=== PATIENT | male | born 1955 | race Caucasian/White ===

== ENCOUNTER 2022-08-18 10:28 | Inpatient (IN) | payer SELFPAY ==
--- OUTSIDE RECORDS SUMMARY | 2022-08-18 10:36 | XMS REPORT | Continuity of Care Document ---
:1955 [facility] t Address [address] [place] [address] [place] [id number] Care Team Providers Name Role Phone [facility] Physicia n _[facility]_Todd_J Attending Clinician Unavailable Kelsey Akbar Attending Clinician Unavailable Lisa Marie LVN Attending Clinician TOMMIE GONZALEZ Attending Clinician Unavailable Abdoul Clayton DO Attending Clinician Farhan CARRENO, Rhonda Cuba Attending Clinician Randy CARRENO, Maylin Duarte Attending Clinician Renny Osorio MD Attending Clinician Daniela Antunez MD Attending Clinician Farhan CARRENO, Gladis Attending Clinician Tommie Gonzalez MD Attending Clinician Nan Amaro MD Attending Clinician Hardeep Campoverde DDS Attending Clinician ALDAIR ABEL Attending Clinician Unavailable Colten CARRENO, Aldair Shafer Attending Clinician Lamin Motta Attending Clinician Yessi PATIÑO MD, Lu Attending Clinician Shady DE PAZ, Karly Antunez Attending Clinician Unavailable Nurse, [place] Urgent Attending Clinician Unavailable Unknown, Attending Attending Clinician Unavailable UNKNOWN, ATTENDING Attending Clinician Unavailable [email or web address] Admitting Clinician Unavailable NAN AMARO Admitting Clinician Unavailable Sondra CARRENO, Nan Admitting Clinician LU DICKSON Admitting Clinician Unavailable Yessi PATIÑO MD, John Admitting Clinician Payers Payer Name Policy Type Policy Number Effective Date Expiration Date [place]re[place] villeda MEDICAID - [id number] MOVED-MGRHOLD - PENDING Problems Condition Condition Condition Status Onset Resolution Last Treating Co mments Source Name Details Category Date Date Treatment Clinician Date Hyperammon Hyperammon Problem Active [facility] emia emia 08-05 Medical 00:00: 00 Hypokalemi Hypokalemi Problem Active [facility] a a 08-05 Medical 00:00: 00 Acute Acute Problem Active [facility] hypokalemi Hypokalemi 08-05 Me dical a a 00:00: 00 Dementia Dementia Problem Active [facility] with with 08-05 Medical behavioral Behavioral 00:00: disturbanc Disturbanc 00 e e Diarrhea Diarrhea Problem Active [facility] 08-05 Medical 00:00: 00 Candidiasi Candidiasi Problem Active [facility] s of skin s of Skin 08-05 Medi oli 00:00: 00 Infection Infection Problem Active [facility] via due to Due to 08-04 Medical ESBL ESBL 00:00: Klebsiella Klebsiella 00 pneumoniae Pneumoniae Acute Acute Problem Active [facility] urinary Urinary 08-04 Medical tract Tract 00:00: infection Infection 00 Dementia Dementia Problem Active [facility] associated Associated 07-28 Me dical with with 00:00: alcoholism Alcoholism 00 Loss of Loss of Problem Active [facility] appetite Appetite 03 Medica l 00:00: 00 Dysuria Dysuria Problem Active [facility] 07-28 Medical 00:00: 00 Unintentio Unintentio Problem Active [facility] nal weight nal Weight 5-01 Me dical loss Loss 00:00: 00 Lives in a Lives in a Problem Active [facility] nursing Nursing 3-06 Medical home Home 00:00: 00 Need for Need for Problem Active [facility] personal Personal 3-06 Medica l care Care 00:00: assistance Assistance 00 At high At High Problem Active [facility] risk for Risk for 3-06 Medica l fall Fall 00:00: 00 Tinea Tinea Problem Active [facility] cruris Cruris 3-03 Medical 00:00: 00 Hyperlipid Hyperlipid Problem Active [facility] emia emia 3-03 Medical 00:00: 00 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 00 Hypercoagu Hypercoagu Problem Active [facility] lability lability 3-03 Medica l state State 00:00: 00 Major Major Problem Active [facility] depressive Depressive 3-03 Me dical disorder Disorder 00:00: 00 Alcohol Alcohol Problem Active [facility] dependence Dependence 3-03 Me dical 00:00: 00 Cocaine Cocaine Problem Active [facility] dependence Dependence 3-03 Me dical in in 00:00: remission Remission 00 Metabolic Metabolic Problem Active [facility] encephalop Encephalop 3-03 Me dical athy athy 00:00: 00 Hypertensi Hypertensi Problem Active [facility] ve heart ve Heart 3-03 Medica l disease Disease 00:00: 00 Cerebral Cerebral Problem Active [facility] atheroscle Atheroscle 3-03 Me dical rosis rosis 00:00: 00 Cerebrovas Cerebrovas Problem Active [facility] cular cular 3-03 Medical disease Disease 00:00: 00 Hemiparesi Hemiparesi Problem Active [facility] s as late s as Late 3 Medi oli effect of Effect of 00:00: cerebrovas Cerebrovas 00 cular cular accident Accident Dysphagia Dysphagia Problem Active [facility] via as a late as a Late 303 Medi oli effect of Effect of 00:00: cerebrovas Cerebrovas 00 cular cular accident Accident Peripheral Peripheral Problem Active [facility] vascular Vascular 3-03 Medica l disease Disease 00:00: 00 Intertrigo Intertrigo Problem Active [facility] 3- Medical 00:00: 00 Prediabete Prediabete Problem Active [facility] s s 05-28 Medical 00:00: 00 Recurrent Recurrent Problem Active [facility] via falls Falls 05-28 Medical 00:00: 00 Moderate Moderate Problem Active [facility] major Major 2-21 Medical depression Depression 00:00: , single , Single 00 episode Episode Toxic Toxic Problem Active [facility] metabolic Metabolic 2-21 Medi oli encephalop Encephalop 00:00: athy athy 00 Acute Acute Disease Active [facility] cerebrovas cerebrovas 2-21 it y of cular cular 00:00: [place] accident accident 00 Medica l (CVA) due (CVA) due Bran ch to to ischemia ischemia Morbid Morbid Disease Active [facility] obesity obesity 2-06 ity of with body with body 00:00[place] mass index mass index 00 Me dical of 50 or of 50 or Branch higher higher Acute Acute Disease Active [facility] weakness weakness -25 ity of 00:00: Medical Branch Closed Closed Disease Active Overview: Univer s fracture fracture -25 Formattin ity of of left of left 00:00: g of this [place] zygomatico zygomatico 00 note Me dical maxillary maxillary might be Br anch complex, complex, different initial initial from the encounter encounter original. Added automatic ally from request for surgery [id number] Abscess of Abscess of Disease Active U [facility] left hand left hand 3-07 ity of 00:00: Medical Branch Flexor Flexor Disease Active Overview: Univer s tenosynovi tenosynovi 3-07 Formattin ity of tis of tis of 00:00: g of this [place] finger finger 00 note Medical might be Branch different from the original. Added automatic ally from request for surgery [id number] Open wound Open wound Disease Active U nivers 5-12 ity of 00:00: Medical Branch Finger Finger Disease Active [facility] pain, pain, 5-12 ity of right right 00:00: Medical Branch Finger Finger Disease Active Univers infection infection 5-12 ity of 00:00: Medical Branch Numbness Numbness Disease Active 2015-0 Unive rs and and 5-12 ity of tingling tingling 00:00: [place] 00 Medical Branch Pain Pain Disease Active Univers 5-02 ity of 00:00: [place] [facility] Left Left Disease Active Univers hemiparesi hemiparesi 1-05 it y of s s 00:00: [place] 00 Medical Branch Allergies, Adverse Reactions, Alerts Allergy Allergy Status Severity Reaction(s) Onset Inactive Treating Comm ents Source Name Type Date Date Clinician NO KNOWN Drug Active Univers ALLERGIE Class ity of S [place] [facility] Social History Social Habit Start Date Stop Date Quantity Comments Source History SDOH Social Unive rsity of Connections Get [place] Med ical Together Branch History SDOH Social Unive rsity of Connections Gnosticism [place] [facility] History SDOH Social Unive rsity of Connections [place] [facility] Membership Branch History SDOH Social Unive rsity of Connections [place] [facility] Meetings Branch Alcohol intake 2022-05-18 2022-05-18 Current University of 00:00:00 00:00:00 non-drinker of [facility] alcohol (finding) Branch History SDOH 2022-04-29 2022-04-29 2 University o f Financial 00:00:00 00:00:00 [place] [facility] History SDOH Food 2022-04-29 2022-04-29 1 Univers ity of Worry 00:00:00 00:00:00 [place] [facility] History SDOH Food 2022-04-29 2022-04-29 1 Univers ity of Scarcity 00:00:00 00:00:00 [place] [facility] History SDOH 2022-04-29 2022-04-29 2 University o f Transport Non-Med 00:00:00 00:00:00 [place] M edical Branch History SDOH 2022-04-22 2022-04-22 2 University o f Alcohol Frequency 00:00:00 00:00:00 [place] M edical Branch History SDOH 2022-04-22 2022-04-22 1 University o f Alcohol Std Drinks 00:00:00 00:00:00 [place] [facility] History SDOH 2022-04-22 2022-04-22 1 University o f Alcohol Binge 00:00:00 00:00:00 [place] Medic al Branch History SDOH Social 2022-04-22 2022-04-22 98 Unive rsity of Connections Phone 00:00:00 00:00:00 [facility] edical Branch History SDOH Social 2022-04-22 2022-04-22 6 Unive rsity of Connections Living 00:00:00 00:00:00 [place] [facility] History SDOH 2022-04-22 2022-04-22 0 University o f Physical Activity 00:00:00 00:00:00 [facility] edical DPW Branch History SDPR 2022-04-22 2022-04-22 0 University o f Physical Activity 00:00:00 00:00:00 [facility] edical MPS Branch History SDPR 2022-04-22 2022-04-22 2 University o f Transport Med 00:00:00 00:00:00 [facility] al Branch Exposure to 2022-04-11 2022-04-21 Not sure University of SARS-CoV-2 (event) 00:00:00 12:52:00 [facility] Cigarettes smoked 2022-04-21 2022-04-21 Univers ity of current (pack per 00:00:00 00:00:00 [facility] ) - Reported Branch Cigarette 2022-04-21 2022-04-21 University of pack-years 00:00:00 00:00:00 [facility] Tobacco use and 2022-04-21 2022-04-21 Former smokeless Uni versity of exposure 00:00:00 00:00:00 tobacco user [facility] [place] Alcohol Comment 2014-07-27 2014-07-27 recovering Universit y of 00:00:00 00:00:00 alcoholic, sober [facility] dical 3 years Branch History of tobacco 2014-07-26 Cigarette Smoker University of use 00:00:00 [facility] Sex [birth year] Universit y of 00:00:00 00:00:00 [facility] Smoking Status Start Date Stop Date Source Former Smoker [facility] Medications Ordered Filled Start Stop Current Ordering Indication Dosage Frequency Signature Comments Components Source Medication Medication Date Date Medication? Clinician (SIG) Name Name chlorhexidi Yes 15mL 15 mL, Univ ers ne 2- Oral ity of (PERIDEX) 02:00: ([place] 0.12 % 00 Spit Out), Medical mouthwash BID, First Bran ch 15 mL dose on Tue05/19/22 at 1999, Until Discontinu ed, Routine aspirin 81 3-0 Yes 81mg Take 1 Unive rs mg chewable 2-23 tablet by ity of tablet 00:00: mouth in [place] 00 the Medical morning. Branch DULoxetine 2023-0 Yes 40mg Take 40 mg U nivers 40 mg CpDR 2-23 by mouth ity o f 00:00: in the [place] 00 morning. Medical Branch thiamine 2023-0 Yes 100mg Take 1 Univer s 100 mg 2-23 tablet by ity of tablet 00:00: mouth in [place] 00 the Medical morning. Branch aspirin 81 2023-0 Yes 81mg Take 1 Unive rs mg chewable 2-23 tablet by ity of tablet 00:00: mouth in [place] 00 the Medical morning. Branch DULoxetine 2023-0 Yes 40mg Take 40 mg U nivers 40 mg CpDR 2-23 by mouth ity o f 00:00: in the [place] morning. Medical Branch thiamine 2023-0 Yes 100mg Take 1 Univer s 100 mg 2-23 tablet by ity of tablet 00:00: mouth in [place] 00 the Medical morning. Branch aspirin 3-0 Yes 81mg 81 mg, Univers chewable 2-22 Oral, ity of tablet 81 15:00: DAILY, [place] mg 00 First dose Medical on Tue [place] 05/19/22 at 0900, Until Discontinu ed, Routine thiamine 3-0 Yes 100mg 100 mg, Unive rs (VITAMIN 2-22 Oral, ity of B1) tablet 15:00: DAILY, [place] 100 mg 00 First dose Medical on Tue [place] 05/19/22 at 0900, Until Discontinu ed, Routine aspirin 3-0 Yes 81mg 81 mg, Univers chewable 2-22 Oral, ity of tablet 81 15:00: DAILY, [place] mg 00 First dose Medical on Tue [place] 05/19/22 at 0900, Until Discontinu ed, Routine atorvastati 2023-0 Yes 80mg Take 1 Univ ers n 80 mg 2-22 tablet by ity of tablet 00:00: mouth at [place] [address] bedtime. Medical Branch lisinopriL 2023-0 Yes 20mg Take 1 Unive rs 20 mg 2-22 tablet by ity of tablet 00:00: mouth in [place] 00 the Medical morning. Branch amLODIPine 2023-0 Yes 5mg Take 1 Unive rs 5 mg tablet 2-22 tablet by ity of 00:00: mouth in [place] 00 the Medical morning. Branch multivit-ir 2022-0 Yes 1{tbl} Take 1 Un susu on-FA-calci 2-22 tablet by ity of um-mins 9 00:00: mouth [place] mg iron-400 00 the Medical mcg tablet morning. Branc h ergocalcife 2022-0 Yes [id number] Take 1 Un susu rol, 2-22 capsule by ity of vitamin d2, 00:00: mouth [place] 1,250 mcg 00 weekly. Medical (50,000 Branch unit) capsule clotrimazol 0 Yes Apply to Un susu e 1 % 2-22 area(s) 2 ity of topical 00:00: (two) [place] cream 00 times Medical daily. Branch artificial 0 Yes 1[drp] Place 1 Un susu tears,hypro 2-22 Drop in ity o f mellose, 00:00: left eye 4 [place] as 0.5 % 00 (four) Medical ophthalmic times Branch drops daily as needed for Dry eyes. nicotine 7 0 Yes 1{patch Apply 1 U nivers mg/24 hr 2-22 } Patch to ity of patch 00:00: area(s) [place] 00 every 24 Medical (twenty-fo Branch ur) hours. atorvastati 2022-0 Yes 80mg Take 1 Univ ers n 80 mg 2-22 tablet by ity of tablet 00:00: mouth at [place] 00 bedtime. Medical Branch lisinopriL 2022-0 Yes 20mg Take 1 Unive rs 20 mg 2-22 tablet by ity of tablet 00:00: mouth in [place] 00 the Medical morning. Branch amLODIPine 2022-0 Yes 5mg Take 1 Unive rs 5 mg tablet 2-22 tablet by ity of 00:00: mouth in [place] 00 the Medical morning. Branch multivit-ir 2022-0 Yes 1{tbl} Take 1 Un susu on-FA-calci 2-22 tablet by ity of um-mins 9 00:00: mouth [place] mg iron-400 00 the Medical mcg tablet morning. Branc h ergocalcife 2022-0 Yes [id number] Take 1 Un susu rol, 2-22 capsule by ity of vitamin d2, 00:00: mouth [place] 1,250 mcg 00 weekly. Medical (50,000 Branch unit) capsule clotrimazol Yes Apply to Un susu e 1 % - area(s) 2 ity of topical 00:00: (two) [place] cream 00 times Medical daily. Branch artificial Yes 1[drp] Place 1 Un susu tears,hypro 2-22 Drop in ity o f mellose, 00:00: left eye 4 [place] as 0.5 % 00 (four) Medical ophthalmic times Branch drops daily as needed for Dry eyes. nicotine 7 Yes 1{patch Apply 1 U nivers mg/24 hr 05-19 } Patch to ity of patch 00:00: area(s) [place] 00 every 24 Medical (twenty-fo Branch ur) hours. chlorhexidi 2022- No 15mL Swish and Univers ne 0.12 % 05-19 spit out ity o f mouthwash 00:00: 05:59 15 mL in [place] as 00 :00 the Medical morning Branch and 15 mL in the evening. amoxicillin 2022- No 1{tbl} Take 1 U nivers -clavulanat 05-19- tablet by it y of e 00:00: 05:59 mouth in [place] (AUGMENTIN) 00 :00 the Medical 875-125 mg morning Branch per tablet and 1 tablet in the evening. chlorhexidi 2022- No 15mL Swish and Univers ne 0.12 % 05-19 spit out ity o f mouthwash 00:00: 05:59 15 mL in [place] as 00 :00 the Medical morning Branch and 15 mL in the evening. amoxicillin 2022- No 1{tbl} Take 1 U nivers -clavulanat 05-19- tablet by it y of e 00:00: 05:59 mouth in [place] (AUGMENTIN) 00 :00 the Medical 875-125 mg morning Branch per tablet and 1 tablet in the evening. pseudoephed 2022- No 60mg Take 2 Uni vers rine 30 mg 05-19-27 tablets by it y of tablet 00:00: 05:59 mouth [place] 00 :00 every 6 Medical (six) Branch hours. pseudoephed 2022- No 60mg Take 2 Uni vers rine 30 mg 05-19 tablets by it y of tablet 00:00: 05:59 mouth [place] 00 :00 every 6 Medical (six) Branch hours. oxymetazoli 2022- No 1{spray Use 1 U nivers ne 0.05 % 05-19 } [place] in ity o f nasal spray 00:00: 05:59 each [place] 00 :00 nostril in Medical the Branch morning and 1 [place] at noon and 1 [place] in the evening. oxymetazoli 2022-2022- No 1{spray Use 1 U nivers ne 0.05 % 05-19 } [place] in ity o f nasal spray 00:00: 05:59 each [place] 00 :00 nostril in Medical the Branch morning and 1 [place] at noon and 1 [place] in the evening. oxymetazoli 2022- No 1{spray 1 [place], Univers ne 05-18 } Nasal, ity of (OXYMETAZOL 14:00: 13:59 TID, 9 [place] as INE HCL) 00 :00 doses, Medical 0.05 % First dose Branch nasal spray (after 1 [place] last modificati on) on Tue05/18/22 at 0800, Last dose on Tue05/20/22 at 1999, Routine oxymetazoli 2022- No 1{spray 1 [place], Univers ne 05-18 } Nasal, ity of (OXYMETAZOL 14:00: 13:59 TID, 9 [place] as INE HCL) 00 :00 doses, Medical 0.05 % First dose Branch nasal spray (after 1 [place] last modificati on) on Tue05/18/22 at 0800, Last dose on Tue05/20/22 at 1999, Routine pseudoephed 2022- No 60mg 60 mg, Uni vers rine 05-18 Oral, Q6H, ity of (SUDAFED) 13:15: 11:59 20 doses, [place] tablet 60 00 :00 First dose Medi oli mg on [facility] 05/18/22 at 0715, Last dose on [place] 05/23/22 at 0000, Routine pseudoephed 2022- No 60mg 60 mg, Uni vers rine 05-18 Oral, Q6H, ity of (SUDAFED) 13:15: 11:59 20 doses, [place] tablet 60 00 :00 First dose Medi oli mg on Tue05/18/22 at 0715, Last dose on [place] 05/23/22 at 0000, Routine morpHINE (2022-0 Yes 2mg 2 mg, Slow Univers mg/mL) 2- IV Push, ity of injection 2 03:48: Q4HPRN, [place] as mg 11 Starting Medical on [facility] 05/17/22 at 2148, Until Discontinu ed, Routine, Pain (scale 7-10) morpHINE (2 2022-0 Yes 2mg 2 mg, Slow Univers mg/mL) - IV Push, ity of injection 2 03:48: Q4HPRN, [place] as mg 11 Starting Medical on [facility] 05/17/22 at 2148, Until Discontinu ed, Routine, Pain (scale 7-10) ampicillin- 2022-0 2022- No 3g 3 g, IV Un susu sulbactam 05-17 Piggyback, ity of (UNASYN) 3 23:00: 22:59 Q6H ABX, [place] g in NaCl 00 :00 28 doses, Medic al 0.9% (NS) First dose Bran ch 100 mL on Tue MINI-BAG 05/17/22 at 1700, Last dose on Tue05/24/22 at 1100, Administer over 30 Minutes, 100 mL
Reas on for Anti-Infec tive: Documented Infection< br>Documen nicole Infection Site: Skin / Soft Tissue
Duration of Therapy: 7 days ampicillin- 2022-0 2022- No 3g 3 g, IV Un susu sulbactam 05-17 Piggyback, ity of (UNASYN) 3 23:00: 22:59 Q6H ABX, [place] g in NaCl 00 :00 28 doses, Medic al 0.9% (NS) First dose Bran ch 100 mL on Tue MINI-BAG 05/17/22 at 1700, Last dose on Tue05/24/22 at 1100, Administer over 30 Minutes, 100 mL
Reas on for Anti-Infec tive: Documented Infection< br>Documen nicole Infection Site: Skin / Soft Tissue
Duration of Therapy: 7 days oxymetazoli 0 Yes PRN, Univer s ne 2-20 Starting ity of (OXYMETAZOL 20:53: on Mon [place] INE HCL) 00 05/17/22 at Medic al 0.05 % 1453, Branch nasal spray Until Discontinu ed, Routine, Intra-op lidocaine-e 0 Yes PRN, Univer s pinephrine 2-20 Starting ity o f (XYLOCAINE 20:53: on Tue [place] WITH 00 05/17/22 at Medical EPINEPHRINE 1453, Branch ) 2 Until %-1:100,000 Discontinu injection ed, Routine, Intra-op oxymetazoli Yes PRN, Univer s ne 2-20 Starting ity of (OXYMETAZOL 20:53: on Tue [place] INE HCL) 00 05/17/22 at Medic al 0.05 % 1453, Branch nasal spray Until Discontinu ed, Routine, Intra-op lidocaine-e 0 Yes PRN, Univer s pinephrine 2-20 Starting ity o f (XYLOCAINE 20:53: on Tue [place] WITH 00 05/17/22 at Medical EPINEPHRINE 1453, Branch ) 2 Until %-1:100,000 Discontinu injection ed, Routine, Intra-op oxymetazoli Yes Intra-op Un susu ne 2-20 ity of (OXYMETAZOL 18:21: [place] INE HCL) 00 Medical 0.05 % Branch nasal spray oxymetazoli Yes Intra-op Un susu ne 2-20 ity of (OXYMETAZOL 18:21: [place] INE HCL) 00 Medical 0.05 % Branch nasal spray artificial 0 Yes 1[drp] 1 Drop, Un susu tears(hypro 2-19 Left Eye, ity of mellose) 16:53: QIDPRN, [place] (ISOPTO-TEA 22 Starting Medi oli RS) 0.5 % on Sun Branch ophthalmic 05/16/22 at drops 1 1053, Drop Until Discontinu ed, Routine, Dry eyes artificial 0 Yes 1[drp] 1 Drop, Un susu tears(hypro 2-19 Left Eye, ity of mellose) 16:53: QIDPRN, [place] (ISOPTO-TEA 22 Starting Medi oli RS) 0.5 % on Sun Branch ophthalmic 05/16/22 at drops 1 1053, Drop Until Discontinu ed, Routine, Dry eyes acetaminoph 3-0 Yes 500mg 500 mg, Un susu en 2-17 Oral, Q8H, ity of (TYLENOL) 20:00: First dose [place] tablet 500 00 (after Medical mg last Branch modificati on) on Tue05/14/22 at 1400, Until Discontinu ed, Routine acetaminoph 2022-0 Yes 500mg 500 mg, Un susu en 2-17 Oral, Q8H, ity of (TYLENOL) 20:00: First dose [place] tablet 500 00 (after Medical mg last Branch modificati on) on Tue05/14/22 at 1400, Until Discontinu ed, Routine HYDROcodone 2022- No 1{tbl} 1 tablet, Univers -acetaminop 17 -21 Oral, Q6H, i ty of hen (NORCO 18:00: 03:48 First dose [place] 5) 5-325 mg 00 :25 on Tue Medica l tablet 1 05/14/22 at [facility] h tablet 1200, Until Discontinu ed, Routine aquaphilic 2022-0 Yes Topical, Uni vers ointment 2-13 DAILY, ity of (AQUAPHOR) 15:00: First dose [place] ointment 00 on [facility] 05/10/22 at Branch 0900, Until Discontinu ed, Routine aquaphilic 2022-0 Yes Topical, Uni vers ointment 2-13 DAILY, ity of (AQUAPHOR) 15:00: First dose [place] ointment 00 on [facility] 05/10/22 at Branch 0900, Until Discontinu ed, Routine clopidogreL 2022-2022- No 75mg 75 mg, Uni vers (PLAVIX) 75 05-08 Oral, ity of mg tablet 15:00: 14:19 DAILY, 74 [place] 75 mg 00 :47 doses, Medical First dose Branch (after last modificati on) on Tue05/08/22 at 0900, Last dose on Tue07/20/22 at 0900, Routine DULoxetine 2023-0 Yes 40mg 40 mg, Unive rs (CYMBALTA) 2-04 Oral, ity of capsule 40 15:00: DAILY, [place] mg 00 First dose Medical (after Branch last modificati on) on Tue05/01/22 at 0900, Until Discontinu ed, Routine DULoxetine 2023-0 Yes 40mg 40 mg, Unive rs (CYMBALTA) 2- Oral, ity of capsule 40 15:00: DAILY, [place] mg 00 First dose Medical (after Branch last modificati on) on Tue05/01/22 at 0900, Until Discontinu ed, Routine nicotine 3-0 Yes 1{patch 1 Patch, Un susu (NICODERM) 2-04 } Topical, ity o f 7 mg/24 hr 02:00: Administer [place] patch 1 00 over 24 Medical Patch Hours, Branch Q24H, First dose on Tue04/30/22 at 2000, Until Discontinu ed, Routine nicotine 3-0 Yes 1{patch 1 Patch, Un susu (NICODERM) 2-04 } Topical, ity o f 7 mg/24 hr 02:00: Administer [place] patch 1 00 over 24 Medical Patch Hours, Branch Q24H, First dose on Tue04/30/22 at 2000, Until Discontinu ed, Routine DULoxetine 2023-0 2023- No 20mg 20 mg, Univ ers (CYMBALTA) 2 02-03 Oral, ity of capsule 20 16:45: 16:12 DAILY, [place] mg 00 :28 First dose Medical on Tue04/28/22 at 1045, Until Discontinu ed, Routine amLODIPine 3-0 Yes 5mg 5 mg, Univer s (NORVASC) 2 Oral, ity of tablet 5 mg 15:00: DAILY, [place] 00 First dose Medical (after Branch last modificati on) on Tue04/28/22 at 0900, Until Discontinu ed, Routine lisinopriL 2023-0 Yes 20mg 20 mg, Unive rs (PRINIVIL,Z 2- Oral, ity of ESTRIL) 15:00: DAILY, [place] tablet 20 00 First dose Medi oli mg (after Branch last modificati on) on Tue04/28/22 at 0900, Until Discontinu ed, Routine amLODIPine 2022-0 Yes 5mg 5 mg, Univer s ([facility]) 04-28 Oral, ity of tablet 5 mg 15:00: DAILY, [place] 00 First dose Medical (after Branch last modificati on) on Tue04/28/22 at 0900, Until Discontinu ed, Routine lisinopriL 2022-0 Yes 20mg 20 mg, Unive rs (PRINIVIL,Z 04-28 Oral, ity of ESTRIL) 15:00: DAILY, [place] tablet 20 00 First dose Medi oli mg (after Branch last modificati on) on Tue04/28/22 at 0900, Until Discontinu ed, Routine amLODIPine 0 2022- No 10mg 10 mg, Univ [facility] 04-[facility] Oral, ity of tablet 10 15:00: 14:27 DAILY, [place] mg 00 :12 First dose Medical (after Branch last modificati on) on Tue04/27/22 at 0900, Until Discontinu ed, Routine nicotine 2022-0 202- No 1{patch 1 Patch, U nivers (NICODERM) 04-26 } Topical, ity of 14 mg/24 hr 23:45: 16:12 Administer [place] patch 1 00 :27 over 24 Medical Patch Hours, Branch Q24H, First dose on Tue04/26/22 at 1745, Until Discontinu ed, Routine lisinopriL 0 2022- No 40mg 40 mg, Univ ers (PRINIVIL,Z 04-26 Oral, ity of ESTRIL) 15:00: 14:27 DAILY, [place] tablet 40 00 :12 First dose Medi oli mg (after Branch last modificati on) on Tue04/26/22 at 0900, Until Discontinu ed, Routine amLODIPine 2022-0 2022- No 5mg 5 mg, [facility] ([facility] 04-25 Oral, ity of tablet 5 mg 17:30: 14:07 DAILY, [place] as 00 :07 First dose Medical (after Branch last modificati on) on Tue04/25/22 at 1130, Until Discontinu ed, Routine multivit-ir 2022-0 Yes 1{tbl} 1 tablet, Univers on-FA-calci 04-25 Oral, ity of um-mins 15:00: DAILY, [place] (THERA-) 9 00 First dose Me dical mg iron-400 on Sun Branch mcg tablet 04/25/22 at 1 tablet 0900, Until Discontinu ed, Routine multivit-ir Yes 1{tbl} 1 tablet, Univers on-FA-calci 04-25 Oral, ity of um-mins 15:00: DAILY, [place] (THERA-) 9 00 First dose Me dical mg iron-400 on Sun Branch mcg tablet 04/25/22 at 1 tablet 0900, Until Discontinu ed, Routine lisinopriL 2022- No 20mg 20 mg, Univ ers (PRINIVIL,Z 04-25 Oral, ity of ESTRIL) 15:00: 17:13 DAILY, [place] tablet 20 00 :44 First dose Medi oli mg on [place] Branch 04/25/22 at 0900, Until Discontinu ed, Routine KCL 20 2022- No 40meq 40 mEq, Univer s mEq/15 mL 04-25 Oral, Q4H, ity of solution 40 14:00: 19:27 2 doses, [place] mEq 00 :00 First dose Medical on [facility] 04/25/22 at 0800, Last dose on 04/25/22 at 1200, Routine lisinopriL 2022- No 20mg 20 mg, Univ ers (PRINIVIL,Z 04-25 Oral, ity of ESTRIL) 09:21: 10:01 ONCE, 1 [place] tablet 20 00 :00 dose, On Medica l mg [facility] 04/25/22 at 0330, Routine enalapril 2022- No 10mg 10 mg, Unive rs (VASOTEC) 04-23 Oral, ity of tablet 10 20:15: 18:05 DAILY, [place] mg 00 :30 First dose Medical on Tue [place] 04/23/22 at 1415, Until Discontinu ed, Routine ergocalcife 2022- No [id number] 50,000 U nivers rol 04-23 04-07 Units, ity of (vitamin 15:00: 13:59 Oral, [place] d2) 00 :00 QWEEKLY, Medical (CALCIFEROL 10 doses, [facility] ) capsule First dose 50,000 on Fri Units 04/23/22 at 0900, Last dose on Tue06/25/22 at 0900, Routine ergocalcife 2022- No [id number] 50,000 U nivers rol 04-23 04-07 Units, ity of (vitamin 15:00: 13:59 Oral, [place] d2) 00 :00 QWEEKLY, Medical (CALCIFEROL 10 doses, [facility] ) capsule First dose 50,000 on Fri Units 04/23/22 at 0900, Last dose on Tue06/25/22 at 0900, Routine clopidogreL 2022- No 75mg 75 mg, Uni vers (PLAVIX) 75 04-23 02-11 Oral, ity of mg tablet 15:00: 12:52 DAILY, 21 [place] 75 mg 00 :41 doses, Medical First dose Branch (after last modificati on) on Tue04/23/22 at 0900, Last dose on Tue05/13/22 at 0900, Routine clopidogreL 2022- No 75mg 75 mg, Uni vers (PLAVIX) 75 04-23 02-03 Oral, ity of mg tablet 15:00: 16:12 DAILY, [place] 75 mg 00 :28 First dose Medical on Fri Branch 04/23/22 at 0900, Until Discontinu ed, Routine atorvastati Yes 80mg 80 mg, Univ ers n (LIPITOR) 04-23 Oral, QHS, it y of tablet 80 03:00: First dose [place] mg 00 (after Medical last Branch modificati on) on Tue04/22/22 at 2100, Until Discontinu ed, Routine atorvastati 0 Yes 80mg 80 mg, Univ ers n (LIPITOR) 04-23 Oral, QHS, it y of tablet 80 03:00: First dose [place] mg 00 (after Medical last Branch modificati on) on Tue04/22/22 at 2100, Until Discontinu ed, Routine thiamine Yes 500mg 500 mg, Unive rs (VITAMIN 04-23 Oral, TID, ity o f B1) tablet 02:00: First dose [place] 500 mg 00 on [facility] 04/22/22 at [place] 1999, Until Discontinu ed, Routine thiamine No 500mg 500 mg, [facility] [place] [facility] ers (VITAMIN 04-23 Oral, TID, ity of B1) tablet 02:00: 12:33 First dose [place] 500 mg 00 :40 on [facility] 04/22/22 at [place] 1999, Until Discontinu ed, Routine barium 2022- No [id number] 20mL 20 mL, Uni vers sulfate-NO 04-22 Oral, ity of CHARGE- 20:30: 20:17 ONCE, 1 [place] (VARIBAR 00 :00 dose, On Medical NECTOR) 40 [facility] % (w/v) 04/22/22 at oral 1430, suspension Routine 20 mL barium No [id number] 30g 30 g, Univ ers sulfate 04-22 Oral, ity of (VARIBAR 20:30: 20:17 ONCE, 1 [place] THIN 00 :00 dose, On Medical LIQUID) 81 [facility] % (w/w) 04/22/22 at oral powder 1430, 30 g Routine cyanocobala No 1000ug 1,000 mcg, Univers min (DODEX) 04-22 Intramuscu i ty of injection 15:15: 17:10 lar, Q24H, [place] 1,000 mcg 00 :00 3 doses, Medica l First dose Branch on [facility] 04/22/22 at 0915, Last dose on 04/24/22 at 0915, Routine aspirin No 81mg 81 mg, Univers chewable 04-22 Oral, ity of tablet 81 15:00: 16:50 DAILY, [place] mg 00 :39 First dose Medical on [facility] 04/22/22 at 0900, Until Discontinu ed, Routine enoxaparin No 40mg 40 mg, [facility] [place] [facility] ers (LOVENOX) 04-22 Subcutaneo ity of injection 15:00: 16:40 us, DAILY, [place] 40 mg 00 :50 First dose Medical on [facility] 04/22/22 at 0900, Until Discontinu ed, Routine foLIC acid 2022- No 5mg IV Univer s (FOLATE) 5 04-22 Piggyback, it y of mg in NaCl 15:00: 16:45 DAILY, [place] 0.9% (NS) 00 :48 First dose Medi oil piggyback on [facility] Branch 04/22/22 at 0900, Until Discontinu ed, 50 mL thiamine 2022- No 100mg IV Univers (VITAMIN 04-22 Piggyback, ity of B1) 100 mg 15:00: 17:31 DAILY, 1 [place] in NaCl 00 :00 dose, Medical 0.9% (NS) First dose Bran ch piggyback on [facility] 04/22/22 at 0900, 50 mL clotrimazol Yes Topical, Un susu e 04-22 BID, First ity of (LOTRIMIN) 14:00: dose on [place] 1 % topical Tue Medical cream 04/22/22 at Branch 0800, Until Discontinu ed, Routine clotrimazol Yes Topical, Un susu e 04-22 BID, First ity of (LOTRIMIN) 14:00: dose on [place] 1 % topical Tue Medical cream 04/22/22 at Branch 0800, Until Discontinu ed, Routine clopidogreL 2022- No 75mg 75 mg, Uni vers (PLAVIX) 75 04-22 Oral, ity of mg tablet 08:15: 08:09 ONCE, 1 [place] 75 mg 00 :00 dose, On Medical [facility] Branch 04/22/22 at 0215, Routine iopamidol 2022- No [id number] 80mL 80 mL, Univers (ISOVUE 04-22 Intravenou ity o f 370-500 mL) 04:39: 04:30 s, ONCE, 1 [place] injection 00 :00 dose, On Medica l 80 mL [facility] Branch 04/21/22 at 2245, Routine aspirin 2022- No 325mg 325 mg, Unive rs tablet 325 04-22 Oral, ity of mg 03:45: 03:29 ONCE, 1 [place] 00 :00 dose, On Medical [facility] Branch 04/21/22 at 2145, Routine atorvastati 2022- No 40mg 40 mg, Uni vers n (LIPITOR) 04-22 Oral, QHS, i ty of tablet 40 03:00: 22:22 First dose [place] mg 00 :23 on Wed Medical 04/21/22 at Branch 2100, Until Discontinu ed, Routine azithromyci 2022- No 500mg 500 mg, IV Univers n 04-22 Piggyback, ity of (ZITHROMAX) 02:00: 03:41 ONCE, 1 [place] 500 mg in 00 :00 dose, On Medica l NaCl 0.9% [facility] Branch (NS) 250 mL 04/21/22 at VIAL-MATE 2000, IV Administer piggyback over 60 Minutes, 250 mL
R thong for Anti-Infec tive: Empiric Therapy for Suspected Infection< br>Empiric Therapy Site: Respirator y
Durat ion of therapy: 72 hours nicotine 2022- No 1{patch 1 Patch, U nivers (NICODERM) 04-21 } Topical, ity of 21 mg/24 hr 23:30: 22:38 Administer [place] patch 1 00 :37 over 24 Medical Patch Hours, Branch Q24H, First dose on Tue04/21/22 at 1730, Until Discontinu ed, Routine enalapril 2022- No 20mg 20 mg, Unive rs (VASOTEC) 04-21 Oral, ity of tablet 20 23:15: 23:23 ONCE, 1 [place] mg 00 :00 dose, On Medical Wed Branch 04/21/22 at 1715, SANJEEV NaCl 0.9% 2022- No 1000mL at 999 Uni vers (NS) bolus 04-21 mL/hr, ity of infusion 23:00: 02:11 1,000 mL, [place] 1,000 mL 00 :00 IV Medical Infusion, Branch ONCE, 1 dose, On 04/21/22 at 1700, SANJEEV NaCl 0.9% 2022- No 1000mL at 999 Uni vers (NS) bolus 04-21 mL/hr, ity of infusion 20:45: 21:46 1,000 mL, [place] 1,000 mL 00 :00 IV Medical Infusion, Branch ONCE, 1 dose, On Tue04/21/22 at 1445, SANJEEV docusate 2020- No [id number] 100mg Take 1 [facility] 100 mg 3-01 28-26 capsule by ity of capsule 00:00: 04:59 mouth 2 [place] 00 :00 (two) Medical times Branch daily for 14 days. sulfamethox 2020- No [id number] 1{tbl} Take 1 Univers azole-trime 3-01 28-26 tablet by it y of thoprim 00:00: 04:59 mouth 2 [place] (BACTRIM 00 :00 (two) Medical DS) 800-160 times Branch mg per daily for tablet 14 days. docusate 2020- No [id number] 100mg Take 1 [facility] 100 mg 3-01 28-26 capsule by ity of capsule 00:00: 04:59 mouth 2 [place] 00 :00 (two) Medical times Branch daily for 14 days. sulfamethox 2020- No [id number] 1{tbl} Take 1 Univers azole-trime 3-01 28-26 tablet by it y of thoprim 00:00: 04:59 mouth 2 [place] (BACTRIM 00 :00 (two) Medical DS) 800-160 times Branch mg per daily for tablet 14 days. docusate 2020- No [id number] 100mg Take 1 [facility] 100 mg 3-01 28-26 capsule by ity of capsule 00:00: 04:59 mouth 2 [place] 00 :00 (two) Medical times Branch daily for 14 days. sulfamethox 2020- No [id number] 1{tbl} Take 1 [facility] azole-trime 3-11 -26 tablet by it y of thoprim 00:00: 04:59 mouth 2 [place] (BACTRIM 00 :00 (two) Medical DS) 800-160 times Branch mg per daily for tablet 14 days. docusate 2020- No [id number] 100mg Take 1 [facility] 100 mg 3-11 -26 capsule by ity of capsule 00:00: 04:59 mouth 2 [place] 00 :00 (two) Medical times Branch daily for 14 days. sulfamethox No [id number] 1{tbl} Take 1 Univers azole-trime -01 28- tablet by it y of thoprim 00:00: 04:59 mouth 2 [place] (BACTRIM 00 :00 (two) Medical DS) 800-160 times Branch mg per daily for tablet 14 days. docusate No [id number] 100mg Take 1 Univers 100 mg 06-05 capsule by ity of capsule 00:00: 04:59 mouth 2 [place] 00 :00 (two) Medical times Branch daily for 14 days. sulfamethox No [id number] 1{tbl} Take 1 Univers azole-trime -06-20 tablet by it y of thoprim 00:00: 04:59 mouth 2 [place] (BACTRIM 00 :00 (two) Medical DS) 800-160 times Branch mg per daily for tablet 14 days. HYDROcodone No [id number] 1{tbl} Take 1 U nivers -acetaminop 3-11 -19 tablet by it y of hen 5-325 00:00: 04:59 mouth [place] mg tablet 00 :00 every 4 Medical (four) Branch hours as needed for Pain (scale 7-10) for up to 7 days. Indication s: acute pain HYDROcodone No [id number] 1{tbl} Take 1 U nivers -acetaminop 3-11 03-19 tablet by it y of hen 5-325 00:00: 04:59 mouth [place] mg tablet 00 :00 every 4 Medical (four) Branch hours as needed for Pain (scale 7-10) for up to 7 days. Indication s: acute pain HYDROcodone No [id number] 1{tbl} Take 1 U nivers -acetaminop 3-11 03-19 tablet by it y of hen 5-325 00:00: 04:59 mouth [place] mg tablet 00 :00 every 4 Medical (four) Branch hours as needed for Pain (scale 7-10) for up to 7 days. Indication s: acute pain HYDROcodone No [id number] 1{tbl} Take 1 U nivers -acetaminop 3-11 03-19 tablet by it y of hen 5-325 00:00: 04:59 mouth [place] mg tablet 00 :00 every 4 Medical (four) Branch hours as needed for Pain (scale 7-10) for up to 7 days. Indication s: acute pain hydroCHLORO Yes 12.5mg 12.5 mg, Univers thiazide 3-10 Oral, ity of (ESIDRIX) 19:00: DAILY, [place] capsule 00 First dose Medica l 12.5 mg on Tue06/04/20 at 1300, Until Discontinu ed, Routine vancomycin Yes 1250mg 1,250 mg, Univers 1250 mg in 3-10 IV ity of NS 250 mL 14:30: Piggyback, [place] RTU IV 00 Q12H ABX, Medical Piggyback First dose Bran ch 1,250 mg (after last modificati on) on Tue06/04/20 at 0830, Until Discontinu ed
Reas on for Anti-Infec tive: Documented Infection< br>Documen nicole Infection Site: Skin / Soft Tissue
Duration of Therapy: 7 days omeprazole Yes 20mg 20 mg, Unive rs (PRILOSEC) 3-08 Oral, ity of capsule 20 15:00: DAILY, [place] mg 00 First dose Medical on Tue06/02/20 at 0900, Until Discontinu ed, Routine Polyethylen Yes 17g 17 g, Unive rs e Glycol 3-08 Oral, ity of 3350 15:00: DAILY, [place] (MIRALAX) 00 First dose Medi oli powder 17 g on Tue06/02/20 at 0900, Until Discontinu ed, Routine sennosides- Yes 1{tbl} 1 tablet, [facility] docusate 3-08 Oral, ity of sodium 15:00: DAILY, [place] (SENOKOT-S) 00 First dose Me dical 8.6-50 mg on Tue per tablet 06/02/20 at 1 tablet 0900, Until Discontinu ed, Routine HYDROcodone 2020- No 1{tbl} 1 tablet, Univers -acetaminop 3-08 03-08 Oral, ity of hen (NORCO 15:00: 15:05 ONCE, 1 [place] 5) 5-325 mg 00 :00 dose, [facility] ical tablet 1 06/02/20 at [place] tablet 0900, Routine, [facility]U melatonin 0 Yes 3mg 3 mg, Univers (MELATIN) 3-08 Oral, QHS, ity of tablet 3 mg 03:00: First dose [place] 00 on [facility] 06/01/20 at [place] 2100, Until Discontinu ed, Routine vancomycin 0 2020- No 15mg/kg 1,000 mg Univers (VANCOCIN) 3 03-10 (rounded ity of 1,000 mg in 02:20: 14:07 from 1,089 [place] NaCl 0.9% 24 :38 mg = 15 Medical (NS) 250 mL mg/kg [place] VIAL-MATE ?72.6 kg), IV IV piggyback Piggyback, Q12H ABX, First dose (after last modificati on) on [place] 06/01/20 at 2030, Until Discontinu ed, 250 mL
Reas on for Anti-Infec tive: Documented Infection< br>Documen nicole Infection Site: Skin / Soft Tissue
Duration of Therapy: 7 days docusate Yes 100mg 100 mg, Unive rs (COLACE) 3-08 Oral, ity of capsule 100 02:00: Q12H, [place] mg 00 First dose Medical on [facility] 06/01/20 at 2000, Until Discontinu ed, Routine methocarbam Yes 500mg 500 mg, Un susu oL 3-08 Oral, QID, ity of (ROBAXIN) 02:00: First dose [place] tablet 500 00 on [facility] 06/01/20 at Branch 2000, Until Discontinu ed, Routine bisacodyL Yes 10mg 10 mg, Univer s (DULCOLAX) 3-08 Rectal, ity of suppository 01:40: QDAILYPRN, [place] 10 mg 04 Starting Medical [place] 06/01/20 [place] at 1940, Until Discontinu ed, Routine, Constipati on unresolved by oral medication s, If no bowel movement for 2-3 days diphenhydrA 0 Yes 25mg 25 mg, Univ ers MINE 3-08 Oral, ity of (BENADRYL) 01:40: Q4HPRN, [place] tablet 25 04 Starting Medica l mg [place] 06/01/20 Branch at 1940, Until Discontinu ed, Routine, Sleep, Itching morpHINE 0 Yes 4mg 4 mg, Slow Uni vers injection 4 3-08 IV Push, ity of mg 01:40: Q4HPRN, [place] 03 Starting [facility] 06/01/20 Branch at 1940, Until Discontinu ed, Routine, For pain unrelieved by oral medication s, or if patient is unable to tolerate oral pain medication . HYDROcodone 2020-0 Yes 1{tbl} 1 tablet, Univers -acetaminop 3-08 Oral, ity of hen (NORCO 01:40: Q4HPRN, [place] 5) 5-325 mg 03 Starting Medi oli tablet 1 [place] 06/01/20 Bran h tablet at 1940, Until Discontinu ed, Routine, Pain (scale 7-10) traMADoL 0 Yes 50mg 50 mg, Univers (ULTRAM) 3-08 Oral, ity of tablet 50 01:40: Q6HPRN, [place] mg 03 Starting [facility] 06/01/20 Branch at 1940, Until Discontinu ed, Routine, Pain (scale 4-6) ondansetron 0 Yes 4mg 4 mg, Slow Univers (ZOFRAN 3-08 IV Push, ity of (PF)) 01:40: Q6HPRN, [place] injection 4 03 Starting Medi oli mg [place] 06/01/20 Branch at 1940, Until Discontinu ed, Routine, Nausea and Vomiting (N/V) morpHINE 2020- No 4mg 4 mg, Slow Un susu injection 4 3- 03-08 IV Push, ity of mg 01:00: 00:01 ONCE, 1 [place] 00 :00 dose, [facility] 06/01/20 at Branch 1900, STAT tetanus-dip 2020- No .5mL 0.5 mL, Un susu htheria 06-02 03-07 Intramuscu ity o f toxoids 00:45: 23:44 lar, ONCE, [place] (TENIVAC) 00 :00 1 dose, Medical 5-2 Lf [place] 06/01/20 [place] unit/0.5 mL at 1845, injection Routine 0.5 mL ceFAZolin 0 2020- No 1000mg 1,000 mg, Univers (ANCEF) 3-08 03-08 IV ity of 1,000 mg in 00:30: 00:13 [place], [place] NaCl 0.9% 00 :00 ONCE, 1 Medical (NS) 50 mL dose, Sun Bran ch MINI-BAG 06/01/20 at 1830, 50 mL
Reas on for Anti-Infec tive: Documented Infection< br>Documen nicole Infection Site: Skin / Soft Tissue
Duration of Therapy: 7 days NaCl 0.9% 2020- No 1000mL at 999 Uni vers (NS) bolus 3-07 03-08 mL/hr, ity of infusion 23:30: 01:26 1,000 mL, [place] 1,000 mL 00 :00 IV Medical Infusion, Branch ONCE, 1 dose, [place] 06/01/20 at 1730, STAT acetaminoph Yes 1{tbl} Take 1 Tab Univers en-codeine 5-08 by mouth ity o f (TYLENOL 00:00: every 4 [place] #3) 300-30 00 (four) Medical mg tablet hours as Branch needed for Pain (scale 4-6) or Pain (scale 7-10). acetaminoph Yes 1{tbl} Take 1 Tab Univers en-codeine 5-08 by mouth ity o f (TYLENOL 00:00: every 4 [place] #3) 300-30 00 (four) Medical mg tablet hours as Branch needed for Pain (scale 4-6) or Pain (scale 7-10). acetaminoph Yes 1{tbl} Take 1 Tab Univers en-codeine 5-08 by mouth ity o f (TYLENOL 00:00: every 4 [place] #3) 300-30 00 (four) Medical mg tablet hours as Branch needed for Pain (scale 4-6) or Pain (scale 7-10). acetaminoph Yes 1{tbl} Take 1 Tab Univers en-codeine 5-08 by mouth ity o f (TYLENOL 00:00: every 4 [place] #3) 300-30 00 (four) Medical mg tablet hours as Branch needed for Pain (scale 4-6) or Pain (scale 7-10). acetaminoph 2020- No 1{tbl} Take 1 Tab Univers en-codeine 08-02 03-11 by mouth ity of (TYLENOL 00:00: 00:00 every 4 [place] #3) 300-30 00 :00 (four) Medical mg tablet hours as Branch needed for Pain (scale 4-6) or Pain (scale 7-10). atorvastati Yes 20mg Take 1 Tab Univers n (LIPITOR) 1-06 by mouth ity of 20 mg 00:00: at [place] tablet 00 bedtime. Medical Branch enalapril 0 Yes 10mg Take 1 Tab Un susu (VASOTEC) 1-06 by mouth ity of 10 mg 00:00: daily. [place] tablet 00 Medical Branch atorvastati Yes 20mg Take 1 Tab Univers n (LIPITOR) 1-06 by mouth ity of 20 mg 00:00: at [place] tablet 00 bedtime. Medical Branch enalapril Yes 10mg Take 1 Tab Un susu (VASOTEC) 1-06 by mouth ity of 10 mg 00:00: daily. [place] tablet 00 Medical Branch atorvastati Yes 20mg Take 1 Tab Univers n (LIPITOR) 1-06 by mouth ity of 20 mg 00:00: at [place] tablet 00 bedtime. Medical Branch enalapril Yes 10mg Take 1 Tab Un susu (VASOTEC) 1-06 by mouth ity of 10 mg 00:00: daily. [place] tablet 00 Medical Branch atorvastati Yes 20mg Take 1 Tab Univers n (LIPITOR) 1-06 by mouth ity of 20 mg 00:00: at [place] tablet 00 bedtime. Medical Branch enalapril 0 Yes 10mg Take 1 Tab Un susu (VASOTEC) 1-06 by mouth ity of 10 mg 00:00: daily. [place] tablet 00 Medical Branch atorvastati Yes 20mg Take 1 Tab Univers n (LIPITOR) 1-06 by mouth ity of 20 mg 00:00: at [place] tablet 00 bedtime. Medical Branch enalapril 0 Yes 10mg Take 1 Tab Un susu (VASOTEC) 1-06 by mouth ity of 10 mg 00:00: daily. [place] tablet 00 Medical Branch atorvastati Yes 20mg Take 1 Tab Univers n (LIPITOR) 1-06 by mouth ity of 20 mg 00:00: at [place] tablet 00 bedtime. Medical Branch enalapril Yes 10mg Take 1 Tab Un susu (VASOTEC) 1-06 by mouth ity of 10 mg 00:00: daily. [place] tablet 00 Medical Branch atorvastati Yes 20mg Take 1 Tab Univers n (LIPITOR) 1-06 by mouth ity of 20 mg 00:00: at [place] tablet 00 bedtime. Medical Branch enalapril Yes 10mg Take 1 Tab Un susu (VASOTEC) 1-06 by mouth ity of 10 mg 00:00: daily. [place] tablet 00 Medical Branch atorvastati Yes 20mg Take 1 Tab Univers n (LIPITOR) 1-06 by mouth ity of 20 mg 00:00: at [place] tablet 00 bedtime. Medical Branch enalapril Yes 10mg Take 1 Tab Un susu (VASOTEC) 1-06 by mouth ity of 10 mg 00:00: daily. [place] tablet 00 Medical Branch atorvastati Yes 20mg Take 1 Tab Univers n (LIPITOR) 1-06 by mouth ity of 20 mg 00:00: at [place] tablet 00 bedtime. Medical Branch enalapril Yes 10mg Take 1 Tab Un susu (VASOTEC) 1-06 by mouth ity of 10 mg 00:00: daily. [place] tablet 00 Medical Branch atorvastati Yes 20mg Take 1 Tab Univers n (LIPITOR) 1-06 by mouth ity of 20 mg 00:00: at [place] tablet 00 bedtime. Medical Branch enalapril Yes 10mg Take 1 Tab Un susu (VASOTEC) 1-06 by mouth ity of 10 mg 00:00: daily. [place] tablet 00 Medical Branch atorvastati 2022- No 20mg Take 1 Tab Univers n (LIPITOR) 1-22 by mouth ity of 20 mg 00:00: 00:00 at [place] tablet 00 :00 bedtime. Medical Branch enalapril 2022- No 10mg Take 1 Tab U nivers (VASOTEC) 1-08 27-22 by mouth ity o f 10 mg 00:00: 00:00 daily. [place] tablet 00 :00 Medical Branch aspirin 81 aspirin 81 No 1 Q1D aspirin 81 [facility] mg mg mg Medical tablet,rachel tablet,rachel tablet,del yed release yed release ayed Take 1 Take 1 release tablet tablet Take 1 every day every day tablet by oral by oral every day route. route. by oral route. atorvastati atorvastati No 1 Q1D atorvastat [facility] n 80 mg n 80 mg in 80 mg Medic al tablet Take tablet Take tablet 1 tablet 1 tablet Take 1 every day every day tablet by oral by oral every day route. route. by oral route. duloxetine duloxetine No 1capsul Q1D duloxetine [facility] 40 mg 40 mg e(s) 40 mg Medical capsule,del capsule,del capsule,de ayed ayed layed release release release Take 1 Take 1 Take 1 capsule capsule capsule every day every day every day by oral by oral by oral route. route. route. ergocalcife ergocalcife No 1capsul Q1W ergocalcif [facility] rol rol e(s) tomas Medical (vitamin (vitamin (vitamin D2) 1,250 D2) 1,250 D2) 1,250 mcg (50,000 mcg (50,000 mcg unit) unit) (50,000 capsule capsule unit) Take 1 Take 1 capsule capsule capsule Take 1 every week every week capsule by oral by oral every week route. route. by oral route. lisinopril lisinopril No 1 Q1D lisinopril [facility] 20 mg 20 mg 20 mg Medical tablet Take tablet Take tablet 1 tablet 1 tablet Take 1 every day every day tablet by oral by oral every day route. route. by oral route. Multivitami Multivitami No 1 Q1D Multivitam [facility] n 50 Plus n 50 Plus in 50 Plus Medical tablet Take tablet Take tablet 1 tablet 1 tablet Take 1 every day every day tablet by oral by oral every day route. route. by oral route. nicotine 7 nicotine 7 No 1patch( Q1D nicotine 7 [facility] mg/24 hr mg/24 hr es) mg/24 hr Med ical daily daily daily transdermal transdermal transderma patch Apply patch Apply l patch 1 patch 1 patch Apply 1 every day every day patch by by every day transdermal transdermal by route. route. transderma l route. oxymetazoli oxymetazoli No 1spray( TID oxymetazol [facility] ne 0.05 % ne 0.05 % s) ine 0.05 % Medical nasal mist nasal mist nasal mist Take 1 Take 1 Take 1 spray 3 spray 3 spray 3 times a day times a day times a by nasal by nasal day by route. route. nasal route. thiamine thiamine No 1 Q1D thiamine [place] via HCl HCl HCl Medical (vitamin (vitamin (vitamin B1) 100 mg B1) 100 mg B1) 100 mg tablet Take tablet Take tablet 1 tablet 1 tablet Take 1 every day every day tablet by oral by oral every day route. route. by oral route. acetaminoph acetaminoph No 2 Q6H acetaminop [facility] en 325 mg en 325 mg hen 325 mg Medical tablet Take tablet Take tablet 2 tablets 2 tablets Take 2 every 6 every 6 tablets hours by hours by every 6 oral route oral route hours by as needed. as needed. oral route as needed. amlodipine amlodipine No 1 Q1D amlodipine [facility] 5 mg tablet 5 mg tablet 5 mg M edical Take 1 Take 1 tablet tablet tablet Take 1 every day every day tablet by oral by oral every day route. route. by oral route. aspirin 81 aspirin 81 No 1 Q1D aspirin 81 [facility] mg mg mg Medical tablet,rachel tablet,rachel tablet,del yed release yed release ayed Take 1 Take 1 release tablet tablet Take 1 every day every day tablet by oral by oral every day route. route. by oral route. atorvastati atorvastati No 1 Q1D atorvastat [facility] n 80 mg n 80 mg in 80 mg Medic al tablet Take tablet Take tablet 1 tablet 1 tablet Take 1 every day every day tablet by oral by oral every day route. route. by oral route. duloxetine duloxetine No 1capsul Q1D duloxetine [facility] 40 mg 40 mg e(s) 40 mg Medical capsule,del capsule,del capsule,de ayed ayed layed release release release Take 1 Take 1 Take 1 capsule capsule capsule every day every day every day by oral by oral by oral route. route. route. ergocalcife ergocalcife No 1capsul Q1W ergocalcif [facility] rol rol e(s) tomas Medical (vitamin (vitamin (vitamin D2) 1,250 D2) 1,250 D2) 1,250 mcg (50,000 mcg (50,000 mcg unit) unit) (50,000 capsule capsule unit) Take 1 Take 1 capsule capsule capsule Take 1 every week every week capsule by oral by oral every week route. route. by oral route. lisinopril lisinopril No 1 Q1D lisinopril [facility] 20 mg 20 mg 20 mg Medical tablet Take tablet Take tablet 1 tablet 1 tablet Take 1 every day every day tablet by oral by oral every day route. route. by oral route. Multivitami Multivitami No 1 Q1D Multivitam [facility] n 50 Plus n 50 Plus in 50 Plus Medical tablet Take tablet Take tablet 1 tablet 1 tablet Take 1 every day every day tablet by oral by oral every day route. route. by oral route. nicotine 7 nicotine 7 No 1patch( Q1D nicotine 7 [facility] mg/24 hr mg/24 hr es) mg/24 hr Med ical daily daily daily transdermal transdermal transderma patch Apply patch Apply l patch 1 patch 1 patch Apply 1 every day every day patch by by every day transdermal transdermal by route. route. transderma l route. oxymetazoli oxymetazoli No 1spray( TID oxymetazol [facility] ne 0.05 % ne 0.05 % s) ine 0.05 % Medical nasal mist nasal mist nasal mist Take 1 Take 1 Take 1 spray 3 spray 3 spray 3 times a day times a day times a by nasal by nasal day by route. route. nasal route. thiamine thiamine No 1 Q1D thiamine [facility] via HCl HCl HCl Medical (vitamin (vitamin (vitamin B1) 100 mg B1) 100 mg B1) 100 mg tablet Take tablet Take tablet 1 tablet 1 tablet Take 1 every day every day tablet by oral by oral every day route. route. by oral route. acetaminoph acetaminoph No 2 Q6H acetaminop [facility] en 325 mg en 325 mg hen 325 mg Medical tablet Take tablet Take tablet 2 tablets 2 tablets Take 2 every 6 every 6 tablets hours by hours by every 6 oral route oral route hours by as needed. as needed. oral route as needed. amlodipine amlodipine No 1 Q1D amlodipine [facility] 5 mg tablet 5 mg tablet 5 mg M edical Take 1 Take 1 tablet tablet tablet Take 1 every day every day tablet by oral by oral every day route. route. by oral route. aspirin 81 aspirin 81 No 1 Q1D aspirin 81 [facility] mg mg mg Medical tablet,rachel tablet,rachel tablet,del yed release yed release ayed Take 1 Take 1 release tablet tablet Take 1 every day every day tablet by oral by oral every day route. route. by oral route. atorvastati atorvastati No 1 Q1D atorvastat [facility] n 80 mg n 80 mg in 80 mg Medic al tablet Take tablet Take tablet 1 tablet 1 tablet Take 1 every day every day tablet by oral by oral every day route. route. by oral route. duloxetine duloxetine No 1capsul Q1D duloxetine [facility] 40 mg 40 mg e(s) 40 mg Medical capsule,del capsule,del capsule,de ayed ayed layed release release release Take 1 Take 1 Take 1 capsule capsule capsule every day every day every day by oral by oral by oral route. route. route. ergocalcife ergocalcife No 1capsul Q1W ergocalcif [facility] rol rol e(s) [facility] (vitamin (vitamin (vitamin D2) 1,250 D2) 1,250 D2) 1,250 mcg (50,000 mcg (50,000 mcg unit) unit) (50,000 capsule capsule unit) Take 1 Take 1 capsule capsule capsule Take 1 every week every week capsule by oral by oral every week route. route. by oral route. lisinopril lisinopril No 1 Q1D lisinopril [facility] 20 mg 20 mg 20 mg Medical tablet Take tablet Take tablet 1 tablet 1 tablet Take 1 every day every day tablet by oral by oral every day route. route. by oral route. Multivitami Multivitami No 1 Q1D Multivitam [facility] n 50 Plus n 50 Plus in 50 Plus Medical tablet Take tablet Take tablet 1 tablet 1 tablet Take 1 every day every day tablet by oral by oral every day route. route. by oral route. nicotine 7 nicotine 7 No 1patch( Q1D nicotine 7 [facility] mg/24 hr mg/24 hr es) mg/24 hr Med ical daily daily daily transdermal transdermal transderma patch Apply patch Apply l patch 1 patch 1 patch Apply 1 every day every day patch by by every day transdermal transdermal by route. route. transderma l route. oxymetazoli oxymetazoli No 1spray( TID oxymetazol [facility] ne 0.05 % ne 0.05 % s) ine 0.05 % Medical nasal mist nasal mist nasal mist Take 1 Take 1 Take 1 spray 3 spray 3 spray 3 times a day times a day times a by nasal by nasal day by route. route. nasal route. thiamine thiamine No 1 Q1D thiamine [facility] via HCl HCl HCl Medical (vitamin (vitamin (vitamin B1) 100 mg B1) 100 mg B1) 100 mg tablet Take tablet Take tablet 1 tablet 1 tablet Take 1 every day every day tablet by oral by oral every day route. route. by oral route. acetaminoph acetaminoph No 2 Q6H acetaminop [facility] en 325 mg en 325 mg hen 325 mg Medical tablet Take tablet Take tablet 2 tablets 2 tablets Take 2 every 6 every 6 tablets hours by hours by every 6 oral route oral route hours by as needed. as needed. oral route as needed. amlodipine amlodipine No 1 Q1D amlodipine [facility] 5 mg tablet 5 mg tablet 5 mg M edical Take 1 Take 1 tablet tablet tablet Take 1 every day every day tablet by oral by oral every day route. route. by oral route. aspirin 81 aspirin 81 No 1 Q1D aspirin 81 [facility] mg mg mg Medical tablet,rachel tablet,rachel tablet,del yed release yed release ayed Take 1 Take 1 release tablet tablet Take 1 every day every day tablet by oral by oral every day route. route. by oral route. atorvastati atorvastati No 1 Q1D atorvastat [facility] n 80 mg n 80 mg in 80 mg Medic al tablet Take tablet Take tablet 1 tablet 1 tablet Take 1 every day every day tablet by oral by oral every day route. route. by oral route. duloxetine duloxetine No 1capsul Q1D duloxetine [facility] 40 mg 40 mg e(s) 40 mg Medical capsule,del capsule,del capsule,de ayed ayed layed release release release Take 1 Take 1 Take 1 capsule capsule capsule every day every day every day by oral by oral by oral route. route. route. ergocalcife ergocalcife No 1capsul Q1W ergocalcif [facility] rol rol e(s) [facility] (vitamin (vitamin (vitamin D2) 1,250 D2) 1,250 D2) 1,250 mcg (50,000 mcg (50,000 mcg unit) unit) (50,000 capsule capsule unit) Take 1 Take 1 capsule capsule capsule Take 1 every week every week capsule by oral by oral every week route. route. by oral route. lisinopril lisinopril No 1 Q1D lisinopril [facility] 20 mg 20 mg 20 mg Medical tablet Take tablet Take tablet 1 tablet 1 tablet Take 1 every day every day tablet by oral by oral every day route. route. by oral route. Multivitami Multivitami No 1 Q1D Multivitam [facility] n 50 Plus n 50 Plus in 50 Plus Medical tablet Take tablet Take tablet 1 tablet 1 tablet Take 1 every day every day tablet by oral by oral every day route. route. by oral route. nicotine 7 nicotine 7 No 1patch( Q1D nicotine 7 [facility] mg/24 hr mg/24 hr es) mg/24 hr Med ical daily daily daily transdermal transdermal transderma patch Apply patch Apply l patch 1 patch 1 patch Apply 1 every day every day patch by by every day transdermal transdermal by route. route. transderma l route. oxymetazoli oxymetazoli No 1spray( TID oxymetazol [facility] ne 0.05 % ne 0.05 % s) ine 0.05 % Medical nasal mist nasal mist nasal mist Take 1 Take 1 Take 1 spray 3 spray 3 spray 3 times a day times a day times a by nasal by nasal day by route. route. nasal route. thiamine thiamine No 1 Q1D thiamine [facility] via HCl HCl HCl Medical (vitamin (vitamin (vitamin B1) 100 mg B1) 100 mg B1) 100 mg tablet Take tablet Take tablet 1 tablet 1 tablet Take 1 every day every day tablet by oral by oral every day route. route. by oral route. acetaminoph acetaminoph No 2 Q6H acetaminop [facility] en 325 mg en 325 mg hen 325 mg Medical tablet Take tablet Take tablet 2 tablets 2 tablets Take 2 every 6 every 6 tablets hours by hours by every 6 oral route oral route hours by as needed. as needed. oral route as needed. amlodipine amlodipine No 1 Q1D amlodipine [facility] 5 mg tablet 5 mg tablet 5 mg M edical Take 1 Take 1 tablet tablet tablet Take 1 every day every day tablet by oral by oral every day route. route. by oral route. aspirin 81 aspirin 81 No 1 Q1D aspirin 81 [facility] mg mg mg Medical tablet,rachel tablet,rachel tablet,del yed release yed release ayed Take 1 Take 1 release tablet tablet Take 1 every day every day tablet by oral by oral every day route. route. by oral route. atorvastati atorvastati No 1 Q1D atorvastat [facility] n 80 mg n 80 mg in 80 mg Medic al tablet Take tablet Take tablet 1 tablet 1 tablet Take 1 every day every day tablet by oral by oral every day route. route. by oral route. duloxetine duloxetine No 1capsul Q1D duloxetine [facility] 40 mg 40 mg e(s) 40 mg Medical capsule,del capsule,del capsule,de ayed ayed layed release release release Take 1 Take 1 Take 1 capsule capsule capsule every day every day every day by oral by oral by oral route. route. route. ergocalcife ergocalcife No 1capsul Q1W ergocalcif [facility] rol rol e(s) [facility] (vitamin (vitamin (vitamin D2) 1,250 D2) 1,250 D2) 1,250 mcg (50,000 mcg (50,000 mcg unit) unit) (50,000 capsule capsule unit) Take 1 Take 1 capsule capsule capsule Take 1 every week every week capsule by oral by oral every week route. route. by oral route. Lactobacill Lactobacill No 1 Q1D Lactobacil [facility] acidophilus acidophilus acidophilu 1 billion 1 billion s 1 cell tablet cell tablet billion Take 1 Take 1 cell tablet tablet tablet every day every day Take 1 by oral by oral tablet route for route for every day 30 days. 30 days. by oral route for 30 days. levofloxaci levofloxaci No 1 Q1D levofloxac [facility] n 750 mg n 750 mg in 750 mg Me dical tablet Take tablet Take tablet 1 tablet 1 tablet Take 1 every day every day tablet by oral by oral every day route for 5 route for 5 by oral days. days. route for 5 days. lisinopril lisinopril No 1 Q1D lisinopril [facility] 20 mg 20 mg 20 mg Medical tablet Take tablet Take tablet 1 tablet 1 tablet Take 1 every day every day tablet by oral by oral every day route. route. by oral route. mirtazapine mirtazapine No 1 Q1D mirtazapin [facility] 7.5 mg 7.5 mg e 7.5 mg Medical tablet Take tablet Take tablet 1 tablet 1 tablet Take 1 every day every day tablet by oral by oral every day route. route. by oral route. Multivitami Multivitami No 1 Q1D Multivitam [facility] n 50 Plus n 50 Plus in 50 Plus Medical tablet Take tablet Take tablet 1 tablet 1 tablet Take 1 every day every day tablet by oral by oral every day route. route. by oral route. nicotine 7 nicotine 7 No 1patch( Q1D nicotine 7 [facility] mg/24 hr mg/24 hr es) mg/24 hr Med ical daily daily daily transdermal transdermal transderma patch Apply patch Apply l patch 1 patch 1 patch Apply 1 every day every day patch by by every day transdermal transdermal by route. route. transderma l route. potassium potassium No 1 Q1D potassium [facility] chloride ER chloride ER chloride Medical 20 mEq 20 mEq ER 20 mEq tablet,exte tablet,exte tablet,ext nded nded ended release release release Take 1 Take 1 Take 1 tablet tablet tablet every day every day every day by oral by oral by oral route for 7 route for 7 route for days. days. 7 days. thiamine thiamine No 1 Q1D thiamine [facility] via HCl HCl HCl Medical (vitamin (vitamin (vitamin B1) 100 mg B1) 100 mg B1) 100 mg tablet Take tablet Take tablet 1 tablet 1 tablet Take 1 every day every day tablet by oral by oral every day route. route. by oral route. acetaminoph acetaminoph No 2 Q6H acetaminop [facility] en 325 mg en 325 mg hen 325 mg Medical tablet Take tablet Take tablet 2 tablets 2 tablets Take 2 every 6 every 6 tablets hours by hours by every 6 oral route oral route hours by as needed. as needed. oral route as needed. amlodipine amlodipine No 1 Q1D amlodipine [facility] 5 mg tablet 5 mg tablet 5 mg M edical Take 1 Take 1 tablet tablet tablet Take 1 every day every day tablet by oral by oral every day route. route. by oral route. aspirin 81 aspirin 81 No 1 Q1D aspirin 81 [facility] mg mg mg Medical tablet,rachel tablet,rachel tablet,del yed release yed release ayed Take 1 Take 1 release tablet tablet Take 1 every day every day tablet by oral by oral every day route. route. by oral route. atorvastati atorvastati No 1 Q1D atorvastat [facility] n 80 mg n 80 mg in 80 mg Medic al tablet Take tablet Take tablet 1 tablet 1 tablet Take 1 every day every day tablet by oral by oral every day route. route. by oral route. duloxetine duloxetine No 1capsul Q1D duloxetine [facility] 40 mg 40 mg e(s) 40 mg Medical capsule,del capsule,del capsule,de ayed ayed layed release release release Take 1 Take 1 Take 1 capsule capsule capsule every day every day every day by oral by oral by oral route. route. route. ergocalcife ergocalcife No 1capsul Q1W ergocalcif [facility] rol rol e(s) [facility] (vitamin (vitamin (vitamin D2) 1,250 D2) 1,250 D2) 1,250 mcg (50,000 mcg (50,000 mcg unit) unit) (50,000 capsule capsule unit) Take 1 Take 1 capsule capsule capsule Take 1 every week every week capsule by oral by oral every week route. route. by oral route. Lactobacill Lactobacill No 1 Q1D Lactobacil [facility] acidophilus acidophilus acidophilu 1 billion 1 billion s 1 cell tablet cell tablet billion Take 1 Take 1 cell tablet tablet tablet every day every day Take 1 by oral by oral tablet route for route for every day 30 days. 30 days. by oral route for 30 days. levofloxaci levofloxaci No 1 Q1D levofloxac [facility] n 750 mg n 750 mg in 750 mg Me dical tablet Take tablet Take tablet 1 tablet 1 tablet Take 1 every day every day tablet by oral by oral every day route for 5 route for 5 by oral days. days. route for 5 days. lisinopril lisinopril No 1 Q1D lisinopril [facility] 20 mg 20 mg 20 mg Medical tablet Take tablet Take tablet 1 tablet 1 tablet Take 1 every day every day tablet by oral by oral every day route. route. by oral route. mirtazapine mirtazapine No 1 Q1D mirtazapin [facility] 7.5 mg 7.5 mg e 7.5 mg Medical tablet Take tablet Take tablet 1 tablet 1 tablet Take 1 every day every day tablet by oral by oral every day route. route. by oral route. Multivitami Multivitami No 1 Q1D Multivitam [facility] n 50 Plus n 50 Plus in 50 Plus Medical tablet Take tablet Take tablet 1 tablet 1 tablet Take 1 every day every day tablet by oral by oral every day route. route. by oral route. nicotine 7 nicotine 7 No 1patch( Q1D nicotine 7 [facility] mg/24 hr mg/24 hr es) mg/24 hr Med ical daily daily daily transdermal transdermal transderma patch Apply patch Apply l patch 1 patch 1 patch Apply 1 every day every day patch by by every day transdermal transdermal by route. route. transderma l route. potassium potassium No 1 Q1D potassium [facility] chloride ER chloride ER chloride Medical 20 mEq 20 mEq ER 20 mEq tablet,exte tablet,exte tablet,ext nded nded ended release release release Take 1 Take 1 Take 1 tablet tablet tablet every day every day every day by oral by oral by oral route for 7 route for 7 route for days. days. 7 days. thiamine thiamine No 1 Q1D thiamine [facility] via HCl HCl HCl Medical (vitamin (vitamin (vitamin B1) 100 mg B1) 100 mg B1) 100 mg tablet Take tablet Take tablet 1 tablet 1 tablet Take 1 every day every day tablet by oral by oral every day route. route. by oral route. acetaminoph acetaminoph No 2 Q6H acetaminop [facility] en 325 mg en 325 mg hen 325 mg Medical tablet Take tablet Take tablet 2 tablets 2 tablets Take 2 every 6 every 6 tablets hours by hours by every 6 oral route oral route hours by as needed. as needed. oral route as needed. amlodipine amlodipine No 1 Q1D amlodipine [facility] 5 mg tablet 5 mg tablet 5 mg M edical Take 1 Take 1 tablet tablet tablet Take 1 every day every day tablet by oral by oral every day route. route. by oral route. aspirin 81 aspirin 81 No 1 Q1D aspirin 81 [facility] mg mg mg Medical tablet,rachel tablet,rachel tablet,del yed release yed release ayed Take 1 Take 1 release tablet tablet Take 1 every day every day tablet by oral by oral every day route. route. by oral route. atorvastati atorvastati No 1 Q1D atorvastat [facility] n 80 mg n 80 mg in 80 mg Medic al tablet Take tablet Take tablet 1 tablet 1 tablet Take 1 every day every day tablet by oral by oral every day route. route. by oral route. duloxetine duloxetine No 1capsul Q1D duloxetine [facility] 40 mg 40 mg e(s) 40 mg Medical capsule,del capsule,del capsule,de ayed ayed layed release release release Take 1 Take 1 Take 1 capsule capsule capsule every day every day every day by oral by oral by oral route. route. route. ergocalcife ergocalcife No 1capsul Q1W ergocalcif [facility] rol rol e(s) [facility] (vitamin (vitamin (vitamin D2) 1,250 D2) 1,250 D2) 1,250 mcg (50,000 mcg (50,000 mcg unit) unit) (50,000 capsule capsule unit) Take 1 Take 1 capsule capsule capsule Take 1 every week every week capsule by oral by oral every week route. route. by oral route. lisinopril lisinopril No 1 Q1D lisinopril [facility] 20 mg 20 mg 20 mg Medical tablet Take tablet Take tablet 1 tablet 1 tablet Take 1 every day every day tablet by oral by oral every day route. route. by oral route. Multivitami Multivitami No 1 Q1D Multivitam [facility] n 50 Plus n 50 Plus in 50 Plus Medical tablet Take tablet Take tablet 1 tablet 1 tablet Take 1 every day every day tablet by oral by oral every day route. route. by oral route. nicotine 7 nicotine 7 No 1patch( Q1D nicotine 7 [facility] mg/24 hr mg/24 hr es) mg/24 hr Med ical daily daily daily transdermal transdermal transderma patch Apply patch Apply l patch 1 patch 1 patch Apply 1 every day every day patch by by every day transdermal transdermal by route. route. transderma l route. oxymetazoli oxymetazoli No 1spray( TID oxymetazol [facility] ne 0.05 % ne 0.05 % s) ine 0.05 % Medical nasal mist nasal mist nasal mist Take 1 Take 1 Take 1 spray 3 spray 3 spray 3 times a day times a day times a by nasal by nasal day by route. route. nasal route. thiamine thiamine No 1 Q1D thiamine [facility] via HCl HCl HCl Medical (vitamin (vitamin (vitamin B1) 100 mg B1) 100 mg B1) 100 mg tablet Take tablet Take tablet 1 tablet 1 tablet Take 1 every day every day tablet by oral by oral every day route. route. by oral route. acetaminoph acetaminoph No 2 Q6H acetaminop [facility] en 325 mg en 325 mg hen 325 mg Medical tablet Take tablet Take tablet 2 tablets 2 tablets Take 2 every 6 every 6 tablets hours by hours by every 6 oral route oral route hours by as needed. as needed. oral route as needed. amlodipine amlodipine No 1 Q1D amlodipine [facility] 5 mg tablet 5 mg tablet 5 mg M edical Take 1 Take 1 tablet tablet tablet Take 1 every day every day tablet by oral by oral every day route. route. by oral route. Immunizations Ordered Filled Immunization Date Status Comments [facility] e Immunization Name Name Td(adult) Td(adult) 2020-06-01 Completed [facility] unspecified unspecified 00:00:00 formulation formulation Td(adult) Td(adult) 2020-06-01 Completed [facility] unspecified unspecified 00:00:00 formulation formulation Td(adult) Td(adult) 2020-06-01 Completed [facility] unspecified unspecified 00:00:00 formulation formulation Td(adult) Td(adult) 2020-06-01 Completed [facility] unspecified unspecified 00:00:00 formulation formulation Td(adult) Td(adult) 2020-06-01 Completed [facility] unspecified unspecified 00:00:00 formulation formulation Td(adult) Td(adult) 2020-06-01 Completed [facility] unspecified unspecified 00:00:00 formulation formulation Td(adult) Td(adult) 2020-06-01 Completed [facility] unspecified unspecified 00:00:00 formulation formulation Td 2020-06-01 Completed [facility]00 [facility] Td 2020-06-01 Completed [facility]00 [facility] Td 2020-06-01 Completed [facility]00 [facility] Td 2020-06-01 Completed [facility] 00:[facility]00 [facility] Td 2020-06-01 Completed [facility] 00[facility]00 [facility] TD, NOS 2020-06-01 Completed [facility] 00[facility]00:00 [facility] TD, NOS 2020-06-01 Completed [facility] 00:00:00 [facility] TD, NOS 2020-06-01 Completed [facility] 00:[facility]00 [facility] Vital Signs Vital Name Observation Time Observation Value Comments Source BP Diastolic 2022-08-04 00:00:00 63 mm[Hg] [facility] Height 2022-08-04 00:00:00 68 [in_i] [facility] osorio BMI (Body Mass 2022-08-04 00:00:00 20.1 kg/m2 [facility] Medical Index) BP Systolic 2022-08-04 00:00:00 124 mm[Hg] [facility] osorio Body Weight 2022-08-04 00:00:00 2114 [oz_av] [facility] BP Diastolic 2022-07-27 00:00:00 65 mm[Hg] [facility] Height 2022-07-27 00:00:00 68 [in_i] [facility] BMI (Body Mass 2022-07-27 00:00:00 20[facility]1 [facility] BP Systolic 2022-07-27 00:00:00 127 mm[Hg] [facility] Body Weight 2022-07-27 00:00:00 2114 [oz_av] [facility] BP Diastolic 2022-07-20 00:00:00 77 mm[Hg] [facility] Height 2022-07-20 00:00:00 68 [in_i] [facility] BMI (Body Mass 2022-07-20 00:00:00 20.1 kg/m2 [facility] BP Systolic 2022-07-20 00:00:00 123 mm[Hg] [facility] Body Weight 2022-07-20 00:00:00 2112 [oz_av] [facility] BP Diastolic 2022-06-23 00:00:00 77 mm[Hg] [facility] Height 2022-06-23 00:00:00 68 [in_i] [facility] BMI (Body Mass 2022-06-23 00:00:00 19.9 kg/m2 [facility] BP Systolic 2022-06-23 00:00:00 122 mm[Hg] [facility] Body Weight 2022-06-23 00:00:00 2096 [oz_av] [facility] BP Diastolic 2022-05-28 00:00:00 60 mm[Hg] [facility] Height 2022-05-28 00:00:00 68 [in_i] [facility] BMI (Body Mass 2022-05-28 00:00:00 21.3 kg/m2 [facility]) BP Systolic 2022-05-28 00:00:00 106 mm[Hg] [facility] Body Weight 2022-05-28 00:00:00 2240 [oz_av] [facility] BP Diastolic 2022-05-25 00:00:00 72 mm[Hg] [facility] Gonzalez edical BP Systolic 2022-05-25 00:00:00 114 mm[Hg] [facility] Body Weight 2022-05-25 00:00:00 2240 [oz_av] [facility] Gonzalez edical BP Diastolic 2022-05-21 00:00:00 78 mm[Hg] Stefany Gonzalez edical Height 2022-05-21 00:00:00 68 [in_i] Stefany osorio BMI (Body Mass 2022-05-21 00:00:00 21.3 kg/m2 [facility] Index) BP Systolic 2022-05-21 00:00:00 129 mm[Hg] Stefany osorio Body Weight 2022-05-21 00:00:00 2240 [oz_av] Stefany Gonzalez edical Systolic blood 2022-05-19 18:16:00 145 mm[Hg] [facility] Diastolic blood 2022-05-19 18:16:00 83 mm[Hg] [facility] Heart rate 2022-05-19 18:16:00 72 /min [facility] Body temperature 2022-05-19 18:16:00 36.22 [facility] Respiratory rate 2022-05-19 18:16:00 16 /min [facility] in 2022-05-19 18:16:00 98 /min [facility] Arterial blood by [facility] Pulse oximetry Branch Body height 2022-05-11 20:00:00 172.7 cm [facility] Body weight 2022-05-11 20:00:00 63.504 kg [facility] BMI 2022-05-11 20:00:00 21.29 kg/m2 [facility] Systolic blood 2022-05-17 13:55:00 105 mm[Hg] Univer sity of pressure [facility] Diastolic blood 2022-05-17 13:55:00 61 mm[Hg] [facility] Heart rate 2022-05-17 13:55:00 76 /min [facility] Body temperature 2022-05-17 13:55:00 36.78 [facility] Respiratory rate 2022-05-17 13:55:00 16 /min [facility] Oxygen saturation in 2022-05-17 13:55:00 95 /min [facility] Arterial blood by [facility] Pulse oximetry Branch Body height 2022-05-11 20:00:00 172.7 cm [facility] Body weight 2022-05-11 20:00:00 63.504 kg [facility] BMI 2022-05-11 20:00:00 21.29 kg/m2 [facility] Body height 2020-06-10 15:07:00 172.7 cm [facility] Body weight 2020-06-10 15:07:00 61.871 kg [facility] [place] BMI 2020-06-10 15:07:00 20.74 kg/m2 [facility] Systolic blood 2020-06-05 13:26:00 154 mm[Hg] [facility] [place] Diastolic blood 2020-06-05 13:26:00 94 mm[Hg] [facility] [place] Heart rate 2020-06-05 13:26:00 62 /min [facility] [place] Body temperature 2020-06-05 13:26:00 36.67 [facility] [place] Respiratory rate 2020-06-05 13:26:00 16 /min [facility] Oxygen saturation in 2020-06-05 13:26:00 96 /min [facility] Arterial blood by [facility] Pulse oximetry Branch Body height 2020-06-02 03:07:00 172.7 cm [facility] Body weight 2020-06-02 03:07:00 61.5 kg [facility] BMI 2020-06-02 03:07:00 20.62 kg/m2 [facility] Procedures Procedure Date / Time Performing Clinician Source Performed [facility] 2022-05-19 12:02:00 Gam[facility]av[facility] Center BASIC METABOLIC PANEL 2022-05-19 12:02:00 Gamal Zavala [facility] (NA, K, CL, CO2, GLUCOSE, Medica l Branch BUN, CREATININE, CA) CBC WITH DIFF 2022-05-19 12:02:00 Gamal Zavala [facility] MAGNESIUM 2022-05-18 10:48:00 Trino [facility] BASIC METABOLIC PANEL 2022-05-18 10:48:00 Trino [facility] (NA, K, CL, CO2, GLUCOSE, Medica l Branch BUN, CREATININE, CA) CBC WITH DIFF 2022-05-18 10:48:00 Trino [facility] MAGNESIUM 2022-05-18 10:48:00 Trino [facility] BASIC METABOLIC PANEL 2022-05-18 10:48:00 Trino [facility] (NA, K, CL, CO2, GLUCOSE, Medica l Branch BUN, CREATININE, CA) CBC WITH DIFF 2022-05-18 10:48:00 Trino [facility] FL TIME OR 2022-05-17 20:15:[address] [facility] (NON-REPORTABLE) [facility] [place] TIME OR 2022-05-17 20:15:[address] [facility] (NON-REPORTABLE) [facility] ZYGOMATIC FRACTURE ORIF 2022-05-17 17:28:00 Gilles [facility] ORBITAL FLOOR FRACTURE 2022-05-17 17:28:00 [facility] ZYGOMATIC FRACTURE ORIF 2022-05-17 17:28:00 Gilles [facility] ORBITAL FLOOR FRACTURE 2022-05-17 17:28:[address] [facility] ABORH CONFIRMATION (LAB 2022-05-17 12:20:00 Lucas [facility] ONLY) Medical Branch ABORH CONFIRMATION (LAB 2022-05-17 12:20:00 Lucas [facility] ONLY) Medical Branch HB ABO GROUPING 2022-05-17 11:30:00 Lucas [facility] HB ABO GROUPING 2022-05-17 11:30:00 Zavala, Gamal [facility] CBC WITH DIFF 2022-05-17 11:28:00 Lucas [facility] CBC WITH DIFF 2022-05-17 11:28:00 Gamal Zavala [facility] Repair Orbital Floor 2022-05-17 00:00:[address] [facility] Open Repair of Zygomatic 2022-05-17 00:00:00 Kayla via Medical Fracture MAGNESIUM 2022-05-16 11:18:00 Trino [facility] BASIC METABOLIC PANEL 2022-05-16 11:18:00 [facility] (NA, K, CL, CO2, GLUCOSE, Medica l Branch BUN, CREATININE, CA) CBC WITH DIFF 2022-05-16 11:18:00 Trino [facility] MAGNESIUM 2022-05-16 11:18:00 Trino [facility] BASIC METABOLIC PANEL 2022-05-16 11:18:00 Alina Jameson [facility] sity [facility] (NA, K, CL, CO2, GLUCOSE, Medica l Branch BUN, CREATININE, CA) CBC WITH DIFF 2022-05-16 11:18:00 Trino Alina [facility] MAGNESIUM 2022-05-15 11:34:00 Trino Alina [facility] BASIC METABOLIC PANEL 2022-05-15 11:34:00 Alina Jameson [facility] (NA, K, CL, CO2, GLUCOSE, Medica l Branch BUN, CREATININE, CA) CBC WITH DIFF 2022-05-15 11:34:00 Trino [facility] MAGNESIUM 2022-05-15 11:34:00 Trino [facility] BASIC METABOLIC PANEL 2022-05-15 11:34:00 [facility] (NA, K, CL, CO2, GLUCOSE, Medica l Branch BUN, CREATININE, CA) CBC WITH DIFF 2022-05-15 11:34:00 Alina Jameson [facility] CT MAXILLOFACIAL/MANDIBLE 2022-05-14 20:45:13 [facility] [place] [facility] Medical Branch CT MAXILLOFACIAL/MANDIBLE 2022-05-14 20:45:13 Alina Jameson [facility] CONTRAST Medical Branch CT HEAD WO CONTRAST 2022-05-14 16:38:00 Alina Jameson [facility] CT HEAD WO CONTRAST 2022-05-14 16:38:00 Trino [facility] CBC WITH DIFF 2022-05-14 15:20:00 Trino [facility] CBC WITH DIFF 2022-05-14 15:20[facility] 2022-05-02 10:03:[address] [facility] BASIC METABOLIC PANEL 2022-05-02 10:03:00 Al [facility] (NA, K, CL, CO2, GLUCOSE, Medica l Branch BUN, CREATININE, CA) CBC WITH DIFF 2022-05-02 10:03:[address] [facility] MAGNESIUM 2022-05-02 10:03:[address] [facility] BASIC METABOLIC PANEL 2022-05-02 10:03:00 Al [facility] (NA, K, CL, CO2, GLUCOSE, Medica l Branch BUN, CREATININE, CA) CBC WITH DIFF 2022-05-02 10:03:[address] [facility] BASIC METABOLIC PANEL 2022-04-27 10:18:00 [facility] (NA, K, CL, CO2, GLUCOSE, Medica l Branch BUN, CREATININE, CA) BASIC METABOLIC PANEL 2022-04-27 10:18:00 Sagewafer, [facility] (NA, K, CL, CO2, GLUCOSE, Medica l Branch BUN, CREATININE, CA) MAGNESIUM 2022-04-26 11:20:[address] [facility] BASIC METABOLIC PANEL 2022-04-26 11:20:00 Al [facility] (NA, K, CL, CO2, GLUCOSE, Medica l Branch BUN, CREATININE, CA) MAGNESIUM 2022-04-26 11:20:00 Melendez, [facility] BASIC METABOLIC PANEL 2022-04-26 11:20:00 [facility] (NA, K, CL, CO2, GLUCOSE, Medica l Branch BUN, CREATININE, CA) MAGNESIUM 2022-04-25 10:05:00 [facility] 2022-04-25 10:05:00 [facility] (NA, K, CL, CO2, GLUCOSE, Medica l Branch BUN, CREATININE, CA) CBC WITH DIFF 2022-04-25 10:05:00 [facility]UM 2022-04-25 10:05:[address] [facility] BASIC METABOLIC PANEL 2022-04-25 10:05:00 [facility] (NA, K, CL, CO2, GLUCOSE, Medica l Branch BUN, CREATININE, CA) CBC WITH DIFF 2022-04-25 10:05:00 [facility] URINE CULTURE 2022-04-24 11:32:00 [facility] 2022-04-24 11:32:[address] [facility] PHOSPHORUS 2022-04-24 11:31:00 [facility] BASIC METABOLIC PANEL 2022-04-24 11:31:00 [facility] (NA, K, CL, CO2, GLUCOSE, Medica l Branch BUN, CREATININE, CA) CBC WITH DIFF 2022-04-24 11:31:00 [facility] URINALYSIS 2022-04-24 11:31:00 [facility] PHOSPHORUS 2022-04-24 11:31:00 [facility] BASIC METABOLIC PANEL 2022-04-24 11:31:00 [facility] (NA, K, CL, CO2, GLUCOSE, Medica l Branch BUN, CREATININE, CA) CBC WITH DIFF 2022-04-24 11:31:00 Lori [facility] URINALYSIS 2022-04-24 11:31:00 Abdoul Clayton [facility] MR BRAIN WO CONTRAST 2022-04-24 03:07:05 Lucio [facility] MR BRAIN WO CONTRAST 2022-04-24 03:07:05 Lucio [facility] BASIC METABOLIC PANEL 2022-04-23 10:40:00 Lori [facility] (NA, K, CL, CO2, GLUCOSE, Medica l Branch BUN, CREATININE, CA) CBC WITH DIFF 2022-04-23 10:40:00 Lori [facility] acute hospital BASIC METABOLIC PANEL 2022-04-23 10:40:00 Lori [facility] (NA, K, CL, CO2, GLUCOSE, Medica l Branch BUN, CREATININE, CA) CBC WITH DIFF 2022-04-23 10:40:00 Lori [facility] [place] MODIFIED BARIUM 2022-04-22 20:43:00 Lori [facility] [place] MODIFIED BARIUM 2022-04-22 20:43:00 Lori Venu [facility] TRANSTHORACIC ECHO (TTE) 2022-04-22 18:40:53 Cynthia Valdes [facility] TRANSTHORACIC ECHO (TTE) 2022-04-22 18:40:53 Cynthia Valdes [facility] URINE DRUG (IMMUNOASSAY) 2022-04-22 08:23:[address] [facility] SCREEN URINE DRUG (IMMUNOASSAY) 2022-04-22 08:23:[address] [facility] SCREEN MAGNESIUM 2022-04-22 08:20:00 Lucio [facility] BASIC METABOLIC PANEL 2022-04-22 08:20:00 Cynthia Valdes [facility] (NA, K, CL, CO2, GLUCOSE, Medica l Branch BUN, CREATININE, CA) ETHANOL 2022-04-22 08:20:[address] [facility] CBC WITH DIFF 2022-04-22 08:20:00 Lucio [facility] VITAMIN D, 25-OH 2022-04-22 08:20:[address] [facility] VITAMIN B1 (THIAMINE), 2022-04-22 08:20:00 Cynthia Valdes [facility] MAGNESIUM 2022-04-22 08:20:00 Lucio [facility] BASIC METABOLIC PANEL 2022-04-22 08:20:00 Lucio [facility] (NA, K, CL, CO2, GLUCOSE, Medica l Branch BUN, CREATININE, CA) ETHANOL 2022-04-22 08:20:[address] [facility] CBC WITH DIFF 2022-04-22 08:20:00 Lucio [facility] VITAMIN D, 25-OH 2022-04-22 08:20:[address] [facility] VITAMIN B1 (THIAMINE), 2022-04-22 08:20:00 Lucio [facility] CT ANGIOGRAM HEAD 2022-04-22 04:38:[address] [facility] CT ANGIOGRAM NECK 2022-04-22 04:38:[address] [facility] CT ANGIOGRAM HEAD 2022-04-22 04:38:[address] [facility] CT ANGIOGRAM NECK 2022-04-22 04:38:[address] [facility] PHOSPHORUS 2022-04-22 03:54:00 Lucio [facility] CREATINE KINASE 2022-04-22 03:54:00 Lucio [facility] VITAMIN B12, LEVEL 2022-04-22 03:54:00 Lucio [facility] THYROID STIMULATING 2022-04-22 03:54:00 Lucio [facility] HORMONE [facility] LIPID PANEL ([id number])(TOTAL 2022-04-22 03:54:00 Cynthia Valdes [facility] CHOLESTEROL Medical Branch TRIGLYCERIDES, HDL) PHOSPHORUS 2022-04-22 03:54:00 Lucio [facility] CREATINE KINASE 2022-04-22 03:54:00 Lucio [facility] VITAMIN B12, LEVEL 2022-04-22 03:54:00 Lucio [facility] THYROID STIMULATING 2022-04-22 03:54:00 Lucio [facility] HORMONE [facility] LIPID PANEL ([id number])(TOTAL 2022-04-22 03:54:00 [facility]IG[facility], HDL) HB ECG ROUTINE & RHYTHM 2022-04-22 03:52:33 Lucio [facility] HB ECG ROUTINE & RHYTHM 2022-04-22 03:52:33 Lucio [facility] BLOOD CULTURE SCREEN 2022-04-22 02:09:00 Rhonda Real [facility] BLOOD CULTURE SCREEN 2022-04-22 02:09:00 Rhonda Real [facility] CT HEAD WO CONTRAST 2022-04-21 19:53:06 Forrest Abdoul [facility] CT HEAD WO CONTRAST 2022-04-21 19:53:06 Abdoul Clayton [facility] PROTHROMBIN TIME / INR 2022-04-21 19:51:00 Abdoul Clayton [facility] PROTHROMBIN TIME / INR 2022-04-21 19:51:00 [facility] CHEST 2 VW 2022-04-21 19:41:53 Forrest [facility] XR CHEST 2 VW 2022-04-21 19:41:53 Forrest [facility] MAGNESIUM 2022-04-21 19:19:00 Forrest [facility] AMMONIA, PLASMA 2022-04-21 19:19:00 Forrest [facility] TROPONIN I 2022-04-21 19:19:00 Forrest [facility] COMP. METABOLIC PANEL 2022-04-21 19:19:00 Forrest [facility] ([id number]) [facility] CBC WITH DIFF 2022-04-21 19:19:00 Forrest [facility] GLYCOSYLATED HEMOGLOBIN 2022-04-21 19:19:[facility] MAGNESIUM 2022-04-21 19:19:00 Forrest [facility] AMMONIA, PLASMA 2022-04-21 19:19:00 Forrest [facility] TROPONIN I 2022-04-21 19:19:00 Forrest [facility] COMP. METABOLIC PANEL 2022-04-21 19:19:00 Forrest [facility] ([id number]) [facility] CBC WITH DIFF 2022-04-21 19:19:00 Forrest [facility] GLYCOSYLATED HEMOGLOBIN 2022-04-21 19:19:00 Lucio [facility] HOSPITAL ADMISSION 2022-04-21 06:01:00 Doctor Unassigned, [facility] HOSPITAL ADMISSION 2022-04-21 06:01:00 Doctor Unassigned, [facility] Name [facility] BASIC METABOLIC PANEL 2020-06-05 08:59:00 Debra [facility] (NA, K, CL, CO2, GLUCOSE, Medica l Branch BUN, CREATININE, CA) CBC WITH DIFF 2020-06-05 08:59:00 Debra Tommy [facility] VANCOMYCIN TROUGH 2020-06-05 01:41:00 [facility]OL[facility] PANEL 2020-06-04 09:27:00 Tommy Richardson [facility] (NA, K, CL, CO2, GLUCOSE, Medica l Branch BUN, CREATININE, CA) CBC WITH DIFF 2020-06-04 09:27:00 Debra [facility] VANCOMYCIN TROUGH 2020-06-03 14:00:00 Isiah Mor[facility] BASIC METABOLIC PANEL 2020-06-03 12:07:00 Tommy Richardson [facility] (NA, K, CL, CO2, GLUCOSE, Medica l Branch BUN, CREATININE, CA) CBC WITH DIFF 2020-06-03 12:06:00 Tommy Richardson [facility] CT WRIST LEFT WO CONTRAST 2020-06-02 17:06:40 Benito Zhou [facility] FUNGUS (ROUTINE) CULTURE 2020-06-02 14:18:32 Aldair Abel [facility] QUANT TISSUE 2020-06-02 14:18:32 Aldair Abel [facility] HAND DEBRIDEMENT 2020-06-02 13:22:00 Aldair Abel [facility] BASIC METABOLIC PANEL 2020-06-02 09:30:00 Debra Tommy [facility] (NA, K, CL, CO2, GLUCOSE, Medica l Branch BUN, CREATININE, CA) CBC WITH DIFF 2020-06-02 09:30:00 Debra Tommy [facility] XR WRIST 3+ VW LEFT 2020-06-02 05:25:00 Benito Zhou [facility] COVID-19 (ID NOW RAPID 2020-06-02 01:24:00 Lamin Ramirez [facility] TESTING) Medical Branch LAB ONLY COVID 2020-06-02 01:24:00 Lamin Ramirez [facility] XR HAND 3+ VW LEFT 2020-06-02 00:08:16 Lamin Ramirez [facility] C-REACTIVE PROTEIN 2020-06-01 23:43:00 Ashley Lamin [facility] BASIC METABOLIC PANEL 2020-06-01 23:43:00 Lamin Ramirez [facility] (NA, K, CL, CO2, GLUCOSE, Medica l Branch BUN, CREATININE, CA) CBC WITHOUT DIFF 2020-06-01 23:43:00 Ashley Lamin [facility] SEDIMENTATION RATE 2020-06-01 23:43:00 Ramirez, Lamin [facility] Branch Grafting to Skin of 2014-07-26 00:00:00 [facility] Extremity Incision and Drainage of 2014-07-26 00:00:00 Kayla via Medical Infection of Hand Tonsilectomy/adenoids [facility] ical Encounters Start End Encounter Admission Attending Care Care Encounter Source Date/Time Date/Time Type Type Clinicians Facility Department ID 2022-08-06 2022-08-06 Outpatient [facility]_Tod PRIV PRIV [id number] [facility] 00:00:00 00:00:00 d_J [id number] Medica l 2022-08-06 2022-08-06 Outpatient [facility]_Tod PRIV PRIV [id number] [facility] 00:00:00 00:00:00 d_J [id number] Medica l 2022-08-06 2022-08-06 Outpatient [facility]Tod PRIV PRIV [id number] [facility] 00:00:00 00:00:00 d_J [id number] Medica l 2022-08-06 2022-08-06 Outpatient [facility]_Tod PRIV PRIV [id number] [facility] 00:00:00 00:00:00 d_J [id number] Medica l 2022-08-04 2022-08-04 Kesha [facility] [id number] [facility] 00:00:00 00:00:00 DELROY Srinivasan: Health - Med ical [address] [address] , Ph. 2022-07-29 2022-07-29 Outpatient [facility]_Tod PRIV PRIV [id number] [facility] 00:00:00 00:00:00 d_J [id number] Medica l 2022-07-29 2022-07-29 Outpatient [facility]_Tod PRIV PRIV [id number] [facility] 00:00:00 00:00:00 d_J [id number] Medica l 2022-07-28 2022-07-28 Outpatient [facility]_Tod PRIV PRIV [id number] [facility] 00:00:00 00:00:00 d_J [id number] Medica l 2022-07-27 2022-07-27 Kesha [facility] 502 [facility] 00:00:00 00:00:00 DELROY Srinivasan: Health - Med ical [address] [address] , Ph. 2022-07-20 2022-07-20 Kesha [facility] 425 [facility] 00:00:00 00:00:00 Craig PA: Health - Med ical [address] [address] , Ph. 2022-06-24 2022-06-24 Outpatient GC_[facility]_Tod PRIV PRIV [id number] [facility] 00:00:00 00:00:00 d_J [id number] Medica l 2022-06-24 2022-06-24 Outpatient [facility]_Tod PRIV PRIV [id number] [facility] 00:00:00 00:00:00 d_J [id number] Medica l 2022-06-24 2022-06-24 Outpatient [facility]_Tod PRIV PRIV [id number] [facility] 00:00:00 00:00:00 d_J [id number] Medica l 2022-06-23 2022-06-23 Kesha [facility] 329 [facility] 00:00:00 00:00:00 DELROY Srinivasan: Health - Med ical [address] [address] , Ph. 2022-06-01 2022-06-01 Outpatient GC_[facility]_Tod PRIV PRIV [id number] [facility] 00:00:00 00:00:00 d_J [id number] Medica l 2022-05-29 2022-05-29 Outpatient [facility]_Tod PRIV PRIV [id number] [facility] 00:00:00 00:00:00 d_J [id number] Medica l 2022-05-28 2022-05-28 Outpatient GC_[facility]_Tod PRIV PRIV [id number] [facility] 00:00:00 00:00:00 d_J [id number] Medica l 2022-05-28 2022-05-28 Outpatient GC_[facility]_Tod PRIV PRIV [id number] [facility] 00:00:00 00:00:00 d_J [id number] Medica l 2022-05-28 2022-05-28 Kesha [facility] [id number] [facility] 00:00:00 00:00:00 DELROY Srinivasan: Health - Med ical [address] [address] , Ph. 2022-05-25 2022-05-25 Simeon Jarrett [facility] [id number] [facility] 00:00:00 00:00:00 José Manuel [facility] - Med ical MD: [address] [address] , Ph. 2022-05-24 2022-05-24 Outpatient JAIMEE Akbar CHW [id number] [facility] 15:05:00 15:05:00 [facility] 2022-05-21 2022-05-21 Outpatient GC_BA[facility]_Tod PRIV PRIV [id number] [facility] 00:00:00 00:00:00 d_J [id number] Medica l 2022-05-21 2022-05-21 Outpatient GC_[facility]_Tod PRIV PRIV [id number] [facility] 00:00:00 00:00:00 d_J [id number] Medica l 2022-05-21 2022-05-21 Outpatient GC_BA[facility]_Tod PRIV PRIV [id number] [facility] 00:00:00 00:00:00 d_J [id number] Medica l 2022-05-21 2022-05-21 Kesha [facility] [id number] [facility] 00:00:00 00:00:00 DELROY Srinivasan: Health - Med ical [address] [address] , Ph. 2022-05-20 2022-05-20 Outpatient GC_[facility]_Tod PRIV PRIV [id number] [facility] 00:00:00 00:00:00 d_J [id number] Medica l 2022-05-20 2022-05-20 Transition LAILA Marie [id number] [facility] 00:00:00 00:00:00 of Care Lisa DENNIS [id number] ity [facility] 4.2.7.2.686 [facility] [id number] [facility] 403 Branch 2022-04-21 2022-05-19 Inpatient X [facility] [id number] Univers 12:51:00 15:45:00 TOMMIE betancourt of [facility] 2022-04-21 2022-05-19 Hospital Abdoul Clayton [id number] Univers 12:51:00 15:45:00 Encounter Rhonda Real 350.1.13.1 0 ity [facility] 4.2.7.2.68 6 [facility] [id number] [facility] 096 Branch [facility] GladisTommie Fair Nan 2022-05-17 2022-05-17 Surgery JACQUIE Campoverde [id number] Univers 11:18:00 14:17:00 Hardeep NESBITT [id number] it y of [facility] 4.2.7.2.686 Merrill [id number] [facility] 103 Branch 2020-06-10 2020-06-10 [facility] [id number] Univers 10:30:00 10:30:00 ALDAIR serafin [facility] 2020-06-10 2020-06-10 [facility] 1.2.840.114 [id number] Univers 10:04:26 10:10:50 Visit Aldair Shafer [facility] [id number] it y [facility] 4.2.7.2.686 [facility] [id number] [facility] Primary & 198 Branch Specialty Care 2020-06-06 2020-06-06 Transition Laila Marie [id number] Univers 00:00:00 00:00:00 of Care Lisa Vickersy 350.1.13.10 ity of [place] 4.2.7.2.686 [facility] [id number] [facility] 403 Branch 2020-06-01 2020-06-05 [facility] [id number] Univers 16:57:00 09:36:00 ALDAIR ity of [facility] 2020-06-01 2020-06-05 Hospital Lamin Ramirez 1.2.840.1 [id number] Univers 16:57:00 09:36:00 Encounter Lu Dickson 350.1.13.10 ity [facility] 4.2.7.2.686 [place] [id number] [facility] 091 Branch 2020-02-04 2020-02-04 Letter LU Caruso 1.2.840.114 [id number] Univers 00:00:00 00:00:00 (Out) Karly NESBITT [id number] it y of [facility] 4.2.7.2.686 [facility] [id number] [facility] 019 Branch 2020-02-01 2020-02-01 Laboratory Nurse, [facility] 1.2.8 40.114 [id number] Univers 15:15:17 15:30:17 Only Unknown, Attending HEALTH 350.1.13.10 ity [facility] 4.2.7.2.686 [facility] [id number] [facility] Primary & 370 Branch Specialty Care 2020-02-01 2020-02-01 Outpatient R UNKNOWN, [facility] [id number] Univers 15:00:00 15:00:00 ATTENDING ity [facility] Results Test Description Test Time Test Comments Results Result Comments Source MAGNESIUM 2022-05-19 13:13:48 Test Item Value Reference Range Interpretation Comme nts MAGNESIUM (test code = 9974036555) 2.1 mg/dL 1.7-2.4 Lab Interpretation (test code = 73674-8) Normal [facility] METABOLIC PANEL (NA, K, CL, CO2, GLUCOSE, BUN, CREATININE, CA)2022-05-19 12:51:47 Test Item Value Reference Range Interpretation Comments NA (test code = 138 mmol/L 135-145 2717022119) K (test code = 3.8 mmol/L 3.5-5.0 0879001425) CL (test code = 105 mmol/L 98-108 4751251867) CO2 TOTAL (test code 25 mmol/L 23-31 = 8827172965) AGAP (test code = 8 2-16 4026525331) BUN (test code = 14 mg/dL 7-23 0569142001) GLUCOSE (test code = 105 mg/dL 70-110 9222311027) CREATININE (test code 0.61 mg/dL 0.60-1.25 = 0338524275) CALCIUM (test code = 9.0 mg/dL 8.6-10.6 8948852028) eGFR (test code = 133.1 mL/min/1.73m2 8865805004) CL (test code = CL) Association of Glomerular Filtration Rate (GFR) and Staging of Kidney Disease* + + +- +| GFR (mL/min/1.73 m2) ?| With Kidney Damage ?| ?Without Kidney Damage+ ------+ ----+ ------+| ?>90 ?| ?Stage one ?| ? Normal ?+ -+ + -+| ?60-89 ?| ?Stage two ?| ? Decreased GFR ? + + +- +| ?30-59 ?| ?Stage three ?| ? Stage three ? + + +- +| ?15-29 ?| ?Stage four ? | ? Stage four ?+ -+ + -+| ?<15 (or dialysis) ? ?| ?Stage five ? | ? Stage five ?+ -+ + -+ *Each stage assumes the associated GFR level has been in effect for at least three months. ?Stages 1 to 5, with or without kidney disease, indicate chronic kidney disease. Notes: Determination of stages one and two (with eGFR >59mL/min/1.73 m2) requires estimation of kidney damage for at least three months as defined by structural or functional abnormalities of the kidney, manifested by either:Pathological abnormalities or Markers of kidney damage (including abnormalities in the composition of the blood or urine or abnormalities in imaging tests). [facility] WITH [id number] 12:15:42 Test Item Value Reference Range Interpretation Comments WBC (test code = 7.53 See_Comment [Automated 6690-2) message] The sy stem which generated this result transmitted reference range : 4.20 - 10.70 10*3/?L. The reference range was not used to interpret this result as normal/abnormal . RBC (test code = 4.40 See_Comment [Automated 789-8) message] The sy stem which generated this result transmitted reference range : 4.26 - 5.52 10*6/?L. The reference range was not used to interpret this result as normal/abnormal . HGB (test code = 13.1 g/dL 12.2-16.4 718-7) HCT (test code = 37.6 % 38.4-49.3 L 4544-3) MCV (test code = 85.5 fL 81.7-95.6 787-2) MCH (test code = 29.8 pg 26.1-32.7 785-6) MCHC (test code = 34.8 g/dL 31.2-35.0 786-4) RDW-SD (test code = 45.5 fL 38.5-51.6 07541-4) RDW-CV (test code = 14.6 % 12.1-15.4 788-0) PLT (test code = 162 See_Comment [Automated 777-3) message] The sy stem which generated this result transmitted reference range : 150 - 328 10*3/ ?L. The reference r franklin was not used to interpret this result as normal/abnormal . MPV (test code = 10.6 fL 9.8-13.0 49835-4) NRBC/100 WBC (test 0.0 See_Comment [Automat ed code = 8062679969) message] The system which generated this result transmitted reference range : 0.0 - 10.0 /100 WBCs. The refer ence range was not u sed to interpret th is result as normal/abnormal . NRBC x10^3 (test code See_Comment [Auto mated = 2823823370) message] The s [email or web address] which generated this result transmitted reference range : 10*3/?L. The reference range was not used to interpret this result as normal/abnormal . GRAN MAT (NEUT) % 69.8 % (test code = 770-8) IMM GRAN % (test code 0.40 % = 0723395782) LYMPH % (test code = 19.0 % 736-9) MONO % (test code = 9.2 % 5905-5) EOS % (test code = 1.3 % 713-8) BASO % (test code = 0.3 % 706-2) GRAN MAT x10^3(ANC) 5.26 10*3/uL 1.99-6.95 (test code = 1280210392) IMM GRAN x10^3 (test 0.03 10*3/uL 0.00-0.06 code = 3986827000) LYMPH x10^3 (test code 1.43 10*3/uL 1.09-3.23 = 731-0) MONO x10^3 (test code 0.69 10*3/uL 0.36-1.02 = 742-7) EOS x10^3 (test code = 0.10 10*3/uL 0.06-0.53 711-2) BASO x10^3 (test code 0.01-0.09 = 704-7) Lab Interpretation Abnormal (test code = 76063-9) [facility] Confirmation (Lab Only)2022-05-17 13:14:44 Test Item Value Reference Range Interpretation Comments ABO & RH (test code O Positive Performe d at [facility] = 20) Laboratory Serv [facility]3 [address] [facility] s [id number] Free: [phone] A No. [id number] [facility] Confirmation (Lab Only)2022-05-17 13:14:44 Test Item Value Reference Range Interpretation Comments ABO & RH (test code O Positive Performe d at [facility] = 20) Laboratory [facility]3 [facility] s [id number] Free: [phone] A No. [id number] [facility]0400 Routine 2022-05-17 12:24:10 Test Item Value Reference Range Interpretation Comments ABO & RH (test code O POSITIVE Performe d at [facility] = 20) Laboratory [facility] [address] [facility] s [id number] Free: [phone] A No. [id number] IAT (test code = Negative Performed a t [facility] 1185) Laboratory [facility] [address] [place] [address]Yett Free: [phone] A No. [id number] [facility] - TOM[facility]ROW AM-0400 Routine 2022-05-17 12:24:10 Test Item Value Reference Range Interpretation Comments ABO & RH (test code O POSITIVE Performe d at [facility] = 20) Laboratory [facility] [address] [place] [address] s [id number] Free: [phone] A No. [id number] IAT (test code = Negative Performed a t [facility] 1185) Laboratory [facility] [address] [place] [address] s [id number] Free: [phone] A No. [id number] [facility] WITH [id number] 15:26:38 Test Item Value Reference Range Interpretation Comments WBC (test code = 8.75 See_Comment [Automated 2549-2) message] The sy stem which generated this result transmitted reference range : 4.20 - 10.70 10*3/?L. The reference range was not used to interpret this result as normal/abnormal . RBC (test code = 5.10 See_Comment [Automated 196-2) message] The sy stem which generated this result transmitted reference range : 4.26 - 5.52 10*6/?L. The reference range was not used to interpret this result as normal/abnormal . HGB (test code = 15.2 g/dL 12.2-16.4 718-7) HCT (test code = 43.5 % 38.4-49.3 4544-3) MCV (test code = 85.3 fL 81.7-95.6 787-2) MCH (test code = 29.8 pg 26.1-32.7 785-6) MCHC (test code = 34.9 g/dL 31.2-35.0 786-4) RDW-SD (test code = 43.3 fL 38.5-51.6 70849-6) RDW-CV (test code = 13.9 % 12.1-15.4 788-0) PLT (test code = 174 See_Comment [Automated 777-3) message] The sy stem which generated this result transmitted reference range : 150 - 328 10*3/ ?L. The reference r franklin was not used to interpret this result as normal/abnormal . MPV (test code = 10.8 fL 9.8-13.0 27178-8) NRBC/100 WBC (test 0.0 See_Comment [Automat ed code = 8997897144) message] The system which generated this result transmitted reference range : 0.0 - 10.0 /100 WBCs. The refer ence range was not u sed to interpret th is result as normal/abnormal . NRBC x10^3 (test code See_Comment [Auto mated = 7964438378) message] The s ystem which generated this result transmitted reference range : 10*3/?L. The reference range was not used to interpret this result as normal/abnormal . GRAN MAT (NEUT) % 79.7 % (test code = 770-8) IMM GRAN % (test code 0.20 % = 4397580324) LYMPH % (test code = 14.4 % 736-9) MONO % (test code = 4.8 % 5905-5) EOS % (test code = 0.7 % 713-8) BASO % (test code = 0.2 % 706-2) GRAN MAT x10^3(ANC) 6.97 10*3/uL 1.99-6.95 H (test code = 2713681734) IMM GRAN x10^3 (test 0.00-0.06 code = 5162030403) LYMPH x10^3 (test code 1.26 10*3/uL 1.09-3.23 = 731-0) MONO x10^3 (test code 0.42 10*3/uL 0.36-1.02 = 742-7) EOS x10^3 (test code = 0.06 10*3/uL 0.06-0.53 711-2) BASO x10^3 (test code 0.01-0.09 = 704-7) Lab Interpretation Abnormal (test code = 74674-3) [facility] WITH [id number] 15:26:38 Test Item Value Reference Range Interpretation Comments WBC (test code = 8.75 See_Comment [Automated 6690-2) message] The sy stem which generated this result transmitted reference range : 4.20 - 10.70 10*3/?L. The reference range was not used to interpret this result as normal/abnormal . RBC (test code = 5.10 See_Comment [Automated 789-8) message] The sy stem which generated this result transmitted reference range : 4.26 - 5.52 10*6/?L. The reference range was not used to interpret this result as normal/abnormal . HGB (test code = 15.2 g/dL 12.2-16.4 718-7) HCT (test code = 43.5 % 38.4-49.3 4544-3) MCV (test code = 85.3 fL 81.7-95.6 787-2) MCH (test code = 29.8 pg 26.1-32.7 785-6) MCHC (test code = 34.9 g/dL 31.2-35.0 786-4) RDW-SD (test code = 43.3 fL 38.5-51.6 62948-6) RDW-CV (test code = 13.9 % 12.1-15.4 788-0) PLT (test code = 174 See_Comment [Automated 777-3) message] The sy stem which generated this result transmitted reference range : 150 - 328 10*3/ ?L. The reference r franklin was not used to interpret this result as normal/abnormal . MPV (test code = 10.8 fL 9.8-13.0 97465-9) NRBC/100 WBC (test 0.0 See_Comment [Automat ed code = 3575164481) message] The system which generated this result transmitted reference range : 0.0 - 10.0 /100 WBCs. The refer ence range was not u sed to interpret th is result as normal/abnormal . NRBC x10^3 (test code See_Comment [Auto mated = 6119537230) message] The s ystem which generated this result transmitted reference range : 10*3/?L. The reference range was not used to interpret this result as normal/abnormal . GRAN MAT (NEUT) % 79.7 % (test code = 770-8) IMM GRAN % (test code 0.20 % = 5709450538) LYMPH % (test code = 14.4 % 736-9) MONO % (test code = 4.8 % 5905-5) EOS % (test code = 0.7 % 713-8) BASO % (test code = 0.2 % 706-2) GRAN MAT x10^3(ANC) 6.97 10*3/uL 1.99-6.95 H (test code = 1497726380) IMM GRAN x10^3 (test 0.00-0.06 code = 6197838539) LYMPH x10^3 (test code 1.26 10*3/uL 1.09-3.23 = 731-0) MONO x10^3 (test code 0.42 10*3/uL 0.36-1.02 = 742-7) EOS x10^3 (test code = 0.06 10*3/uL 0.06-0.53 711-2) BASO x10^3 (test code 0.01-0.09 = 704-7) Lab Interpretation Abnormal (test code = 19473-9) [facility] (NA, K, CL, CO2, GLUCOSE, BUN, CREATININE, CA)2022-04-27 10:45:36 Test Item Value Reference Range Interpretation Comments NA (test code = 135 mmol/L 135-145 5189272932) K (test code = 3.9 mmol/L 3.5-5.0 4423867651) CL (test code = 105 mmol/L 98-108 2281842322) CO2 TOTAL (test code = 20 mmol/L 23-31 L 4002769039) AGAP (test code = 10 2-16 6440548229) BUN (test code = 19 mg/dL 7-23 2455612839) GLUCOSE (test code = 93 mg/dL 70-110 2089525087) CREATININE (test code = 0.84 mg/dL 0.60-1.25 2506356093) CALCIUM (test code = 8.8 mg/dL 8.6-10.6 0793453065) eGFR (test code = 92.0 mL/min/1.73m2 4803611166) CL (test code = CL) Association of Glomerular Filtration Rate (GFR) and Staging of Kidney Disease* + --+ --+ ------+| GFR (mL/min/1.73 m2) ?| With Kidney Damage ?| ?Without Kidney Damage+ --------+ --------+ +| ?>90 ?| ?Stage one ?| ? Normal ?+ ---+ ---+ -------+| ?60-89 ?| ?Stage two ?| ? Decreased GFR ? + --+ --+ ------+| ?30-59 ?| ?Stage three ?| ? Stage three ? + --+ --+ ------+| ?15-29 ?| ?Stage four ? | ? Stage four ?+ ---+ ---+ -------+| ?<15 (or dialysis) ? ?| ?Stage five ? | ? Stage five ?+ ---+ ---+ -------+ *Each stage assumes the associated GFR level has been in effect for at least three months. ?Stages 1 to 5, with or without kidney disease, indicate chronic kidney disease. Notes: Determination of stages one and two (with eGFR >59mL/min/1.73 m2) requires estimation of kidney damage for at least three months as defined by structural or functional abnormalities of the kidney, manifested by either:Pathological abnormalities or Markers of kidney damage (including abnormalities in the composition of the blood or urine or abnormalities in imaging tests). Lab Interpretation Abnormal (test code = 18223-1) [facility] METABOLIC PANEL (NA, K, CL, CO2, GLUCOSE, BUN, CREATININE, CA)2022-04-27 10:45:36 Test Item Value Reference Range Interpretation Comments NA (test code = 135 mmol/L 135-145 9775593394) K (test code = 3.9 mmol/L 3.5-5.0 9898238042) CL (test code = 105 mmol/L 98-108 3411691628) CO2 TOTAL (test code = 20 mmol/L 23-31 L 8177256715) AGAP (test code = 10 2-16 1841531237) BUN (test code = 19 mg/dL 7-23 6172073282) GLUCOSE (test code = 93 mg/dL 70-110 8232507828) CREATININE (test code = 0.84 mg/dL 0.60-1.25 2073561770) CALCIUM (test code = 8.8 mg/dL 8.6-10.6 7110908968) eGFR (test code = 92.0 mL/min/1.73m2 3027699093) CL (test code = CL) Association of Glomerular Filtration Rate (GFR) and Staging of Kidney Disease* + --+ --+ ------+| GFR (mL/min/1.73 m2) ?| With Kidney Damage ?| ?Without Kidney Damage+ --------+ --------+ +| ?>90 ?| ?Stage one ?| ? Normal ?+ ---+ ---+ -------+| ?60-89 ?| ?Stage two ?| ? Decreased GFR ? + --+ --+ ------+| ?30-59 ?| ?Stage three ?| ? Stage three ? + --+ --+ ------+| ?15-29 ?| ?Stage four ? | ? Stage four ?+ ---+ ---+ -------+| ?<15 (or dialysis) ? ?| ?Stage five ? | ? Stage five ?+ ---+ ---+ -------+ *Each stage assumes the associated GFR level has been in effect for at least three months. ?Stages 1 to 5, with or without kidney disease, indicate chronic kidney disease. Notes: Determination of stages one and two (with eGFR >59mL/min/1.73 m2) requires estimation of kidney damage for at least three months as defined by structural or functional abnormalities of the kidney, manifested by either:Pathological abnormalities or Markers of kidney damage (including abnormalities in the composition of the blood or urine or abnormalities in imaging tests). Lab Interpretation Abnormal (test code = 25720-8) [facility] Culture - Peripheral # [id number] 06:01:58 Test Item Value Reference Range Interpretation Comments Blood Culture-Aerobic No organisms No growth Previo us (test code = 40063-2) isolated prelim inary verified result was Culture In Progress on 04/22/2022 at 03 01 CSTPrevious preliminary verified result was No growth a t 24 hours on 04/23/2022 at 00 01 CSTPrevious preliminary verified result was No growth a t 48 hours on 04/24/2022 at 00 01 CSTPrevious preliminary verified result was No growth a t 72 hours on 04/25/2022 at 00 01 [employer] Blood No organisms No growth Previous Culture-Anaerobic isolated preliminar y (test code = 85938-4) verifi ed result was Culture In Progress on 04/22/2022 at 03 01 CSTPrevious preliminary verified result was No growth a t 24 hours on 04/23/2022 at 00 01 CSTPrevious preliminary verified result was No growth a t 48 hours on 04/24/2022 at 00 01 CSTPrevious preliminary verified result was No growth a t 72 hours on 04/25/2022 at 00 01 [employer] Lab Interpretation Normal (test code = 71095-2) [facility] Culture - Peripheral # [id number] 06:01:58 Test Item Value Reference Range Interpretation Comments Blood Culture-Aerobic No organisms No growth Previo us (test code = 48732-1) isolated prelim inary verified result was Culture In Progress on 04/22/2022 at 03 01 CSTPrevious preliminary verified result was No growth a t 24 hours on 04/23/2022 at 00 01 CSTPrevious preliminary verified result was No growth a t 48 hours on 04/24/2022 at 00 01 CSTPrevious preliminary verified result was No growth a t 72 hours on 04/25/2022 at 00 01 [employer] Blood No organisms No growth Previous Culture-Anaerobic isolated preliminar y (test code = 52485-5) verifi ed result was Culture In Progress on 04/22/2022 at 03 01 CSTPrevious preliminary verified result was No growth a t 24 hours on 04/23/2022 at 00 01 CSTPrevious preliminary verified result was No growth a t 48 hours on 04/24/2022 at 00 01 CSTPrevious preliminary verified result was No growth a t 72 hours on 04/25/2022 at 00 01 [employer] Lab Interpretation Normal (test code = 29592-9) [facility] Culture - Peripheral # [id number] 06:01:58 Test Item Value Reference Range Interpretation Comments Blood Culture-Aerobic No organisms No growth Previo us (test code = 09058-0) isolated prelim inary verified result was Culture In Progress on 04/22/2022 at 03 01 CSTPrevious preliminary verified result was No growth a t 24 hours on 04/23/2022 at 00 01 CSTPrevious preliminary verified result was No growth a t 48 hours on 04/24/2022 at 00 01 CSTPrevious preliminary verified result was No growth a t 72 hours on 04/25/2022 at 00 01 [employer] Blood No organisms No growth Previous Culture-Anaerobic isolated preliminar y (test code = 13851-3) verifi ed result was Culture In Progress on 04/22/2022 at 03 01 CSTPrevious preliminary verified result was No growth a t 24 hours on 04/23/2022 at 00 01 CSTPrevious preliminary verified result was No growth a t 48 hours on 04/24/2022 at 00 01 CSTPrevious preliminary verified result was No growth a t 72 hours on 04/25/2022 at 00 01 [employer] Lab Interpretation Normal (test code = 23148-0) [facility] Culture - Peripheral # [id number] 06:01:58 Test Item Value Reference Range Interpretation Comments Blood Culture-Aerobic No organisms No growth Previo us (test code = 34768-1) isolated prelim inary verified result was Culture In Progress on 04/22/2022 at 03 01 CSTPrevious preliminary verified result was No growth a t 24 hours on 04/23/2022 at 00 01 CSTPrevious preliminary verified result was No growth a t 48 hours on 04/24/2022 at 00 01 CSTPrevious preliminary verified result was No growth a t 72 hours on 04/25/2022 at 00 01 [employer] Blood No organisms No growth Previous Culture-Anaerobic isolated preliminar y (test code = 13912-5) verifi ed result was Culture In Progress on 04/22/2022 at 03 01 CSTPrevious preliminary verified result was No growth a t 24 hours on 04/23/2022 at 00 01 CSTPrevious preliminary verified result was No growth a t 48 hours on 04/24/2022 at 00 01 CSTPrevious preliminary verified result was No growth a t 72 hours on 04/25/2022 at 00 01 [employer] Lab Interpretation Normal (test code = 32380-8) [facility] Test Item Value Reference Range Interpretation Comments MAGNESIUM (test code = 0470298785) 2.1 mg/dL 1.7-2.4 Lab Interpretation (test code = Normal 93049-7) [facility]2023-01-29 15:52:38 Test Item Value Reference Range Interpretation Comments MAGNESIUM (test code = 8207033369) 2.1 mg/dL 1.7-2.4 Lab Interpretation (test code = Normal 78236-7) [facility] METABOLIC PANEL (NA, K, CL, CO2, GLUCOSE, BUN, CREATININE, CA)2022-04-25 10:43:02 Test Item Value Reference Range Interpretation Comments NA (test code = 137 mmol/L 135-145 5821127473) K (test code = 3.2 mmol/L 3.5-5.0 L 9965498634) CL (test code = 103 mmol/L 98-108 2311586119) CO2 TOTAL (test code = 25 mmol/L 23-31 1335833394) AGAP (test code = 9 2-16 3336217290) BUN (test code = 17 mg/dL 7-23 3435618581) GLUCOSE (test code = 94 mg/dL 70-110 1978314926) CREATININE (test code = 0.96 mg/dL 0.60-1.25 3140713803) CALCIUM (test code = 8.8 mg/dL 8.6-10.6 1760183740) eGFR (test code = 78.9 mL/min/1.73m2 6499558988) CL (test code = CL) Association of Glomerular Filtration Rate (GFR) and Staging of Kidney Disease* + --+ --+ ------+| GFR (mL/min/1.73 m2) ?| With Kidney Damage ?| ?Without Kidney Damage+ --------+ --------+ +| ?>90 ?| ?Stage one ?| ? Normal ?+ ---+ ---+ -------+| ?60-89 ?| ?Stage two ?| ? Decreased GFR ? + --+ --+ ------+| ?30-59 ?| ?Stage three ?| ? Stage three ? + --+ --+ ------+| ?15-29 ?| ?Stage four ? | ? Stage four ?+ ---+ ---+ -------+| ?<15 (or dialysis) ? ?| ?Stage five ? | ? Stage five ?+ ---+ ---+ -------+ *Each stage assumes the associated GFR level has been in effect for at least three months. ?Stages 1 to 5, with or without kidney disease, indicate chronic kidney disease. Notes: Determination of stages one and two (with eGFR >59mL/min/1.73 m2) requires estimation of kidney damage for at least three months as defined by structural or functional abnormalities of the kidney, manifested by either:Pathological abnormalities or Markers of kidney damage (including abnormalities in the composition of the blood or urine or abnormalities in imaging tests). Lab Interpretation Abnormal (test code = 88325-2) [facility] METABOLIC PANEL (NA, K, CL, CO2, GLUCOSE, BUN, CREATININE, CA)2022-04-25 10:43:02 Test Item Value Reference Range Interpretation Comments NA (test code = 137 mmol/L 135-145 1031146727) K (test code = 3.2 mmol/L 3.5-5.0 L 4646730452) CL (test code = 103 mmol/L 98-108 6526224860) CO2 TOTAL (test code = 25 mmol/L 23-31 0168102671) AGAP (test code = 9 2-16 9621973994) BUN (test code = 17 mg/dL 7-23 0245319655) GLUCOSE (test code = 94 mg/dL 70-110 6275372199) CREATININE (test code = 0.96 mg/dL 0.60-1.25 0470577887) CALCIUM (test code = 8.8 mg/dL 8.6-10.6 1750855288) eGFR (test code = 78.9 mL/min/1.73m2 2366537370) CL (test code = CL) Association of Glomerular Filtration Rate (GFR) and Staging of Kidney Disease* + --+ --+ ------+| GFR (mL/min/1.73 m2) ?| With Kidney Damage ?| ?Without Kidney Damage+ --------+ --------+ +| ?>90 ?| ?Stage one ?| ? Normal ?+ ---+ ---+ -------+| ?60-89 ?| ?Stage two ?| ? Decreased GFR ? + --+ --+ ------+| ?30-59 ?| ?Stage three ?| ? Stage three ? + --+ --+ ------+| ?15-29 ?| ?Stage four ? | ? Stage four ?+ ---+ ---+ -------+| ?<15 (or dialysis) ? ?| ?Stage five ? | ? Stage five ?+ ---+ ---+ -------+ *Each stage assumes the associated GFR level has been in effect for at least three months. ?Stages 1 to 5, with or without kidney disease, indicate chronic kidney disease. Notes: Determination of stages one and two (with eGFR >59mL/min/1.73 m2) requires estimation of kidney damage for at least three months as defined by structural or functional abnormalities of the kidney, manifested by either:Pathological abnormalities or Markers of kidney damage (including abnormalities in the composition of the blood or urine or abnormalities in imaging tests). Lab Interpretation Abnormal (test code = 20661-6) [facility] WITH [id number] 10:22:01 Test Item Value Reference Range Interpretation Comments WBC (test code = 5.67 See_Comment [Automated message] 6790-2) The system [employer] generated this result transmitted ref erence range: 4.20 - 1 0.70 10*3/?L. The re ference range was not u sed to interpret this result as normal/abnor mal. RBC (test code = 5.42 See_Comment [Automated message] 849-8) The system [employer] generated this result transmitted ref erence range: 4.26 - 5 .52 10*6/?L. The re ference range was not u sed to interpret this result as normal/abnor mal. HGB (test code = 15.9 g/dL 12.2-16.4 268-7) HCT (test code = 47.6 % 38.4-49.3 4544-3) MCV (test code = 87.8 fL 81.7-95.6 787-2) MCH (test code = 29.3 pg 26.1-32.7 785-6) MCHC (test code = 33.4 g/dL 31.2-35.0 786-4) RDW-SD (test code 42.1 fL 38.5-51.6 = 86996-0) RDW-CV (test code 13.2 % 12.1-15.4 = 788-0) PLT (test code = 193 See_Comment [Automated message] 777-3) The system whic h generated this result transmitted ref erence range: 150 - 32 8 10*3/?L. The re ference range was not u sed to interpret this result as normal/abnor mal. MPV (test code = 10.0 fL 9.8-13.0 46127-1) NRBC/100 WBC (test 0.0 See_Comment [Automat ed message] code = 2548770974) The syste m which generated this result transmitted ref erence range: 0.0 - 10 .0 /100 WBCs. The refer ence range was not u sed to interpret this result as normal/abnor mal. NRBC x10^3 (test See_Comment [Automated message] code = 3343092479) The syste m which generated this result transmitted ref erence range: 10*3/?L. The reference range was not used to interpr et this result as normal/abnormal . GRAN MAT (NEUT) % 55.6 % (test code = 770-8) IMM GRAN % (test 0.20 % code = 1562558446) LYMPH % (test code 30.0 % = 736-9) MONO % (test code 8.6 % = 5905-5) EOS % (test code = 5.1 % 713-8) BASO % (test code 0.5 % = 706-2) GRAN MAT 3.15 10*3/uL 1.99-6.95 x10^3(ANC) (test code = 2907555071) IMM GRAN x10^3 0.00-0.06 (test code = 1577865952) LYMPH x10^3 (test 1.70 10*3/uL 1.09-3.23 code = 731-0) MONO x10^3 (test 0.49 10*3/uL 0.36-1.02 code = 742-7) EOS x10^3 (test 0.29 10*3/uL 0.06-0.53 code = 711-2) BASO x10^3 (test 0.03 10*3/uL 0.01-0.09 code = 704-7) [facility] WITH [id number] 10:22:01 Test Item Value Reference Range Interpretation Comments WBC (test code = 5.67 See_Comment [Automated message] 1493-2) The system [employer] generated this result transmitted ref erence range: 4.20 - 1 0.70 10*3/?L. The re ference range was not u sed to interpret this result as normal/abnor mal. RBC (test code = 5.42 See_Comment [Automated message] 479-8) The system [employer] generated this result transmitted ref erence range: 4.26 - 5 .52 10*6/?L. The re ference range was not u sed to interpret this result as normal/abnor mal. HGB (test code = 15.9 g/dL 12.2-16.4 718-7) HCT (test code = 47.6 % 38.4-49.3 4544-3) MCV (test code = 87.8 fL 81.7-95.6 787-2) MCH (test code = 29.3 pg 26.1-32.7 785-6) MCHC (test code = 33.4 g/dL 31.2-35.0 786-4) RDW-SD (test code 42.1 fL 38.5-51.6 = 10208-4) RDW-CV (test code 13.2 % 12.1-15.4 = 788-0) PLT (test code = 193 See_Comment [Automated message] 697-3) The system [employer] generated this result transmitted ref erence range: 150 - 32 8 10*3/?L. The re ference range was not u sed to interpret this result as normal/abnor mal. MPV (test code = 10.0 fL 9.8-13.0 23069-6) NRBC/100 WBC (test 0.0 See_Comment [Automat ed message] code = 2909878345) The syste m which generated this result transmitted ref erence range: 0.0 - 10 .0 /100 WBCs. The refer ence range was not u sed to interpret this result as normal/abnor mal. NRBC x10^3 (test See_Comment [Automated message] code = 3527234843) The syste m which generated this result transmitted ref erence range: 10*3/?L. The reference range was not used to interpr et this result as normal/abnormal . GRAN MAT (NEUT) % 55.6 % (test code = 770-8) IMM GRAN % (test 0.20 % code = 2397668429) LYMPH % (test code 30.0 % = 736-9) MONO % (test code 8.6 % = 5905-5) EOS % (test code = 5.1 % 713-8) BASO % (test code 0.5 % = 706-2) GRAN MAT 3.15 10*3/uL 1.99-6.95 x10^3(ANC) (test code = 6824059014) IMM GRAN x10^3 0.00-0.06 (test code = 5459763320) LYMPH x10^3 (test 1.70 10*3/uL 1.09-3.23 code = 731-0) MONO x10^3 (test 0.49 10*3/uL 0.36-1.02 code = 742-7) EOS x10^3 (test 0.29 10*3/uL 0.06-0.53 code = 711-2) BASO x10^3 (test 0.03 10*3/uL 0.01-0.09 code = 704-7) [facility] (A1C)2022-04-22 04:14:29 Test Item Value Reference Range Interpretation Comments HGB A1C (test code = 5.8 % 4.0-5.7 H 4548-4) CL (test code = CL) Reference RangesNormal: <5.7%Prediabetes: 5.7 - 6.4%Diabetes: > 6.5% Lab Interpretation (test Abnormal code = 75689-5) [facility] (A1C)2022-04-22 04:14:29 Test Item Value Reference Range Interpretation Comments HGB A1C (test code = 5.8 % 4.0-5.7 H 4548-4) CL (test code = CL) Reference RangesNormal: <5.7%Prediabetes: 5.7 - 6.4%Diabetes: > 6.5% Lab Interpretation (test Abnormal code = 87170-9) [facility] Clinic[facility]th[facility] / [id number] 20:13:11 Test Item Value Reference Range Interpretation Comments PROTIME PATIENT (test 13.8 See_Comment H [Auto mated message] code = 5964-2) The system [employer] generated this result transmitted ref erence range: 10.1 - 1 2.6 Seconds. The reference range was not used to int erpret this result as normal/abnormal . INR (test code = 6301-6) 1.2 Nor mal INR <1.1; Warfarin Therap eutic range 2.0 to 3. 0 or 2.5 to 3.5, dep ending upon the indica tions. Lab Interpretation (test Abnormal code = 24751-9) [facility] Clinic[facility] / [id number] 20:13:11 Test Item Value Reference Range Interpretation Comments PROTIME PATIENT (test 13.8 See_Comment H [Auto mated message] code = 5964-2) The system [employer] generated this result transmitted ref erence range: 10.1 - 1 2.6 Seconds. The reference range was not used to int erpret this result as normal/abnormal . INR (test code = 6301-6) 1.2 Nor mal INR <1.1; Warfarin Therap eutic range 2.0 to 3. 0 or 2.5 to 3.5, dep ending upon the indica tions. Lab Interpretation (test Abnormal code = 61818-0) [facility] ClinicTR[facility] [id number] 19:58:08 Test Item Value Reference Range Interpretation Comments TROPONIN I (test code = 0.005 ng/mL <=0.034 1719404748) CL (test code = LC) Reference (Normal) Range (defined by the 99th percentile reference limit): <= 0.034 ng/mL Note: Cardiac troponin begins to rise 3-4 hours after the onset of ischemia. Repeat in 4-6 hours if the sample was drawn within 3-4 hours of the onset of the symptom and found normal. Diagnosis of myocardial injury is made with acute changes in cTn concentrations with at least one serial sample above the 99th percentile upper reference limit (URL), taken together with the patient's clinical presentation. Biotin has been reported to cause a negative bias, interpret results relative to patient's use of biotin. Lab Interpretation Normal (test code = 02332-4) [facility] Clinic[facility] [id number] 19:58:08 Test Item Value Reference Range Interpretation Comments TROPONIN I (test code = 0.005 ng/mL <=0.034 4248835977) CL (test code = CL) Reference (Normal) Range (defined by the 99th percentile reference limit): <= 0.034 ng/mL Note: Cardiac troponin begins to rise 3-4 hours after the onset of ischemia. Repeat in 4-6 hours if the sample was drawn within 3-4 hours of the onset of the symptom and found normal. Diagnosis of myocardial injury is made with acute changes in cTn concentrations with at least one serial sample above the 99th percentile upper reference limit (URL), taken together with the patient's clinical presentation. Biotin has been reported to cause a negative bias, interpret results relative to patient's use of biotin. Lab Interpretation Normal (test code = 57137-3) [facility] ClinicCOMP[facility] METABOLIC PANEL ([id number])2022-04-21 19:46:06 Test Item Value Reference Range Interpretation Comments NA (test code = 138 mmol/L 135-145 5958086747) K (test code = 4.6 mmol/L 3.5-5.0 Slight 8957706584) hemolysis CL (test code = 108 mmol/L 98-108 6893352682) CO2 TOTAL (test code 21 mmol/L 23-31 L = 2772976945) AGAP (test code = 9 2-16 9829961709) BUN (test code = 15 mg/dL 7-23 Slight 2807468726) hemolysis GLUCOSE (test code = 97 mg/dL 70-110 2952581768) CREATININE (test code 0.77 mg/dL 0.60-1.25 = 5743992804) TOTAL BILI (test code 0.9 mg/dL 0.1-1.1 = 3159735156) CALCIUM (test code = 8.8 mg/dL 8.6-10.6 4745079862) T PROTEIN (test code 7.5 g/dL 6.3-8.2 = 5775282387) ALBUMIN (test code = 4.1 g/dL 3.5-5.0 5327314220) ALK PHOS (test code = 90 U/L 34-122 Slight 2237204278) hemolysis ALTv (test code = 19 U/L 5-50 1742-6) AST(SGOT) (test code 28 U/L 13-40 Slight = 0690688967) hemolysis eGFR (test code = 101.7 mL/min/1.73m2 6335649778) CL (test code = CL) Association of Glomerular Filtration Rate (GFR) and Staging of Kidney Disease* + -----+ --------+ +| GFR (mL/min/1.73 m2) ?| With Kidney Damage ?| ?Without Kidney Damage+ +------- +---- --+| ?>90 ?| ?Stage one ?| ? Normal ?+ ------+ ---------+--------- +| ?60-89 ?| ?Stage two ?| ? Decreased GFR ? + -----+ --------+ +| ?30-59 ?| ?Stage three ?| ? Stage three ? + -----+ --------+ +| ?15-29 ?| ?Stage four ? | ? Stage four ?+ ------+ ---------+--------- +| ?<15 (or dialysis) ? ?| ?Stage five ? | ? Stage five ?+ ------+ ---------+--------- + *Each stage assumes the associated GFR level has been in effect for at least three months. ?Stages 1 to 5, with or without kidney disease, indicate chronic kidney disease. Notes: Determination of stages one and two (with eGFR >59mL/min/1.73 m2) requires estimation of kidney damage for at least three months as defined by structural or functional abnormalities of the kidney, manifested by either:Pathological abnormalities or Markers of kidney damage (including abnormalities in the composition of the blood or urine or abnormalities in imaging tests). Lab Interpretation Abnormal (test code = 68874-3) [facility] ClinicMAGN[facility]IUM2023-[facility]-25 19:46:06 Test Item Value Reference Range Interpretation Comments MAGNESIUM (test code = 6167691222) 2.2 mg/dL 1.7-2.4 Lab Interpretation (test code = Normal 33726-6) [facility] Clinic[facility] METABOLIC PANEL ([id number])2022-04-21 19:46:06 Test Item Value Reference Range Interpretation Comments NA (test code = 138 mmol/L 135-145 0176698773) K (test code = 4.6 mmol/L 3.5-5.0 Slight 7652173316) hemolysis CL (test code = 108 mmol/L 98-108 4283662094) CO2 TOTAL (test code 21 mmol/L 23-31 L = 6634422243) AGAP (test code = 9 2-16 0859321744) BUN (test code = 15 mg/dL 7-23 Slight 8186113039) hemolysis GLUCOSE (test code = 97 mg/dL 70-110 4770154187) CREATININE (test code 0.77 mg/dL 0.60-1.25 = 4880402526) TOTAL BILI (test code 0.9 mg/dL 0.1-1.1 = 3205299818) CALCIUM (test code = 8.8 mg/dL 8.6-10.6 6136266992) T PROTEIN (test code 7.5 g/dL 6.3-8.2 = 0198100916) ALBUMIN (test code = 4.1 g/dL 3.5-5.0 9658007188) ALK PHOS (test code = 90 U/L 34-122 Slight 4342912479) hemolysis ALTv (test code = 19 U/L 5-50 1742-6) AST(SGOT) (test code 28 U/L 13-40 Slight = 2014545893) hemolysis eGFR (test code = 101.7 mL/min/1.73m2 0262806853) CL (test code = CL) Association of Glomerular Filtration Rate (GFR) and Staging of Kidney Disease* + -----+ --------+ +| GFR (mL/min/1.73 m2) ?| With Kidney Damage ?| ?Without Kidney Damage+ +------- +---- --+| ?>90 ?| ?Stage one ?| ? Normal ?+ ------+ ---------+--------- +| ?60-89 ?| ?Stage two ?| ? Decreased GFR ? + -----+ --------+ +| ?30-59 ?| ?Stage three ?| ? Stage three ? + -----+ --------+ +| ?15-29 ?| ?Stage four ? | ? Stage four ?+ ------+ ---------+--------- +| ?<15 (or dialysis) ? ?| ?Stage five ? | ? Stage five ?+ ------+ ---------+--------- + *Each stage assumes the associated GFR level has been in effect for at least three months. ?Stages 1 to 5, with or without kidney disease, indicate chronic kidney disease. Notes: Determination of stages one and two (with eGFR >59mL/min/1.73 m2) requires estimation of kidney damage for at least three months as defined by structural or functional abnormalities of the kidney, manifested by either:Pathological abnormalities or Markers of kidney damage (including abnormalities in the composition of the blood or urine or abnormalities in imaging tests). Lab Interpretation Abnormal (test code = 28649-9) [facility]20[facility]-25 19:46:06 Test Item Value Reference Range Interpretation Comments MAGNESIUM (test code = 7864471888) 2.2 mg/dL 1.7-2.4 Lab Interpretation (test code = Normal 12283-6) [facility] WITH [id number] 19:44:24 Test Item Value Reference Range Interpretation Comments WBC (test code = 4.68 See_Comment [Automated message] 1490-2) The system [employer] generated this result transmitted ref erence range: 4.20 - 1 0.70 10*3/?L. The re ference range was not u sed to interpret this result as normal/abnor mal. RBC (test code = 5.18 See_Comment [Automated message] 399-8) The system [employer] generated this result transmitted ref erence range: 4.26 - 5 .52 10*6/?L. The re ference range was not u sed to interpret this result as normal/abnor mal. HGB (test code = 15.4 g/dL 12.2-16.4 718-7) HCT (test code = 45.5 % 38.4-49.3 4544-3) MCV (test code = 87.8 fL 81.7-95.6 787-2) MCH (test code = 29.7 pg 26.1-32.7 785-6) MCHC (test code = 33.8 g/dL 31.2-35.0 786-4) RDW-SD (test code 42.4 fL 38.5-51.6 = 37623-9) RDW-CV (test code 13.3 % 12.1-15.4 = 788-0) PLT (test code = 233 See_Comment [Automated message] 777-3) The system [employer] generated this result transmitted ref erence range: 150 - 32 8 10*3/?L. The re ference range was not u sed to interpret this result as normal/abnor mal. MPV (test code = 9.8 fL 9.8-13.0 80883-5) NRBC/100 WBC (test 0.0 See_Comment [Automat ed message] code = 9054765744) The syste m which generated this result transmitted ref erence range: 0.0 - 10 .0 /100 WBCs. The refer ence range was not u sed to interpret this result as normal/abnor mal. NRBC x10^3 (test See_Comment [Automated message] code = 2168203197) The syste m which generated this result transmitted ref erence range: 10*3/?L. The reference range was not used to interpr et this result as normal/abnormal . GRAN MAT (NEUT) % 51.6 % (test code = 770-8) IMM GRAN % (test 0.20 % code = 9474088820) LYMPH % (test code 32.3 % = 736-9) MONO % (test code 10.3 % = 5905-5) EOS % (test code = 4.7 % 713-8) BASO % (test code 0.9 % = 706-2) GRAN MAT 2.42 10*3/uL 1.99-6.95 x10^3(ANC) (test code = 9878401453) IMM GRAN x10^3 0.00-0.06 (test code = 7372848994) LYMPH x10^3 (test 1.51 10*3/uL 1.09-3.23 code = 731-0) MONO x10^3 (test 0.48 10*3/uL 0.36-1.02 code = 742-7) EOS x10^3 (test 0.22 10*3/uL 0.06-0.53 code = 711-2) BASO x10^3 (test 0.04 10*3/uL 0.01-0.09 code = 704-7) [facility] WITH [id number] 19:44:24 Test Item Value Reference Range Interpretation Comments WBC (test code = 4.68 See_Comment [Automated message] 5490-2) The system [employer] generated this result transmitted ref erence range: 4.20 - 1 0.70 10*3/?L. The re ference range was not u sed to interpret this result as normal/abnor mal. RBC (test code = 5.18 See_Comment [Automated message] 109-8) The system [employer] generated this result transmitted ref erence range: 4.26 - 5 .52 10*6/?L. The re ference range was not u sed to interpret this result as normal/abnor mal. HGB (test code = 15.4 g/dL 12.2-16.4 718-7) HCT (test code = 45.5 % 38.4-49.3 4544-3) MCV (test code = 87.8 fL 81.7-95.6 787-2) MCH (test code = 29.7 pg 26.1-32.7 785-6) MCHC (test code = 33.8 g/dL 31.2-35.0 786-4) RDW-SD (test code 42.4 fL 38.5-51.6 = 94720-3) RDW-CV (test code 13.3 % 12.1-15.4 = 788-0) PLT (test code = 233 See_Comment [Automated message] 927-3) The system [employer] generated this result transmitted ref erence range: 150 - 32 8 10*3/?L. The re ference range was not u sed to interpret this result as normal/abnor mal. MPV (test code = 9.8 fL 9.8-13.0 29328-7) NRBC/100 WBC (test 0.0 See_Comment [Automat ed message] code = 6857478477) The syste m which generated this result transmitted ref erence range: 0.0 - 10 .0 /100 WBCs. The refer ence range was not u sed to interpret this result as normal/abnor mal. NRBC x10^3 (test See_Comment [Automated message] code = 9709366144) The syste m which generated this result transmitted ref erence range: 10*3/?L. The reference range was not used to interpr et this result as normal/abnormal . GRAN MAT (NEUT) % 51.6 % (test code = 770-8) IMM GRAN % (test 0.20 % code = 6323277165) LYMPH % (test code 32.3 % = 736-9) MONO % (test code 10.3 % = 5905-5) EOS % (test code = 4.7 % 713-8) BASO % (test code 0.9 % = 706-2) GRAN MAT 2.42 10*3/uL 1.99-6.95 x10^3(ANC) (test code = 1073851282) IMM GRAN x10^3 0.00-0.06 (test code = 9577182440) LYMPH x10^3 (test 1.51 10*3/uL 1.09-3.23 code = 731-0) MONO x10^3 (test 0.48 10*3/uL 0.36-1.02 code = 742-7) EOS x10^3 (test 0.22 10*3/uL 0.06-0.53 code = 711-2) BASO x10^3 (test 0.04 10*3/uL 0.01-0.09 code = 704-7) [facility], [id number] 19:42:47 Test Item Value Reference Range Interpretation Comments AMMONIA (test code = 13 umol/L 9-33 Slight hemolysis 7922809788) Lab Interpretation (test Normal code = 78109-0) [facility], [id number] 19:42:47 Test Item Value Reference Range Interpretation Comments AMMONIA (test code = 13 umol/L 9-33 Slight hemolysis 3642281660) Lab Interpretation (test Normal code = 83465-7) [facility] ClinicQUANT [id number] 12:54:04 Test Item Value Reference Range Interpretation Comments Quantitative Tissue No aerobic organisms Culture (test code = isolated 08615-6) Gram stain (test code = Few PMNs or 664-3) Mononuclear cells observed [facility] (NA, K, CL, CO2, GLUCOSE, BUN, CREATININE, CA)2020-06-05 11:11:52 Test Item Value Reference Range Interpretation Comments NA (test code = 138 mmol/L 135-145 0329825333) K (test code = 3.6 mmol/L 3.5-5.0 5470234881) CL (test code = 108 mmol/L 98-108 4089496345) CO2 TOTAL (test code = 23 mmol/L 23-31 8688745073) AGAP (test code = 2-16 6999358456) BUN (test code = 11 mg/dL 7-23 7271982803) GLUCOSE (test code = 96 mg/dL 70-110 6257030077) CREATININE (test code = 0.91 mg/dL 0.60-1.25 4876686141) CALCIUM (test code = 8.4 mg/dL 8.6-10.6 L 6350665836) eGFR Calculation mL/min/1.73m2 (Non-) (test code = 1026444610) eGFR Calculation mL/min/1.73m2 () (test code = 5214730864) CL (test code = CL) Association of Glomerular Filtration Rate (GFR) and Staging of Kidney Disease* + --+ --+ ------+| GFR (mL/min/1.73 m2) ?| With Kidney Damage ?| ?Without Kidney Damage+ --------+ --------+ +| ?>90 ?| ?Stage one ?| ? Normal ?+ ---+ ---+ -------+| ?60-89 ?| ?Stage two ?| ? Decreased GFR ? + --+ --+ ------+| ?30-59 ?| ?Stage three ?| ? Stage three ? + --+ --+ ------+| ?15-29 ?| ?Stage four ? | ? Stage four ?+ ---+ ---+ -------+| ?<15 (or dialysis) ? ?| ?Stage five ? | ? Stage five ?+ ---+ ---+ -------+ *Each stage assumes the associated GFR level has been in effect for at least three months. ?Stages 1 to 5, with or without kidney disease, indicate chronic kidney disease. Notes: Determination of stages one and two (with eGFR >59mL/min/1.73 m2) requires estimation of kidney damage for at least three months as defined by structural or functional abnormalities of the kidney, manifested by either:Pathological abnormalities or Markers of kidney damage (including abnormalities in the composition of the blood or urine or abnormalities in imaging tests). Lab Interpretation Abnormal (test code = 74077-5) [facility] WITH [id number] 09:12:20 Test Item Value Reference Range Interpretation Comments WBC (test code = See_Comment [Automated 0590-2) message] The sy stem which generated this result transmitted reference range : 4.20 - 10.70 10*3/?L. The reference range was not used to interpret this result as normal/abnormal . RBC (test code = See_Comment [Automated 059-8) message] The sy stem which generated this result transmitted reference range : 4.26 - 5.52 10*6/?L. The reference range was not used to interpret this result as normal/abnormal . HGB (test code = 13.8 g/dL 12.2-16.4 718-7) HCT (test code = 41.5 % 38.4-49.3 4544-3) MCV (test code = 89.6 fL 81.7-95.6 787-2) MCH (test code = 29.8 pg 26.1-32.7 785-6) MCHC (test code = 33.3 g/dL 31.2-35.0 786-4) RDW-SD (test code = 46.5 fL 38.5-51.6 89816-5) RDW-CV (test code = 14.1 % 12.1-15.4 788-0) PLT (test code = See_Comment [Automated 777-3) message] The sy stem which generated this result transmitted reference range : 150 - 328 10*3/ ?L. The reference r franklin was not used to interpret this result as normal/abnormal . MPV (test code = 9.6 fL 9.8-13.0 L 49317-4) NRBC/100 WBC (test See_Comment [Automat ed code = 7086897366) message] The system which generated this result transmitted reference range : 0.0 - 10.0 /100 WBCs. The refer ence range was not u sed to interpret th is result as normal/abnormal . NRBC x10^3 (test code <0.01 See_Comment [Auto mated = 0752343924) message] The s ystem which generated this result transmitted reference range : 10*3/?L. The reference range was not used to interpret this result as normal/abnormal . GRAN MAT (NEUT) % 59.2 % (test code = 770-8) IMM GRAN % (test code 0.30 % = 8391555710) LYMPH % (test code = 25.7 % 736-9) MONO % (test code = 9.5 % 5905-5) EOS % (test code = 4.7 % 713-8) BASO % (test code = 0.6 % 706-2) GRAN MAT x10^3(ANC) 3.94 10*3/uL 1.99-6.95 (test code = 8388448745) IMM GRAN x10^3 (test <0.03 0.00-0.06 code = 8392273501) LYMPH x10^3 (test code 1.71 10*3/uL 1.09-3.23 = 731-0) MONO x10^3 (test code 0.63 10*3/uL 0.36-1.02 = 742-7) EOS x10^3 (test code = 0.31 10*3/uL 0.06-0.53 711-2) BASO x10^3 (test code 0.04 10*3/uL 0.01-0.09 = 704-7) Lab Interpretation Abnormal (test code = 69976-7) [facility] - Draw immediately prior to the 4TH dose, but, no more than 60 minutes before the 4TH dose. 2020-06-05 03:47:33 Test Item Value Reference Range Interpretation Comments VANCO TROUGH (test code 11.4 ug/mL 10.0-20.0 = 8771942123) CL (test code = CL) Toxic Range: ?>20 ug/mL 15-20 ug/mL is recommended for severe infection or when Vancomycin KATHLEEN is greater than or equal to 2. Lab Interpretation (test Normal code = 76180-7) [facility] METABOLIC PANEL (NA, K, CL, CO2, GLUCOSE, BUN, CREATININE, CA)2020-06-04 10:05:48 Test Item Value Reference Range Interpretation Comments NA (test code = 141 mmol/L 135-145 4025612932) K (test code = 3.8 mmol/L 3.5-5.0 5525805365) CL (test code = 112 mmol/L 98-108 H 1089494294) CO2 TOTAL (test code = 23 mmol/L 23-31 7645270919) AGAP (test code = 2-16 6514620513) BUN (test code = 10 mg/dL 7-23 6074219148) GLUCOSE (test code = 90 mg/dL 70-110 6351300244) CREATININE (test code = 0.68 mg/dL 0.60-1.25 9461973690) CALCIUM (test code = 8.4 mg/dL 8.6-10.6 L 3392793083) eGFR Calculation mL/min/1.73m2 (Non-) (test code = 4848107031) eGFR Calculation mL/min/1.73m2 () (test code = 1192878936) CL (test code = CL) Association of Glomerular Filtration Rate (GFR) and Staging of Kidney Disease* + --+ --+ ------+| GFR (mL/min/1.73 m2) ?| With Kidney Damage ?| ?Without Kidney Damage+ --------+ --------+ +| ?>90 ?| ?Stage one ?| ? Normal ?+ ---+ ---+ -------+| ?60-89 ?| ?Stage two ?| ? Decreased GFR ? + --+ --+ ------+| ?30-59 ?| ?Stage three ?| ? Stage three ? + --+ --+ ------+| ?15-29 ?| ?Stage four ? | ? Stage four ?+ ---+ ---+ -------+| ?<15 (or dialysis) ? ?| ?Stage five ? | ? Stage five ?+ ---+ ---+ -------+ *Each stage assumes the associated GFR level has been in effect for at least three months. ?Stages 1 to 5, with or without kidney disease, indicate chronic kidney disease. Notes: Determination of stages one and two (with eGFR >59mL/min/1.73 m2) requires estimation of kidney damage for at least three months as defined by structural or functional abnormalities of the kidney, manifested by either:Pathological abnormalities or Markers of kidney damage (including abnormalities in the composition of the blood or urine or abnormalities in imaging tests). Lab Interpretation Abnormal (test code = 03715-6) [facility] WITH [id number] 09:34:25 Test Item Value Reference Range Interpretation Comments WBC (test code = See_Comment [Automated 7090-2) message] The sy stem which generated this result transmitted reference range : 4.20 - 10.70 10*3/?L. The reference range was not used to interpret this result as normal/abnormal . RBC (test code = See_Comment [Automated 229-8) message] The sy stem which generated this result transmitted reference range : 4.26 - 5.52 10*6/?L. The reference range was not used to interpret this result as normal/abnormal . HGB (test code = 13.6 g/dL 12.2-16.4 718-7) HCT (test code = 40.5 % 38.4-49.3 4544-3) MCV (test code = 89.2 fL 81.7-95.6 787-2) MCH (test code = 30.0 pg 26.1-32.7 785-6) MCHC (test code = 33.6 g/dL 31.2-35.0 786-4) RDW-SD (test code = 46.5 fL 38.5-51.6 73937-9) RDW-CV (test code = 14.2 % 12.1-15.4 788-0) PLT (test code = See_Comment [Automated 777-3) message] The sy stem which generated this result transmitted reference range : 150 - 328 10*3/ ?L. The reference r franklin was not used to interpret this result as normal/abnormal . MPV (test code = 9.5 fL 9.8-13.0 L 21582-4) NRBC/100 WBC (test See_Comment [Automat ed code = 5235759433) message] The system which generated this result transmitted reference range : 0.0 - 10.0 /100 WBCs. The refer ence range was not u sed to interpret th is result as normal/abnormal . NRBC x10^3 (test code <0.01 See_Comment [Auto mated = 2156951170) message] The s ystem which generated this result transmitted reference range : 10*3/?L. The reference range was not used to interpret this result as normal/abnormal . GRAN MAT (NEUT) % 52.6 % (test code = 770-8) IMM GRAN % (test code 0.20 % = 6552772322) LYMPH % (test code = 31.2 % 736-9) MONO % (test code = 9.2 % 5905-5) EOS % (test code = 6.2 % 713-8) BASO % (test code = 0.6 % 706-2) GRAN MAT x10^3(ANC) 2.82 10*3/uL 1.99-6.95 (test code = 6271486546) IMM GRAN x10^3 (test <0.03 0.00-0.06 code = 3433861788) LYMPH x10^3 (test code 1.67 10*3/uL 1.09-3.23 = 731-0) MONO x10^3 (test code 0.49 10*3/uL 0.36-1.02 = 742-7) EOS x10^3 (test code = 0.33 10*3/uL 0.06-0.53 711-2) BASO x10^3 (test code 0.03 10*3/uL 0.01-0.09 = 704-7) Lab Interpretation Abnormal (test code = 34909-5) [facility] - Draw immediately prior to the NEXT dose, but, no more than 60 minutes before the NEXT dose. 2020-06-03 15:53:20 Test Item Value Reference Range Interpretation Comments VANCO TROUGH (test code 6.6 ug/mL 10.0-20.0 L = 4511918702) CL (test code = CL) Toxic Range: ?>20 ug/mL 15-20 ug/mL is recommended for severe infection or when Vancomycin KATHLEEN is greater than or equal to 2. Lab Interpretation (test Abnormal code = 18925-1) [facility] METABOLIC PANEL (NA, K, CL, CO2, GLUCOSE, BUN, CREATININE, CA)2020-06-03 15:12:14 Test Item Value Reference Range Interpretation Comments NA (test code = 141 mmol/L 135-145 6786992645) K (test code = 4.2 mmol/L 3.5-5.0 8491405075) CL (test code = 113 mmol/L 98-108 H 0025972777) CO2 TOTAL (test code = 23 mmol/L 23-31 9245560605) AGAP (test code = 2-16 9104697769) BUN (test code = 14 mg/dL 7-23 7768753016) GLUCOSE (test code = 89 mg/dL 70-110 2958440405) CREATININE (test code = 0.78 mg/dL 0.60-1.25 1301815054) CALCIUM (test code = 8.3 mg/dL 8.6-10.6 L 7446006745) eGFR Calculation mL/min/1.73m2 (Non-) (test code = 5713825471) eGFR Calculation mL/min/1.73m2 () (test code = 2038480685) CL (test code = CL) Association of Glomerular Filtration Rate (GFR) and Staging of Kidney Disease* + --+ --+ ------+| GFR (mL/min/1.73 m2) ?| With Kidney Damage ?| ?Without Kidney Damage+ --------+ --------+ +| ?>90 ?| ?Stage one ?| ? Normal ?+ ---+ ---+ -------+| ?60-89 ?| ?Stage two ?| ? Decreased GFR ? + --+ --+ ------+| ?30-59 ?| ?Stage three ?| ? Stage three ? + --+ --+ ------+| ?15-29 ?| ?Stage four ? | ? Stage four ?+ ---+ ---+ -------+| ?<15 (or dialysis) ? ?| ?Stage five ? | ? Stage five ?+ ---+ ---+ -------+ *Each stage assumes the associated GFR level has been in effect for at least three months. ?Stages 1 to 5, with or without kidney disease, indicate chronic kidney disease. Notes: Determination of stages one and two (with eGFR >59mL/min/1.73 m2) requires estimation of kidney damage for at least three months as defined by structural or functional abnormalities of the kidney, manifested by either:Pathological abnormalities or Markers of kidney damage (including abnormalities in the composition of the blood or urine or abnormalities in imaging tests). Lab Interpretation Abnormal (test code = 63521-5) [facility] WITH [id number] 12:27:41 Test Item Value Reference Range Interpretation Comments WBC (test code = See_Comment [Automated message] 6690-2) The system [employer] generated this result transmitted ref erence range: 4.20 - 1 0.70 10*3/?L. The re ference range was not u sed to interpret this result as normal/abnor mal. RBC (test code = See_Comment [Automated message] 789-8) The system [employer] generated this result transmitted ref erence range: 4.26 - 5 .52 10*6/?L. The re ference range was not u sed to interpret this result as normal/abnor mal. HGB (test code = 13.8 g/dL 12.2-16.4 718-7) HCT (test code = 41.6 % 38.4-49.3 4544-3) MCV (test code = 91.0 fL 81.7-95.6 787-2) MCH (test code = 30.2 pg 26.1-32.7 785-6) MCHC (test code = 33.2 g/dL 31.2-35.0 786-4) RDW-SD (test code 48.5 fL 38.5-51.6 = 30130-6) RDW-CV (test code 14.5 % 12.1-15.4 = 788-0) PLT (test code = See_Comment [Automated message] 777-3) The system whic h generated this result transmitted ref erence range: 150 - 32 8 10*3/?L. The re ference range was not u sed to interpret this result as normal/abnor mal. MPV (test code = 10.0 fL 9.8-13.0 89488-1) NRBC/100 WBC (test See_Comment [Automat ed message] code = 3297664254) The syste m which generated this result transmitted ref erence range: 0.0 - 10 .0 /100 WBCs. The refer ence range was not u sed to interpret this result as normal/abnor mal. NRBC x10^3 (test <0.01 See_Comment [Automated message] code = 8527060718) The syste m which generated this result transmitted ref erence range: 10*3/?L. The reference range was not used to interpr et this result as normal/abnormal . GRAN MAT (NEUT) % 59.4 % (test code = 770-8) IMM GRAN % (test 0.20 % code = 0205082789) LYMPH % (test code 25.6 % = 736-9) MONO % (test code 9.3 % = 5905-5) EOS % (test code = 5.0 % 713-8) BASO % (test code 0.5 % = 706-2) GRAN MAT 3.32 10*3/uL 1.99-6.95 x10^3(ANC) (test code = 3600432484) IMM GRAN x10^3 <0.03 0.00-0.06 (test code = 0974116344) LYMPH x10^3 (test 1.43 10*3/uL 1.09-3.23 code = 731-0) MONO x10^3 (test 0.52 10*3/uL 0.36-1.02 code = 742-7) EOS x10^3 (test 0.28 10*3/uL 0.06-0.53 code = 711-2) BASO x10^3 (test 0.03 10*3/uL 0.01-0.09 code = 704-7) [facility] [id number] 03:33:51COVID DMT InterpretationInterpretation/Recommendations: Molecular NAAT Tests for Active Infection with the SARS-CoV-2 Virus: The patient has currently tested negative for the SARS-CoV-2 virus that causes COVID-19 illness. This most likely indicates that the patient does not have an active infection with the SARS-CoV-2 virus. However, infection is not completely ruled out as the false negative rate for molecular NAAT testing using a nasopharyngeal sample can be up to 30%, mostly dependent on the timing of sample collection in relation to illness onset and any deficiencies in sampling techniques. If the patient has symptoms concerning for COVID-19 illness, a repeat NAAT test (PCR, Rapid ID Now, etc.) should be performed, at which time the SARS-CoV-2 virus - if present - may have reached a detectable viral load (usually peaking by the end of the first week of symptoms). Tests for IgM and/or IgG Antibodies to the SARS-CoV-2 Virus: If the patient develops COVID-19 illness in the future, testing for IgM and IgG antibodies approximately 3 weeks after illness onset will likely indicate if the patient has produced antibodies to the SARS-CoV-2 virus. However, some patients may take longer to develop detectable antibodies, while some patients who were infected with SARS-CoV-2 may never develop antibodies. While antibodies to SARS-CoV-2 may provide some degree of immunity, at this time the strength and duration of the antibody response is unknown. Interpretation Result Comments:These interpretation comments are based upon all COVID-19 testing the patient has had at [facility], including molecular NAAT testing (more commonly known as PCR testing and Rapid ID Now testing) and antibody testing. It does not take into account any testingthat a patient has had outside of the [facility] medical record. [facility] LABORATORY SERVICESCOVID VldfxblOHEH-XqT-2 NAAT (no units) ? ? Date ? Value ? 02/01/2020 ? Not Detected ? SARS-CoV-2 Rapid ID NOW (no units) ? ? Date ? Value ? 06/01/2020 ? Not Detected ? [facility] [place] SERVICESF[facility] ClinicCT WRIST LEFT WO [id number] 19:54:22 Mildly displaced lunate fracture with patchy sclerosis possiblyrepresenting osteonecrosis. Preliminary Report Dictated by Resident: Emily Cristobal MD., have reviewed this study and ag ree with the abovereport.CT WRIST LEFT WO CONTRAST HISTORY: 64 years-old; Male; Fracture, wrist COMPARISON: Left wrist x-ray 06/01/2020 TECHNIQUE: CT imaging of the left breast is obtained in 1.25 mm intervalswithout IV contrast. Sagittal and coronal reconstructions are generated andreviewed. BONE: Unenhanced CT of the left wrist demonstrates a mildly displaced, verticallyoriented fracture in the coronal plane of the lunate with adjacent punctatebony fragments. Patchy sclerosis is seen in the lunate. Subcortical cystic changes are noted within the hamate and scaphoid. SOFT TISSUES: Soft tissue swelling surrounds the wrist joint and the dorsum of the hand. [facility], Radiant Results Inft User - 06/02/2020 1:55 PM CSTCT WRIST LEFT WO CONTRASTHISTORY: 64 years-old; Male; Fracture, wrist COMPARISON: Left wrist x-ray 06/01/2020TECHNIQUE: CT imaging of the left breast is obtained in 1.25 mm intervalswithout IVcontrast. Sagittal and coronal reconstructions are generated andreviewed.BONE:Unenhanced CT of the left wrist demonstrates a mildly displaced, verticallyoriented fracture in the coronal plane of the lunate with adjacent punctatebony fragments.Patchy sclerosis is seen in the lunate.Subcortical cystic changes are noted within the hamate and scaphoid.SOFT TISSUES:Soft tissue swelling surrounds the wristjoint and the dorsum of the hand.IMPRESSIONMildly displaced lunate fracture with patchy sclerosis possiblyrepresenting osteonecrosis.Preliminary Report Dictated by Resident: Emily Reid MD., have reviewed this study and agree with the abovereport.[facility]-REACT[facility] PROTE[facility] 2020-06-02 16:08:25 Test Item Value Reference Range Interpretation Comments CRP (test code = 8900679779) 7.3 mg/dL <0.8 H Lab Interpretation (test code = Abnormal 22523-9) [facility]+ VW [id number] 13:50:36 Mildly displaced fracture of the lunate may be subacute or chronic. 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 Soft tissue swelling. EXAM: XR WRIST 3+ VW LEFT HISTORY: possible lunate fx COMPARISON: Left hand radiograph 06/01/2020 FINDINGS: A mildly displaced fracture of the lunate is seen on the lateral view.Relative sclerosis of the lunate is observed. Soft tissue swelling ispresent about the wrist, more prominent dorsally. [facility], Radiant Results Inft User - 06/02/2020 7:51 AM CSTEXAM:XR WRIST 3+ VW LEFTHISTORY:possible lunate fx COMPARISON:Left hand radiograph 06/01/2020FINDINGS: A mildly displaced fracture of the lunate is seen on the lateral view.Relative sclerosis of the lunate is observed. Soft tiss ue swelling ispresent about the wrist, more prominent dorsally.IMPRESSIONMildly displaced fracture of the lunate may be subacute or chronic.Suspected osteonecrosis of the lunate.Soft tissue swelling.[facility] ClinicBASIC METABOLIC PANEL (NA, K, CL, CO2, GLUCOSE, BUN, CREATININE, CA) 2020-06-02 10:04:24 Test Item Value Reference Range Interpretation Comments NA (test code = 143 mmol/L 135-145 9627143082) K (test code = 4.6 mmol/L 3.5-5.0 Slight 1080742664) hemolysis CL (test code = 116 mmol/L 98-108 H 3436645568) CO2 TOTAL (test code 24 mmol/L 23-31 = 0747042554) AGAP (test code = 2-16 7132843272) BUN (test code = 20 mg/dL 7-23 Slight 4867382150) hemolysis GLUCOSE (test code = 111 mg/dL 70-110 H 2231772182) CREATININE (test code 0.89 mg/dL 0.60-1.25 = 0444402022) CALCIUM (test code = 7.7 mg/dL 8.6-10.6 L 6972315338) eGFR Calculation mL/min/1.73m2 (Non-) (test code = 0154730411) eGFR Calculation mL/min/1.73m2 () (test code = 1797876583) CL (test code = CL) Association of Glomerular Filtration Rate (GFR) and Staging of Kidney Disease* + -----+ --------+ +| GFR (mL/min/1.73 m2) ?| With Kidney Damage ?| ?Without Kidney Damage+ +------- +---- --+| ?>90 ?| ?Stage one ?| ? Normal ?+ ------+ ---------+--------- +| ?60-89 ?| ?Stage two ?| ? Decreased GFR ? + -----+ --------+ +| ?30-59 ?| ?Stage three ?| ? Stage three ? + -----+ --------+ +| ?15-29 ?| ?Stage four ? | ? Stage four ?+ ------+ ---------+--------- +| ?<15 (or dialysis) ? ?| ?Stage five ? | ? Stage five ?+ ------+ ---------+--------- + *Each stage assumes the associated GFR level has been in effect for at least three months. ?Stages 1 to 5, with or without kidney disease, indicate chronic kidney disease. Notes: Determination of stages one and two (with eGFR >59mL/min/1.73 m2) requires estimation of kidney damage for at least three months as defined by structural or functional abnormalities of the kidney, manifested by either:Pathological abnormalities or Markers of kidney damage (including abnormalities in the composition of the blood or urine or abnormalities in imaging tests). Lab Interpretation Abnormal (test code = 82670-8) [facility] WITH [id number] 09:44:02 Test Item Value Reference Range Interpretation Comments WBC (test code = See_Comment [Automated message] 6690-2) The system [employer] generated this result transmitted ref erence range: 4.20 - 1 0.70 10*3/?L. The re ference range was not u sed to interpret this result as normal/abnor mal. RBC (test code = See_Comment [Automated message] 789-8) The system [employer] generated this result transmitted ref erence range: 4.26 - 5 .52 10*6/?L. The re ference range was not u sed to interpret this result as normal/abnor mal. HGB (test code = 13.2 g/dL 12.2-16.4 718-7) HCT (test code = 41.0 % 38.4-49.3 4544-3) MCV (test code = 91.3 fL 81.7-95.6 787-2) MCH (test code = 29.4 pg 26.1-32.7 785-6) MCHC (test code = 32.2 g/dL 31.2-35.0 786-4) RDW-SD (test code 48.7 fL 38.5-51.6 = 70196-1) RDW-CV (test code 14.5 % 12.1-15.4 = 788-0) PLT (test code = See_Comment [Automated message] 777-3) The system [employer] generated this result transmitted ref erence range: 150 - 32 8 10*3/?L. The re ference range was not u sed to interpret this result as normal/abnor mal. MPV (test code = 10.1 fL 9.8-13.0 96367-6) NRBC/100 WBC (test See_Comment [Automat ed message] code = 9287291209) The syste m which generated this result transmitted ref erence range: 0.0 - 10 .0 /100 WBCs. The refer ence range was not u sed to interpret this result as normal/abnor mal. NRBC x10^3 (test <0.01 See_Comment [Automated message] code = 8195013769) The syste m which generated this result transmitted ref erence range: 10*3/?L. The reference range was not used to interpr et this result as normal/abnormal . GRAN MAT (NEUT) % 60.2 % (test code = 770-8) IMM GRAN % (test 0.30 % code = 3666592998) LYMPH % (test code 23.6 % = 736-9) MONO % (test code 12.7 % = 5905-5) EOS % (test code = 2.9 % 713-8) BASO % (test code 0.3 % = 706-2) GRAN MAT 3.98 10*3/uL 1.99-6.95 x10^3(ANC) (test code = 0034909043) IMM GRAN x10^3 <0.03 0.00-0.06 (test code = 9884914863) LYMPH x10^3 (test 1.56 10*3/uL 1.09-3.23 code = 731-0) MONO x10^3 (test 0.84 10*3/uL 0.36-1.02 code = 742-7) EOS x10^3 (test 0.19 10*3/uL 0.06-0.53 code = 711-2) BASO x10^3 (test <0.03 0.01-0.09 code = 704-7) [facility] (ID NOW RAPID TESTING)2020-06-02 01:49:04 Test Item Value Reference Range Interpretation Comments SARS-CoV-2 Rapid ID NOW Not Detected Not Detected (test code = 41468-4) CL (test code = CL) ID NOW COVID-19 Assay is an isothermal nucleic acid amplification test intended for the qualitative detection of nucleic acid from SARS-CoV-2 viral RNA in nasopharyngeal ([employer]) specimens. It is used under Emergency Use Authorization (EUA) by FDA. The limit of detection (LOD) of the assay is 125 Genome Equivalents/mL. A positive result is indicative of the presence of SARS-CoV-2 RNA. ?Clinical correlation with patient history and other diagnostic information is necessary to determine patient infection status. A negative (Not Detected) result does not preclude SARS-CoV-2 infection. In patients with clinical symptoms and other tests that are consistent with SARS-CoV-2 infection, negative results should be treated as presumptive negative and a new specimen should be tested with alternative PCR molecular test. Invalid: Please collect a new specimen for repeat patient testing if clinically indicated. Lab Interpretation Normal (test code = 91379-8) [facility] ClinicSEDIMENTATION [id number] 00:49:12 Test Item Value Reference Range Interpretation Comments ESR (test code = See_Comment H [Automated message] 5568623789) The system [employer] generated this result transmitted ref erence range: 0 - 10 m m/HR. The reference r franklin was not used to interpret this result as normal/abnor mal. Lab Interpretation (test Abnormal code = 51479-7) [facility]+ VW [id number] 00:39:57 Mildly displaced fracture of either the dorsal scaphoid or lunate. Thelatter is favored. Diffuse long finger soft tissue swelling without osteomyelitis. Osteoarthrosis. Preliminary Report Dictated by Resident: Benedict Cristobal MD., have reviewed this study and agree with the abovereport.EXAM: XR HAND 3+ VW LEFT HISTORY: 64 years-old Male with left 3rd digit swelling, infection, evalfor osteomyelitis COMPARISON: None. FINDINGS: Radiographs of the left hand demonstrate a mildly displacedfracture eitherthe dorsal scaphoid or lunate, best seen on lateral view. The latter isfavored. Diffuse joint space loss, subchondral sclerosis and marginal osteophytosiswithin the DIP joints. Diffuse soft tissue swelling surrounds the longfinger. No osseous erosions. [facility], Radiant Results Inft User - 06/01/2020 6:41 PM CSTEXAM: XR HAND 3+ VW LEFTHISTORY: 64 years-old Male with left 3rd digit swelling, infection, evalfor osteomyelitis COMPARISON: None.FINDINGS: Radiographs of the left hand demonstrat e a mildly displaced fracture eitherthe dorsal scaphoid or lunate, best seen on lateral view. The latter isfavored.Diffuse joint space loss, subchondral sclerosis and marginal osteophytosiswithin the DIP joints. Diffuse soft tissue swelling surrounds the longfinger. No osseous erosions.IMPRESSIONMildly displaced fracture of either the dorsal scaphoid or lunate. Thelatter is favored.Diffuse long finger soft tissue swelling without osteomyelitis.Osteoarthrosis.Preliminary Report Dictated by Resident: Benedict Reid MD., have reviewed this study and agree with the abovereport.[facility] ClinicBASIC METABOLIC PANEL (NA, K, CL, CO2, GLUCOSE, BUN, CREATININE, CA)2020-06-02 00:03:22 Test Item Value Reference Range Interpretation Comments NA (test code = 143 mmol/L 135-145 4236337178) K (test code = 4.2 mmol/L 3.5-5.0 6676651866) CL (test code = 109 mmol/L 98-108 H 4471278520) CO2 TOTAL (test code = 26 mmol/L 23-31 4345198269) AGAP (test code = 2-16 1707528594) BUN (test code = 23 mg/dL 7-23 1170149721) GLUCOSE (test code = 146 mg/dL 70-110 H 8993133060) CREATININE (test code = 0.85 mg/dL 0.60-1.25 6424070711) CALCIUM (test code = 8.9 mg/dL 8.6-10.6 5206002988) eGFR Calculation mL/min/1.73m2 (Non-) (test code = 2509577333) eGFR Calculation mL/min/1.73m2 () (test code = 6582793015) CL (test code = CL) Association of Glomerular Filtration Rate (GFR) and Staging of Kidney Disease* + --+ --+ ------+| GFR (mL/min/1.73 m2) ?| With Kidney Damage ?| ?Without Kidney Damage+ --------+ --------+ +| ?>90 ?| ?Stage one ?| ? Normal ?+ ---+ ---+ -------+| ?60-89 ?| ?Stage two ?| ? Decreased GFR ? + --+ --+ ------+| ?30-59 ?| ?Stage three ?| ? Stage three ? + --+ --+ ------+| ?15-29 ?| ?Stage four ? | ? Stage four ?+ ---+ ---+ -------+| ?<15 (or dialysis) ? ?| ?Stage five ? | ? Stage five ?+ ---+ ---+ -------+ *Each stage assumes the associated GFR level has been in effect for at least three months. ?Stages 1 to 5, with or without kidney disease, indicate chronic kidney disease. Notes: Determination of stages one and two (with eGFR >59mL/min/1.73 m2) requires estimation of kidney damage for at least three months as defined by structural or functional abnormalities of the kidney, manifested by either:Pathological abnormalities or Markers of kidney damage (including abnormalities in the composition of the blood or urine or abnormalities in imaging tests). Lab Interpretation Abnormal (test code = 05365-5) [facility] WITHOUT [id number] 23:55:20 Test Item Value Reference Range Interpretation Comments WBC (test code = See_Comment [Automated message] The 6690-2) system which [employer] nerated this result tra nsmitted reference range : 4.20 - 10.70 10*3/?L. The reference range was not used to interpr et this result as normal/abnormal . RBC (test code = See_Comment [Automated message] The 789-8) system which [employer] nerated this result tra nsmitted reference range : 4.26 - 5.52 10*6/?L. T he reference range was not used to interpr et this result as normal/abnormal . HGB (test code = 15.0 g/dL 12.2-16.4 718-7) HCT (test code = 45.3 % 38.4-49.3 4544-3) MCH (test code = 30.0 pg 26.1-32.7 785-6) MCV (test code = 90.6 fL 81.7-95.6 787-2) MCHC (test code = 33.1 g/dL 31.2-35.0 786-4) PLT (test code = See_Comment [Automated message] The 777-3) system which [employer] nerated this result tra nsmitted reference range : 150 - 328 10*3/?L. Th e reference range was not used to interpr et this result as normal/abnormal . MPV (test code = 10.2 fL 9.8-13.0 80879-7) RDW-CV (test code = 14.4 % 12.1-15.4 788-0) RDW-SD (test code = 47.8 fL 38.5-51.6 28636-5) NRBC x10^3 (test <0.01 See_Comment [Automated message] The code = 7109071236) system [facility] generated this result tra nsmitted reference range : 10*3/?L. The reference r franklin was not used to int erpret this result as normal/abnormal . NRBC/100 WBC (test See_Comment [Automat ed message] The code = 1946637238) system [facility] generated this result tra nsmitted reference range : 0.0 - 10.0 /100 WBCs. The reference range was not used to interpr et this result as normal/abnormal . IPF % (test code = 1490583734) [facility]"
[2022-08-18 10:47] LABS: Absolute Lymphocytes (CBC) 1.5 K/uL (0.7-4.9); Hematocrit 41.9 % (39.6-49.0); Lymphocytes % 26.6 % (15.3-44.8); MCV 90.4 fL (80-100); MPV 8.5 fL (7.6-11.3); RBC Red Blood Cell Count 4.63 M/uL (4.33-5.43)
[2022-08-18 11:09] LABS: Albumin 3.5 g/dL (3.4-5.0); Bilirubin Total 0.5 mg/dL (0.2-1.0); Potassium 4.1 mEq/L (3.5-5.1); Protein, Total 7.8 g/dL (6.4-8.2); Troponin High Sensitivity 5.6 pg/mL (<58.9)
--- NOTE | 2022-08-18 11:10 | RAD REPORT ---
EXAM DESCRIPTION: CT - CTFB CLINICAL HISTORY: dysphagia, hx of old fx COMPARISON: No comparisons TECHNIQUE: Thin axial noncontrast CT images of the face were obtained with sagittal and coronal néstor nstruction images. All CT scans are performed using dose optimization technique as appropriate and may include automated exposure control or mA/KV adjustment according to patient size. FINDINGS: Motion artifact somewhat limits evaluation. No acute facial bone fracture is seen.Deformity of the left nasal bone is noted, suggesting healed re mote fracture. Plating hardware present along the left inferior orbital margin, as well as similar pl ates along the left anterior maxillary buttress and left lateral orbital margin. Mild rightward nasal septal deviation, not contacting the turbinate. . The mandible is intact. The globes and orbital contents are grossly unremarkable. Mucous retention cyst noted in the left sphenoid sinus. IMPRESSION: No acute facial bone fracture. Deformity along the left nasal, suggestive of a healed re mote fracture, and sequelae of hardware plating along the left orbital margins and left anterior maxi llary buttress. Mucous retention cyst noted in the left sphenoid sinus. Mild rightward nasal septal deviation, not contacting the turbinates.
--- NOTE | 2022-08-18 11:13 | RAD REPORT ---
EXAM DESCRIPTION: CT - Head Brain Wo Cont - 08/18/2022 10:54 am CLINICAL HISTORY: APHASIA COMPARISON: Facial Bones W/ Mpr dated 08/18/2022 TECHNIQUE: Noncontrast head CT images ad were obtained without IV contrast. Multiplanar reformats we re generated and reviewed. All CT scans are performed using dose optimization technique as appropriate and may include automated exposure control or mA/KV adjustment according to patient size. FINDINGS: No intracranial hemorrhage, mass, or edema. Midline structures are unremarkable. Normal ventricular caliber for age. Right basal ganglia and centrum semiovale foci of hypoattenuation, some approaching CSF density, favo red to represent sequelae of remote ischemia. Patchy hypoattenuation in the deep white matter elsewhe re is nonspecific but most suggestive of chronic small vessel ischemic changes. Olvera-white matter dif ferentiation is otherwise preserved, without evidence of acute infarct. No abnormal extra-axial fluid collections. Mastoid air cells and visualized portions of the paranasal sinuses are clear. No acute bony findings. IMPRESSION: No evidence of an acute intracranial process. Chronic findings as above, including asy mmetric foci of hypoattenuation in the right basal ganglia and centrum semiovale, may suggest sequela e of small remote infarcts. If there is clinical concern for an acute stroke, additional evaluation by MRI would provide improved sensitivity.
--- NOTE | 2022-08-18 11:29 | RAD REPORT ---
EXAM DESCRIPTION: Luis Single View08/18/2022 10:59 am CLINICAL HISTORY: CHEST PAIN COMPARISON: No comparisons TECHNIQUE: Portable AP view of the chest. FINDINGS: The lungs are clear. No pneumothorax or effusion. The cardiomediastinal contours are unre markable. IMPRESSION: No acute cardiopulmonary process.
--- NOTE | 2022-08-18 12:01 | ER ---
Nurse's Notes [facility] Name: Navid Russell Age: 66 yrs Sex: Male : 1955 Arrival Date: 08/18/2022 Time: 10:28 Bed 6 Private MD: Diagnosis: Cerebral Vascular Accident Presentation: 08/18 10:31 Chief complaint: EMS states: FOUND WITH DECREASED MENTATION BY STAFF, LAST KNOWN NORMAL bp >2 DAYS. Coronavirus screen: At this time, the client does not indicate any symptoms associated with coronavirus-19. Ebola Screen: No symptoms or risks identified at this time. Initial Sepsis Screen: Does the patient meet any 2 criteria? Altered Mental Status. No. Patient's initial sepsis screen is negative. Does the patient have a suspected source of infection? No. Patient's initial sepsis screen is negative. Risk Assessment: Do you want to hurt yourself or someone else? Patient reports no desire to harm self or others. Onset of symptoms is unknown. Care prior to arrival: IV initiated. 18 GA, in the left antecubital area, Glucose check: 116. 10:31 Method Of Arrival: EMS: [facility] bp 10:31 Acuity: ANIYAH 3 bp Triage Assessment: 10:33 General: Appears in no apparent distress. Behavior is calm, cooperative. Pain: Denies bp pain. EENT: No deficits noted. Neuro: Level of Consciousness is awake, obeys commands, Oriented to person, place. Cardiovascular: No deficits noted. Respiratory: No deficits noted. GI: No signs and/or symptoms were reported involving the gastrointestinal system. : No signs and/or symptoms were reported regarding the genitourinary system. Derm: No deficits noted. Musculoskeletal: No deficits noted. Historical: - Allergies: 10:33 No Known Allergies; bp - Immunization history:: Adult Immunizations up to date. - Social history:: Smoking status: unknown. Screenin:34 [facility] ED Fall Risk Assessment (Adult) History of falling in the last 3 months, bp including since admission No falls in past 3 months (0 pts). Abuse screen: Denies threats or abuse. Denies injuries from another. Nutritional screening: No deficits noted. Tuberculosis screening: No symptoms or risk factors identified. Assessment: 10:34 General: SEE TRIAGE NOTE. bp 11:34 Reassessment: Patient appears in no apparent distress at this time. No changes from kc6 previously documented assessment. Patient and/or family updated on plan of care and expected duration. Pain level reassessed. 12:34 Reassessment: Patient appears in no apparent distress at this time. No changes from kc6 previously documented assessment. Patient and/or family updated on plan of care and expected duration. Pain level reassessed. 14:00 Reassessment: No changes from previously documented assessment. Patient is alert, bp oriented x 3, equal unlabored respirations, skin warm/dry/pink. 15:00 Reassessment: No changes from previously documented assessment. Patient is alert, bp oriented x 3, equal unlabored respirations, skin warm/dry/pink. ADMIT IN PROCESS. Vital Signs: 10:31 BP 130 / 80; Pulse 56; Resp 16; Temp 98; Pulse Ox 98% ; bp 12:40 BP 126 / 75; Pulse 59; Resp 18 S; Pulse Ox 92% on R/A; kc6 14:00 BP 116 / 70; Pulse 63; Resp 15; Pulse Ox 94% ; bp 15:00 BP 151 / 78; Pulse 60; Resp 16; Pulse Ox 94% ; bp NIH Stroke Scale Scores: 10:45 NIHSS Score: 5 bs3 ED Course: 10:29 Patient arrived in ED. bs3 10:29 Dario Marrufo MD is Attending Physician. bs3 10:31 Benedict Madera, RN is Primary Nurse. bp 10:33 Triage completed. bp 10:33 Arm band placed on. bp 10:34 Patient has correct armband on for positive identification. Bed in low position. Call bp light in reach. Side rails up X2. 10:34 Maintain EMS IV. Dressing intact. Good blood return noted. Site clean \T\ dry. Gauge \T\ bp site: 18 GA LEFT AC. 10:56 CT Head Brain wo Cont In Process Unspecified. EDMS 10:56 CT Facial Bones W/O Con In Process Unspecified. EDMS 11:00 XRAY Chest (1 view) In Process Unspecified. EDMS 11:13 EKG done, by ED staff, reviewed by Dario Marrufo MD. em1 12:00 Marek Hammond MD is Hospitalizing Provider. bs3 18:05 No provider procedures requiring assistance completed. Patient admitted, IV remains in kc6 place. Administered Medications: No medications were administered Medication: 10:34 VIS not applicable for this client. bp Outcome: 12:01 Decision to Hospitalize by Provider. bs3 18:07 Admitted to Med/surg accompanied by tech, via stretcher, room 213, with chart, Report kc6 called to ZANDRA Hendrickson 18:07 Condition: stable 18:07 Instructed on the need for admit. 18:33 Patient left the ED. kc6 NIH Stroke Scale - NIH Stroke Score Date: 08/18/2022 Time: 10:45 Total Score = 5 10. Dysarthria (speech clarity - read or repeat words) - 2(Severe) 11. Extinction and Inattention (visual/tactile/auditory/spatial/personal) - 0(No abnormality) 1a. Level of Consciousness (LOC) - 0(Alert) 1b. Level of Consciousness (LOC) (Month \T\ Age) - 0(Both) 1c. LOC Commands (Open \T\ Closes Eyes/A&P Technician) - 0(Both) 2. Best Gaze (Lateral Gaze Paresis) - 0(Normal) 3. Visual Field Loss - 0(No visual loss) 4. Facial Palsy - 2(Partial paralysis) 5a. Left Arm: Motor (10-second hold) - 0(No drift) 5b. Right Arm: Motor (10-second hold) - 0(No drift) 6a. Left Leg: Motor (5-second hold - always test supine) - 0(No drift) 6b. Right Leg: Motor (5-second hold - always test supine) - 0(No drift) 7. Limb Ataxia (finger/nose \T\ heel/lopez - test with eyes open) - 0(Absent) 8. Sensory Loss (pinprick arms/legs/face) - 0(Normal) 9. Best Language: Aphasia (description/naming/reading) - 1(Mild to moderate aphasia) Initials: bs3 Signatures: Dispatcher [employer] Gamaliel Mathis em1 Benedict Madera RN RN Aylin Niño RN RN kc6 Dario Marrufo MD MD bs3
--- NOTE | 2022-08-18 12:01 | EDPHYS ---
Physician Documentation [facility] Name: Navid Russell Age: 66 yrs Sex: Male : 1955 Arrival Date: 08/18/2022 Time: 10:28 Bed 6 Private MD: ED Physician Dario Marrufo HPI: 08/18 10:45 This 66 yrs old Male presents to ER via EMS with complaints of Altered Mental bs3 Status, S/S of Possible Stroke. 10:45 66-year-old male history of depression cocaine abuse maxillary fractures CVA bs3 periodontal disease, hypertension metabolic encephalopathy presents for dysphagia from long-term he was reportedly last seen this past weekend and when the nurse who took care of him this week and came in today she noticed that he was different and his face was changed from prior and therefore he was sent to history is limited secondary to patient's ability to communicate. Historical: - Allergies: 10:33 No Known Allergies; bp - Immunization history:: Adult Immunizations up to date. - Social history:: Smoking status: unknown. ROS: 10:45 Constitutional: Negative for fever, chills bs3 10:45 All other systems are negative. 10:45 Unable to obtain ROS due to patient's speech is incomprehensible. Exam: 10:45 Constitutional: This is a well developed, well nourished patient who is awake, alert, bs3 and in no acute distress. Head/Face: Normocephalic, atraumatic. Eyes: Pupils equal round and reactive to light, extra-ocular motions intact. Lids and lashes normal. ENT: his tongue deviates to the right, he had a left facial droop, his is adentulous. Chest/axilla: Normal chest wall appearance and motion. Nontender with no deformity. No lesions are appreciated. Cardiovascular: Regular rate and rhythm with a normal S1 and S2. symmetric pulses in upper extremities Respiratory: Lungs have equal breath sounds bilaterally, clear to auscultation, no respiratory distress Abdomen/GI: Soft, non-tender, no rebound or guarding Skin: Warm, dry with normal turgor. Normal color with no rashes, no lesions, and no evidence of cellulitis. MS/ Extremity: Pulses equal, no cyanosis. Neurovascular intact. Full, normal range of motion. Neuro: Awake and alert, GCS 15, oriented to person, place, time, and situation. Cranial nerves II-XII grossly intact. Motor strength 5/5 in all extremities. Sensory grossly intact. Vital Signs: 10:31 BP 130 / 80; Pulse 56; Resp 16; Temp 98; Pulse Ox 98% ; bp 12:40 BP 126 / 75; Pulse 59; Resp 18 S; Pulse Ox 92% on R/A; kc6 14:00 BP 116 / 70; Pulse 63; Resp 15; Pulse Ox 94% ; bp 15:00 BP 151 / 78; Pulse 60; Resp 16; Pulse Ox 94% ; bp NIH Stroke Scale Scores: 10:45 NIHSS Score: 5 bs3 MDM: 10:45 Differential Diagnosis: CVA, electrolyte abnormality, hypoglycemia, intracranial bleed, bs3 meningitis, overdose, pneumonia, seizure, sepsis, volume depletion, possible cva, he has slurred speech and a facial droop, but has facial fractures, . Data reviewed: vital signs, nurses notes. 11:38 ED course: CT notable for old fractures old stroke given the new change will admit for bs3 further work-up of acute CVA not a candidate for tPA or large vessel intervention as his last known normal is greater than 24 hours. 12:01 Patient medically screened. 3 08/18 10:31 Order name: CBC with Diff; Complete Time: 11:33 3 08/18 10:31 Order name: Comprehensive Metabolic Panel; Complete Time: 11:33 3 08/18 10:31 Order name: Urinalysis w/ reflexes 3 08/18 10:31 Order name: Troponin High Sensitivity; Complete Time: 11:33 3 08/18 15:18 Order name: Phosphorus EDND 08/18 15:18 Order name: T4 Free EDND 08/18 15:18 Order name: Magnesium EDMS 08/18 15:18 Order name: Thyroid Stimulating Hormone EDND 08/18 16:16 Order name: Hemoglobin A1c [facility] 08/18 17:48 Order name: Urinalysis w/ reflexes [facility] 08/18 10:31 Order name: XRAY Chest (1 view); Complete Time: 11:33 3 08/18 10:31 Order name: CT Head Brain wo Cont; Complete Time: 11:33 3 08/18 10:31 Order name: CT Facial Bones W/O Con; Complete Time: 11:33 bs3 08/18 13:20 Order name: Speech Therapy Consult EDND 08/18 13:23 Order name: NPO EDND 08/18 10:31 Order name: EKG - Nurse/Tech; Complete Time: 11:08 bs3 08/18 10:31 Order name: Monitor; Complete Time: 10:40 bs3 Administered Medications: No medications were administered Disposition Summary: 08/18/22 12:01 Hospitalization Ordered Hospitalization Status: Observation bs3 Provider: Marek Hammond bs3 Location: Telemetry/MedSurg (observation) bs3 Condition: Stable bs3 Problem: new bs3 Symptoms: have improved bs3 Bed/Room Type: Standard bs3 Room Assignment: 213(08/18/22 16:46) bd Diagnosis - Cerebral Vascular Accident bs3 Forms: - Medication Reconciliation Form bs3 - SBAR form bs3 NIH Stroke Scale - NIH Stroke Score Date: 08/18/2022 Time: 10:45 Total Score = 5 10. Dysarthria (speech clarity - read or repeat words) - 2(Severe) 11. Extinction and Inattention (visual/tactile/auditory/spatial/personal) - 0(No abnormality) 1a. Level of Consciousness (LOC) - 0(Alert) 1b. Level of Consciousness (LOC) (Month \T\ Age) - 0(Both) 1c. LOC Commands (Open \T\ Closes Eyes/Assistant County Engineer) - 0(Both) 2. Best Gaze (Lateral Gaze Paresis) - 0(Normal) 3. Visual Field Loss - 0(No visual loss) 4. Facial Palsy - 2(Partial paralysis) 5a. Left Arm: Motor (10-second hold) - 0(No drift) 5b. Right Arm: Motor (10-second hold) - 0(No drift) 6a. Left Leg: Motor (5-second hold - always test supine) - 0(No drift) 6b. Right Leg: Motor (5-second hold - always test supine) - 0(No drift) 7. Limb Ataxia (finger/nose \T\ heel/lopez - test with eyes open) - 0(Absent) 8. Sensory Loss (pinprick arms/legs/face) - 0(Normal) 9. Best Language: Aphasia (description/naming/reading) - 1(Mild to moderate aphasia) Initials: bs3 Signatures: Dispatcher [employer] EDND Dirrim, Belén bd Cassy, Benedict, ZANDRA RN Dario Jamil MD MD bs3 Corrections: (The following items were deleted from the chart) 16:46 12:01 bs3
[2022-08-18] MEDS ORDERED: ACETAMINOPHEN 650MG/RECT SUPP PR PRN (13:18)
[2022-08-18] MEDS ORDERED: ONDANSETRON 4 MG/2 ML VIAL IV PRN (14:15)
--- NOTE | 2022-08-18 14:21 | P.HP ---
Certification for Inpatient Patient admitted to: Inpatient With expected LOS: >2 Midnights Patient will require the following post-hospital care: None Practitioner: I am a practitioner with admitting privileges, knowledge of patient current condition, hospital course, and medical plan of care. Services: Services provided to patient in accordance with Admission requirements found in Title 42 Section 412.3 of the Code of Federal Regulations Patient History Date of Service: 08/18/22 Reason for admission: Dysarthria and dysphagia History of Present Illness: Patient is a 66-year-old with a past medical history significant for depression, cocaine abuse, maxillary fractures, CVA, hypertension who presents with complaint of dysphagia and dysarthria. Patient is a resident of a detention. Patient unable to verbalize his thought process appropriately due to very low speech but patient indicated that he is unable to swallow. Patient also noted with tongue deviation to the right as well as left facial droop. Per medical records nursing staff at the detention noted that patient' facial expression was different from his baseline and patient was consequently sent to the hospital for further evaluation. No other signs and symptoms reported. Symptoms are aggravated or relieved by nothing. Patient was brought to the hospital for medical evaluation. - Past Medical/Surgical History -: Depression -: Cocaine abuse -: Maxillary fractures -: Hypertension -: CVA Past Surgical History: Reviewed- Non-Contributory - Family History Family History: Reviewed- Non-Contributory - Social History Smoking Status: Unknown if ever smoked Alcohol use: No CD- Drugs: No Caffeine use: No Place of Residence: Home Review of Systems is unable to be obtained (Unable to assess) Physical Examination - Physical Exam General: Alert, In no apparent distress, Oriented x2, Confused HEENT: Atraumatic, PERRLA, Mucous membr. moist/pink, Other (Tongue deviation), EOMI, Sclerae nonicteric Neck: Supple, 2+ carotid pulse no bruit, No LAD, Without JVD or thyroid abnormality Respiratory: Normal air movement, Diminished Cardiovascular: No edema, Regular rate/rhythm, Normal S1 S2 Capillary refill: <2 Seconds Gastrointestinal: Normal bowel sounds, Non-distended, No tenderness Musculoskeletal: No clubbing, No swelling, No tenderness Integumentary: No rashes, No breakdown, No significant lesion Neurological: Normal strength at 5/5 x4 extr, Normal tone, Normal affect, Abnormal speech Lymphatics: No axilla or inguinal lymphadenopathy - Studies Laboratory Data (last 24 hrs) 08/18/22 10:39: Sodium 141, Potassium 4.1, BUN 20 H, Creatinine 0.96, Glucose 97, Total Bilirubin 0.5, AST 21, ALT 35, Alkaline Phosphatase 93 08/18/22 10:39: WBC 5.80, Hgb 13.9, Hct 41.9, Plt Count 175 Assessment and Plan - Plan --Dysarthria and dysphagia. CT head indicates no acute intracranial abnormalities. MRI brain for further assessment. Neurologist and speech therapist consulted. We will keep patient NPO. We will further recommendations. --Hypertension. Stable. Continue home medications. --Depression. Continue home medication. --History of CVA. Continue aspirin. --CKD 2. Stable. We will continue to monitor renal functions. --Hx of maxillary fractures. Facial bone CTs indicate No acute facial bone fracture. Deformity along the left nasal, suggestive of a healed remote fracture, and sequelae of hardware plating along the left orbital margins and left anterior maxillary buttress. Mucous retention cyst noted in the left sphe noid sinus. Mild rightward nasal septal deviation, not contacting the turbinates. Continue supportive care. --DVT prophylaxis with Lovenox subQ. Discharge Plan: Home Plan to discharge in: Greater than 2 days - Advance Directives Does patient have a Living Will: No Does patient have a Durable POA for Healthcare: No - Code Status/Comfort Care Code Status Assessed: Yes Physician Review: Patient Assessed, Agree with Above Assessment and Plan Critical Care: No
[2022-08-18] MEDS: ENOXAPARIN 40 MG/0.4 ML SQ SCH (15:00)
[2022-08-18 15:18] LABS: Magnesium 2.2 mg/dL (1.6-2.4); Phosphorus 4.1 mg/dL (2.5-4.9); Thyroid Stimulating Hormone 1.18 uIU/mL (0.358-3.740)
[2022-08-18 15:53] VITALS: BMI 23.5
[2022-08-18] MEDS ORDERED: ENOXAPARIN 40 MG/0.4 ML SQ ONE (16:55)
[2022-08-18 17:39] LABS: Urine Bacteria None Seen /HPF (<20); Urine Mucus Slight /HPF (None Seen); Urine RBC <5 /HPF (None Seen)
[2022-08-18 17:48] LABS: Specific Gravity 1.022 (1.005-1.030); Transitional Epithelial <5 /HPF (None Seen); Urine Bilirubin NEGATIVE (Negative); Urine Blood Negative (Negative); Urine Clarity Clear (Clear); Urine Color Yellow (Yellow); Urine Glucose NEGATIVE (Negative); Urine Protein TRACE (Negative); Urine Urobilinogen Normal (Normal); Urine pH 7.5 (5.0-7.0)
--- NOTE | 2022-08-18 20:26 | RAD REPORT ---
EXAM DESCRIPTION: MRI - Brain Wo Cont - 08/18/2022 8:10 pm CLINICAL HISTORY: Dysarthria and dysphagia. COMPARISON: Head CT August 18, 2022 TECHNIQUE: Axial, sagittal, and coronal magnetic resonance images of the brain were obtained. FINDINGS: Mild to moderate signal within periventricular, deep and subcortical white matter probably ischemic changes secondary to small vessel disease Diffusion-weighted/ADC mapping 9 millimeter area of abnormal signal within the bang radiata near th e left lateral ventricle. This is compatible with acute infarction Abnormal signal thalami and basal ganglia having the appearance of old infarct The ventricles are normal caliber. An extra-axial fluid collection is not noted. Fluid within the sinuses/mastoids is not seen IMPRESSION: 9 millimeter acute infarct left bang radiata
[2022-08-19 04:09] LABS: Absolute Lymphocytes (CBC) 1.7 K/uL (0.7-4.9); Hematocrit 42.5 % (39.6-49.0); Lymphocytes % 29.1 % (15.3-44.8); MCV 90.5 fL (80-100); MPV 9.4 fL (7.6-11.3); RBC Red Blood Cell Count 4.69 M/uL (4.33-5.43)
[2022-08-19 04:16] LABS: Potassium 3.6 mEq/L (3.5-5.1)
--- NOTE | 2022-08-19 07:12 | P.PN ---
Date of Service: 08/19/22 Subjective: Appears comfortable in bed states he hasn't had trouble swallowing prior to this episode no acute events overnight ROS: 10 point ROS as noted above, otherwise negative Physical Exam: GEN: Alert, Oriented x3, mumbled speech, difficult to make out words, getting frustrated HEENT: Normal conjunctiva, sclera anicteric CV: Regular rate and rhythm, no edema Pulm: Nonlabored respirations on room air ABD: Soft, nontender, nondistended Neuro: Abnormal speech, tongue deviation, drooling on left, facial droop, LUE weakness, LLE weakness vitals reviewed Problem List: acute CVA Dysarthria and dysphagia Hypertension Depression History of CVA (~10yrs ago, and 03/2022) with L sided weakness, weak voice CKD 2 Hx of maxillary fractures acute CVA Dysarthria and dysphagia CT head 08/18 - no acute intracranial abnormalities MRI brain 08/18 - 9 millimeter acute infarct left bang radiata Neurology consulted NPO due to risk of aspiration- pending MBS speech therapist consulted Briefly discussed with patient that he may need a feeding tube depending on the results of the swallow test. Hypertension - Stable. Continue home medications. Depression - Continue home medication. History of CVA - Continue aspirin. CKD 2 - Stable. We will continue to monitor renal functions. Hx of maxillary fractures - Facial bone CTs indicate No acute facial bone fracture. Deformity along the left nasal, suggestive of a healed remote fracture, and sequelae of hardware plating along the left orbital margins and left anterior maxillary buttress. Mucous retention cyst noted in the left sphenoid sinus. Mild rightward nasal septal deviation, not contacting the turbinates. Continue supportive care. VTE: Lovenox subQ Code: Full Dispo: Home 2+ days
[2022-08-19] MEDS ORDERED: KCL 20 MEQ/100 mL IVPB 20 MEQ/100 ML BAG IV SCH (09:00)
[2022-08-19] MEDS: ENOXAPARIN 40 MG/0.4 ML SQ SCH ×2 (09:26→09:29)
--- NOTE | 2022-08-19 12:33 | EKG ---
Test Date: 2022-08-18 Test Time: 11:10:18 Protection Manager: SAMUEL MEASUREMENT RESULTS: Intervals: Rate: 60 AZ: 168 QRSD: 82 QT: 436 QTc: 436 [place]: P: 70 AZ: 168 QRS: 74 T: 63 INTERPRETIVE STATEMENTS: Normal sinus rhythm Normal ECG No previous ECG available for comparison Electronically Signed On 08-19-22 12:31:50 CDT by Raciel Thomas
[2022-08-19] MEDS: D5.45NS W/KCL 20MEQ 20 MEQ/1,000 ML BAG IV SCH (14:00)
--- NOTE | 2022-08-19 23:05 | CON ---
Reason For Consultation: Consultation called because of dysphagia, dysarthria, and stroke. History Of Present Illness: Mr. Russell is a 66-year-old patient with a history of cocaine abuse, m ultiple fractures, depression, hypertension, and multiple strokes, who apparently [facility] a [facility], when his swallowing and speech became significantly worse. From information provided by the hospitalist, who spoke with the patient's sister, he has had strokes over 10 years ago that l eft him with significant right-sided weakness and difficulty with speech, but he was able to use desp ite that, his right arm enough to eat. He did have significant another stroke apparently that affect ed his left side and made it very difficult for him to use that and he has been wheelchair bound larg madalyn since then. At this visit, the MRI did identify a new stroke that is in the basal ganglia area, but does not explain the patient's current symptoms, but his multiple strokes, perhaps may. Past Medical History: As noted above. Allergies: NO KNOWN DRUG ALLERGIES. Past Surgical History: Noncontributory. Family History: Noncontributory. Social History: He resides in a local halfway. No alcohol, tobacco, or IV drug use. Review of Systems: Review of systems not possible reliably as the patient is not able to give a cohesive set of answers. He, actually with repeated encouragement, was able to identify objects such as a pen, watch, and gl asses. Physical Examination: Vital Signs: Blood pressure 125/64, pulse 64, respiratory rate 20, temperature 97.1, and oxygen satu ration 95% on room air. General: Mr. Russell is resting in bed. He has very soft responses, very monotone speech with sign ificant weakness of his tongue apparent. Otherwise, general exam with no significant abnormalities n oted in terms of abdomen, chest, and legs. Neurologic: In terms of motor examination, he has markedly increased tone in the upper and lower ext remities with diffuse weakness around 3/5 proximally and distally. He does have sustained clonus not ed in the left greater than right ankle and 4+ reflex with crossed adductors in the knees. He has bi lateral Rena reflexes in the upper extremities and he has positive jaw jerks with tongue weakness noted as he pushes the tongue on the inside of his cheek bilaterally. Laboratory Studies: Complete blood count with differential is completely normal. His chemistries ar e essentially unremarkable except slightly elevated chloride of 108, BUN 26, and creatinine normal at 0.85 Hemoglobin A1c 5.6. Calcium 9.3. Magnesium 2.2. Liver function studies are normal. LDL cho lesterol 65, HDL 46. TSH 1.18, free T4 low at 0.69. Urinalysis is essentially unremarkable. Assessment: Mr. Russell is a 66-year-old patient with multiple strokes, chronic and acute. 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 However, his multiple strokes from anterior posterior circulation, left and r ight, potentially could be explaining these symptoms as well. Neck MRI may be helpful to rule out ce rvical spinal stenosis as contributing factors to his hyperreflexia, that will not explain his jaw je rk,, however. Plan: 1.May consider MRI of the cervical spine. 2.He has significant dysarthria and dysphagia and will benefit from a PEG tube. 3.He may have therapy, perhaps at senior living as he is not likely to be able to withstand 3 hour s of aggressive physical therapy in an inpatient rehabilitation unit. 4.If possible, an EMG nerve conduction study may be helpful. GEORGE/MARTÍN Voice ID: [id number] Report ID: [id number]
[2022-08-20] MEDS: D5.45NS W/KCL 20MEQ 20 MEQ/1,000 ML BAG IV SCH ×3 (01:15→19:00)
[2022-08-20 03:28] LABS: Potassium 3.7 mEq/L (3.5-5.1)
--- NOTE | 2022-08-20 07:15 | P.PN ---
Date of Service: 08/20/22 Subjective: s/p PEG tube this morning motioning that he feels some abdominal discomfort trouble swallowing yesterday, some choking when trying pureed no new / worsening problems ROS: 10 point ROS as noted above, otherwise negative Physical Exam: GEN: Alert, Oriented x3, mumbled speech, difficult to make out words, getting frustrated HEENT: Normal conjunctiva, sclera anicteric CV: Regular rate and rhythm, no edema Pulm: Nonlabored respirations on room air ABD: Soft, nontender, nondistended, Abdominal binder, PEG Neuro: Abnormal speech, tongue deviation, drooling on left, facial droop, LUE weakness, LLE weakness PEG in place vitals reviewed Problem List: acute CVA Dysarthria and dysphagia s/p PEG (08/20) Gastritis Barrets Esophagus Hiatal Hernia Hypertension Depression History of CVA (~10yrs ago, and 03/2022) with L sided weakness, weak voice CKD 2 Hx of maxillary fractures acute CVA Dysarthria and dysphagia CT head (08/18): no acute intracranial abnormalities MRI brain (08/18): 9 millimeter acute infarct left bang radiata Neurology consulted speech therapist [place] [facility] [place]): moderate impairment recommended trial of pureed diet / thickened liquids patient reports difficulty evening of 08/19 agreeable to PEG aspirin, plavix, folic acid LDL 65 GI consulted s/p EGD w/biopsy (08/20): Gastritis, Barretts Esophagus, Hiatal Hernia PEG tube placed (08/20) ship laborer consulted, start tube feeds Hypertension - Stable. Continue home medications as appropriate Depression - Continue home medication. History of CVA - Continue aspirin. CKD 2 - Stable. We will continue to monitor renal functions. Hx of maxillary fractures - Facial bone CTs indicate No acute facial bone fracture. Deformity along the left nasal, suggestive of a healed remote fracture, and sequelae of hardware plating along the left orbital margins and left anterior maxillary buttress. Mucous retention cyst noted in the left sphenoid sinus. Mild rightward nasal septal deviation, not contacting the turbinates. Continue supportive care. VTE: Lovenox subQ Code: Full Dispo: [facility] (resident) 2+ days
[2022-08-20] MEDS ORDERED: Ringers Lactate 1,000 ML IV ONE (08:28)
[2022-08-20] MEDS ORDERED: LIDOCAINE 1% MPF 5 ML VIAL ONE (08:52)
[2022-08-20] MEDS ORDERED: propofoL 200 MG/20 ML VIAL IV ONE (08:52)
[2022-08-20] MEDS ORDERED: KCL 20 MEQ/100 mL IVPB 20 MEQ/100 ML BAG IV SCH (09:00)
[2022-08-20] MEDS ORDERED: CEFAZOLIN SODIUM 1 GM/VIAL ONE (09:15)
[2022-08-20] MEDS: JEVITY 1.5 CAL LIQUID 1,000 ML BOT FT SCH ×2 (17:00→21:00)
[2022-08-21 06:56] LABS: Hematocrit 41.3 % (39.6-49.0); MCV 90.8 fL (80-100); RBC Red Blood Cell Count 4.55 M/uL (4.33-5.43)
--- NOTE | 2022-08-21 07:06 | P.PN ---
Date of Service: 08/21/22 Subjective: feeling "okay" today; tolerating tube feeds slight discomfort from abdominal binder; asking when he can take it off feels his speech is slightly improved, swallowing unchanged otherwise no new / worsening problems ROS: 10 point ROS as noted above, otherwise negative Physical Exam: GEN: Alert, Oriented x3, mumbled speech, easier to understand HEENT: Normal conjunctiva, sclera anicteric CV: Regular rate and rhythm, no edema Pulm: Nonlabored respirations on room air ABD: Soft, nontender, nondistended, Abdominal binder, PEG Neuro: Abnormal speech, tongue deviation, facial droop, LUE weakness, LLE weakness PEG in place vitals reviewed Problem List: acute CVA Dysarthria and dysphagia s/p PEG (08/20) Gastritis Barrets Esophagus Hiatal Hernia Hypertension Depression History of CVA (~10yrs ago, and 03/2022) with L sided weakness, weak voice CKD 2 Hx of maxillary fractures acute CVA Dysarthria and dysphagia CT head (08/18): no acute intracranial abnormalities MRI brain (08/18): 9 millimeter acute infarct left bang radiata Neurology consulted aspirin, plavix, folic acid LDL 65 speech therapist [place] [facility] [place] moderate impairment recommended trial of pureed diet / thickened liquids patient reports difficulty evening of 08/19 (08/20) Speech noted to be slightly improved; able to make out more words but still mumbled GI consulted s/p EGD w/biopsy (08/20): Gastritis, Barretts Esophagus, Hiatal Hernia PEG tube placed (08/20) cutter brake lining consulted, continue tube feeds Hypertension - Stable. Continue home medications as appropriate Depression - Continue home medication. History of CVA - Continue aspirin. CKD 2 - Stable. continue to monitor renal functions. Hx of maxillary fractures - Facial bone CTs indicate No acute facial bone fracture. Deformity along the left nasal, suggestive of a healed remote fracture, and sequelae of hardware plating along the left orbital margins and left anterior maxillary buttress. Mucous retention cyst noted in the left sphenoid sinus. Mild rightward nasal septal deviation, not contacting the turbinates. Continue supportive care. VTE: Lovenox subQ Code: Full Dispo: [facility] (resident) 2+ days
[2022-08-21 07:11] LABS: Potassium 3.9 mEq/L (3.5-5.1)
[2022-08-21] MEDS: D5.45NS W/KCL 20MEQ 20 MEQ/1,000 ML BAG IV SCH ×2 (08:02→22:05)
[2022-08-21] MEDS: JEVITY 1.5 CAL LIQUID 1,000 ML BOT FT SCH ×4 (09:00→20:29)
[2022-08-21] MEDS: ENOXAPARIN 40 MG/0.4 ML SQ SCH (09:45)
[2022-08-21] MEDS: CLOPIDOGREL 75 MG TABLET FT SCH (09:45)
[2022-08-21] MEDS: FOLIC ACID 1 MG TABLET FT SCH (09:45)
[2022-08-21] MEDS: ASPIRIN 81 MG CHEWABLE TABLET FT SCH (09:45)
[2022-08-22] MEDS ORDERED: SODIUM CHLORIDE 0.9% 10ML INJ IV PRN (06:36)
--- NOTE | 2022-08-22 06:59 | P.PN ---
Date of Service: 08/22/22 Subjective: doing well tolerating feeds speech improved slightly minimal abdominal discomfort ROS: 10 point ROS as noted above, otherwise negative Physical Exam: GEN: Alert, Oriented x3, mumbled/weak speech, easier to understand HEENT: Normal conjunctiva, sclera anicteric CV: Regular rate and rhythm, no edema Pulm: Nonlabored respirations on room air ABD: Soft, nontender, nondistended, PEG in place without surrounding erythema Neuro: Abnormal speech, tongue deviation, LUE weakness, LLE weakness PEG in place vitals reviewed Problem List: acute CVA Dysarthria and dysphagia s/p PEG (08/20) Gastritis Barretts Esophagus Hiatal Hernia Hypertension Depression History of CVA (~10yrs ago, and 03/2022) with L sided weakness, weak voice CKD 2 Hx of maxillary fractures acute CVA Dysarthria and dysphagia CT head (08/18): no acute intracranial abnormalities MRI brain (08/18): 9 mm acute infarct left bang radiata Neurology consulted aspirin, plavix, folic acid LDL 65 speech therapist consulted [facility] [place] (08/20): moderate impairment recommended trial of pureed diet / thickened liquids patient reports difficulty evening of 08/19 speech improving GI consulted s/p EGD w/biopsy (08/20): Gastritis, Barretts Esophagus, Hiatal Hernia PEG tube placed (08/20) continue PPI trim crew supervisor consulted, continue tube feeds Hypertension - Stable. Continue home medications as appropriate Depression - Continue home medication. History of CVA - Continue aspirin. CKD 2 - Stable. continue to monitor renal functions. Hx of maxillary fractures - Facial bone CTs indicate No acute facial bone fracture. Deformity along the left nasal, suggestive of a healed remote fracture, and sequelae of hardware plating along the left orbital margins and left anterior maxillary buttress. Mucous retention cyst noted in the left sphenoid sinus. Mild rightward nasal septal deviation, not contacting the turb inates. Continue supportive care. VTE: Lovenox subQ Code: [facility]
[2022-08-22] MEDS: JEVITY 1.5 CAL LIQUID 1,000 ML BOT FT SCH ×4 (09:00→21:55)
[2022-08-22] MEDS: FOLIC ACID 1 MG TABLET FT SCH (09:26)
[2022-08-22] MEDS: ASPIRIN 81 MG CHEWABLE TABLET FT SCH (09:26)
[2022-08-22] MEDS: ENOXAPARIN 40 MG/0.4 ML SQ SCH (09:27)
[2022-08-22] MEDS: PANTOPRAZOLE 40 MG INJ IVP SCH (09:27)
[2022-08-22] MEDS: CLOPIDOGREL 75 MG TABLET FT SCH (09:27)
[2022-08-23 03:50] LABS: Potassium 3.5 mEq/L (3.5-5.1)
--- NOTE | 2022-08-23 06:51 | P.PN ---
Date of Service: 08/23/22 Subjective: Feeling alright today mild abdominal discomfort remains about the same speech unchanged from yesterday otherwise no new / worsening problems ROS: 10 point ROS as noted above, otherwise negative Physical Exam: GEN: Alert, Oriented x3, mumbled/weak speech, easier to understand HEENT: Normal conjunctiva, sclera anicteric CV: Regular rate and rhythm, no edema Pulm: Nonlabored respirations on room air ABD: Soft, mild tenderness, nondistended, PEG in place without surrounding erythema Neuro: Abnormal speech, tongue deviation, LUE weakness, LLE weakness PEG in place vitals reviewed Problem List: acute CVA Dysarthria and dysphagia s/p PEG (08/20) Gastritis Barretts Esophagus Hiatal Hernia Hypertension Depression History of CVA (~10yrs ago, and 03/2022) with L sided weakness, weak voice CKD 2 Hx of maxillary fractures acute CVA Dysarthria and dysphagia CT head (08/18): no acute intracranial abnormalities MRI brain (08/18): 9 mm acute infarct left bang radiata Neurology consulted aspirin, plavix, folic acid LDL 65 speech therapist consulted [facility] [place] (08/20): moderate impairment recommended trial of pureed diet / thickened liquids patient reports difficulty evening of 08/19 speech improving to re-eval 08/24 GI consulted s/p EGD w/biopsy (08/20): Gastritis, Barretts Esophagus, Hiatal Hernia PEG tube placed (08/20) continue PPI gastroenterology nurse practitioner consulted, continue tube feeds, NPO for now; re-eval by ESTHETICIAN/SKIN THERAPIST on 08/24 PT consult Hypertension - Stable. Continue home medications as appropriate Depression - Continue home medication. History of CVA - Continue aspirin. CKD 2 - Stable. continue to monitor renal functions. Hx of maxillary fractures - Facial bone CTs indicate No acute facial bone fracture. Deformity along the left nasal, suggestive of a healed remote fracture, and sequelae of hardware plating along the left orbital margins and left anterior maxillary buttress. Mucous retention cyst noted in the left sphenoid sinus. Mild rightward nasal septal deviation, not contacting the turbinates. Continue supportive care. VTE: Lovenox subQ Code: Full Dispo: [facility] (resident) 1-2 days
[2022-08-23] MEDS ORDERED: KCL 20 MEQ/100 mL IVPB 20 MEQ/100 ML BAG IV SCH (09:00)
[2022-08-23] MEDS: ASPIRIN 81 MG CHEWABLE TABLET FT SCH (09:25)
[2022-08-23] MEDS: FOLIC ACID 1 MG TABLET FT SCH (09:25)
[2022-08-23] MEDS: ENOXAPARIN 40 MG/0.4 ML SQ SCH (09:25)
[2022-08-23] MEDS: CLOPIDOGREL 75 MG TABLET FT SCH (09:25)
[2022-08-23] MEDS: JEVITY 1.5 CAL LIQUID 1,000 ML BOT FT SCH ×4 (09:26→20:42)
[2022-08-23] MEDS: PANTOPRAZOLE 40 MG INJ IVP SCH (11:12)
[2022-08-24 04:19] LABS: Potassium 3.6 mEq/L (3.5-5.1)
[2022-08-24] MEDS ORDERED: POTASSIUM 25 MEQ EFFERV TAB FT ONE (09:00)
[2022-08-24] MEDS ORDERED: POTASSIUM 25 MEQ EFFERV TAB PO ONE (09:00)
[2022-08-24] MEDS: ENOXAPARIN 40 MG/0.4 ML SQ SCH (09:28)
[2022-08-24] MEDS: PANTOPRAZOLE 40 MG INJ IVP SCH (09:28)
[2022-08-24] MEDS: JEVITY 1.5 CAL LIQUID 1,000 ML BOT FT SCH ×2 (09:29→12:38)
[2022-08-24] MEDS: CLOPIDOGREL 75 MG TABLET FT SCH (09:29)
[2022-08-24] MEDS: FOLIC ACID 1 MG TABLET FT SCH (09:29)
[2022-08-24] MEDS: ASPIRIN 81 MG CHEWABLE TABLET FT SCH (09:29)
[2022-08-24 12:11] VITALS: O2SAT 94
--- NOTE | 2022-08-24 12:11 | P.DS ---
Admission Date: 08/18/22 Discharge Date: 08/24/22 Disposition: TRANSFER TO ASSISTED Discharge Condition: FAIR Reason for Admission: Dysarthria and dysphagia Brief History of Present Illness: Patient is a 66-year-old with a past medical history significant for depression, cocaine abuse, maxillary fractures, CVA, hypertension who presented with complaint of dysphagia and dysarthria. Patient is a resident of a residential. Patient unable to verbalize his thought process appropriately due to very low speech but patient indicated that he is unable to swallow. Patient also noted with tongue deviation to the right as well as left facial droop. Per medical records nursing staff at the residential noted that patient' facial expression was different from his baseline and patient was consequently sent to the hospital for further evaluation. No other signs and symptoms reported. Symptoms are aggravated or relieved by nothing. Patient was brought to the hospital for medical evaluation. Head CT did not show any acute CVA. Patient was hospitalized for further evaluation and management. Hospital Course: Diagnosis acute CVA Dysarthria and dysphagia s/p PEG (08/20) Gastritis Barretts Esophagus Hiatal Hernia Hypertension Depression History of CVA (~10yrs ago, and 03/2022) with L sided weakness, weak voice CKD 2 Hx of maxillary fractures acute CVA Dysarthria and dysphagia CT head (08/18): no acute intracranial abnormalities MRI brain (08/18): 9 mm acute infarct left bang radiata Neurology consulted Patient treated with aspirin, plavix, folic acid LDL 67 speech therapist consulted [facility] [place] (08/20): moderate impairment recommended trial of pureed diet / thickened liquids patient reports difficulty with swallowing but speech improved GI consulted s/p EGD w/biopsy (08/20): Gastritis, Barretts Esophagus, Hiatal Hernia PEG tube placed (08/20) Patient treated with PPI. fermenting cellars receiver consulted, tube feedings started. PT consulted, patient performed gait training with rolling walker and CGA and he ambulated for about 150 feet. Hypertension - Stable. Continued home medications as appropriate Depression - Continued home medication. History of CVA - Continued aspirin. CKD 2 - Stable. Hx of maxillary fractures - Facial bone CTs indicate No acute facial bone fracture. Deformity along the left nasal, suggestive of a healed remote fracture, and sequelae of hardware plating along the left orbital margins and left anterior maxillary buttress. Mucous retention cyst noted in the left sphenoid sinus. Mild rightward nasal septal deviation, not contacting the turbinates. Vital Signs/Physical Exam: Temp Pulse Resp BP Pulse Ox 98.4 F 69 16 114/67 94 08/24/22 08:00 08/24/22 08:00 08/24/22 08:00 08/24/22 08:00 08/24/22 08:00 General: Alert, In no apparent distress HEENT: Mucous membr. moist/pink Neck: JVD not distended Respiratory: Clear to auscultation bilaterally, Normal air movement Cardiovascular: No edema, Regular rate/rhythm, Normal S1 S2 Gastrointestinal: Normal bowel sounds, Soft and benign, Non-distended Musculoskeletal: No swelling Integumentary: No cyanosis Neurological: Other (Left-sided weakness) Laboratory Data at Discharge: WBC 6.00 thou/uL (4.3-10.9) 08/21/22 06:21 Hgb 13.9 g/dL (13.6-17.9) 08/21/22 06:21 Hct 41.3 % (39.6-49.0) 08/21/22 06:21 Plt Count 161 thou/uL (152-406) 08/21/22 06:21 Sodium 140 mEq/L (136-145) 08/24/22 02:44 Potassium 3.6 mEq/L (3.5-5.1) 08/24/22 02:44 BUN 18 mg/dL (7-18) 08/24/22 02:44 Creatinine 0.81 mg/dL (0.70-1.30) 08/24/22 02:44 Glucose 93 mg/dL (74-106) 08/24/22 02:44 Phosphorus 4.1 mg/dL (2.5-4.9) 08/18/22 10:39 Magnesium 2.0 mg/dL (1.6-2.4) 08/23/22 02:41 Total Bilirubin 0.5 mg/dL (0.2-1.0) 08/18/22 10:39 AST 21 U/L (15-37) 08/18/22 10:39 ALT 35 U/L (16-61) 08/18/22 10:39 Alkaline Phosphatase 93 U/L (45-117) 08/18/22 10:39 Triglycerides 113 mg/dL (<150) 08/19/22 02:34 Cholesterol 134 mg/dL (<200) 08/19/22 02:34 HDL Cholesterol 46 mg/dL (40-60) 08/19/22 02:34 Cholesterol/HDL Ratio 2.91 08/19/22 02:34 Home Medications: Acetaminophen [Tylenol] 650 mg PO Q6H PRN 08/19/22 Aspirin [Aspirin EC 81 MG] 81 mg PO DAILY 08/19/22 Atorvastatin Calcium [Lipitor] 80 mg PO BEDTIME 08/19/22 Clotrimazole [Lotrimin 1% Cream*] 1 shaq TOP DAILY 08/19/22 Duloxetine HCl 40 mg PO DAILY 08/19/22 Ergocalciferol (Vitamin D2) [Vitamin D2] 50,000 unit PO Q7D 08/19/22 Hypromellose/Pf [Improvue 1.7% Eye Drop] 1 drop OP Q4H PRN 08/19/22 Mirtazapine 7.5 mg PO BEDTIME 08/19/22 Multivit,Calc,Mins/Iron/Folic [Thera M Plus Tablet] 1 tab PO DAILY 08/19/22 Nystatin/Triam Cream [Mycolog Cream*] 1 shaq TOP BID 08/19/22 Potassium Chloride 20 meq PO DAILY 08/19/22 Thiamine HCl [B-1] 100 mg PO DAILY 08/19/22 Clopidogrel Bisulfate [Plavix*] 75 mg FT DAILY 08/24/22 Jevity 1.5 Guero Liquid 237 ml FT QID bot 08/24/22 Activity: Fall precautions Followup: NONE,NONE [Primary Care Provider] - 1-2 Weeks (call to schedule an appointment) Junaid Flores MD [ACTIVE - CAN ADMIT] - 1-2 Weeks (call to schedule an appointment ) Time spent managing pt's care (in minutes): 35
[2022-08-24 12:13] VITALS: TEMP 97.7
[2022-08-24 16:07] VITALS: BP 113/67
== END 2022-08-24 16:32 | DRG 65 ==
LOC: ER 10:28 → ERHOLD 13:15 → 2ND 18:01
PROVIDERS: ADMIT Hospitalist; ATTEND Internal Medicine
PROC: 0DB68ZX Excision of Stomach, Via Natural or Artificial Opening Endoscopic, Diagnostic (ICD-10-PCS; 2022-08-20)
PROC: 0DB28ZX Excision of Middle Esophagus, Via Natural or Artificial Opening Endoscopic, Diagnostic (ICD-10-PCS; 2022-08-20)
PROC: 0DB38ZX Excision of Lower Esophagus, Via Natural or Artificial Opening Endoscopic, Diagnostic (ICD-10-PCS; principal; 2022-08-20 09:00)
PROC: 0DB78ZX Excision of Stomach, Pylorus, Via Natural or Artificial Opening Endoscopic, Diagnostic (ICD-10-PCS; 2022-08-20 09:00)
DX: I63.9 Cerebral infarction, unspecified (principal); I69.354 Hemiplegia and hemiparesis following cerebral infarction affecting left non-dominant side; I12.9 Hypertensive chronic kidney disease with stage 1 through stage 4 chronic kidney disease, or unspecified chronic kidney disease; N18.2 Chronic kidney disease, stage 2 (mild); F32.A Depression, unspecified; K22.70 Barrett's esophagus without dysplasia; M95.0 Acquired deformity of nose; K44.9 Diaphragmatic hernia without obstruction or gangrene; K29.70 Gastritis, unspecified, without bleeding; R47.1 Dysarthria and anarthria; R13.10 Dysphagia, unspecified; R29.810 Facial weakness; R29.705 NIHSS score 5; Z79.82 Long term (current) use of aspirin; Z20.822 Contact with and (suspected) exposure to COVID-19
CPT/HCPCS: 36415; 70450; 70486; 70551; 71045; 74230; 76377; 80048; 80053; 80061; 81001; 83036; 83735; 84100; 84439; 84443; 84484; 85025; 85027; 87635; 88305; 88312; 88313; 92526; 92610; 92611; 93005; 97110; 97116; 97161; 99285; C9113; J0690; J1650; J2001; J2704; J3480; J7120

== ENCOUNTER 2023-07-18 02:58 | Emergency (ER) | payer OTHER ==
--- OUTSIDE RECORDS SUMMARY | 2023-07-18 03:05 | XMS REPORT | Continuity of Care Document ---
Author Name Unknown Address [address] [facility] [address] [place] [address] [facility] Address [address] [facility] 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 Name Role Phone [facility] AND Primary C are Physician Unavailable _[facility]_Todd_J Attending Clinician Unavailable Kelsey Akbar Attending Clinician Unavailable Lisa Marie LVN Attending Clinician [phone] TOMMIE GONZALEZ Attending Clinician Unavailable Abdoul Clayton DO Attending Clinician [phone] Farhan CARRENO, Rhonda S Attending Clinician +- [phone] Randy CARRENO, Maylin Duarte Attending Clinician [phone] Renny Osorio MD Attending Clinician +[phone] Daniela Antunez MD Attending Clinician + [phone] Gladis Real MD Attending Clinician +-[phone] Tommie Gonzalez MD Attending Clinician [phone] Sondra CARRENO, Nan Attending Clinician +[phone] Gilles JONES, Hardeep Attending Clinician [phone] ALDAIR ABEL Attending Clinician Unavailable Aldair Abel MD Attending Clinician +[phone] Lamin Motta Attending Clinician +[phone] Yessi PATIÑO MD, John Attending Clinician [phone] Shady DE PAZ, Karly Antunez Attending Clinician Unavailab yessenia Nurse, Merrill Urgent Attending Clinician Unavailabl e Unknown, Attending Attending Clinician Unavailab le UNKNOWN, ATTENDING Attending Clinician Unavailab yessenia KORINA_ANDRESSA_Craig_J Admitting Clinician Unavailable NAN EDWARDS Admitting Clinician Unavailable Sondra CARRENO, Nan Admitting Clinician LU HDEZ Admitting Clinician Unavailable Yessi PATIÑO MD, John Admitting Clinician [phone] Payers Payer Name Policy Type Policy Number Effective Date Expirati on Date Source [facility] [place] [id number] [place] [id number] [facility]AC[place] - [place]) [id number] 2022 00:00:00 MEDICAID - [id number] - PENDING [id number] [place] [id number] 2022 00:00:00 Problems Condition Name Condition Details Condition Category Status Onset Date Resolution Date Last Treatment Date Treating Clinician Comments Source Irritant contact dermatitis Irritant Contact Dermatitis Problem Active - 00:00: 00 [facility] Abrasion of ear region Abrasion of Ear Region Problem Active 06-15 00:00: 00 [facility] 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 Problem Active - 00:00: 00 [facility] Immunodefi ciency disorder Immunodefi ciency Disorder Problem Active 06-15 00:00: 00 [facility] Hemiparesi s as late effect of cerebrovas cular accident Hemiparesi s as Late Effect of Cerebrovas cular Accident Problem Active - 00:00: 00 [facility] Dysphagia Dysphagia Problem Active - 00:00: 00 [facility] Hyperammon emia Hyperammon emia Problem Active - 00:00: 00 [facility] Seborrheic dermatitis Seborrheic Dermatitis Problem Active 2- 00:00: 00 [facility] Severe protein-ca belia malnutriti on (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 of standard weight) Severe Protein-ca belia Malnutriti on (Nash: Less than 60 Percent of Standard Weight) Problem Active 04-22 00:00: 00 [facility] Mild recurrent major depression Mild Recurrent Major Depression Problem Active 04-22 00:00: 00 [facility] Aphasia as late effect of cerebrovas cular accident Aphasia as Late Effect of Cerebrovas cular Accident Problem Active 04-22 00:00: 00 [facility] Functional gait abnormalit y Functional Gait Abnormalit y Problem Active 2022-03 2-06 00:00: 00 [facility] Carotid artery stenosis Carotid Artery Stenosis Problem Active 8-20 00:00: 00 [facility] Atopic dermatitis Atopic Dermatitis Problem Active 7- 00:00: 00 [facility] Mcguire's esophagus Mcguire's Esophagus Problem Active 6 00:00: 00 [facility] Hiatal hernia Hiatal Hernia Problem Active 6 00:00: 00 [facility] 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 Dysarthria Due to and Following Cerebrovas cular Accident Problem Active 6- 00:00: 00 [facility] Urinary incontinen ce Urinary Incontinen ce Problem Active 5 00:00: 00 [facility] Dementia with behavioral disturbanc e Dementia with Behavioral Disturbanc e Problem Active 5- 00:00: 00 [facility] Lives in jail Lives in Care Home Problem Active 3-06 00:00: 00 [facility] Need for personal care assistance Need for Personal Care Assistance Problem Active 3-06 00:00: 00 [facility] At high risk for fall At High Risk for Fall Problem Active 3-06 00:00: 00 [facility] Hyperlipid emia Hyperlipid emia Problem Active 3-03 00:00: 00 [facility] Secondary immune deficiency disorder Secondary Immune Deficiency Disorder Problem Active 3-03 00:00: 00 [facility] Hypercoagu lability state Hypercoagu lability State Problem Active 3-03 00:00: 00 [facility] Alcohol dependence Alcohol Dependence Problem Active 3-03 00:00: 00 [facility] Cocaine dependence in remission Cocaine Dependence in Remission Problem Active 3- 00:00: 00 [facility] Hypertensi ve heart disease Hypertensi ve Heart Disease Problem Active 3-03 00:00: 00 [facility] Cerebral atheroscle rosis Cerebral Atheroscle rosis Problem Active 3- 00:00: 00 [facility] Cerebrovas cular disease Cerebrovas cular Disease Problem Active 3- 00:00: 00 [facility] Hemiparesi s as late effect of cerebrovas cular accident Hemiparesi s as Late Effect of Cerebrovas cular Accident Problem Active 3 00:00: 00 [facility] Dysphagia as a late effect of cerebrovas cular accident Dysphagia as a Late Effect of Cerebrovas cular Accident Problem Active 3 00:00: 00 [facility] Peripheral vascular disease Peripheral Vascular Disease Problem Active 05-28 00:00: 00 [facility] Recurrent falls Recurrent Falls Problem Active 05-28 00:00: 00 [facility] Moderate major depression , single episode Moderate Major Depression , Single Episode Problem Active 05-18 00:00: 00 [facility] Toxic metabolic encephalop athy Toxic metabolic encephalop athy Disease Active 05-18 00:00: 00 [facility] Acute cerebrovas cular accident (CVA) due to ischemia Acute cerebrovas cular accident (CVA) due to ischemia Disease Active 05-18 00:00: 00 [facility] Morbid obesity with body mass index of 50 or higher Morbid obesity with body mass index of 50 or higher Disease Active 05-03 00:00: 00 [facility] Acute weakness Acute weakness Disease Active 04-21 00:00: 00 [facility] Closed fracture of left zygomatico maxillary complex, initial encounter Closed fracture of left zygomatico maxillary complex, initial encounter Disease Active 04-21 00:00: 00 Overview: Formattin g of this note might be different from the original. Added automatic ally from request for surgery [id number] [facility] Abscess of left hand Abscess of left hand Disease Active 3 00:00: 00 [facility] Flexor tenosynovi tis of finger Flexor tenosynovi tis of finger Disease Active 307 00:00: 00 Overview: Formattin g of this note might be different from the original. Added automatic ally from request for surgery [id number] [facility] Open wound Open wound Disease Active 08-06 00:00: 00 [facility] Finger pain, right Finger pain, right Disease Active 08-06 00:00: 00 [facility] Finger infection Finger infection Disease Active 08-06 00:00: 00 [facility] Numbness and tingling Numbness and tingling Disease Active 08-06 00:00: 00 [facility] Pain Pain Disease Active 07-27 00:00: 00 [facility] Left hemiparesi s Left hemiparesi s Disease Active 1 00:00: 00 [facility] Allergies, Adverse Reactions, Alerts Allergy Name Allergy Type Status Severity Reaction(s) Onset Date Inactive Date Treating Clinician Comments Source NO KNOWN ALLERGIE S Drug Class Active [facility] Social History Social Habit Start Date Stop Date Quantity Comments Source History SDOH Social Connections Get Together [facility] History SDOH Social Connections [facility] History SDOH Social Connections Membership [facility] History SDOH Social Connections Meetings [facility] Alcohol intake 2022-05-18 00:00:00 2022-05-18 00:00:00 Current non-drinker of alcohol (finding) [facility] History SDOH Financial 2022-04-29 00:00:00 2022-04-29 00:00:00 2 [facility] History SDOH Food Worry 2022-04-29 00:00:00 2022-04-29 00:00:00 1 [facility] History SDOH Food Scarcity 2022-04-29 00:00:00 2022-04-29 00:00:00 1 [facility] History SDOH Transport Non-Med 2022-04-29 00:00:00 2022-04-29 00:00:00 2 [facility] History SDOH Alcohol Frequency 2022-04-22 00:00:00 2022-04-22 00:00:00 2 [facility] History SDOH Alcohol Std Drinks 2022-04-22 00:00:00 2022-04-22 00:00:00 1 [facility] History SDOH Alcohol Binge 2022-04-22 00:00:00 2022-04-22 00:00:00 1 [facility] History SDOH Social Connections Phone 2022-04-22 00:00:00 2022-04-22 00:00:00 98 [facility] History SDOH Social Connections Living 2022-04-22 00:00:00 2022-04-22 00:00:00 6 [facility] History SDOH Physical Activity DPW 2022-04-22 00:00:00 2022-04-22 00:00:00 0 [facility] History SDOH Physical Activity MPS 2022-04-22 00:00:00 2022-04-22 00:00:00 0 [facility] History SDOH Transport Med 2022-04-22 00:00:00 2022-04-22 00:00:00 2 [facility] Exposure to SARS-CoV-2 (event) 2022-04-11 00:00:00 2022-04-21 12:52:00 Not sure [facility] Cigarettes smoked current (pack per day) - Reported 2022-04-21 00:00:00 2022-04-21 00:00:00 [facility] Cigarette pack-years 2022-04-21 00:00:00 2022-04-21 00:00:00 [facility] Tobacco use and exposure 2022-04-21 00:00:00 2022-04-21 00:00:00 Former smokeless tobacco user [facility] Alcohol Comment 2014-07-27 00:00:00 2014-07-27 00:00:00 recovering alcoholic, sober 3 years [facility] History of tobacco use 2014-07-26 00:00:00 Cigarette Smoker [facility] Sex Assigned At 1955 00:00:00 1955 00:00:00 [facility] Smoking Status Start Date Stop Date Source Former Smoker [facility] Medications Ordered Medication Name Filled Medication Name Start Date Stop Date Current Medication? Ordering Clinician Indication Dosage Frequency Signature (SIG) Comments Components Source chlorhexidi ne (PERIDEX) 0.12 % mouthwash 15 mL 05-20 02:00: 00 Yes 15mL 15 mL, Oral (Swish And Spit Out), BID, First dose on Tue05/19/22 at 2000, Until Discontinu ed, Routine [facility] aspirin 81 mg chewable tablet 05-20 00:00: 00 Yes 81mg Take 1 tablet by mouth in the morning. [facility] DULoxetine 40 mg CpDR 05-20 00:00: 00 Yes 40mg Take 40 mg by mouth in the morning. [facility] thiamine 100 mg tablet 05-20 00:00: 00 Yes 100mg Take 1 tablet by mouth in the morning. [facility] thiamine (VITAMIN B1) tablet 100 mg 05-19 15:00: 00 Yes 100mg 100 mg, Oral, DAILY, First dose on Tue05/19/22 at 0900, Until Discontinu ed, Routine [facility] aspirin chewable tablet 81 mg 05-19 15:00: 00 Yes 81mg 81 mg, Oral, DAILY, First dose on Tue05/19/22 at 0900, Until Discontinu ed, Routine [facility] atorvastati n 80 mg tablet 05-19 00:00: 00 Yes 80mg Take 1 tablet by mouth at bedtime. [facility] lisinopriL 20 mg tablet 05-19 00:00: 00 Yes 20mg Take 1 tablet by mouth in the morning. [facility] multivit-ir on-FA-calci um-mins 9 mg iron-400 mcg tablet 05-19 00:00: 00 Yes 1{tbl} Take 1 tablet by mouth in the morning. [facility] clotrimazol e 1 % topical cream 05-19 00:00: 00 Yes Apply to area(s) 2 (two) times daily. [facility] artificial tears,hypro mellose, 0.5 % ophthalmic drops 05-19 00:00: 00 Yes 1[drp] Place 1 Drop in left eye 4 (four) times daily as needed for Dry eyes. [facility] chlorhexidi ne 0.12 % mouthwash 05-19 00:00: 00 05-27 05:59 :00 No 15mL Swish and spit out 15 mL in the morning and 15 mL in the evening. [facility] amoxicillin -clavulanat e (AUGMENTIN) 875-125 mg per tablet 05-19 00:00: 00 05-27 05:59 :00 No 1{tbl} Take 1 tablet by mouth in the morning and 1 tablet in the evening. [facility] pseudoephed rine 30 mg tablet 05-19 00:00: 00 05-24 05:59 :00 No 60mg Take 2 tablets by mouth every 6 (six) hours. [facility] pseudoephed rine (SUDAFED) tablet 60 mg 05-18 13:15: 00 05-23 11:59 :00 No 60mg 60 mg, Oral, Q6H, 20 doses, First dose on Tue05/18/22 at 0715, Last dose on Tue05/23/22 at 0000, Routine [facility] pseudoephed rine (SUDAFED) tablet 60 mg 05-18 13:15: 05-23 11:59 :00 No 60mg 60 mg, Oral, Q6H, 20 doses, First dose on Tue05/18/22 at 0715, Last dose on Tue05/23/22 at 0000, Routine [facility] morpHINE (2 mg/mL) injection 2 mg 05-18 03:48: 11 Yes 2mg 2 mg, Slow IV Push, Q4HPRN, Starting on Tue05/17/22 at 2148, Until Discontinu ed, Routine, Pain (scale 7-10) [facility] ampicillin- sulbactam (UNASYN) 3 g in NaCl 0.9% (NS) 100 mL MINI-BAG 05-17 23:00: 00 05-24 22:59 :00 No 3g 3 g, IV Piggyback, Q6H ABX, 28 doses, First dose on Tue05/17/22 at 1700, Last dose on Tue05/24/22 at 1100, Administer over 30 Minutes, 100 mL
Reas on for Anti-Infec tive: Documented Infection& lt;br>Docu mented Infection Site: Skin / Soft Tissue
Duration of Therapy: 7 days [facility] lidocaine-e pinephrine (XYLOCAINE WITH EPINEPHRINE ) 2 %-1:100,000 injection 05-17 20:53: 00 Yes PRN, Starting on Tue05/17/22 at 1453, Until Discontinu ed, Routine, Intra-op [facility] artificial tears(hypro mellose) (ISOPTO-TEA RS) 0.5 % ophthalmic drops 1 Drop 05-16 16:53: 22 Yes 1[drp] 1 Drop, Left Eye, QIDPRN, Starting on Tue05/16/22 at 1053, Until Discontinu ed, Routine, Dry eyes [facility] acetaminoph en (TYLENOL) tablet 500 mg 05-14 20:00: 00 Yes 500mg 500 mg, Oral, Q8H, First dose (after last modificati on) on Tue05/14/22 at 1400, Until Discontinu ed, Routine [facility] HYDROcodone -acetaminop hen (NORCO 5) 5-325 mg tablet 1 tablet 05-14 18:00: 00 05-18 03:48 :25 No 1{tbl} 1 tablet, Oral, Q6H, First dose on Tue05/14/22 at 1200, Until Discontinu ed, Routine [facility] aquaphilic ointment (AQUAPHOR) ointment 05-10 15:00: 00 Yes Topical, DAILY, First dose on Tue05/10/22 at 0900, Until Discontinu ed, Routine [facility] DULoxetine (CYMBALTA) capsule 40 mg 05-01 15:00: 00 Yes 40mg 40 mg, Oral, DAILY, First dose (after last modificati on) on Tue05/01/22 at 0900, Until Discontinu ed, Routine [facility] DULoxetine (CYMBALTA) capsule 20 mg 04-28 16:45: 00 04-30 16:12 :28 No 20mg 20 mg, Oral, DAILY, First dose on Tue04/28/22 at 1045, Until Discontinu ed, Routine [facility] lisinopriL (PRINIVIL,Z ESTRIL) tablet 20 mg 04-28 15:00: 00 Yes 20mg 20 mg, Oral, DAILY, First dose (after last modificati on) on Tue04/28/22 at 0900, Until Discontinu ed, Routine [facility] amLODIPine (NORVASC) tablet 10 mg 04-27 15:00: 00 04-28 14:27 :12 No 10mg 10 mg, Oral, DAILY, First dose (after last modificati on) on Tue04/27/22 at 0900, Until Discontinu ed, Routine [facility] nicotine (NICODERM) 14 mg/24 hr patch 1 Patch 04-26 23:45: 00 04-30 16:12 :27 No 1{patch } 1 Patch, Topical, Administer over 24 Hours, Q24H, First dose on Tue04/26/22 at 1745, Until Discontinu ed, Routine [facility] lisinopriL (PRINIVIL,Z ESTRIL) tablet 40 mg 04-26 15:00: 00 04-28 14:27 :12 No 40mg 40 mg, Oral, DAILY, First dose (after last modificati on) on Tue04/26/22 at 0900, Until Discontinu ed, [facility]-FA-calci um-mins (THERA-M) 9 mg iron-400 mcg tablet 1 tablet 04-25 15:00: 00 Yes 1{tbl} 1 tablet, Oral, DAILY, First dose on Tue04/25/22 at 0900, Until Discontinu ed, Routine [facility] lisinopriL (PRINIVIL,Z ESTRIL) tablet 20 mg 04-25 15:00: 00 04-25 17:13 :44 No 20mg 20 mg, Oral, DAILY, First dose on 04/25/22 at 0900, Until Discontinu ed, Routine [facility] KCL 20 mEq/15 mL solution 40 mEq 04-25 14:00: 00 04-25 19:27 :00 No 40meq 40 mEq, Oral, Q4H, 2 doses, First dose on 04/25/22 at 0800, Last dose on Tue04/25/22 at 1200, Routine [facility] lisinopriL (PRINIVIL,Z ESTRIL) tablet 20 mg 04-25 09:21: 00 04-25 10:01 :00 No 20mg 20 mg, Oral, ONCE, 1 dose, On Tue04/25/22 at 0330, Routine [facility] enalapril (VASOTEC) tablet 10 mg 04-23 20:15: 00 04-24 18:05 :30 No 10mg 10 mg, Oral, DAILY, First dose on Tue04/23/22 at 1415, Until Discontinu ed, Routine [facility] atorvastati n (LIPITOR) tablet 80 mg 04-23 03:00: 00 Yes 80mg 80 mg, Oral, QHS, First dose (after last modificati on) on Tue04/22/22 at 2100, Until Discontinu ed, Routine [facility] thiamine (VITAMIN B1) tablet 500 mg 04-23 02:00: 00 05-19 12:33 :40 No 500mg 500 mg, Oral, TID, First dose on Tue04/22/22 at 2000, Until Discontinu ed, Routine [facility] barium sulfate-NO CHARGE- (VARIBAR NECTOR) 40 % (w/v) oral suspension 20 mL 04-22 20:30: 00 04-22 20:17 :00 No [id number] 20mL 20 mL, Oral, ONCE, 1 dose, On Asha 04/22/22 at 1430, Routine [facility] barium sulfate (VARIBAR THIN LIQUID) 81 % (w/w) oral powder 30 g 04-22 20:30: 00 04-22 20:17 :00 No [id number] 30g 30 g, Oral, ONCE, 1 dose, On Asha 04/22/22 at 1430, Routine [facility] cyanocobala min (DODEX) injection 1,000 mcg 04-22 15:15: 00 04-24 17:10 :00 No 1000ug 1,000 mcg, Intramuscu lar, Q24H, 3 doses, First dose on Asha 04/22/22 at 0915, Last dose on Tue04/24/22 at 0915, Routine [facility] aspirin chewable tablet 81 mg 04-22 15:00: 00 05-16 16:50 :39 No 81mg 81 mg, Oral, DAILY, First dose on Tue04/22/22 at 0900, Until Discontinu ed, Routine [facility] enoxaparin (LOVENOX) injection 40 mg 04-22 15:00: 00 05-15 16:40 :50 No 40mg 40 mg, Subcutaneo us, DAILY, First dose on Tue04/22/22 at 0900, Until Discontinu ed, Routine [facility] foLIC acid (FOLATE) 5 mg in NaCl 0.9% (NS) piggyback 04-22 15:00: 00 04-24 16:45 :48 No 5mg IV Piggyback, DAILY, First dose on Asha 04/22/22 at 0900, Until Discontinu ed, 50 mL [facility] thiamine (VITAMIN B1) 100 mg in NaCl 0.9% (NS) piggyback 04-22 15:00: 00 04-22 17:31 :00 No 100mg IV Piggyback, DAILY, 1 dose, First dose on Tue04/22/22 at 0900, 50 mL [facility] clotrimazol e (LOTRIMIN) 1 % topical cream 04-22 14:00: 00 Yes Topical, BID, First dose on Asha 04/22/22 at 0800, Until Discontinu ed, Routine [facility] iopamidol (ISOVUE 370-500 mL) injection 80 mL 04-22 04:39: 00 04-22 04:30 :00 No [id number] 80mL 80 mL, Intravenou s, ONCE, 1 dose, On Tue04/21/22 at 2245, Routine [facility] aspirin tablet 325 mg 04-22 03:45: 00 04-22 03:29 :00 No 325mg 325 mg, Oral, ONCE, 1 dose, On Tue04/21/22 at 2145, Routine [facility] azithromyci n (ZITHROMAX) 500 mg in NaCl 0.9% (NS) 250 mL VIAL-MATE IV piggyback 04-22 02:00: 00 04-22 03:41 :00 No 500mg 500 mg, IV Piggyback, ONCE, 1 dose, On Tue04/21/22 at 2000, Administer over 60 Minutes, 250 mL
Reas on for Anti-Infec tive: Empiric Therapy for Suspected Infection< br>Empiric Therapy Site: Respirator y
Durat ion of therapy: 72 hours [facility] nicotine (NICODERM) 21 mg/24 hr patch 1 Patch 04-21 23:30: 00 04-26 22:38 :37 No 1{patch } 1 Patch, Topical, Administer over 24 Hours, Q24H, First dose on Tue04/21/22 at 1730, Until Discontinu ed, Routine [facility] enalapril (VASOTEC) tablet 20 mg 04-21 23:15: 00 04-21 23:23 :00 No 20mg 20 mg, Oral, ONCE, 1 dose, On Tue04/21/22 at 1715, [facility] 0.9% (NS) bolus infusion 1,000 mL 04-21 23:00: 00 04-22 02:11 :00 No 1000mL at 999 mL/hr, 1,000 mL, IV Infusion, ONCE, 1 dose, On Tue04/21/22 at 1700, [facility] NaCl 0.9% (NS) bolus infusion 1,000 mL 04-21 20:45: 00 04-21 21:46 :00 No 1000mL at 999 mL/hr, 1,000 mL, IV Infusion, ONCE, 1 dose, On Tue04/21/22 at 1445, [facility] docusate 100 mg capsule 06-05 00:00: 00 06-20 04:59 :00 No [id number] 100mg Take 1 capsule by mouth 2 (two) times daily for 14 days. [facility] sulfamethox azole-trime thoprim (BACTRIM DS) 800-160 mg per tablet 06-05 00:00: 00 06-20 04:59 :00 No [id number] 1{tbl} Take 1 tablet by mouth 2 (two) times daily for 14 days. [facility] HYDROcodone -acetaminop hen 5-325 mg tablet 06-05 00:00: 00 06-13 04:59 :00 No [id number] 1{tbl} Take 1 tablet by mouth every 4 (four) hours as needed for Pain (scale 7-10) for up to 7 days. Indication s: acute pain [facility] hydroCHLORO thiazide (ESIDRIX) capsule 12.5 mg 06-04 19:00: 00 Yes 12.5mg 12.5 mg, Oral, DAILY, First dose on Tue06/04/20 at 1300, Until Discontinu ed, Routine [facility] vancomycin 1250 mg in NS 250 mL RTU IV Piggyback 1,250 mg 06-04 14:30: 00 Yes 1250mg 1,250 mg, IV Piggyback, Q12H ABX, First dose (after last modificati on) on Tue06/04/20 at 0830, Until Discontinu ed
Reas on for Anti-Infec tive: Documented Infection< br>Documen nicole Infection Site: Skin / Soft Tissue
Duration of Therapy: 7 days [facility] omeprazole (PRILOSEC) capsule 20 mg 06-02 15:00: 00 Yes 20mg 20 mg, Oral, DAILY, First dose on Tue06/02/20 at 0900, Until Discontinu ed, Routine [facility] Polyethylen e Glycol 3350 (MIRALAX) powder 17 g 06-02 15:00: 00 Yes 17g 17 g, Oral, DAILY, First dose on Tue06/02/20 at 0900, Until Discontinu ed, Routine [facility] sennosides- docusate sodium (SENOKOT-S) 8.6-50 mg per tablet 1 tablet 06-02 15:00: 00 Yes 1{tbl} 1 tablet, Oral, DAILY, First dose on Tue06/02/20 at 0900, Until Discontinu ed, Routine Univers [facility] HYDROcodone -acetaminop hen (NORCO 5) 5-325 mg tablet 1 tablet 06-02 15:00: 00 06-02 15:05 :00 No 1{tbl} 1 tablet, Oral, ONCE, 1 dose, Tue06/02/20 at 0900, Routine, PACU [facility] melatonin (MELATIN) tablet 3 mg 06-02 03:00: 00 Yes 3mg 3 mg, Oral, QHS, First dose on Tue06/01/20 at 2100, Until Discontinu ed, Routine [facility] vancomycin (VANCOCIN) 1,000 mg in NaCl 0.9% (NS) 250 mL VIAL-MATE IV piggyback 06-02 02:20: 24 06-04 14:07 :38 No 15mg/kg 1,000 mg (rounded from 1,089 mg = 15 mg/kg ?72.6 kg), IV Piggyback, Q12H ABX, First dose (after last modificati on) on Tue06/01/20 at 2030, Until Discontinu ed, 250 mL
Reas on for Anti-Infec tive: Documented Infection< br>Cale rivera Infection Site: Skin / Soft Tissue
Duration of Therapy: 7 days [facility] docusate (COLACE) capsule 100 mg 06-02 02:00: 00 Yes 100mg 100 mg, Oral, Q12H, First dose on 06/01/20 at 2000, Until Discontinu ed, Routine [facility] methocarbam oL (ROBAXIN) tablet 500 mg 06-02 02:00: 00 Yes 500mg 500 mg, Oral, QID, First dose on 06/01/20 at 2000, Until Discontinu ed, Routine [facility] bisacodyL (DULCOLAX) suppository 10 mg 06-02 01:40: 04 Yes 10mg 10 mg, Rectal, QDAILYPRN, Starting 06/01/20 at 1940, Until Discontinu ed, Routine, Constipati on unresolved by oral medication s, If no bowel movement for 2-3 days [facility] diphenhydrA MINE (BENADRYL) tablet 25 mg 06-02 01:40: 04 Yes 25mg 25 mg, Oral, Q4HPRN, Starting Davin 06/01/20 at 1940, Until Discontinu ed, Routine, Sleep, Itching [facility] morpHINE injection 4 mg 06-02 01:40: 03 Yes 4mg 4 mg, Slow IV Push, Q4HPRN, Starting Davin 06/01/20 at 1940, Until Discontinu ed, Routine, For pain unrelieved by oral medication s, or if patient is unable to tolerate oral pain medication . [facility] HYDROcodone -acetaminop hen (NORCO 5) 5-325 mg tablet 1 tablet 06-02 01:40: 03 Yes 1{tbl} 1 tablet, Oral, Q4HPRN, Starting 06/01/20 at 1940, Until Discontinu ed, Routine, Pain (scale 7-10) [facility] traMADoL (ULTRAM) tablet 50 mg 06-02 01:40: 03 Yes 50mg 50 mg, Oral, Q6HPRN, Starting 06/01/20 at 1940, Until Discontinu ed, Routine, Pain (scale 4-6) [facility] ondansetron (ZOFRAN (PF)) injection 4 mg 06-02 01:40: 03 Yes 4mg 4 mg, Slow IV Push, Q6HPRN, Starting Davin 06/01/20 at 1940, Until Discontinu ed, Routine, Nausea and Vomiting (N/V) [facility] morpHINE injection 4 mg 06-02 01:00: 00 06-02 00:01 :00 No 4mg 4 mg, Slow IV Push, ONCE, 1 dose, Davin 06/01/20 at 1900, STAT [facility] tetanus-dip htheria toxoids (TENIVAC) 5-2 Lf unit/0.5 mL injection 0.5 mL 06-02 00:45: 00 06-01 23:44 :00 No .5mL 0.5 mL, Intramuscu lar, ONCE, 1 dose, Davin 06/01/20 at 1845, Routine [facility] ceFAZolin (ANCEF) 1,000 mg in NaCl 0.9% (NS) 50 mL MINI-BAG 06-02 00:30: 00 06-02 00:13 :00 No 1000mg 1,000 mg, IV Piggyback, ONCE, 1 dose, Davin 06/01/20 at 1830, 50 mL
Reas on for Anti-Infec tive: Documented Infection< br>Documen nicole Infection Site: Skin / Soft Tissue
Duration of Therapy: 7 days [facility] NaCl 0.9% (NS) bolus infusion 1,000 mL 06-01 23:30: 00 06-02 01:26 :00 No 1000mL at 999 mL/hr, 1,000 mL, IV Infusion, ONCE, 1 dose, Davin 06/01/20 at 1730, STAT [facility] acetaminoph en-codeine (TYLENOL #3) 300-30 mg tablet 08-02 00:00: 00 06-05 00:00 :00 No 1{tbl} Take 1 Tab by mouth every 4 (four) hours as needed for Pain (scale 4-6) or Pain (scale 7-10). [facility] atorvastati n (LIPITOR) 20 mg tablet 04-02 00:00: 00 05-19 00:00 :00 No 20mg Take 1 Tab by mouth at bedtime. [facility] enalapril (VASOTEC) 10 mg tablet 04-02 00:00: 05-19 00:00 :00 No 10mg Take 1 Tab by mouth daily. [facility] aspirin 81 mg tablet,rachel yed release Take 1 tablet every day by oral route. aspirin 81 mg tablet,rachel yed release Take 1 tablet every day by oral route. No 1 Q1D aspirin 81 mg tablet,del ayed release Take 1 tablet every day by oral route. [facility] atorvastati n 80 mg tablet Take 1 tablet every day by oral route. atorvastati n 80 mg tablet Take 1 tablet every day by oral route. No 1 Q1D atorvastat in 80 mg tablet Take 1 tablet every day by oral route. [facility] duloxetine 40 mg capsule,del ayed release Take 1 capsule every day by oral route. duloxetine 40 mg capsule,del ayed release Take 1 capsule every day by oral route. No 1capsul e(s) Q1D duloxetine 40 mg capsule,de layed release Take 1 capsule every day by oral route. [facility] ergocalcife rol (vitamin D2) 1,250 mcg (50,000 unit) capsule Take 1 capsule every week by oral route. ergocalcife rol (vitamin D2) 1,250 mcg (50,000 unit) capsule Take 1 capsule every week by oral route. No 1capsul e(s) Q1W ergocalcif tomas (vitamin D2) 1,250 mcg (50,000 unit) capsule Take 1 capsule every week by oral route. [facility] lisinopril 20 mg tablet Take 1 tablet every day by oral route. lisinopril 20 mg tablet Take 1 tablet every day by oral route. No 1 Q1D lisinopril 20 mg tablet Take 1 tablet every day by oral route. [facility] Multivitami n 50 Plus tablet Take 1 tablet every day by oral route. Multivitami n 50 Plus tablet Take 1 tablet every day by oral route. No 1 Q1D Multivitam in 50 Plus tablet Take 1 tablet every day by oral route. [facility] nicotine 7 mg/24 hr daily transdermal patch Apply 1 patch every day by transdermal route. nicotine 7 mg/24 hr daily transdermal patch Apply 1 patch every day by transdermal route. No 1patch( es) Q1D nicotine 7 mg/24 hr daily transderma l patch Apply 1 patch every day by transderma l route. [facility] oxymetazoli ne 0.05 % nasal mist Take 1 spray 3 times a day by nasal route. oxymetazoli ne 0.05 % nasal mist Take 1 spray 3 times a day by nasal route. No 1spray( s) TID oxymetazol ine 0.05 % nasal mist Take 1 spray 3 times a day by nasal route. [facility] thiamine HCl (vitamin B1) 100 mg tablet Take 1 tablet every day by oral route. thiamine HCl (vitamin B1) 100 mg tablet Take 1 tablet every day by oral route. No 1 Q1D thiamine HCl (vitamin B1) 100 mg tablet Take 1 tablet every day by oral route. [facility] acetaminoph en 325 mg tablet Take 2 tablets every 6 hours by oral route as needed. acetaminoph en 325 mg tablet Take 2 tablets every 6 hours by oral route as needed. No 2 Q6H acetaminop hen 325 mg tablet Take 2 tablets every 6 hours by oral route as needed. [facility] amlodipine 5 mg tablet Take 1 tablet every day by oral route. amlodipine 5 mg tablet Take 1 tablet every day by oral route. No 1 Q1D amlodipine 5 mg tablet Take 1 tablet every day by oral route. [facility] aspirin 81 mg tablet,rachel yed release Take 1 tablet every day by oral route. aspirin 81 mg tablet,rachel yed release Take 1 tablet every day by oral route. No 1 Q1D aspirin 81 mg tablet,del ayed release Take 1 tablet every day by oral route. [facility] atorvastati n 80 mg tablet Take 1 tablet every day by oral route. atorvastati n 80 mg tablet Take 1 tablet every day by oral route. No 1 Q1D atorvastat in 80 mg tablet Take 1 tablet every day by oral route. [facility] duloxetine 40 mg capsule,del ayed release Take 1 capsule every day by oral route. duloxetine 40 mg capsule,del ayed release Take 1 capsule every day by oral route. No 1capsul e(s) Q1D duloxetine 40 mg capsule,de layed release Take 1 capsule every day by oral route. [facility] ergocalcife rol (vitamin D2) 1,250 mcg (50,000 unit) capsule Take 1 capsule every week by oral route. ergocalcife rol (vitamin D2) 1,250 mcg (50,000 unit) capsule Take 1 capsule every week by oral route. No 1capsul e(s) Q1W ergocalcif tomas (vitamin D2) 1,250 mcg (50,000 unit) capsule Take 1 capsule every week by oral route. [facility] lisinopril 20 mg tablet Take 1 tablet every day by oral route. lisinopril 20 mg tablet Take 1 tablet every day by oral route. No 1 Q1D lisinopril 20 mg tablet Take 1 tablet every day by oral route. [facility] Multivitami n 50 Plus tablet Take 1 tablet every day by oral route. Multivitami n 50 Plus tablet Take 1 tablet every day by oral route. No 1 Q1D Multivitam in 50 Plus tablet Take 1 tablet every day by oral route. [facility] nicotine 7 mg/24 hr daily transdermal patch Apply 1 patch every day by transdermal route. nicotine 7 mg/24 hr daily transdermal patch Apply 1 patch every day by transdermal route. No 1patch( es) Q1D nicotine 7 mg/24 hr daily transderma l patch Apply 1 patch every day by transderma l route. [facility] oxymetazoli ne 0.05 % nasal mist Take 1 spray 3 times a day by nasal route. oxymetazoli ne 0.05 % nasal mist Take 1 spray 3 times a day by nasal route. No 1spray( s) TID oxymetazol ine 0.05 % nasal mist Take 1 spray 3 times a day by nasal route. [facility] thiamine HCl (vitamin B1) 100 mg tablet Take 1 tablet every day by oral route. thiamine HCl (vitamin B1) 100 mg tablet Take 1 tablet every day by oral route. No 1 Q1D thiamine HCl (vitamin B1) 100 mg tablet Take 1 tablet every day by oral route. [facility] acetaminoph en 325 mg tablet Take 2 tablets every 6 hours by oral route as needed. acetaminoph en 325 mg tablet Take 2 tablets every 6 hours by oral route as needed. No 2 Q6H acetaminop hen 325 mg tablet Take 2 tablets every 6 hours by oral route as needed. [facility] amlodipine 5 mg tablet Take 1 tablet every day by oral route. amlodipine 5 mg tablet Take 1 tablet every day by oral route. No 1 Q1D amlodipine 5 mg tablet Take 1 tablet every day by oral route. [facility] aspirin 81 mg tablet,rachel yed release Take 1 tablet every day by oral route. aspirin 81 mg tablet,rachel yed release Take 1 tablet every day by oral route. No 1 Q1D aspirin 81 mg tablet,del ayed release Take 1 tablet every day by oral route. [facility] atorvastati n 80 mg tablet Take 1 tablet every day by oral route. atorvastati n 80 mg tablet Take 1 tablet every day by oral route. No 1 Q1D atorvastat in 80 mg tablet Take 1 tablet every day by oral route. [facility] duloxetine 40 mg capsule,del ayed release Take 1 capsule every day by oral route. duloxetine 40 mg capsule,del ayed release Take 1 capsule every day by oral route. No 1capsul e(s) Q1D duloxetine 40 mg capsule,de layed release Take 1 capsule every day by oral route. [facility] ergocalcife rol (vitamin D2) 1,250 mcg (50,000 unit) capsule Take 1 capsule every week by oral route. ergocalcife rol (vitamin D2) 1,250 mcg (50,000 unit) capsule Take 1 capsule every week by oral route. No 1capsul e(s) Q1W ergocalcif tomas (vitamin D2) 1,250 mcg (50,000 unit) capsule Take 1 capsule every week by oral route. [facility] lisinopril 20 mg tablet Take 1 tablet every day by oral route. lisinopril 20 mg tablet Take 1 tablet every day by oral route. No 1 Q1D lisinopril 20 mg tablet Take 1 tablet every day by oral route. [facility] Multivitami n 50 Plus tablet Take 1 tablet every day by oral route. Multivitami n 50 Plus tablet Take 1 tablet every day by oral route. No 1 Q1D Multivitam in 50 Plus tablet Take 1 tablet every day by oral route. [facility] nicotine 7 mg/24 hr daily transdermal patch Apply 1 patch every day by transdermal route. nicotine 7 mg/24 hr daily transdermal patch Apply 1 patch every day by transdermal route. No 1patch( es) Q1D nicotine 7 mg/24 hr daily transderma l patch Apply 1 patch every day by transderma l route. [facility] oxymetazoli ne 0.05 % nasal mist Take 1 spray 3 times a day by nasal route. oxymetazoli ne 0.05 % nasal mist Take 1 spray 3 times a day by nasal route. No 1spray( s) TID oxymetazol ine 0.05 % nasal mist Take 1 spray 3 times a day by nasal route. [facility] thiamine HCl (vitamin B1) 100 mg tablet Take 1 tablet every day by oral route. thiamine HCl (vitamin B1) 100 mg tablet Take 1 tablet every day by oral route. No 1 Q1D thiamine HCl (vitamin B1) 100 mg tablet Take 1 tablet every day by oral route. [facility] acetaminoph en 325 mg tablet Take 2 tablets every 6 hours by oral route as needed. acetaminoph en 325 mg tablet Take 2 tablets every 6 hours by oral route as needed. No 2 Q6H acetaminop hen 325 mg tablet Take 2 tablets every 6 hours by oral route as needed. [facility] amlodipine 5 mg tablet Take 1 tablet every day by oral route. amlodipine 5 mg tablet Take 1 tablet every day by oral route. No 1 Q1D amlodipine 5 mg tablet Take 1 tablet every day by oral route. [facility] aspirin 81 mg tablet,rachel yed release Take 1 tablet every day by oral route. aspirin 81 mg tablet,rachel yed release Take 1 tablet every day by oral route. No 1 Q1D aspirin 81 mg tablet,del ayed release Take 1 tablet every day by oral route. [facility] atorvastati n 80 mg tablet Take 1 tablet every day by oral route. atorvastati n 80 mg tablet Take 1 tablet every day by oral route. No 1 Q1D atorvastat in 80 mg tablet Take 1 tablet every day by oral route. [facility] duloxetine 40 mg capsule,del ayed release Take 1 capsule every day by oral route. duloxetine 40 mg capsule,del ayed release Take 1 capsule every day by oral route. No 1capsul e(s) Q1D duloxetine 40 mg capsule,de layed release Take 1 capsule every day by oral route. [facility] ergocalcife rol (vitamin D2) 1,250 mcg (50,000 unit) capsule Take 1 capsule every week by oral route. ergocalcife rol (vitamin D2) 1,250 mcg (50,000 unit) capsule Take 1 capsule every week by oral route. No 1capsul e(s) Q1W ergocalcif tomas (vitamin D2) 1,250 mcg (50,000 unit) capsule Take 1 capsule every week by oral route. [facility] lisinopril 20 mg tablet Take 1 tablet every day by oral route. lisinopril 20 mg tablet Take 1 tablet every day by oral route. No 1 Q1D lisinopril 20 mg tablet Take 1 tablet every day by oral route. [facility] Multivitami n 50 Plus tablet Take 1 tablet every day by oral route. Multivitami n 50 Plus tablet Take 1 tablet every day by oral route. No 1 Q1D Multivitam in 50 Plus tablet Take 1 tablet every day by oral route. [facility] nicotine 7 mg/24 hr daily transdermal patch Apply 1 patch every day by transdermal route. nicotine 7 mg/24 hr daily transdermal patch Apply 1 patch every day by transdermal route. No 1patch( es) Q1D nicotine 7 mg/24 hr daily transderma l patch Apply 1 patch every day by transderma l route. [facility] oxymetazoli ne 0.05 % nasal mist Take 1 spray 3 times a day by nasal route. oxymetazoli ne 0.05 % nasal mist Take 1 spray 3 times a day by nasal route. No 1spray( s) TID oxymetazol ine 0.05 % nasal mist Take 1 spray 3 times a day by nasal route. [facility] thiamine HCl (vitamin B1) 100 mg tablet Take 1 tablet every day by oral route. thiamine HCl (vitamin B1) 100 mg tablet Take 1 tablet every day by oral route. No 1 Q1D thiamine HCl (vitamin B1) 100 mg tablet Take 1 tablet every day by oral route. [facility] acetaminoph en 325 mg tablet Take 2 tablets every 6 hours by oral route as needed. acetaminoph en 325 mg tablet Take 2 tablets every 6 hours by oral route as needed. No 2 Q6H acetaminop hen 325 mg tablet Take 2 tablets every 6 hours by oral route as needed. [facility] amlodipine 5 mg tablet Take 1 tablet every day by oral route. amlodipine 5 mg tablet Take 1 tablet every day by oral route. No 1 Q1D amlodipine 5 mg tablet Take 1 tablet every day by oral route. [facility] aspirin 81 mg tablet,rachel yed release Take 1 tablet every day by oral route. aspirin 81 mg tablet,rachel yed release Take 1 tablet every day by oral route. No 1 Q1D aspirin 81 mg tablet,del ayed release Take 1 tablet every day by oral route. [facility] atorvastati n 80 mg tablet Take 1 tablet every day by oral route. atorvastati n 80 mg tablet Take 1 tablet every day by oral route. No 1 Q1D atorvastat in 80 mg tablet Take 1 tablet every day by oral route. [facility] duloxetine 40 mg capsule,del ayed release Take 1 capsule every day by oral route. duloxetine 40 mg capsule,del ayed release Take 1 capsule every day by oral route. No 1capsul e(s) Q1D duloxetine 40 mg capsule,de layed release Take 1 capsule every day by oral route. [facility] ergocalcife rol (vitamin D2) 1,250 mcg (50,000 unit) capsule Take 1 capsule every week by oral route. ergocalcife rol (vitamin D2) 1,250 mcg (50,000 unit) capsule Take 1 capsule every week by oral route. No 1capsul e(s) Q1W ergocalcif tomas (vitamin D2) 1,250 mcg (50,000 unit) capsule Take 1 capsule every week by oral route. [facility] Lactobacill us acidophilus 1 billion cell tablet Take 1 tablet every day by oral route for 30 days. Lactobacill us acidophilus 1 billion cell tablet Take 1 tablet every day by oral route for 30 days. No 1 Q1D Lactobacil nik acidophilu s 1 billion cell tablet Take 1 tablet every day by oral route for 30 days. [facility] levofloxaci n 750 mg tablet Take 1 tablet every day by oral route for 5 days. levofloxaci n 750 mg tablet Take 1 tablet every day by oral route for 5 days. No 1 Q1D levofloxac in 750 mg tablet Take 1 tablet every day by oral route for 5 days. [facility] lisinopril 20 mg tablet Take 1 tablet every day by oral route. lisinopril 20 mg tablet Take 1 tablet every day by oral route. No 1 Q1D lisinopril 20 mg tablet Take 1 tablet every day by oral route. [facility] mirtazapine 7.5 mg tablet Take 1 tablet every day by oral route. mirtazapine 7.5 mg tablet Take 1 tablet every day by oral route. No 1 Q1D mirtazapin e 7.5 mg tablet Take 1 tablet every day by oral route. [facility] Multivitami n 50 Plus tablet Take 1 tablet every day by oral route. Multivitami n 50 Plus tablet Take 1 tablet every day by oral route. No 1 Q1D Multivitam in 50 Plus tablet Take 1 tablet every day by oral route. [facility] nicotine 7 mg/24 hr daily transdermal patch Apply 1 patch every day by transdermal route. nicotine 7 mg/24 hr daily transdermal patch Apply 1 patch every day by transdermal route. No 1patch( es) Q1D nicotine 7 mg/24 hr daily transderma l patch Apply 1 patch every day by transderma l route. [facility] potassium chloride ER 20 mEq tablet,exte nded release Take 1 tablet every day by oral route for 7 days. potassium chloride ER 20 mEq tablet,exte nded release Take 1 tablet every day by oral route for 7 days. No 1 Q1D potassium chloride ER 20 mEq tablet,ext ended release Take 1 tablet every day by oral route for 7 days. [facility] thiamine HCl (vitamin B1) 100 mg tablet Take 1 tablet every day by oral route. thiamine HCl (vitamin B1) 100 mg tablet Take 1 tablet every day by oral route. No 1 Q1D thiamine HCl (vitamin B1) 100 mg tablet Take 1 tablet every day by oral route. [facility] acetaminoph en 325 mg tablet Take 2 tablets every 6 hours by oral route as needed. acetaminoph en 325 mg tablet Take 2 tablets every 6 hours by oral route as needed. No 2 Q6H acetaminop hen 325 mg tablet Take 2 tablets every 6 hours by oral route as needed. [facility] amlodipine 5 mg tablet Take 1 tablet every day by oral route. amlodipine 5 mg tablet Take 1 tablet every day by oral route. No 1 Q1D amlodipine 5 mg tablet Take 1 tablet every day by oral route. [facility] aspirin 81 mg tablet,rachel yed release Take 1 tablet every day by oral route. aspirin 81 mg tablet,rachel yed release Take 1 tablet every day by oral route. No 1 Q1D aspirin 81 mg tablet,del ayed release Take 1 tablet every day by oral route. [facility] atorvastati n 80 mg tablet Take 1 tablet every day by oral route. atorvastati n 80 mg tablet Take 1 tablet every day by oral route. No 1 Q1D atorvastat in 80 mg tablet Take 1 tablet every day by oral route. [facility] duloxetine 40 mg capsule,del ayed release Take 1 capsule every day by oral route. duloxetine 40 mg capsule,del ayed release Take 1 capsule every day by oral route. No 1capsul e(s) Q1D duloxetine 40 mg capsule,de layed release Take 1 capsule every day by oral route. [facility] ergocalcife rol (vitamin D2) 1,250 mcg (50,000 unit) capsule Take 1 capsule every week by oral route. ergocalcife rol (vitamin D2) 1,250 mcg (50,000 unit) capsule Take 1 capsule every week by oral route. No 1capsul e(s) Q1W ergocalcif tomas (vitamin D2) 1,250 mcg (50,000 unit) capsule Take 1 capsule every week by oral route. [facility] Lactobacill us acidophilus 1 billion cell tablet Take 1 tablet every day by oral route for 30 days. Lactobacill us acidophilus 1 billion cell tablet Take 1 tablet every day by oral route for 30 days. No 1 Q1D Lactobacil nik acidophilu s 1 billion cell tablet Take 1 tablet every day by oral route for 30 days. [facility] levofloxaci n 750 mg tablet Take 1 tablet every day by oral route for 5 days. levofloxaci n 750 mg tablet Take 1 tablet every day by oral route for 5 days. No 1 Q1D levofloxac in 750 mg tablet Take 1 tablet every day by oral route for 5 days. [facility] lisinopril 20 mg tablet Take 1 tablet every day by oral route. lisinopril 20 mg tablet Take 1 tablet every day by oral route. No 1 Q1D lisinopril 20 mg tablet Take 1 tablet every day by oral route. [facility] mirtazapine 7.5 mg tablet Take 1 tablet every day by oral route. mirtazapine 7.5 mg tablet Take 1 tablet every day by oral route. No 1 Q1D mirtazapin e 7.5 mg tablet Take 1 tablet every day by oral route. [facility] Multivitami n 50 Plus tablet Take 1 tablet every day by oral route. Multivitami n 50 Plus tablet Take 1 tablet every day by oral route. No 1 Q1D Multivitam in 50 Plus tablet Take 1 tablet every day by oral route. [facility] nicotine 7 mg/24 hr daily transdermal patch Apply 1 patch every day by transdermal route. nicotine 7 mg/24 hr daily transdermal patch Apply 1 patch every day by transdermal route. No 1patch( es) Q1D nicotine 7 mg/24 hr daily transderma l patch Apply 1 patch every day by transderma l route. [facility] potassium chloride ER 20 mEq tablet,exte nded release Take 1 tablet every day by oral route for 7 days. potassium chloride ER 20 mEq tablet,exte nded release Take 1 tablet every day by oral route for 7 days. No 1 Q1D potassium chloride ER 20 mEq tablet,ext ended release Take 1 tablet every day by oral route for 7 days. [facility] thiamine HCl (vitamin B1) 100 mg tablet Take 1 tablet every day by oral route. thiamine HCl (vitamin B1) 100 mg tablet Take 1 tablet every day by oral route. No 1 Q1D thiamine HCl (vitamin B1) 100 mg tablet Take 1 tablet every day by oral route. [facility] acetaminoph en 325 mg tablet Take 2 tablets every 6 hours by oral route as needed. acetaminoph en 325 mg tablet Take 2 tablets every 6 hours by oral route as needed. No 2 Q6H acetaminop hen 325 mg tablet Take 2 tablets every 6 hours by oral route as needed. [facility] amlodipine 5 mg tablet amlodipine 5 mg tablet No amlodipine 5 mg tablet [facility] aspirin 81 mg tablet,rachel yed release Take 1 tablet every day by oral route. aspirin 81 mg tablet,rachel yed release Take 1 tablet every day by oral route. No 1 Q1D aspirin 81 mg tablet,del ayed release Take 1 tablet every day by oral route. [facility] atorvastati n 40 mg tablet Take 1 tablet every day by oral route. atorvastati n 40 mg tablet Take 1 tablet every day by oral route. No 1 Q1D atorvastat in 40 mg tablet Take 1 tablet every day by oral route. [facility] clonidine HCl 0.1 mg tablet Take 1 tablet by oral route as needed for 30 days. clonidine HCl 0.1 mg tablet Take 1 tablet by oral route as needed for 30 days. No 1 clonidine HCl 0.1 mg tablet Take 1 tablet by oral route as needed for 30 days. [facility] clopidogrel 75 mg tablet Take 1 tablet every day by oral route. clopidogrel 75 mg tablet Take 1 tablet every day by oral route. No clopidogre l 75 mg tablet Take 1 tablet every day by oral route. [facility] clotrimazol e-betametha sone 1 %-0.05 % topical cream clotrimazol e-betametha sone 1 %-0.05 % topical cream No clotrimazo le-betamet hasone 1 %-0.05 % topical cream [facility] diclofenac 1 % topical gel diclofenac 1 % topical gel No diclofenac 1 % topical gel [facility] divalproex 125 mg capsule,del ayed release sprinkle Take 5 capsules twice a day by oral route. divalproex 125 mg capsule,del ayed release sprinkle Take 5 capsules twice a day by oral route. No 5capsul e(s) BID divalproex 125 mg capsule,de layed release sprinkle Take 5 capsules twice a day by oral route. [facility] ergocalcife rol (vitamin D2) 1,250 mcg (50,000 unit) capsule ergocalcife rol (vitamin D2) 1,250 mcg (50,000 unit) capsule No ergocalcif tomas (vitamin D2) 1,250 mcg (50,000 unit) capsule [facility] famotidine 20 mg tablet famotidine 20 mg tablet No famotidine 20 mg tablet [facility] folic acid 1 mg tablet Take 1 tablet every day by oral route. folic acid 1 mg tablet Take 1 tablet every day by oral route. No 1 Q1D folic acid 1 mg tablet Take 1 tablet every day by oral route. [facility] hydrochloro thiazide 12.5 mg tablet Take 1 tablet every day by oral route for 30 days. hydrochloro thiazide 12.5 mg tablet Take 1 tablet every day by oral route for 30 days. No hydrochlor othiazide 12.5 mg tablet Take 1 tablet every day by oral route for 30 days. [facility] hydrocortis one 1 % topical cream APPLY A THIN LAYER TO THE AFFECTED AREA(S) BY TOPICAL ROUTE 3 TIMES PER DAY hydrocortis one 1 % topical cream APPLY A THIN LAYER TO THE AFFECTED AREA(S) BY TOPICAL ROUTE 3 TIMES PER DAY No hydrocorti sone 1 % topical cream APPLY A THIN LAYER TO THE AFFECTED AREA(S) BY TOPICAL ROUTE 3 TIMES PER DAY [facility] hydroxyzine HCl 25 mg tablet Take 1 tablet every 8 hours by oral route as needed. hydroxyzine HCl 25 mg tablet Take 1 tablet every 8 hours by oral route as needed. No hydroxyzin e HCl 25 mg tablet Take 1 tablet every 8 hours by oral route as needed. [facility] mirtazapine 15 mg tablet Take 1 tablet every day by oral route for 30 days. mirtazapine 15 mg tablet Take 1 tablet every day by oral route for 30 days. No mirtazapin e 15 mg tablet Take 1 tablet every day by oral route for 30 days. [facility] Multivitami n 50 Plus tablet Take 1 tablet every day by oral route. Multivitami n 50 Plus tablet Take 1 tablet every day by oral route. No 1 Q1D Multivitam in 50 Plus tablet Take 1 tablet every day by oral route. [facility] nystatin-tr iamcinolone 100,000 unit/g-0.1 % topical cream nystatin-tr iamcinolone 100,000 unit/g-0.1 % topical cream No nystatin-t riamcinolo ne 100,000 unit/g-0.1 % topical cream [facility] pantoprazol e 40 mg tablet,rachel yed release Take 1 tablet every day by oral route. pantoprazol e 40 mg tablet,rachel yed release Take 1 tablet every day by oral route. No pantoprazo le 40 mg tablet,del ayed release Take 1 tablet every day by oral route. [facility] potassium chloride ER 10 mEq capsule,ext ended release potassium chloride ER 10 mEq capsule,ext ended release No potassium chloride ER 10 mEq capsule,ex tended release [facility] selenium sulfide 2.25 % shampoo APPLY TO WET SCALP BY TOPICAL ROUTE TWICE WEEKLY WORK INTO A FULL LATHER, LEAVE ON SCALP FOR 2-3 MINUTES, RINSE THOROUGHLY, AND THEN PAT DRY selenium sulfide 2.25 % shampoo APPLY TO WET SCALP BY TOPICAL ROUTE TWICE WEEKLY WORK INTO A FULL LATHER, LEAVE ON SCALP FOR 2-3 MINUTES, RINSE THOROUGHLY, AND THEN PAT DRY No selenium sulfide 2.25 % shampoo APPLY TO WET SCALP BY TOPICAL ROUTE TWICE WEEKLY WORK INTO A FULL LATHER, LEAVE ON SCALP FOR 2-3 MINUTES, RINSE THOROUGHLY , AND THEN PAT DRY [facility] triamcinolo ne acetonide 0.1 % topical cream triamcinolo ne acetonide 0.1 % topical cream No triamcinol one acetonide 0.1 % topical cream [facility] acetaminoph en 325 mg tablet Take 2 tablets every 6 hours by oral route as needed. acetaminoph en 325 mg tablet Take 2 tablets every 6 hours by oral route as needed. No 2 Q6H acetaminop hen 325 mg tablet Take 2 tablets every 6 hours by oral route as needed. [facility] acetaminoph en 325 mg tablet Take 2 tablets every 6 hours by oral route as needed. acetaminoph en 325 mg tablet Take 2 tablets every 6 hours by oral route as needed. No 2 Q6H acetaminop hen 325 mg tablet Take 2 tablets every 6 hours by oral route as needed. [facility] amlodipine 5 mg tablet amlodipine 5 mg tablet No amlodipine 5 mg tablet [facility] aspirin 81 mg tablet,rachel yed release Take 1 tablet every day by oral route. aspirin 81 mg tablet,rachel yed release Take 1 tablet every day by oral route. No 1 Q1D aspirin 81 mg tablet,del ayed release Take 1 tablet every day by oral route. [facility] atorvastati n 40 mg tablet Take 1 tablet every day by oral route. atorvastati n 40 mg tablet Take 1 tablet every day by oral route. No atorvastat in 40 mg tablet Take 1 tablet every day by oral route. [facility] clonidine HCl 0.1 mg tablet Take 1 tablet by oral route as needed for 30 days. clonidine HCl 0.1 mg tablet Take 1 tablet by oral route as needed for 30 days. No 1 clonidine HCl 0.1 mg tablet Take 1 tablet by oral route as needed for 30 days. [facility] clopidogrel 75 mg tablet Take 1 tablet every day by oral route. clopidogrel 75 mg tablet Take 1 tablet every day by oral route. No clopidogre l 75 mg tablet Take 1 tablet every day by oral route. [facility] clotrimazol e-betametha sone 1 %-0.05 % topical cream clotrimazol e-betametha sone 1 %-0.05 % topical cream No clotrimazo le-betamet hasone 1 %-0.05 % topical cream [facility] diclofenac 1 % topical gel diclofenac 1 % topical gel No diclofenac 1 % topical gel [facility] amlodipine 5 mg tablet Take 1 tablet every day by oral route. amlodipine 5 mg tablet Take 1 tablet every day by oral route. No 1 Q1D amlodipine 5 mg tablet Take 1 tablet every day by oral route. [facility] divalproex 125 mg capsule,del ayed release sprinkle Take 5 capsules twice a day by oral route. divalproex 125 mg capsule,del ayed release sprinkle Take 5 capsules twice a day by oral route. No 5capsul e(s) BID divalproex 125 mg capsule,de layed release sprinkle Take 5 capsules twice a day by oral route. [facility] ergocalcife rol (vitamin D2) 1,250 mcg (50,000 unit) capsule ergocalcife rol (vitamin D2) 1,250 mcg (50,000 unit) capsule No ergocalcif tomas (vitamin D2) 1,250 mcg (50,000 unit) capsule [facility] famotidine 20 mg tablet famotidine 20 mg tablet No famotidine 20 mg tablet [facility] folic acid 1 mg tablet Take 1 tablet every day by oral route. folic acid 1 mg tablet Take 1 tablet every day by oral route. No 1 Q1D folic acid 1 mg tablet Take 1 tablet every day by oral route. [facility] hydrochloro thiazide 12.5 mg tablet Take 1 tablet every day by oral route for 30 days. hydrochloro thiazide 12.5 mg tablet Take 1 tablet every day by oral route for 30 days. No hydrochlor othiazide 12.5 mg tablet Take 1 tablet every day by oral route for 30 days. [facility] hydrocortis one 1 % topical cream APPLY A THIN LAYER TO THE AFFECTED AREA(S) BY TOPICAL ROUTE 3 TIMES PER DAY hydrocortis one 1 % topical cream APPLY A THIN LAYER TO THE AFFECTED AREA(S) BY TOPICAL ROUTE 3 TIMES PER DAY No hydrocorti sone 1 % topical cream APPLY A THIN LAYER TO THE AFFECTED AREA(S) BY TOPICAL ROUTE 3 TIMES PER DAY [facility] hydroxyzine HCl 25 mg tablet Take 1 tablet every 8 hours by oral route as needed. hydroxyzine HCl 25 mg tablet Take 1 tablet every 8 hours by oral route as needed. No hydroxyzin e HCl 25 mg tablet Take 1 tablet every 8 hours by oral route as needed. [facility] mirtazapine 15 mg tablet Take 1 tablet every day by oral route for 30 days. mirtazapine 15 mg tablet Take 1 tablet every day by oral route for 30 days. No mirtazapin e 15 mg tablet Take 1 tablet every day by oral route for 30 days. [facility] Multivitami n 50 Plus tablet Take 1 tablet every day by oral route. Multivitami n 50 Plus tablet Take 1 tablet every day by oral route. No 1 Q1D Multivitam in 50 Plus tablet Take 1 tablet every day by oral route. [facility] nystatin-tr iamcinolone 100,000 unit/g-0.1 % topical cream nystatin-tr iamcinolone 100,000 unit/g-0.1 % topical cream No nystatin-t riamcinolo ne 100,000 unit/g-0.1 % topical cream [facility] aspirin 81 mg tablet,rachel yed release Take 1 tablet every day by oral route. aspirin 81 mg tablet,rachel yed release Take 1 tablet every day by oral route. No 1 Q1D aspirin 81 mg tablet,del ayed release Take 1 tablet every day by oral route. [facility] pantoprazol e 40 mg tablet,rachel yed release Take 1 tablet every day by oral route. pantoprazol e 40 mg tablet,rachel yed release Take 1 tablet every day by oral route. No pantoprazo le 40 mg tablet,del ayed release Take 1 tablet every day by oral route. [facility] potassium chloride ER 10 mEq capsule,ext ended release potassium chloride ER 10 mEq capsule,ext ended release No potassium chloride ER 10 mEq capsule,ex tended release [facility] selenium sulfide 2.25 % shampoo APPLY TO WET SCALP BY TOPICAL ROUTE TWICE WEEKLY WORK INTO A FULL LATHER, LEAVE ON SCALP FOR 2-3 MINUTES, RINSE THOROUGHLY, AND THEN PAT DRY selenium sulfide 2.25 % shampoo APPLY TO WET SCALP BY TOPICAL ROUTE TWICE WEEKLY WORK INTO A FULL LATHER, LEAVE ON SCALP FOR 2-3 MINUTES, RINSE THOROUGHLY, AND THEN PAT DRY No selenium sulfide 2.25 % shampoo APPLY TO WET SCALP BY TOPICAL ROUTE TWICE WEEKLY WORK INTO A FULL LATHER, LEAVE ON SCALP FOR 2-3 MINUTES, RINSE THOROUGHLY , AND THEN PAT DRY [facility] triamcinolo ne acetonide 0.1 % topical cream triamcinolo ne acetonide 0.1 % topical cream No triamcinol one acetonide 0.1 % topical cream [facility] atorvastati n 80 mg tablet Take 1 tablet every day by oral route. atorvastati n 80 mg tablet Take 1 tablet every day by oral route. No 1 Q1D atorvastat in 80 mg tablet Take 1 tablet every day by oral route. [facility] duloxetine 40 mg capsule,del ayed release Take 1 capsule every day by oral route. duloxetine 40 mg capsule,del ayed release Take 1 capsule every day by oral route. No 1capsul e(s) Q1D duloxetine 40 mg capsule,de layed release Take 1 capsule every day by oral route. [facility] acetaminoph en 325 mg tablet Take 2 tablets every 6 hours by oral route as needed. acetaminoph en 325 mg tablet Take 2 tablets every 6 hours by oral route as needed. No 2 Q6H acetaminop hen 325 mg tablet Take 2 tablets every 6 hours by oral route as needed. [facility] amlodipine 5 mg tablet amlodipine 5 mg tablet No amlodipine 5 mg tablet [facility] aspirin 81 mg tablet,rachel yed release Take 1 tablet every day by oral route. aspirin 81 mg tablet,rachel yed release Take 1 tablet every day by oral route. No 1 Q1D aspirin 81 mg tablet,del ayed release Take 1 tablet every day by oral route. [facility] atorvastati n 40 mg tablet Take 1 tablet every day by oral route. atorvastati n 40 mg tablet Take 1 tablet every day by oral route. No atorvastat in 40 mg tablet Take 1 tablet every day by oral route. [facility] clonidine HCl 0.1 mg tablet Take 1 tablet by oral route as needed for 30 days. clonidine HCl 0.1 mg tablet Take 1 tablet by oral route as needed for 30 days. No 1 clonidine HCl 0.1 mg tablet Take 1 tablet by oral route as needed for 30 days. [facility] clopidogrel 75 mg tablet Take 1 tablet every day by oral route. clopidogrel 75 mg tablet Take 1 tablet every day by oral route. No clopidogre l 75 mg tablet Take 1 tablet every day by oral route. [facility] clotrimazol e-betametha sone 1 %-0.05 % topical cream clotrimazol e-betametha sone 1 %-0.05 % topical cream No clotrimazo le-betamet hasone 1 %-0.05 % topical cream [facility] diclofenac 1 % topical gel diclofenac 1 % topical gel No diclofenac 1 % topical gel [facility] divalproex 125 mg capsule,del ayed release sprinkle Take 4 capsules twice a day by oral route. divalproex 125 mg capsule,del ayed release sprinkle Take 4 capsules twice a day by oral route. No 4capsul e(s) BID divalproex 125 mg capsule,de layed release sprinkle Take 4 capsules twice a day by oral route. [facility] ergocalcife rol (vitamin D2) 1,250 mcg (50,000 unit) capsule ergocalcife rol (vitamin D2) 1,250 mcg (50,000 unit) capsule No ergocalcif tomas (vitamin D2) 1,250 mcg (50,000 unit) capsule [facility] ergocalcife rol (vitamin D2) 1,250 mcg (50,000 unit) capsule Take 1 capsule every week by oral route. ergocalcife rol (vitamin D2) 1,250 mcg (50,000 unit) capsule Take 1 capsule every week by oral route. No 1capsul e(s) Q1W ergocalcif tomas (vitamin D2) 1,250 mcg (50,000 unit) capsule Take 1 capsule every week by oral route. [facility] folic acid 1 mg tablet Take 1 tablet every day by oral route. folic acid 1 mg tablet Take 1 tablet every day by oral route. No 1 Q1D folic acid 1 mg tablet Take 1 tablet every day by oral route. [facility] hydrochloro thiazide 12.5 mg tablet Take 1 tablet every day by oral route for 30 days. hydrochloro thiazide 12.5 mg tablet Take 1 tablet every day by oral route for 30 days. No hydrochlor othiazide 12.5 mg tablet Take 1 tablet every day by oral route for 30 days. [facility] hydroxyzine HCl 25 mg tablet Take 1 tablet every day by oral route at bedtime. hydroxyzine HCl 25 mg tablet Take 1 tablet every day by oral route at bedtime. No 1 Q1D hydroxyzin e HCl 25 mg tablet Take 1 tablet every day by oral route at bedtime. [facility] mirtazapine 15 mg tablet Take 1 tablet every day by oral route for 30 days. mirtazapine 15 mg tablet Take 1 tablet every day by oral route for 30 days. No mirtazapin e 15 mg tablet Take 1 tablet every day by oral route for 30 days. [facility] Multivitami n 50 Plus tablet Take 1 tablet every day by oral route. Multivitami n 50 Plus tablet Take 1 tablet every day by oral route. No 1 Q1D Multivitam in 50 Plus tablet Take 1 tablet every day by oral route. [facility] potassium chloride ER 10 mEq capsule,ext ended release Take 1 capsule every day by oral route for 30 days. potassium chloride ER 10 mEq capsule,ext ended release Take 1 capsule every day by oral route for 30 days. No 1capsul e(s) Q1D potassium chloride ER 10 mEq capsule,ex tended release Take 1 capsule every day by oral route for 30 days. [facility] triamcinolo ne acetonide 0.1 % topical cream triamcinolo ne acetonide 0.1 % topical cream No triamcinol one acetonide 0.1 % topical cream [facility] lisinopril 20 mg tablet Take 1 tablet every day by oral route. lisinopril 20 mg tablet Take 1 tablet every day by oral route. No 1 Q1D lisinopril 20 mg tablet Take 1 tablet every day by oral route. [facility] Multivitami n 50 Plus tablet Take 1 tablet every day by oral route. Multivitami n 50 Plus tablet Take 1 tablet every day by oral route. No 1 Q1D Multivitam in 50 Plus tablet Take 1 tablet every day by oral route. [facility] nicotine 7 mg/24 hr daily transdermal patch Apply 1 patch every day by transdermal route. nicotine 7 mg/24 hr daily transdermal patch Apply 1 patch every day by transdermal route. No 1patch( es) Q1D nicotine 7 mg/24 hr daily transderma l patch Apply 1 patch every day by transderma l route. [facility] oxymetazoli ne 0.05 % nasal mist Take 1 spray 3 times a day by nasal route. oxymetazoli ne 0.05 % nasal mist Take 1 spray 3 times a day by nasal route. No 1spray( s) TID oxymetazol ine 0.05 % nasal mist Take 1 spray 3 times a day by nasal route. [facility] thiamine HCl (vitamin B1) 100 mg tablet Take 1 tablet every day by oral route. thiamine HCl (vitamin B1) 100 mg tablet Take 1 tablet every day by oral route. No 1 Q1D thiamine HCl (vitamin B1) 100 mg tablet Take 1 tablet every day by oral route. [facility] acetaminoph en 325 mg tablet Take 2 tablets every 6 hours by oral route as needed. acetaminoph en 325 mg tablet Take 2 tablets every 6 hours by oral route as needed. No 2 Q6H acetaminop hen 325 mg tablet Take 2 tablets every 6 hours by oral route as needed. [facility] amlodipine 5 mg tablet Take 1 tablet every day by oral route. amlodipine 5 mg tablet Take 1 tablet every day by oral route. No 1 Q1D amlodipine 5 mg tablet Take 1 tablet every day by oral route. [facility] Immunizations Ordered Immunization Name Filled Immunization Name Date Status Comments Source Td 2020-06-01 00:00:00 Completed [facility] Td 2020-06-01 00:00:00 Completed [facility] Td 2020-06-01 00:00:00 Completed [facility] Td 2020-06-01 00:00:00 Completed [facility] Td 2020-06-01 00:00:00 Completed [facility] TD, NOS 2020-06-01 00:00:00 Completed [facility] TD, NOS 2020-06-01 00:00:00 Completed [facility] TD, NOS 2020-06-01 00:00:00 Completed [facility] Td(adult) unspecified formulation Td(adult) unspecified formulation 2020-06-01 00:00:00 Completed [facility] Td(adult) unspecified formulation Td(adult) unspecified formulation 2020-06-01 00:00:00 Completed [facility] Td(adult) unspecified formulation Td(adult) unspecified formulation 2020-06-01 00:00:00 Completed [facility] Td(adult) unspecified formulation Td(adult) unspecified formulation 2020-06-01 00:00:00 Completed [facility] Td(adult) unspecified formulation Td(adult) unspecified formulation 2020-06-01 00:00:00 Completed [facility] Td(adult) unspecified formulation Td(adult) unspecified formulation 2020-06-01 00:00:00 Completed [facility] Td(adult) unspecified formulation Td(adult) unspecified formulation 2020-06-01 00:00:00 Completed [facility] influenza, unspecified formulation influenza, unspecified formulation Unknown Completed [facility] Td(adult) unspecified formulation Td(adult) unspecified formulation Unknown Completed [facility] influenza, unspecified formulation influenza, unspecified formulation Unknown Completed [facility] Td(adult) unspecified formulation Td(adult) unspecified formulation Unknown Completed [facility] influenza, unspecified formulation influenza, unspecified formulation Unknown Completed [facility] Td(adult) unspecified formulation Td(adult) unspecified formulation Unknown Completed [facility] Vital Signs Vital Name Observation Time Observation Value Comments S ource BMI (Body Mass Index) 2023-06-15 00:00:00 19.2 kg/m2 [facility] Height 2023-06-15 00:00:00 68 [in_i] [facility] BP Diastolic 2023-06-15 00:00:00 78 mm[Hg] [facility] Body Weight 2023-06-15 00:00:00 2023 [oz_av] [facility] BP Systolic 2023-06-15 00:00:00 122 mm[Hg] [facility] Height 2023-05-26 00:00:00 68 [in_i] [facility] BP Systolic 2023-05-26 00:00:00 138 mm[Hg] [facility] BP Diastolic 2023-05-26 00:00:00 83 mm[Hg] [facility] Weight 2023-05-26 00:00:00 1936 [oz_av] [facility] BMI (Body Mass Index) 2023-05-26 00:00:00 18.4 kg/m2 [facility] BP Diastolic 2023-05-17 00:00:00 64 mm[Hg] [facility] BP Systolic 2023-05-17 00:00:00 110 mm[Hg] [facility] Body Weight 2023-05-17 00:00:00 1936 [oz_av] [facility] Height 2023-05-17 00:00:00 68 [in_i] [facility] BMI (Body Mass Index) 2023-05-17 00:00:00 18.4 kg/m2 [facility] BP Diastolic 2022-08-04 00:00:00 63 mm[Hg] [facility] Height 2022-08-04 00:00:00 68 [in_i] [facility] BMI (Body Mass Index) 2022-08-04 00:00:00 20.1 kg/m2 [facility] BP Systolic 2022-08-04 00:00:00 124 mm[Hg] [facility] Body Weight 2022-08-04 00:00:00 2114 [oz_av] [facility] BP Diastolic 2022-07-27 00:00:00 65 mm[Hg] [facility] Height 2022-07-27 00:00:00 68 [in_i] [facility] BMI (Body Mass Index) 2022-07-27 00:00:00 20.1 kg/m2 [facility] BP Systolic 2022-07-27 00:00:00 127 mm[Hg] [facility] Body Weight 2022-07-27 00:00:00 2114 [oz_av] [facility] BP Diastolic 2022-07-20 00:00:00 77 mm[Hg] [facility] Height 2022-07-20 00:00:00 68 [in_i] [facility] BMI (Body Mass Index) 2022-07-20 00:00:00 20.1 kg/m2 [facility] BP Systolic 2022-07-20 00:00:00 123 mm[Hg] [facility] Body Weight 2022-07-20 00:00:00 2112 [oz_av] [facility] BP Diastolic 2022-06-23 00:00:00 77 mm[Hg] [facility] Height 2022-06-23 00:00:00 68 [in_i] [facility] BMI (Body Mass Index) 2022-06-23 00:00:00 19.9 kg/m2 [facility] BP Systolic 2022-06-23 00:00:00 122 mm[Hg] [facility] Body Weight 2022-06-23 00:00:00 2096 [oz_av] [facility] BP Diastolic 2022-05-28 00:00:00 60 mm[Hg] [facility] Height 2022-05-28 00:00:00 68 [in_i] [facility] BMI (Body Mass Index) 2022-05-28 00:00:00 21.3 kg/m2 [facility] BP Systolic 2022-05-28 00:00:00 106 mm[Hg] [facility] Body Weight 2022-05-28 00:00:00 2240 [oz_av] [facility] BP Diastolic 2022-05-25 00:00:00 72 mm[Hg] [facility] BP Systolic 2022-05-25 00:00:00 114 mm[Hg] [facility] Body Weight 2022-05-25 00:00:00 2240 [oz_av] [facility] BP Diastolic 2022-05-21 00:00:00 78 mm[Hg] [facility] Height 2022-05-21 00:00:00 68 [in_i] [facility] BMI (Body Mass Index) 2022-05-21 00:00:00 21.3 kg/m2 [facility] BP Systolic 2022-05-21 00:00:00 129 mm[Hg] [facility] Body Weight 2022-05-21 00:00:00 2240 [oz_av] [facility] Systolic blood pressure 2022-05-19 18:16:00 145 mm[Hg] [facility] Diastolic blood pressure 2022-05-19 18:16:00 83 mm[Hg] [facility] Heart rate 2022-05-19 18:16:00 72 /min [facility] Body temperature 2022-05-19 18:16:00 36.22 [place] [facility] Respiratory rate 2022-05-19 18:16:00 16 /min [facility] Oxygen saturation in Arterial blood by Pulse oximetry 2022-05-19 18:16:00 98 /min [facility] Body height 2022-05-11 20:00:00 172.7 cm [facility] Body weight 2022-05-11 20:00:00 63.504 kg [facility] BMI 2022-05-11 20:00:00 21.29 kg/m2 [facility] Systolic blood pressure 2022-05-17 13:55:00 105 mm[Hg] [facility] Diastolic blood pressure 2022-05-17 13:55:00 61 mm[Hg] [facility] Heart rate 2022-05-17 13:55:00 76 /min [facility] 2022-05-17 13:55:00 36.78 [place] [facility] Respiratory rate 2022-05-17 13:55:00 16 /min [facility] [facility] Oxygen saturation in Arterial blood by Pulse oximetry 2022-05-17 13:55:00 95 /min [facility] Body height 2022-05-11 20:00:[address] [facility] weight 2022-05-11 20:00:[address] [facility] BMI 2022-05-11 20:00:00 21.29 kg/m2 [facility] Body height 2020-06-10 15:07:[address] [facility] Body weight 2020-06-10 15:07:[address] [facility] BMI 2020-06-10 15:07:00 20.74 kg/m2 [facility] Systolic blood pressure 2020-06-05 13:26:00 154 mm[Hg] [facility] Diastolic blood pressure 2020-06-05 13:26:00 94 mm[Hg] [facility] Heart rate 2020-06-05 13:26:00 62 /min [facility] Body temperature 2020-06-05 13:26:00 36.67 Taylor [facility] Respiratory rate 2020-06-05 13:26:00 16 /min [facility] Oxygen saturation in Arterial blood by Pulse oximetry 2020-06-05 13:26:00 96 /min [facility] Body height 2020-06-02 03:07:[address] [facility] Body weight 2020-06-02 03:07:[address] [facility] BMI 2020-06-02 03:07:00 20.62 kg/m2 [facility] Procedures Procedure Date / Time Performed Performing Clinician Source Gastrostomy 2022-08-20 00:00:00 [facility] Esophagogastroduodenoscopy 2022-08-20 00:00:00 [facility] MAGNESIUM 2022-05-19 12:02:00 Gamal Zavala [facility] BASIC METABOLIC PANEL (NA, K , CL, CO2, GLUCOSE, BUN, CREATININE, CA) 2022-05-19 12:02:00 Gamal Zavala [facility] CBC WITH DIFF 2022-05-19 12:02:00 Gamal Zavala [facility] MAGNESIUM 2022-05-18 10:48:00 [facility]OLIC PANEL (NA, K , CL, CO2, GLUCOSE, BUN, CREATININE, CA) 2022-05-18 10:48:00 Trino [facility] CBC WITH DIFF 2022-05-18 10:48:00 Trino [facility] MAGNESIUM 2022-05-18 10:48:00 Trino [facility] BASIC METABOLIC PANEL (NA, K , CL, CO2, GLUCOSE, BUN, CREATININE, CA) 2022-05-18 10:48:00 Trino [facility] CBC WITH DIFF 2022-05-18 10:48:00 Trino [facility] FL TIME OR (NON-REPORTABLE) 2022-05-17 20:15:00 Noé [facility] FL TIME OR (NON-REPORTABLE) 2022-05-17 20:15:00 Francesco Umanzor [facility] ZYGOMATIC FRACTURE ORIF 2022-05-17 17:28:00 Gilles [facility] ORBITAL FLOOR FRACTURE 2022-05-17 17:28:00 Gilles [facility] ZYGOMATIC FRACTURE ORIF 2022-05-17 17:28:00 Gilles [facility] ORBITAL FLOOR FRACTURE 2022-05-17 17:28:00 Gilles [facility] ABORH CONFIRMATION (LAB ONLY) 2022-05-17 12:20:00 [facility] ABORH CONFIRMATION (LAB ONLY) 2022-05-17 12:20:00 Gamal Zavala [facility] HB ABO GROUPING 2022-05-17 11:30:00 Gamal Zavala [facility] HB ABO GROUPING 2022-05-17 11:30:00 Gamal Zavala [facility] CBC WITH DIFF 2022-05-17 [facility]:28[facility]17 [facility]:28[facility] 2022-05-17 00:00:00 [facility] Open Repair of Zygomatic Fracture 05-17 00:00:00 [facility] MAGNESIUM 2022-05-16 11:18:00 Trino [facility] BASIC METABOLIC PANEL (NA, K , CL, CO2, GLUCOSE, BUN, CREATININE, CA) 2022-05-16 11:18:00 Trino [facility] CBC WITH DIFF 2022-05-16 11:18:00 Trino [facility] MAGNESIUM 2022-05-16 11:18:00 Trino [facility] BASIC METABOLIC PANEL (NA, K , CL, CO2, GLUCOSE, BUN, CREATININE, CA) 2022-05-16 11:18:00 Trino [facility] CBC WITH DIFF 2022-05-16 11:18:00 Trino [facility] MAGNESIUM 2022-05-15 11:34:00 Trino [facility] BASIC METABOLIC PANEL (NA, K , CL, CO2, GLUCOSE, BUN, CREATININE, CA) 2022-05-15 11:34:00 Trino [facility] CBC WITH DIFF 2022-05-15 11:34:00 Trino [facility] MAGNESIUM 2022-05-15 11:34:00 Trino [facility] BASIC METABOLIC PANEL (NA, K , CL, CO2, GLUCOSE, BUN, CREATININE, CA) 2022-05-15 11:34:00 Trino [facility] CBC WITH DIFF 2022-05-15 11:34:00 Trino [facility] CT MAXILLOFACIAL/MANDIBLE WO CONTRAST 2022-05-14 20:45:13 Trino [facility] CT MAXILLOFACIAL/MANDIBLE WO CONTRAST 2022-05-14 20:45:13 Trino [facility] CT HEAD WO CONTRAST 2022-05-14 16:38:00 Trino [facility] CT HEAD WO CONTRAST 2022-05-14 16:38:00 Trino [facility] CBC WITH DIFF 2022-05-14 15:20:00 Trino [facility] CBC WITH DIFF 2022-05-14 15:20:00 Trino [facility] MAGNESIUM 2022-05-02 10:03:00 [facility] BASIC METABOLIC PANEL (NA, K , CL, CO2, GLUCOSE, BUN, CREATININE, CA) 2022-05-02 10:03:00 [facility] CBC WITH DIFF 2022-05-02 10:03:00 [facility] MAGNESIUM 2022-05-02 10:03:00 [facility] BASIC METABOLIC PANEL (NA, K , CL, CO2, GLUCOSE, BUN, CREATININE, CA) 2022-05-02 10:03:00 [facility] CBC WITH DIFF 2022-05-02 10:03:00 [facility] BASIC METABOLIC PANEL (NA, K , CL, CO2, GLUCOSE, BUN, CREATININE, CA) 2022-04-27 10:18:00 oLri [facility] BASIC METABOLIC PANEL (NA, K , CL, CO2, GLUCOSE, BUN, CREATININE, CA) 2022-04-27 10:18:00 Venu Sandoval [facility] MAGNESIUM 2022-04-26 11:20:00 [facility] BASIC METABOLIC PANEL (NA, K , CL, CO2, GLUCOSE, BUN, CREATININE, CA) 2022-04-26 11:20:00 [facility] MAGNESIUM 2022-04-26 11:20:00 [facility] BASIC METABOLIC PANEL (NA, K , CL, CO2, GLUCOSE, BUN, CREATININE, CA) 2022-04-26 11:20:00 Al [facility] MAGNESIUM 2022-04-25 10:05:00 [facility] (NA, K , CL, CO2, GLUCOSE, BUN, CREATININE, CA) 2022-04-25 10:05:00 Lori [facility] CBC WITH DIFF 2022-04-25 10:05:00 Lori [facility] MAGNESIUM 2022-04-25 10:05:00 [facility]OLIC PANEL (NA, K , CL, CO2, GLUCOSE, BUN, CREATININE, CA) 2022-04-25 10:05:00 Lori [facility] CBC WITH DIFF 2022-04-25 [facility]22-04-24 11:32:00 [facility] URINE CULTURE 2022-04-24 11:32:00 [facility]-24 11:31:00 Lori [facility] BASIC METABOLIC PANEL (NA, K , CL, CO2, GLUCOSE, BUN, CREATININE, CA) 2022-04-24 11:31:00 Lori [facility] CBC WITH DIFF 2022-04-24 11:[facility]24 11:31:00 Abdoul Clayton [facility] PHOSPHORUS 2022-04-24 11:31:00 Lori [facility] BASIC METABOLIC PANEL (NA, K , CL, CO2, GLUCOSE, BUN, CREATININE, CA) 2022-04-24 11:31:00 Lori [facility] CBC WITH DIFF 2022-04-24 11:31[facility]00 [facility]22-04-24 11:31:00 Abdoul Clayton [facility] MR BRAIN WO CONTRAST 2022-04-24 03:07:05 Cynthia Valdes [facility] MR BRAIN WO CONTRAST 2022-04-24 03:07:05 Lucio [facility] BASIC METABOLIC PANEL (NA, K , CL, CO2, GLUCOSE, BUN, CREATININE, CA) 2022-04-23 10:40:00 Lori [facility] CBC WITH DIFF 2022-04-23 10:40:00 Lori [facility] BASIC METABOLIC PANEL (NA, K , CL, CO2, GLUCOSE, BUN, CREATININE, CA) 2022-04-23 10:40:00 Lori [facility] CBC WITH DIFF 2022-04-23 10:40:00 Lori [facility] FL MODIFIED BARIUM SWALLOW 2022-04-22 20:43:00 Lori [facility] FL MODIFIED BARIUM SWALLOW 2022-04-22 20:43:00 Lori [facility] TRANSTHORACIC ECHO (TTE) COMPLETE 04-22 18:40:53 Lucio [facility] TRANSTHORACIC ECHO (TTE) COMPLETE 04-22 18:40:53 Lucio [facility] URINE DRUG (IMMUNOASSAY) - COMPREHENSIVE DRUG SCREEN 2022-04-22 08:23:00 Lucio [facility] URINE DRUG (IMMUNOASSAY) - COMPREHENSIVE DRUG SCREEN 2022-04-22 08:23:00 Lucio [facility] MAGNESIUM 2022-04-22 08:20:00 Lucio [facility] BASIC METABOLIC PANEL (NA, K , CL, CO2, GLUCOSE, BUN, CREATININE, CA) 2022-04-22 08:20:00 Lucio [facility] ETHANOL 2022-04-22 08:20:00 Cortes Melendez [facility] CBC WITH DIFF 2022-04-22 08:20:00 Lucio [facility] VITAMIN D, 25-OH 2022-04-22 08:20:00 Lucio [facility] VITAMIN B1 (THIAMINE), WHOLE BLOOD 04-22 08:20:00 Lucio [facility] MAGNESIUM 2022-04-22 08:20:00 Lucio [facility] BASIC METABOLIC PANEL (NA, K , CL, CO2, GLUCOSE, BUN, CREATININE, CA) 2022-04-22 08:20:00 Lucio [facility] ETHANOL 2022-04-22 08:20:00 [facility]FF 2022-04-22 08:20:00 Lucio [facility] VITAMIN D, 25-OH 2022-04-22 08:20:00 Lucio [facility] VITAMIN B1 (THIAMINE), WHOLE BLOOD 04-22 08:20:00 Lucio [facility] CT ANGIOGRAM HEAD 2022-04-22 04:38:42 Lucio, [facility] CT ANGIOGRAM NECK 2022-04-22 04:38:42 Lucio, [facility] CT ANGIOGRAM HEAD 2022-04-22 04:38:42 Lucio, [facility] CT ANGIOGRAM NECK 2022-04-22 04:38:42 Lucio [facility] PHOSPHORUS 2022-04-22 03:54:00 Lucio [facility] CREATINE KINASE 2022-04-22 03:54:00 Lucio [facility] VITAMIN B12, LEVEL 2022-04-22 03:54:00 Lucio [facility] THYROID STIMULATING HORMONE 2022-04-22 03:54:00 Lucio [facility] LIPID PANEL (51106)(TOTAL CHOLESTEROL, TRIGLYCERIDES, HDL) 2022-04-22 03:54:00 Lucio [facility] PHOSPHORUS 2022-04-22 03:54:00 Lucio [facility] CREATINE KINASE 2022-04-22 03:54:00 Lucio [facility] VITAMIN B12, LEVEL 2022-04-22 03:54:00 Lucio [facility] THYROID STIMULATING HORMONE 2022-04-22 03:54:00 Lucio [facility] LIPID PANEL ([id number])(TOTAL CHOLESTEROL, TRIGLYCERIDES, HDL) 2022-04-22 03:54:00 Lucio [facility] HB ECG ROUTINE & RHYTHM STRIP 2022-04-22 03:52:33 Lucio [facility] HB ECG ROUTINE & RHYTHM STRIP 2022-04-22 03:52:33 Lucio [facility] BLOOD CULTURE SCREEN 2022-04-22 02:09:00 Rhonda Real [facility] BLOOD CULTURE SCREEN 2022-04-22 02:09:00 Rhonda Real [facility] CT HEAD WO CONTRAST 2022-04-21 19:53:[address] [facility] [address] HEAD WO CONTRAST 2022-04-21 19:53:06 Forrest [facility] PROTHROMBIN TIME / INR 2022-04-21 19:51:00 Forrest [facility] PROTHROMBIN TIME / INR 2022-04-21 19:51:00 Forrest [facility] XR CHEST 2 VW 2022-04-21 19:41:53 Forrest [facility] XR CHEST 2 VW 2022-04-21 19:41:53 Forrets [facility] COMP. METABOLIC PANEL ([id number]) 2022-04-21 19:19:00 Forrest [facility] CBC WITH DIFF 2022-04-21 19:19:00 Forrest [facility] GLYCOSYLATED HEMOGLOBIN (A1C) 2022-04-21 19:19:00 Lucio [facility] MAGNESIUM 2022-04-21 19:19:00 Forrest [facility] AMMONIA, PLASMA 2022-04-21 19:19:00 Forrest [facility] TROPONIN I 2022-04-21 19:19:00 Forrest [facility] COMP. METABOLIC PANEL ([id number]) 2022-04-21 19:19:00 Forrest [facility] CBC WITH DIFF 2022-04-21 19:19:00 Forrest [facility] GLYCOSYLATED HEMOGLOBIN (A1C) 2022-04-21 19:19:00 Cynthia Valdes [facility] MAGNESIUM 2022-04-21 19:19:00 Abdoul Clayton [facility] AMMONIA, PLASMA 2022-04-21 19:19:00 Abdoul Clayton [facility] TROPONIN I 2022-04-21 19:19:00 Abdoul Clayton [facility] HOSPITAL ADMISSION 2022-04-21 06:01:00 Doctor Unassigned, [place] [facility] HOSPITAL ADMISSION 2022-04-21 06:01:00 Doctor Unassigned, [place] [facility] BASIC METABOLIC PANEL (NA, K , CL, CO2, GLUCOSE, BUN, CREATININE, CA) 2020-06-05 08:59:00 Debra Tommy [facility] CBC WITH DIFF 2020-06-05 08:59:00 Debra Tommy [facility] VANCOMYCIN TROUGH 2020-06-05 01:41:00 Chadd Azul [facility] BASIC METABOLIC PANEL (NA, K , CL, CO2, GLUCOSE, BUN, CREATININE, CA) 2020-06-04 09:27:00 Debra Tommy [facility] CBC WITH DIFF 2020-06-04 09:27:00 Debra Tommy [facility] VANCOMYCIN TROUGH 2020-06-03 14:00:00 Isiah Mora [facility] BASIC METABOLIC PANEL (NA, K , CL, CO2, GLUCOSE, BUN, CREATININE, CA) 2020-06-03 12:07:00 Tommy Richardson [facility] CBC WITH DIFF 2020-06-03 12:06:00 Tommy Richardson [facility] CT WRIST LEFT WO CONTRAST 2020-06-02 17:06:40 Benito Zhou [facility] FUNGUS (ROUTINE) CULTURE 2020-06-02 14:18:32 Aldair Abel [facility] QUANT TISSUE 2020-06-02 14:18:32 Aldair Abel [facility] HAND DEBRIDEMENT 2020-06-02 13:22:00 Aldair Abel [facility] BASIC METABOLIC PANEL (NA, K , CL, CO2, GLUCOSE, BUN, CREATININE, CA) 2020-06-02 09:30:00 Tommy Richardson [facility] CBC WITH DIFF 2020-06-02 09:30:00 Tommy Richardson [facility] XR WRIST 3+ VW LEFT 2020-06-02 05:25:00 Benito Zhou [facility] COVID-19 (ID NOW RAPID TESTING) 01:24:00 Lamin Ramirez [facility] LAB ONLY COVID INTERPRETATION 2020-06-02 01:24:00 Lamin Ramirez [facility] XR HAND 3+ VW LEFT 2020-06-02 00:08:16 Lamin Ramirez [facility] C-REACTIVE PROTEIN 2020-06-01 23:43:00 Lamin Ramirez [facility] BASIC METABOLIC PANEL (NA, K , CL, CO2, GLUCOSE, BUN, CREATININE, CA) 2020-06-01 23:43:00 Lamin Ramirez [facility] CBC WITHOUT DIFF 2020-06-01 23:43:00 Lamin Ramirez [facility] SEDIMENTATION RATE 2020-06-01 23:43:00 Lamin Ramirez [facility] Grafting to Skin of Extremity 2014-07-26 00:00:00 [facility] Incision and Drainage of Inf ection of Hand 2014-07-26 00:00:00 [facility] Medical Tonsilectomy/adenoids [facility] Plan of Care Planned Activity Planned Date Details Comments Source Instructions [facility] Medic al Encounters Start Date/Time End Date/Time Encounter Type Admission Type Attending Clinicians Care Facility Care Department Encounter ID Source 2023-06-15 00:00:00 2023-06-15 00:00:00 DELROY Steele: [address] [place] [phone] , Ph. [facility] - GC_BAHC_Lak e [facility] [id number] [facility] 2023-05-26 00:00:00 2023-05-26 00:00:00 Simeon Georges MD: [address] [place] [phone] , Ph. [facility] - GC_BAHC_Lak [facility] [id number] [facility] 2023-05-17 00:00:00 2023-05-17 00:00:00 DELROY Steele: [address] [place] [phone] , Ph. [facility] - GC_[facility]HC_L[facility] [id number] [facility] 2023-05-16 00:00:00 2023-05-16 00:00:00 Outpatient GC_BAHC_Tod d_J PRIV PRIV [id number] [facility] 2023-05-08 00:00:00 2023-05-08 00:00:00 Outpatient GC_BAHC_Tod d_J PRIV PRIV [id number] [facility] 2023-05-06 00:00:00 2023-05-06 00:00:00 DELROY Steele: [address] [place] [phone] , Ph. [facility] - GC[facility]Lak [facility] [id number] [facility] 2023-05-05 00:00:00 2023-05-05 00:00:00 Outpatient GC_BAHC_Tod d_J PRIV PRIV [id number] [facility] 2023-05-04 00:00:00 2023-05-04 00:00:00 Outpatient GC_BAHC_Tod d_J PRIV PRIV [id number] [facility] 2023-04-23 00:00:00 2023-04-23 00:00:00 Outpatient GC_BAHC_Tod d_J PRIV PRIV [id number] [facility] 2023-04-22 00:00:00 2023-04-22 00:00:00 DELROY Steele: [address] [place] [phone] , Ph. [facility] GC[facility]HC[facility] [id number] [facility] 2023-04-21 00:00:00 2023-04-21 00:00:00 Outpatient GC_BAHC_Tod d_J PRIV PRIV [id number] [facility] 2023-04-19 00:00:00 2023-04-19 00:00:00 Outpatient GC_BAHC_Tod d_J PRIV PRIV [id number] [facility] 2023-04-13 00:00:00 2023-04-13 00:00:00 Outpatient GC_BAHC_Tod d_J PRIV PRIV [id number] [facility] 2023-03-26 00:00:00 2023-03-26 00:00:00 Outpatient GC_BAHC_Tod d_J PRIV PRIV [id number] [facility] 2023-03-22 00:00:00 2023-03-22 00:00:00 Outpatient GC_BAHC_Tod d_J PRIV PRIV [id number] [facility] 2023-03-18 00:00:00 2023-03-18 00:00:00 Outpatient GC_BAHC_Tod d_J PRIV PRIV [id number] [facility] 2023-03-16 00:00:00 2023-03-16 00:00:00 Outpatient GC_BAHC_Tod d_J PRIV PRIV [id number] [facility] 2023-03-04 00:00:00 2023-03-04 00:00:00 Outpatient GC_BAHC_Tod d_J PRIV PRIV [id number] [facility] 2023-02-26 00:00:00 2023-02-26 00:00:00 Outpatient GC_BAHC_Tod d_J PRIV PRIV [id number] [facility] 2023-02-09 00:00:00 2023-02-09 00:00:00 Outpatient GC_BAHC_Tod d_J PRIV PRIV [id number] [facility] 2023-02-02 00:00:00 2023-02-02 00:00:00 Outpatient GC_BAHC_Tod d_J PRIV PRIV [id number] [facility] 2023-01-27 00:00:00 2023-01-27 00:00:00 Outpatient GC_BAHC_Tod d_J PRIV PRIV [id number] [facility] 2023-01-27 00:00:00 2023-01-27 00:00:00 Outpatient GC_BAHC_Tod d_J PRIV PRIV [id number] [facility] 2023-01-24 00:00:00 2023-01-24 00:00:00 Outpatient GC_BAHC_Tod d_J PRIV PRIV [id number] [facility] 2023-01-24 00:00:00 2023-01-24 00:00:00 Outpatient GC_BAHC_Tod d_J PRIV PRIV [id number] [facility] 2023-01-18 00:00:00 2023-01-18 00:00:00 Outpatient GC_BAHC_Tod d_J PRIV PRIV [id number] [facility] 2023-01-05 00:00:00 2023-01-05 00:00:00 Outpatient GC_BAHC_Tod d_J PRIV PRIV [id number] [facility] 2022-12-24 00:00:00 2022-12-24 00:00:00 Outpatient GC_BAHC_Tod d_J PRIV PRIV [id number] [facility] 2022-12-24 00:00:00 2022-12-24 00:00:00 Outpatient GC_BAHC_Tod d_J PRIV PRIV [id number] [facility] 2022-12-24 00:00:00 2022-12-24 00:00:00 Outpatient GC_BAHC_Tod d_J PRIV PRIV [id number] [facility] 2022-12-17 00:00:00 2022-12-17 00:00:00 Outpatient GC_BAHC_Tod d_J PRIV PRIV [id number] [facility] 2022-12-02 00:00:00 2022-12-02 00:00:00 Outpatient GC_BAHC_Tod d_J PRIV PRIV [id number] [facility] 2022-12-02 00:00:00 2022-12-02 00:00:00 Outpatient GC_BAHC_Tod d_J PRIV PRIV [id number] [facility] 2022-11-24 00:00:00 2022-11-24 00:00:00 Outpatient GC_BAHC_Tod d_J PRIV PRIV [id number] [facility] 2022-11-24 00:00:00 2022-11-24 00:00:00 Outpatient GC_BAHC_Tod d_J PRIV PRIV [id number] [facility] 2022-11-19 00:00:00 2022-11-19 00:00:00 Outpatient GC_BAHC_Tod d_J PRIV PRIV [id number] [facility] 2022-11-17 00:00:00 2022-11-17 00:00:00 Outpatient GC_BAHC_Tod d_J PRIV PRIV [id number] [facility] 2022-11-14 00:00:00 2022-11-14 00:00:00 Outpatient GC_BAHC_Tod d_J PRIV PRIV [id number] [facility] 2022-11-14 00:00:00 2022-11-14 00:00:00 Outpatient GC_BAHC_Tod d_J PRIV PRIV [id number] [facility] 2022-11-05 00:00:00 2022-11-05 00:00:00 Outpatient GC_BAHC_Tod d_J PRIV PRIV [id number] [facility] 2022-10-22 00:00:00 2022-10-22 00:00:00 Outpatient GC_BAHC_Tod d_J PRIV PRIV [id number] [facility] 2022-10-22 00:00:00 2022-10-22 00:00:00 Outpatient GC_BAHC_Tod d_J PRIV PRIV [id number] [facility] 2022-10-18 00:00:00 2022-10-18 00:00:00 Outpatient GC_BAHC_Tod d_J PRIV PRIV [id number] [facility] 2022-10-18 00:00:00 2022-10-18 00:00:00 Outpatient GC_BAHC_Tod d_J PRIV PRIV [id number] [facility] 2022-10-05 00:00:00 2022-10-05 00:00:00 Outpatient GC_BAHC_Tod d_J PRIV PRIV [id number] [facility] 2022-10-05 00:00:00 2022-10-05 00:00:00 Outpatient GC_BAHC_Tod d_J PRIV PRIV [id number] [facility] 2022-09-25 00:00:00 2022-09-25 00:00:00 Outpatient GC_BAHC_Tod d_J PRIV PRIV [id number] [facility] 2022-09-25 00:00:00 2022-09-25 00:00:00 Outpatient GC_BAHC_Tod d_J PRIV PRIV [id number] [facility] 2022-08-28 00:00:00 2022-08-28 00:00:00 Outpatient GC_BAHC_Tod d_J PRIV PRIV [id number] [facility] 2022-08-28 00:00:00 2022-08-28 00:00:00 Outpatient GC_BAHC_Tod d_J PRIV PRIV [id number] [facility] 2022-08-28 00:00:00 2022-08-28 00:00:00 Outpatient GC_BAHC_Tod d_J PRIV PRIV [id number] [facility] 2022-08-27 00:00:00 2022-08-27 00:00:00 Outpatient GC_BAHC_Tod d_J PRIV PRIV [id number] [facility] 2022-08-19 00:00:00 2022-08-19 00:00:00 Outpatient GC_BAHC_Tod d_J PRIV PRIV [id number] [facility] 2022-08-19 00:00:00 2022-08-19 00:00:00 Outpatient GC_BAHC_Tod d_J PRIV PRIV [id number] [facility] 2022-08-19 00:00:00 2022-08-19 00:00:00 Outpatient GC_BAHC_Tod d_J PRIV PRIV [id number] [facility] 2022-08-06 00:00:00 2022-08-06 00:00:00 Outpatient GC_BAHC_Tod d_J PRIV PRIV [id number] [facility] 2022-08-06 00:00:00 2022-08-06 00:00:00 Outpatient GC_BAHC_Tod d_J PRIV PRIV [id number] [facility] 2022-08-06 00:00:00 2022-08-06 00:00:00 Outpatient GC_BAHC_Tod d_J PRIV PRIV [id number] [facility] 2022-08-06 00:00:00 2022-08-06 00:00:00 Outpatient GC_BAHC_Tod d_J PRIV PRIV [id number] [facility] 2022-08-04 00:00:00 2022-08-04 00:00:00 DELROY Steele: [address] [place] [phone] , Ph. [facility] GC[facility] [id number] [facility] 2022-07-29 00:00:00 2022-07-29 00:00:00 Outpatient GC_BAHC_Tod d_J PRIV PRIV [id number] [facility] 2022-07-29 00:00:00 2022-07-29 00:00:00 Outpatient GC_BAHC_Tod d_J PRIV PRIV [id number] [facility] 2022-07-28 00:00:00 2022-07-28 00:00:00 Outpatient GC_BAHC_Tod d_J PRIV PRIV [id number] [facility] 2022-07-27 00:00:00 2022-07-27 00:00:00 DELROY Steele: [address] [place] [phone] , Ph. [facility] [id number] [facility] 2022-07-20 00:00:00 2022-07-20 00:00:00 DELROY Steele: [address] [place] [phone] , Ph. [facility] [id number] [facility] 2022-06-24 00:00:00 2022-06-24 00:00:00 Outpatient GC_BAHC_Tod d_J PRIV PRIV [id number] [facility] 2022-06-24 00:00:00 2022-06-24 00:00:00 Outpatient GC_BAHC_Tod d_J PRIV PRIV [id number] [facility] 2022-06-24 00:00:00 2022-06-24 00:00:00 Outpatient GC_BAHC_Tod d_J PRIV PRIV [id number] [facility] 2022-06-23 00:00:00 2022-06-23 00:00:00 DELROY Steele: [address] [place] [phone] , Ph. [facility] [id number] [facility] 2022-06-01 00:00:00 2022-06-01 00:00:00 Outpatient GC_BAHC_Tod d_J PRIV PRIV [id number] [facility] 2022-05-29 00:00:00 2022-05-29 00:00:00 Outpatient GC_BAHC_Tod d_J PRIV PRIV [id number] [facility] 2022-05-28 00:00:00 2022-05-28 00:00:00 Outpatient GC_BAHC_Tod d_J PRIV PRIV [id number] [facility] 2022-05-28 00:00:00 2022-05-28 00:00:00 Outpatient GC_BAHC_Tod d_J PRIV PRIV [id number] [facility] 2022-05-28 00:00:00 2022-05-28 00:00:00 DELROY Steele: [address] [place] [phone] , Ph. [facility] [id number] [facility] 2022-05-25 00:00:00 2022-05-25 00:00:00 Simeon Georges MD: [address] [place] [phone] , Ph. [facility] [id number] [facility] 2022-05-24 15:05:00 2022-05-24 15:05:00 Outpatient Kelsey Akbar [facility] [id number] [facility] 2022-05-21 00:00:00 2022-05-21 00:00:00 Outpatient GC_BAHC_Tod d_J PRIV PRIV [id number] [facility] 2022-05-21 00:00:00 2022-05-21 00:00:00 Outpatient GC_BAHC_Tod d_J PRIV PRIV [id number] [facility] 2022-05-21 00:00:00 2022-05-21 00:00:00 Outpatient GC_BAHC_Tod d_J PRIV PRIV [id number] [facility] 2022-05-21 00:00:00 2022-05-21 00:00:00 DELROY Steele: [address] [place] [phone] , Ph. [facility] [id number] [facility] 2022-05-20 00:00:00 2022-05-20 00:00:00 Outpatient GC_BAHC_Tod d_J PRIV PRIV [id number] [facility] 2022-05-20 00:00:00 2022-05-20 00:00:00 Transition of Care Lisa Marie RISADAY 1.2840.114 350.1.13.10 4.2.7.2.686 [id number] [facility] 2022-04-21 12:51:00 2022-05-19 15:45:00 Inpatient X TOMMIE GONZALEZ [facility] [id number] [facility] 2022-04-21 12:51:00 2022-05-19 15:45:00 Hospital Encounter Abdoul Clayton, Rhonda Padilla, Maylin Osorio, Renny Antunez, Daniela Real, Tommie Grant, [facility] 1.840.114 350.1.13.10 4.2.7.2.686 [id number] [facility] 2022-05-17 11:18:00 2022-05-17 14:17:00 Surgery Hardeep Campoverde [facility] 1.2.114 350.1.13.10 4.2.7.2.686 [id number] [facility] 2020-06-10 10:30:00 2020-06-10 10:30:00 Outpatient R ALDAIR ABEL [facility] [id number] [facility] 2020-06-10 10:04:26 2020-06-10 10:10:50 Office Visit Aldair Abel [facility] 1.0.114 350.1.13.10 4.2.7.2.686 [id number] [facility] 2020-06-06 00:00:00 2020-06-06 00:00:00 Transition of Care MarieLisa bowmanjose luis Mayberryza 1.840.114 350.1.13.10 4.2.7.2.686 [id number] [facility] 2020-06-01 16:57:00 2020-06-05 09:36:00 Inpatient X KIKI ALDAIR [facility] [id number] [facility] 2020-06-01 16:57:00 2020-06-05 09:36:00 Hospital Encounter Lamin Ramirez, Aldair Maher [facility] 1.2.840.114 350.1.13.10 4.2.7.2.686 [id number] [facility] 2020-02-04 00:00:00 2020-02-04 00:00:00 Letter (Out) Karly Caruso [facility] 1.2840.114 350.1.13.10 4.2.7.2.686 [id number] [facility] 2020-02-01 15:15:17 2020-02-01 15:30:17 Laboratory Only Nurse, Merrill Urgent Unknown, Attending [facility] 1.2.840.114 350.1.13.10 4.2.7.2.686 [id number] [facility] 2020-02-01 15:00:00 2020-02-01 15:00:00 Outpatient R UNKNOWN, ATTENDING [facility] [id number] [facility] Results Test Description Test Time Test Comments Results Result Co mments Source [facility] (NA, K, CL, CO2, GLUCOSE, BUN, CREATININE, CA)2022-05-19 12:51:47* Test Item Value Reference Range Interpretation Comme nts NA (test code = 5025497319) 138 mmol/L 135-145 K (test code = 9166838129) 3.8 mmol/L 3.5-5.0 CL (test code = 0666159556) 105 mmol/L 98-108 CO2 TOTAL (test code = 2672433553) 25 mmol/L 23-31 AGAP (test code = 0666491142) 8 2-16 BUN (test code = 6701308639) 14 mg/dL 7-23 GLUCOSE (test code = 9464020482) 105 mg/dL 70-110 CREATININE (test code = 6953102178) 0.61 mg/dL 0.60-1.25 CALCIUM (test code = 9862155428) 9.0 mg/dL 8.6-10.6 eGFR (test code = 4328493075) 133.1 mL/min/1.73m2 CL (test code = CL) Association of [...] or urine or abnormalities in imaging tests). [facility] WITH [id number] 12:15:42* Test Item Value Reference Range Interpretation Comme nts WBC (test code = 6690-2) 7.53 See_Comment [Automated amSTATZ] The system which generated this result transmitted reference range: 4.20 - 10.70 10*3/?L. The reference range was not used to interpret this result as normal/abnormal. RBC (test code = 789-8) 4.40 See_Comment [Automated messa ge] The system which generated this result transmitted reference range: 4.26 - 5.52 10*6/?L. The reference range was not used to interpret this result as normal/abnormal. HGB (test code = 718-7) 13.1 g/dL 12.2-16.4 HCT (test code = 4544-3) 37.6 % 38.4-49.3 L MCV (test code = 787-2) 85.5 fL 81.7-95.6 MCH (test code = 785-6) 29.8 pg 26.1-32.7 MCHC (test code = 786-4) 34.8 g/dL 31.2-35.0 RDW-SD (test code = 51921-1) 45.5 fL 38.5-51.6 RDW-CV (test code = 788-0) 14.6 % 12.1-15.4 PLT (test code = 777-3) 162 See_Comment [Automated messa ge] The system which generated this result transmitted reference range: 150 - 328 10*3/?L. The reference range was not used to interpret this result as normal/abnormal. MPV (test code = 35209-1) 10.6 fL 9.8-13.0 NRBC/100 WBC (test code = 9891647647) 0.0 See_Comment [Automated Solartrec ssage] The system which generated this result transmitted reference range: 0.0 - 10.0 /100 WBCs. The reference range was not used to interpret this result as normal/abnormal. NRBC x10^3 (test code = 8811967500) See_Comment [Automated messa ge] The system which generated this result transmitted reference range: 10*3/?L. The reference range was not used to interpret this result as normal/abnormal. GRAN MAT (NEUT) % (test code = 770-8) 69.8 % IMM GRAN % (test code = 4618155434) 0.40 % LYMPH % (test code = 736-9) 19.0 % MONO % (test code = 5905-5) 9.2 % EOS % (test code = 713-8) 1.3 % BASO % (test code = 706-2) 0.3 % GRAN MAT x10^3(ANC) (test code = 1217891867) 5.26 10*3/uL 1.99-6.95 IMM GRAN x10^3 (test code = 1072455011) 0.03 10*3/uL 0.00-0.06 LYMPH x10^3 (test code = 731-0) 1.43 10*3/uL 1.09-3.23 MONO x10^3 (test code = 742-7) 0.69 10*3/uL 0.36-1.02 EOS x10^3 (test code = 711-2) 0.10 10*3/uL 0.06-0.53 BASO x10^3 (test code = 704-7) 0.01-0.09 Lab Interpretation (test code = 06310-9) Abnormal [facility] Conf[facility] (Lab Only)2022-05-17 13:14:44* Test Item Value Reference Range Interpretation Comme nts ABO & RH (test code = 20) O Positive Performed at [facility] Laboratory Services [address] Free: [phone] No. [id number] [facility] Confirmation (Lab Only)2022-05-17 13:14:44* Test Item Value Reference Range Interpretation Comme nts ABO & RH (test code = 20) O Positive Performed at [facility] Laboratory Services [place] [address]Toll Free: [phone] No. [id number] [facility] Screen - TOMORROW AM-0400 Routine 2022-05-17 12:24:10* Test Item Value Reference Range Interpretation Comme nts ABO & RH (test code = 20) O POSITIVE Performed at [facility] Laboratory [facility] - [address] Free: [phone] No. [id number] IAT (test code = 1185) Negative Performed at [facility] Laboratory Services [place] [address]Toll Free: [phone] No. [id number] [facility] - TOMORROW AM-0400 Routine 2022-05-17 12:24:10* Test Item Value Reference Range Interpretation Comme nts ABO & RH (test code = 20) O POSITIVE Performed at [facility] Laboratory Services - [facility] Blood [address] Free: [phone] No. [id number] IAT (test code = 1185) Negative Performed at [facility] Laboratory Services - [facility] Blood [address] Free: [phone] No. [id number] [facility] WITH [id number] 15:26:38* Test Item Value Reference Range Interpretation Comme nts WBC (test code = 6690-2) 8.75 See_Comment [Automated messa ge] The system which generated this result transmitted reference range: 4.20 - 10.70 10*3/?L. The reference range was not used to interpret this result as normal/abnormal. RBC (test code = 789-8) 5.10 See_Comment [Automated messa ge] The system which generated this result transmitted reference range: 4.26 - 5.52 10*6/?L. The reference range was not used to interpret this result as normal/abnormal. HGB (test code = 718-7) 15.2 g/dL 12.2-16.4 HCT (test code = 4544-3) 43.5 % 38.4-49.3 MCV (test code = 787-2) 85.3 fL 81.7-95.6 MCH (test code = 785-6) 29.8 pg 26.1-32.7 MCHC (test code = 786-4) 34.9 g/dL 31.2-35.0 RDW-SD (test code = 45492-3) 43.3 fL 38.5-51.6 RDW-CV (test code = 788-0) 13.9 % 12.1-15.4 PLT (test code = 777-3) 174 See_Comment [Automated messa ge] The system which generated this result transmitted reference range: 150 - 328 10*3/?L. The reference range was not used to interpret this result as normal/abnormal. MPV (test code = 56741-6) 10.8 fL 9.8-13.0 NRBC/100 WBC (test code = 6092452797) 0.0 See_Comment [Automated me ssage] The system which generated this result transmitted reference range: 0.0 - 10.0 /100 WBCs. The reference range was not used to interpret this result as normal/abnormal. NRBC x10^3 (test code = 3301159889) See_Comment [Automated messa ge] The system which generated this result transmitted reference range: 10*3/?L. The reference range was not used to interpret this result as normal/abnormal. GRAN MAT (NEUT) % (test code = 770-8) 79.7 % IMM GRAN % (test code = 4826501995) 0.20 % LYMPH % (test code = 736-9) 14.4 % MONO % (test code = 5905-5) 4.8 % EOS % (test code = 713-8) 0.7 % BASO % (test code = 706-2) 0.2 % GRAN MAT x10^3(ANC) (test code = 2721029461) 6.97 10*3/uL 1.99-6.95 H IMM GRAN x10^3 (test code = 4144356886) 0.00-0.06 LYMPH x10^3 (test code = 731-0) 1.26 10*3/uL 1.09-3.23 MONO x10^3 (test code = 742-7) 0.42 10*3/uL 0.36-1.02 EOS x10^3 (test code = 711-2) 0.06 10*3/uL 0.06-0.53 BASO x10^3 (test code = 704-7) 0.01-0.09 Lab Interpretation (test code = 75307-4) Abnormal [facility] WITH [id number] 15:26:38* Test Item Value Reference Range Interpretation Comme nts WBC (test code = 6690-2) 8.75 See_Comment [Automated messa ge] The system which generated this result transmitted reference range: 4.20 - 10.70 10*3/?L. The reference range was not used to interpret this result as normal/abnormal. RBC (test code = 789-8) 5.10 See_Comment [Automated Cytonicsa ge] The system which generated this result transmitted reference range: 4.26 - 5.52 10*6/?L. The reference range was not used to interpret this result as normal/abnormal. HGB (test code = 718-7) 15.2 g/dL 12.2-16.4 HCT (test code = 4544-3) 43.5 % 38.4-49.3 MCV (test code = 787-2) 85.3 fL 81.7-95.6 MCH (test code = 785-6) 29.8 pg 26.1-32.7 MCHC (test code = 786-4) 34.9 g/dL 31.2-35.0 RDW-SD (test code = 89443-8) 43.3 fL 38.5-51.6 RDW-CV (test code = 788-0) 13.9 % 12.1-15.4 PLT (test code = 777-3) 174 See_Comment [Automated Cytonicsa ge] The system which generated this result transmitted reference range: 150 - 328 10*3/?L. The reference range was not used to interpret this result as normal/abnormal. MPV (test code = 15447-4) 10.8 fL 9.8-13.0 NRBC/100 WBC (test code = 9104726071) 0.0 See_Comment [Automated Solartrec ssage] The system which generated this result transmitted reference range: 0.0 - 10.0 /100 WBCs. The reference range was not used to interpret this result as normal/abnormal. NRBC x10^3 (test code = 9034652418) See_Comment [Automated Cytonicsa ge] The system which generated this result transmitted reference range: 10*3/?L. The reference range was not used to interpret this result as normal/abnormal. GRAN MAT (NEUT) % (test code = 770-8) 79.7 % IMM GRAN % (test code = 3290539522) 0.20 % LYMPH % (test code = 736-9) 14.4 % MONO % (test code = 5905-5) 4.8 % EOS % (test code = 713-8) 0.7 % BASO % (test code = 706-2) 0.2 % GRAN MAT x10^3(ANC) (test code = 6007625609) 6.97 10*3/uL 1.99-6.95 H IMM GRAN x10^3 (test code = 9421782123) 0.00-0.06 LYMPH x10^3 (test code = 731-0) 1.26 10*3/uL 1.09-3.23 MONO x10^3 (test code = 742-7) 0.42 10*3/uL 0.36-1.02 EOS x10^3 (test code = 711-2) 0.06 10*3/uL 0.06-0.53 BASO x10^3 (test code = 704-7) 0.01-0.09 Lab Interpretation (test code = 97833-9) Abnormal [facility] METABOLIC PANEL (NA, K, CL, CO2, GLUCOSE, BUN, CREATININE, CA)2022-04-27 10:45:36* Test Item Value Reference Range Interpretation Comme nts NA (test code = 3063627571) 135 mmol/L 135-145 K (test code = 0575777140) 3.9 mmol/L 3.5-5.0 CL (test code = 8852551680) 105 mmol/L 98-108 CO2 TOTAL (test code = 0680806262) 20 mmol/L 23-31 L AGAP (test code = 1245957893) 10 2-16 BUN (test code = 5857161508) 19 mg/dL 7-23 GLUCOSE (test code = 9158057417) 93 mg/dL 70-110 CREATININE (test code = 2728614303) 0.84 mg/dL 0.60-1.25 CALCIUM (test code = 6540827513) 8.8 mg/dL 8.6-10.6 eGFR (test code = 2038273569) 92.0 mL/min/1.73m2 CL (test code = CL) Association of [...] or abnormalities in imaging tests). Lab Interpretation (test code = 82204-2) Abnormal [facility] METABOLIC PANEL (NA, K, CL, CO2, GLUCOSE, BUN, CREATININE, CA)2022-04-27 10:45:36* Test Item Value Reference Range Interpretation Comme nts NA (test code = 0142143384) 135 mmol/L 135-145 K (test code = 4831554990) 3.9 mmol/L 3.5-5.0 CL (test code = 1320868202) 105 mmol/L 98-108 CO2 TOTAL (test code = 6238152413) 20 mmol/L 23-31 L AGAP (test code = 2415625813) 10 2-16 BUN (test code = 8247262768) 19 mg/dL 7-23 GLUCOSE (test code = 8872516226) 93 mg/dL 70-110 CREATININE (test code = 9423406987) 0.84 mg/dL 0.60-1.25 CALCIUM (test code = 4114117365) 8.8 mg/dL 8.6-10.6 eGFR (test code = 9652379543) 92.0 mL/min/1.73m2 CL (test code = CL) Association of [...] or abnormalities in imaging tests). Lab Interpretation (test code = 89527-1) Abnormal [facility] - [facility]ipheral # [id number] 06:01:58* Test Item Value Reference Range Interpretation Comme nts Blood Culture-Aerobic (test code = 21580-6) No organisms isolated No growth Previous preliminary verified result was Culture In Progress on 04/22/2022 at 0301 CSTPrevious preliminary verified result was No growth at 24 hours on 04/23/2022 at 0001 CSTPrevious preliminary verified result was No growth at 48 hours on 04/24/2022 at 0001 CSTPrevious preliminary verified result was No growth at 72 hours on 04/25/2022 at 0001 [employer] Blood Culture-Anaerobic (test code = 69533-2) No organisms isolated No growth Previous preliminary verified result was Culture In Progress on 04/22/2022 at 0301 CSTPrevious preliminary verified result was No growth at 24 hours on 04/23/2022 at 0001 CSTPrevious preliminary verified result was No growth at 48 hours on 04/24/2022 at 0001 CSTPrevious preliminary verified result was No growth at 72 hours on 04/25/2022 at 0001 [employer] Lab Interpretation (test code = 22641-1) [facility] Culture - Peripheral # [id number] 06:01:58* Test Item Value Reference Range Interpretation Comme [facility] Blood Culture-Aerobic (test code = 17100-7) No organisms isolated No growth Previous preliminary verified result was Culture In Progress on 04/22/2022 at 0301 CSTPrevious preliminary verified result was No growth at 24 hours on 04/23/2022 at 0001 CSTPrevious preliminary verified result was No growth at 48 hours on 04/24/2022 at 0001 CSTPrevious preliminary verified result was No growth at 72 hours on 04/25/2022 at 0001 [employer] Blood Culture-Anaerobic (test code = 90128-0) No organisms isolated No growth Previous preliminary verified result was Culture In Progress on 04/22/2022 at 0301 CSTPrevious preliminary verified result was No growth at 24 hours on 04/23/2022 at 0001 CSTPrevious preliminary verified result was No growth at 48 hours on 04/24/2022 at 0001 CSTPrevious preliminary verified result was No growth at 72 hours on 04/25/2022 at 0001 [employer] Lab Interpretation (test code = 31846-6) [facility] Culture - Peripheral # [id number] 06:01:58* Test Item Value Reference Range Interpretation Comme nts Blood Culture-Aerobic (test code = 44735-4) No organisms isolated No growth Previous preliminary verified result was Culture In Progress on 04/22/2022 at 0301 CSTPrevious preliminary verified result was No growth at 24 hours on 04/23/2022 at 0001 CSTPrevious preliminary verified result was No growth at 48 hours on 04/24/2022 at 0001 CSTPrevious preliminary verified result was No growth at 72 hours on 04/25/2022 at 0001 [employer] Blood Culture-Anaerobic (test code = 07246-9) No organisms isolated No growth Previous preliminary verified result was Culture In Progress on 04/22/2022 at 0301 CSTPrevious preliminary verified result was No growth at 24 hours on 04/23/2022 at 0001 CSTPrevious preliminary verified result was No growth at 48 hours on 04/24/2022 at 0001 CSTPrevious preliminary verified result was No growth at 72 hours on 04/25/2022 at 0001 [employer] Lab Interpretation (test code = 88326-8) Normal [facility] - Peripheral # [id number] 06:01:58* Test Item Value Reference Range Interpretation Comme nts Blood Culture-Aerobic (test code = 24457-5) No organisms isolated No growth Previous preliminary verified result was Culture In Progress on 04/22/2022 at 0301 CSTPrevious preliminary verified result was No growth at 24 hours on 04/23/2022 at 0001 CSTPrevious preliminary verified result was No growth at 48 hours on 04/24/2022 at 0001 CSTPrevious preliminary verified result was No growth at 72 hours on 04/25/2022 at 0001 [employer] Blood Culture-Anaerobic (test code = 26378-1) No organisms isolated No growth Previous preliminary verified result was Culture In Progress on 04/22/2022 at 0301 CSTPrevious preliminary verified result was No growth at 24 hours on 04/23/2022 at 0001 CSTPrevious preliminary verified result was No growth at 48 hours on 04/24/2022 at 0001 CSTPrevious preliminary verified result was No growth at 72 hours on 04/25/2022 at 0001 [employer] Lab Interpretation (test code = 93990-3) Normal [facility]2023-01-29 15:52:38* Test Item Value Reference Range Interpretation Comme nts MAGNESIUM (test code = 0089982568) 2.1 mg/dL 1.7-2.4 Lab Interpretation (test cod e = 71360-7) Normal [facility]2023-01-29 15:52:38* Test Item Value Reference Range Interpretation Comme nts MAGNESIUM (test code = 6472034254) 2.1 mg/dL 1.7-2.4 Lab Interpretation (test cod e = 89737-8) Normal [facility] (NA, K, CL, CO2, GLUCOSE, BUN, CREATININE, CA)2022-04-25 10:43:02* Test Item Value Reference Range Interpretation Comme nts NA (test code = 0076056206) 137 mmol/L 135-145 K (test code = 2043597022) 3.2 mmol/L 3.5-5.0 L CL (test code = 5632103732) 103 mmol/L 98-108 CO2 TOTAL (test code = 3837598620) 25 mmol/L 23-31 AGAP (test code = 6313501378) 9 2-16 BUN (test code = 5458209294) 17 mg/dL 7-23 GLUCOSE (test code = 6601055985) 94 mg/dL 70-110 CREATININE (test code = 4781120683) 0.96 mg/dL 0.60-1.25 CALCIUM (test code = 1402542853) 8.8 mg/dL 8.6-10.6 eGFR (test code = 5656361607) 78.9 mL/min/1.73m2 CL (test code = CL) Association of [...] or abnormalities in imaging tests). Lab Interpretation (test code = 25390-0) Abnormal [facility] (NA, K, CL, CO2, GLUCOSE, BUN, CREATININE, CA)2022-04-25 10:43:02* Test Item Value Reference Range Interpretation Comme nts NA (test code = 6119348145) 137 mmol/L 135-145 K (test code = 5800579140) 3.2 mmol/L 3.5-5.0 L CL (test code = 6072133774) 103 mmol/L 98-108 CO2 TOTAL (test code = 1718897859) 25 mmol/L 23-31 AGAP (test code = 3549716068) 9 2-16 BUN (test code = 2684951478) 17 mg/dL 7-23 GLUCOSE (test code = 2662743388) 94 mg/dL 70-110 CREATININE (test code = 1413134147) 0.96 mg/dL 0.60-1.25 CALCIUM (test code = 3185317546) 8.8 mg/dL 8.6-10.6 eGFR (test code = 9322523107) 78.9 mL/min/1.73m2 CL (test code = CL) Association of [...] or abnormalities in imaging tests). Lab Interpretation (test code = 34938-1) Abnormal [facility] WITH [id number] 10:22:01* Test Item Value Reference Range Interpretation Comme nts WBC (test code = 6690-2) 5.67 See_Comment [Automated Cytonicsa ge] The system which generated this result transmitted reference range: 4.20 - 10.70 10*3/?L. The reference range was not used to interpret this result as normal/abnormal. RBC (test code = 789-8) 5.42 See_Comment [Automated Cytonicsa ge] The system which generated this result transmitted reference range: 4.26 - 5.52 10*6/?L. The reference range was not used to interpret this result as normal/abnormal. HGB (test code = 718-7) 15.9 g/dL 12.2-16.4 HCT (test code = 4544-3) 47.6 % 38.4-49.3 MCV (test code = 787-2) 87.8 fL 81.7-95.6 MCH (test code = 785-6) 29.3 pg 26.1-32.7 MCHC (test code = 786-4) 33.4 g/dL 31.2-35.0 RDW-SD (test code = 02573-7) 42.1 fL 38.5-51.6 RDW-CV (test code = 788-0) 13.2 % 12.1-15.4 PLT (test code = 777-3) 193 See_Comment [Automated Cytonicsa ge] The system which generated this result transmitted reference range: 150 - 328 10*3/?L. The reference range was not used to interpret this result as normal/abnormal. MPV (test code = 50538-4) 10.0 fL 9.8-13.0 NRBC/100 WBC (test code = 5938940210) 0.0 See_Comment [Automated Solartrec ssage] The system which generated this result transmitted reference range: 0.0 - 10.0 /100 WBCs. The reference range was not used to interpret this result as normal/abnormal. NRBC x10^3 (test code = 1579761063) See_Comment [Automated me ssage] The system which generated this result transmitted reference range: 10*3/?L. The reference range was not used to interpret this result as normal/abnormal. GRAN MAT (NEUT) % (test code = 770-8) 55.6 % IMM GRAN % (test code = 3523433107) 0.20 % LYMPH % (test code = 736-9) 30.0 % MONO % (test code = 5905-5) 8.6 % EOS % (test code = 713-8) 5.1 % BASO % (test code = 706-2) 0.5 % GRAN MAT x10^3(ANC) (test code = 1512992454) 3.15 10*3/uL 1.99-6.95 IMM GRAN x10^3 (test code = 4891131236) 0.00-0.06 LYMPH x10^3 (test code = 731-0) 1.70 10*3/uL 1.09-3.23 MONO x10^3 (test code = 742-7) 0.49 10*3/uL 0.36-1.02 EOS x10^3 (test code = 711-2) 0.29 10*3/uL 0.06-0.53 BASO x10^3 (test code = 704-7) 0.03 10*3/uL 0.01-0.09 [facility] WITH [id number] 10:22:01* Test Item Value Reference Range Interpretation Comme nts WBC (test code = 6690-2) 5.67 See_Comment [Automated messa ge] The system which generated this result transmitted reference range: 4.20 - 10.70 10*3/?L. The reference range was not used to interpret this result as normal/abnormal. RBC (test code = 789-8) 5.42 See_Comment [Automated messa ge] The system which generated this result transmitted reference range: 4.26 - 5.52 10*6/?L. The reference range was not used to interpret this result as normal/abnormal. HGB (test code = 718-7) 15.9 g/dL 12.2-16.4 HCT (test code = 4544-3) 47.6 % 38.4-49.3 MCV (test code = 787-2) 87.8 fL 81.7-95.6 MCH (test code = 785-6) 29.3 pg 26.1-32.7 MCHC (test code = 786-4) 33.4 g/dL 31.2-35.0 RDW-SD (test code = 86015-7) 42.1 fL 38.5-51.6 RDW-CV (test code = 788-0) 13.2 % 12.1-15.4 PLT (test code = 777-3) 193 See_Comment [Automated messa ge] The system which generated this result transmitted reference range: 150 - 328 10*3/?L. The reference range was not used to interpret this result as normal/abnormal. MPV (test code = 79264-8) 10.0 fL 9.8-13.0 NRBC/100 WBC (test code = 6721543567) 0.0 See_Comment [Automated me ssage] The system which generated this result transmitted reference range: 0.0 - 10.0 /100 WBCs. The reference range was not used to interpret this result as normal/abnormal. NRBC x10^3 (test code = 5224831114) See_Comment [Automated me ssage] The system which generated this result transmitted reference range: 10*3/?L. The reference range was not used to interpret this result as normal/abnormal. GRAN MAT (NEUT) % (test code = 770-8) 55.6 % IMM GRAN % (test code = 1370147992) 0.20 % LYMPH % (test code = 736-9) 30.0 % MONO % (test code = 5905-5) 8.6 % EOS % (test code = 713-8) 5.1 % BASO % (test code = 706-2) 0.5 % GRAN MAT x10^3(ANC) (test code = 9477023740) 3.15 10*3/uL 1.99-6.95 IMM GRAN x10^3 (test code = 4336729726) 0.00-0.06 LYMPH x10^3 (test code = 731-0) 1.70 10*3/uL 1.09-3.23 MONO x10^3 (test code = 742-7) 0.49 10*3/uL 0.36-1.02 EOS x10^3 (test code = 711-2) 0.29 10*3/uL 0.06-0.53 BASO x10^3 (test code = 704-7) 0.03 10*3/uL 0.01-0.09 [facility]EMOGLOBIN (A1C)2022-04-22 04:14:29* Test Item Value Reference Range Interpretation Comme [facility] HGB A1C (test code = 4548-4) 5.8 % 4.0-5.7 H CL (test code = CL) Reference RangesNormal: <5.7%Prediabetes: 5.7 - 6.4%Diabetes: > 6.5% Lab Interpretation (test code = 90764-8) Abnormal [facility] Center[facility]YCOSYL[facility] HEMOGLOBIN (A1C)2022-04-22 04:14:29* Test Item Value Reference Range Interpretation Comme [facility] HGB A1C (test code = 4548-4) 5.8 % 4.0-5.7 H CL (test code = CL) Reference RangesNormal: <5.7%Prediabetes: 5.7 - 6.4%Diabetes: > 6.5% Lab Interpretation (test code = 80471-2) Abnormal [facility] CenterProthrom[facility] Time / [id number] 20:13:11* Test Item Value Reference Range Interpretation Comme [facility] PROTIME PATIENT (test code = 5964-2) 13.8 See_Comment H [Automated messa ge] The system which generated this result transmitted reference range: 10.1 - 12.6 Seconds. The reference range was not used to interpret this result as normal/abnormal. INR (test code = 6301-6) 1.2 Normal INR <1.1; Warfarin Therapeutic range 2.0 to 3.0 or 2.5 to 3.5, depending upon the indications. Lab Interpretation (test code = 66456-1) Abnormal [facility] CenterProthrom[facility] Time / [id number] 20:13:11* Test Item Value Reference Range Interpretation Comme nts PROTIME PATIENT (test code = 5964-2) 13.8 See_Comment H [Automated messa ge] The system which generated this result transmitted reference range: 10.1 - 12.6 Seconds. The reference range was not used to interpret this result as normal/abnormal. INR (test code = 6301-6) 1.2 Normal INR <1.1; Warfarin Therapeutic range 2.0 to 3.0 or 2.5 to 3.5, depending upon the indications. Lab Interpretation (test code = 35499-1) Abnormal [facility] [id number] 19:58:08* Test Item Value Reference Range Interpretation Comme nts TROPONIN I (test code = 2901074242) 0.005 ng/mL <=0.034 CL (test code = CL) Reference (Normal) [...] to patient's use of biotin. Lab Interpretation (test code = 44288-4) Normal [facility] [id number] 19:58:08* Test Item Value Reference Range Interpretation Comme nts TROPONIN I (test code = 3147945056) 0.005 ng/mL <=0.034 CL (test code = CL) Reference (Normal) [...] to patient's use of biotin. Lab Interpretation (test code = 04538-3) Normal [facility]. METABOLIC PANEL (75243)2022-04-21 19:46:06* Test Item Value Reference Range Interpretation Comme nts NA (test code = 6582113183) 138 mmol/L 135-145 K (test code = 1335626709) 4.6 mmol/L 3.5-5.0 Slight hemolysis CL (test code = 9482860972) 108 mmol/L 98-108 CO2 TOTAL (test code = 6063612337) 21 mmol/L 23-31 L AGAP (test code = 0725644497) 9 2-16 BUN (test code = 9198908458) 15 mg/dL 7-23 Slight hemolysis GLUCOSE (test code = 3385816298) 97 mg/dL 70-110 CREATININE (test code = 5840557042) 0.77 mg/dL 0.60-1.25 TOTAL BILI (test code = 9825891884) 0.9 mg/dL 0.1-1.1 CALCIUM (test code = 0491055893) 8.8 mg/dL 8.6-10.6 T PROTEIN (test code = 5725973473) 7.5 g/dL 6.3-8.2 ALBUMIN (test code = 5966298415) 4.1 g/dL 3.5-5.0 ALK PHOS (test code = 9527249124) 90 U/L 34-122 Slight hemolysis ALTv (test code = 1742-6) 19 U/L 5-50 AST(SGOT) (test code = 1519717641) 28 U/L 13-40 Slight hemolysis eGFR (test code = 6426473816) 101.7 mL/min/1.73m2 CL (test code = CL) Association of [...] or abnormalities in imaging tests). Lab Interpretation (test code = 46514-0) Abnormal [facility] CenterMAG[facility]2023-01-25 19:46:06* Test Item Value Reference Range Interpretation Comme nts MAGNESIUM (test code = 3579249683) 2.2 mg/dL 1.7-2.4 Lab Interpretation (test cod e = 86891-1) Normal [facility] Center[facility] METABOLIC PANEL (12288)2022-04-21 19:46:06* Test Item Value Reference Range Interpretation Comme nts NA (test code = 9322222074) 138 mmol/L 135-145 K (test code = 2818312633) 4.6 mmol/L 3.5-5.0 Slight hemolysis CL (test code = 3688883534) 108 mmol/L 98-108 CO2 TOTAL (test code = 6991629798) 21 mmol/L 23-31 L AGAP (test code = 0728644072) 9 2-16 BUN (test code = 2762255130) 15 mg/dL 7-23 Slight hemolysis GLUCOSE (test code = 5589486617) 97 mg/dL 70-110 CREATININE (test code = 5047841097) 0.77 mg/dL 0.60-1.25 TOTAL BILI (test code = 7292347228) 0.9 mg/dL 0.1-1.1 CALCIUM (test code = 5331467510) 8.8 mg/dL 8.6-10.6 T PROTEIN (test code = 1352798178) 7.5 g/dL 6.3-8.2 ALBUMIN (test code = 0894034061) 4.1 g/dL 3.5-5.0 ALK PHOS (test code = 3212555823) 90 U/L 34-122 Slight hemolysis ALTv (test code = 1742-6) 19 U/L 5-50 AST(SGOT) (test code = 9018372803) 28 U/L 13-40 Slight hemolysis eGFR (test code = 8124601724) 101.7 mL/min/1.73m2 CL (test code = CL) Association of [...] or abnormalities in imaging tests). Lab Interpretation (test code = 56916-7) [facility]:46[facility]* Test Item Value Reference Range Interpretation Comme nts MAGNESIUM (test code = 7613308134) 2.2 mg/dL 1.7-2.4 Lab Interpretation (test cod e = 32699-7) Normal [facility] WITH [id number] 19:44:24* Test Item Value Reference Range Interpretation Comme nts WBC (test code = 6690-2) 4.68 See_Comment [Automated messa ge] The system which generated this result transmitted reference range: 4.20 - 10.70 10*3/?L. The reference range was not used to interpret this result as normal/abnormal. RBC (test code = 789-8) 5.18 See_Comment [Automated messa ge] The system which generated this result transmitted reference range: 4.26 - 5.52 10*6/?L. The reference range was not used to interpret this result as normal/abnormal. HGB (test code = 718-7) 15.4 g/dL 12.2-16.4 HCT (test code = 4544-3) 45.5 % 38.4-49.3 MCV (test code = 787-2) 87.8 fL 81.7-95.6 MCH (test code = 785-6) 29.7 pg 26.1-32.7 MCHC (test code = 786-4) 33.8 g/dL 31.2-35.0 RDW-SD (test code = 35952-6) 42.4 fL 38.5-51.6 RDW-CV (test code = 788-0) 13.3 % 12.1-15.4 PLT (test code = 777-3) 233 See_Comment [Automated messa ge] The system which generated this result transmitted reference range: 150 - 328 10*3/?L. The reference range was not used to interpret this result as normal/abnormal. MPV (test code = 10092-0) 9.8 fL 9.8-13.0 NRBC/100 WBC (test code = 5430780587) 0.0 See_Comment [Automated Solartrec ssage] The system which generated this result transmitted reference range: 0.0 - 10.0 /100 WBCs. The reference range was not used to interpret this result as normal/abnormal. NRBC x10^3 (test code = 7803389128) See_Comment [Automated me ssage] The system which generated this result transmitted reference range: 10*3/?L. The reference range was not used to interpret this result as normal/abnormal. GRAN MAT (NEUT) % (test code = 770-8) 51.6 % IMM GRAN % (test code = 9789637388) 0.20 % LYMPH % (test code = 736-9) 32.3 % MONO % (test code = 5905-5) 10.3 % EOS % (test code = 713-8) 4.7 % BASO % (test code = 706-2) 0.9 % GRAN MAT x10^3(ANC) (test code = 0328945090) 2.42 10*3/uL 1.99-6.95 IMM GRAN x10^3 (test code = 5194787316) 0.00-0.06 LYMPH x10^3 (test code = 731-0) 1.51 10*3/uL 1.09-3.23 MONO x10^3 (test code = 742-7) 0.48 10*3/uL 0.36-1.02 EOS x10^3 (test code = 711-2) 0.22 10*3/uL 0.06-0.53 BASO x10^3 (test code = 704-7) 0.04 10*3/uL 0.01-0.09 [facility] WITH [id number] 19:44:24* Test Item Value Reference Range Interpretation Comme nts WBC (test code = 6690-2) 4.68 See_Comment [Automated messa ge] The system which generated this result transmitted reference range: 4.20 - 10.70 10*3/?L. The reference range was not used to interpret this result as normal/abnormal. RBC (test code = 789-8) 5.18 See_Comment [Automated messa ge] The system which generated this result transmitted reference range: 4.26 - 5.52 10*6/?L. The reference range was not used to interpret this result as normal/abnormal. HGB (test code = 718-7) 15.4 g/dL 12.2-16.4 HCT (test code = 4544-3) 45.5 % 38.4-49.3 MCV (test code = 787-2) 87.8 fL 81.7-95.6 MCH (test code = 785-6) 29.7 pg 26.1-32.7 MCHC (test code = 786-4) 33.8 g/dL 31.2-35.0 RDW-SD (test code = 95543-4) 42.4 fL 38.5-51.6 RDW-CV (test code = 788-0) 13.3 % 12.1-15.4 PLT (test code = 777-3) 233 See_Comment [Automated messa ge] The system which generated this result transmitted reference range: 150 - 328 10*3/?L. The reference range was not used to interpret this result as normal/abnormal. MPV (test code = 94535-4) 9.8 fL 9.8-13.0 NRBC/100 WBC (test code = 4556391602) 0.0 See_Comment [Automated me ssage] The system which generated this result transmitted reference range: 0.0 - 10.0 /100 WBCs. The reference range was not used to interpret this result as normal/abnormal. NRBC x10^3 (test code = 4648269365) See_Comment [Automated me ssage] The system which generated this result transmitted reference range: 10*3/?L. The reference range was not used to interpret this result as normal/abnormal. GRAN MAT (NEUT) % (test code = 770-8) 51.6 % IMM GRAN % (test code = 9673983901) 0.20 % LYMPH % (test code = 736-9) 32.3 % MONO % (test code = 5905-5) 10.3 % EOS % (test code = 713-8) 4.7 % BASO % (test code = 706-2) 0.9 % GRAN MAT x10^3(ANC) (test code = 0548538196) 2.42 10*3/uL 1.99-6.95 IMM GRAN x10^3 (test code = 6771909773) 0.00-0.06 LYMPH x10^3 (test code = 731-0) 1.51 10*3/uL 1.09-3.23 MONO x10^3 (test code = 742-7) 0.48 10*3/uL 0.36-1.02 EOS x10^3 (test code = 711-2) 0.22 10*3/uL 0.06-0.53 BASO x10^3 (test code = 704-7) 0.04 10*3/uL 0.01-0.09 [facility], [id number] 19:42:47* Test Item Value Reference Range Interpretation Comme nts AMMONIA (test code = 2212075671) 13 umol/L 9-33 Slight hemolysis Lab Interpretation (test code = 91111-4) Normal [facility], [id number] 19:42:47* Test Item Value Reference Range Interpretation Comme nts AMMONIA (test code = 4643196874) 13 umol/L 9-33 Slight hemolysis Lab Interpretation (test code = 94407-9) Normal [facility] CenterQUANT [id number] 12:54:04* Test Item Value Reference Range Interpretation Comme nts Quantitative Tissue Culture (test code = 97047-2) No aerobic organisms isolated Gram stain (test code = 664-3) Few PMNs or Mononuclear cells observed [facility] (NA, K, CL, CO2, GLUCOSE, BUN, CREATININE, CA)2020-06-05 11:11:52* Test Item Value Reference Range Interpretation Comme nts NA (test code = 0890530254) 138 mmol/L 135-145 K (test code = 0722134693) 3.6 mmol/L 3.5-5.0 CL (test code = 9982819105) 108 mmol/L 98-108 CO2 TOTAL (test code = 4771051525) 23 mmol/L 23-31 AGAP (test code = 0359322066) 2-16 BUN (test code = 2997374667) 11 mg/dL 7-23 GLUCOSE (test code = 5940928428) 96 mg/dL 70-110 CREATININE (test code = 1640745566) 0.91 mg/dL 0.60-1.25 CALCIUM (test code = 0529907633) 8.4 mg/dL 8.6-10.6 L eGFR Calculation (Non-) (test code = 8031320354) mL/min/1.73m2 eGFR Calculation () (test code = 7869867830) mL/min/1.73m2 CL (test code = CL) Association of [...] or abnormalities in imaging tests). Lab Interpretation (test code = 73720-6) Abnormal [facility] WITH [id number] 09:12:20* Test Item Value Reference Range Interpretation Comme nts WBC (test code = 6690-2) See_Comment [Automated amSTATZ] The system which generated this result transmitted reference range: 4.20 - 10.70 10*3/?L. The reference range was not used to interpret this result as normal/abnormal. RBC (test code = 789-8) See_Comment [Automated amSTATZ] The system which generated this result transmitted reference range: 4.26 - 5.52 10*6/?L. The reference range was not used to interpret this result as normal/abnormal. HGB (test code = 718-7) 13.8 g/dL 12.2-16.4 HCT (test code = 4544-3) 41.5 % 38.4-49.3 MCV (test code = 787-2) 89.6 fL 81.7-95.6 MCH (test code = 785-6) 29.8 pg 26.1-32.7 MCHC (test code = 786-4) 33.3 g/dL 31.2-35.0 RDW-SD (test code = 84581-1) 46.5 fL 38.5-51.6 RDW-CV (test code = 788-0) 14.1 % 12.1-15.4 PLT (test code = 777-3) See_Comment [Automated messa ge] The system which generated this result transmitted reference range: 150 - 328 10*3/?L. The reference range was not used to interpret this result as normal/abnormal. MPV (test code = 07241-4) 9.6 fL 9.8-13.0 L NRBC/100 WBC (test code = 5318017929) See_Comment [Automated Solartrec ssage] The system which generated this result transmitted reference range: 0.0 - 10.0 /100 WBCs. The reference range was not used to interpret this result as normal/abnormal. NRBC x10^3 (test code = 6093424374) <0.01 See_Comment [Automated messa ge] The system which generated this result transmitted reference range: 10*3/?L. The reference range was not used to interpret this result as normal/abnormal. GRAN MAT (NEUT) % (test code = 770-8) 59.2 % IMM GRAN % (test code = 8883474740) 0.30 % LYMPH % (test code = 736-9) 25.7 % MONO % (test code = 5905-5) 9.5 % EOS % (test code = 713-8) 4.7 % BASO % (test code = 706-2) 0.6 % GRAN MAT x10^3(ANC) (test code = 1313619615) 3.94 10*3/uL 1.99-6.95 IMM GRAN x10^3 (test code = 3724253954) <0.03 0.00-0.06 LYMPH x10^3 (test code = 731-0) 1.71 10*3/uL 1.09-3.23 MONO x10^3 (test code = 742-7) 0.63 10*3/uL 0.36-1.02 EOS x10^3 (test code = 711-2) 0.31 10*3/uL 0.06-0.53 BASO x10^3 (test code = 704-7) 0.04 10*3/uL 0.01-0.09 Lab Interpretation (test code = 93407-6) Abnormal [facility] Center[facility] Trough Level - Draw immediately prior to the 4TH dose, but, no more than 60 minutes before the 4TH dose. 2020-06-05 03:47:33* Test Item Value Reference Range Interpretation Comme nts VANCO TROUGH (test code = 0582474388) 11.4 ug/mL 10.0-20.0 CL (test code = CL) Toxic Range: ?>20 ug/mL 15-20 ug/mL is recommended for severe infection or when Vancomycin KATHLEEN is greater than or equal to 2. Lab Interpretation (test code = 29252-5) Normal [facility] (NA, K, CL, CO2, GLUCOSE, BUN, CREATININE, CA)2020-06-04 10:05:48* Test Item Value Reference Range Interpretation Comme nts NA (test code = 6668120454) 141 mmol/L 135-145 K (test code = 9991974675) 3.8 mmol/L 3.5-5.0 CL (test code = 1684497493) 112 mmol/L 98-108 H CO2 TOTAL (test code = 6006935326) 23 mmol/L 23-31 AGAP (test code = 8573182565) 2-16 BUN (test code = 2240057411) 10 mg/dL 7-23 GLUCOSE (test code = 7877139400) 90 mg/dL 70-110 CREATININE (test code = 1838399777) 0.68 mg/dL 0.60-1.25 CALCIUM (test code = 3276791420) 8.4 mg/dL 8.6-10.6 L eGFR Calculation (Non-) (test code = 7734353381) mL/min/1.73m2 eGFR Calculation () (test code = 5420986473) mL/min/1.73m2 CL (test code = CL) Association of [...] or abnormalities in imaging tests). Lab Interpretation (test code = 13953-9) Abnormal [facility] WITH [id number] 09:34:25* Test Item Value Reference Range Interpretation Comme nts WBC (test code = 6690-2) See_Comment [Automated amSTATZ] The system which generated this result transmitted reference range: 4.20 - 10.70 10*3/?L. The reference range was not used to interpret this result as normal/abnormal. RBC (test code = 789-8) See_Comment [Automated amSTATZ] The system which generated this result transmitted reference range: 4.26 - 5.52 10*6/?L. The reference range was not used to interpret this result as normal/abnormal. HGB (test code = 718-7) 13.6 g/dL 12.2-16.4 HCT (test code = 4544-3) 40.5 % 38.4-49.3 MCV (test code = 787-2) 89.2 fL 81.7-95.6 MCH (test code = 785-6) 30.0 pg 26.1-32.7 MCHC (test code = 786-4) 33.6 g/dL 31.2-35.0 RDW-SD (test code = 94332-6) 46.5 fL 38.5-51.6 RDW-CV (test code = 788-0) 14.2 % 12.1-15.4 PLT (test code = 777-3) See_Comment [Automated messa ge] The system which generated this result transmitted reference range: 150 - 328 10*3/?L. The reference range was not used to interpret this result as normal/abnormal. MPV (test code = 17439-9) 9.5 fL 9.8-13.0 L NRBC/100 WBC (test code = 0360178601) See_Comment [Automated Solartrec ssage] The system which generated this result transmitted reference range: 0.0 - 10.0 /100 WBCs. The reference range was not used to interpret this result as normal/abnormal. NRBC x10^3 (test code = 5486920253) <0.01 See_Comment [Automated messa ge] The system which generated this result transmitted reference range: 10*3/?L. The reference range was not used to interpret this result as normal/abnormal. GRAN MAT (NEUT) % (test code = 770-8) 52.6 % IMM GRAN % (test code = 4447586856) 0.20 % LYMPH % (test code = 736-9) 31.2 % MONO % (test code = 5905-5) 9.2 % EOS % (test code = 713-8) 6.2 % BASO % (test code = 706-2) 0.6 % GRAN MAT x10^3(ANC) (test code = 8340547336) 2.82 10*3/uL 1.99-6.95 IMM GRAN x10^3 (test code = 5464062737) <0.03 0.00-0.06 LYMPH x10^3 (test code = 731-0) 1.67 10*3/uL 1.09-3.23 MONO x10^3 (test code = 742-7) 0.49 10*3/uL 0.36-1.02 EOS x10^3 (test code = 711-2) 0.33 10*3/uL 0.06-0.53 BASO x10^3 (test code = 704-7) 0.03 10*3/uL 0.01-0.09 Lab Interpretation (test code = 94789-9) [facility]normal [facility] - Draw immediately prior to the NEXT dose, but, no more than 60 minutes before the NEXT dose. 2020-06-03 15:53:20* Test Item Value Reference Range Interpretation Comme nts VANCO TROUGH (test code = 6551181682) 6.6 ug/mL 10.0-20.0 L CL (test code = CL) Toxic Range: ?>20 ug/mL 15-20 ug/mL is recommended for severe infection or when Vancomycin KATHLEEN is greater than or equal to 2. Lab Interpretation (test code = 43459-5) Abnormal [facility] (NA, K, CL, CO2, GLUCOSE, BUN, CREATININE, CA)2020-06-03 15:12:14* Test Item Value Reference Range Interpretation Comme nts NA (test code = 2988011637) 141 mmol/L 135-145 K (test code = 7673767019) 4.2 mmol/L 3.5-5.0 CL (test code = 0016765513) 113 mmol/L 98-108 H CO2 TOTAL (test code = 4254547136) 23 mmol/L 23-31 AGAP (test code = 1093731863) 2-16 BUN (test code = 8383954794) 14 mg/dL 7-23 GLUCOSE (test code = 7691481817) 89 mg/dL 70-110 CREATININE (test code = 4181806376) 0.78 mg/dL 0.60-1.25 CALCIUM (test code = 4197657930) 8.3 mg/dL 8.6-10.6 L eGFR Calculation (Non-) (test code = 9850943770) mL/min/1.73m2 eGFR Calculation () (test code = 6975683106) mL/min/1.73m2 CL (test code = CL) Association of [...] or abnormalities in imaging tests). Lab Interpretation (test code = 02071-5) Abnormal [facility] WITH [id number] 12:27:41* Test Item Value Reference Range Interpretation Comme nts WBC (test code = 6690-2) See_Comment [Automated amSTATZ] The system which generated this result transmitted reference range: 4.20 - 10.70 10*3/?L. The reference range was not used to interpret this result as normal/abnormal. RBC (test code = 789-8) See_Comment [Automated amSTATZ] The system which generated this result transmitted reference range: 4.26 - 5.52 10*6/?L. The reference range was not used to interpret this result as normal/abnormal. HGB (test code = 718-7) 13.8 g/dL 12.2-16.4 HCT (test code = 4544-3) 41.6 % 38.4-49.3 MCV (test code = 787-2) 91.0 fL 81.7-95.6 MCH (test code = 785-6) 30.2 pg 26.1-32.7 MCHC (test code = 786-4) 33.2 g/dL 31.2-35.0 RDW-SD (test code = 19811-5) 48.5 fL 38.5-51.6 RDW-CV (test code = 788-0) 14.5 % 12.1-15.4 PLT (test code = 777-3) See_Comment [Automated messa ge] The system which generated this result transmitted reference range: 150 - 328 10*3/?L. The reference range was not used to interpret this result as normal/abnormal. MPV (test code = 49101-7) 10.0 fL 9.8-13.0 NRBC/100 WBC (test code = 2653531474) See_Comment [Automated me ssage] The system which generated this result transmitted reference range: 0.0 - 10.0 /100 WBCs. The reference range was not used to interpret this result as normal/abnormal. NRBC x10^3 (test code = 8836564697) <0.01 See_Comment [Automated me ssage] The system which generated this result transmitted reference range: 10*3/?L. The reference range was not used to interpret this result as normal/abnormal. GRAN MAT (NEUT) % (test code = 770-8) 59.4 % IMM GRAN % (test code = 1366804079) 0.20 % LYMPH % (test code = 736-9) 25.6 % MONO % (test code = 5905-5) 9.3 % EOS % (test code = 713-8) 5.0 % BASO % (test code = 706-2) 0.5 % GRAN MAT x10^3(ANC) (test code = 7112920670) 3.32 10*3/uL 1.99-6.95 IMM GRAN x10^3 (test code = 3390035727) <0.03 0.00-0.06 LYMPH x10^3 (test code = 731-0) 1.43 10*3/uL 1.09-3.23 MONO x10^3 (test code = 742-7) 0.52 10*3/uL 0.36-1.02 EOS x10^3 (test code = 711-2) 0.28 10*3/uL 0.06-0.53 BASO x10^3 (test code = 704-7) 0.03 10*3/uL 0.01-0.09 [facility] ONLY COVID [id number] 03:33:51COVID DMT InterpretationInterpretation/Recommendations: Molecular NAAT Tests for Active Infection with the SARS-CoV-2 Virus: The patient has currently tested negative for the SARS-CoV-2 virus that causes COVID-19 illness. This most likely indicates that the patient does not have an active infectionwith the SARS-CoV-2 virus. However, infection is not completely ruled out as the false negative rate for molecular NAAT testing using a nasopharyngeal sample can be up to 30%, mostly dependent on thetiming of sample collection in relation to illness [...] COVID-19 testing the patient has had at [facility], including molecular NAAT testing (more commonly known as PCR testing and Rapid ID Now testing) and antibody testing. It does not take into account any testing that a patient has had outside of the [facility] medical record. [facility] LABORATORY SERVICESCOVID [id number] NAAT (no units) ? ? Date ? Value ? 02/01/2020 ? Not Detected ? SARS-CoV-2 Rapid ID NOW (no units) ? ? Date ? Value ? 06/01/2020 ? Not Detected ? [facility] SERVICESUn[facility] CenterCT WRIST LEFT WO [id number] 19:54:22Mildly displaced lunate fracture with patchy sclerosis possiblyrepresenting osteonecrosis. Preliminary Report Dictated by Resident: Emily Cristobal MD., have reviewed this study and agree with the abovereport.CT WRIST LEFT WO CONTRAST [...] the hamate and scaphoid. SOFT TISSUES: Soft tissueswelling surrounds the wrist joint and the dorsum of the hand. [facility], Radiant Results Inft User - 06/02/2020 1:55 PM CSTCT WRIST LEFT WO CONTRASTHISTORY: 64 years-old; Male; Fracture, wrist COMPARISON: Left wrist x- ray 06/01/2020TECHNIQUE: CT imaging of the left breast is obtained in 1.25 mm intervalswithout IV contrast. Sagittal and coronal reconstructions are generated andreviewed.BONE:Unenhanced CT of the left wrist demonstrates a mildly displaced, verticallyoriented fracture in the coronal plane of the lunate with adjacent punctatebony fragments.Patchy sclerosis is seen in the lunate.Subcorti oli cystic changes are noted within the hamate and scaphoid.SOFT TISSUES:Soft tissue swelling surrounds the wrist joint and the dorsum of the hand.IMPRESSIONMildly displaced lunate fracture with patchy sclerosis possiblyrepresenting osteonecrosis.Preliminary Report Dictated by Resident: Emily Reid MD., have reviewed this study and agree with the abovereport.[facility] CenterC-REACTIVE [id number] 16:08:25* Test Item Value Reference Range Interpretation Comme nts CRP (test code = 1810985789) 7.3 mg/dL <0.8 H Lab Interpretation (test cod e = 37394-3) Abnormal [facility] CenterXR WRIST 3+ VW [id number] 13:50:36Mildly displaced fracture of the lunate may be subacute or chronic. 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 Soft tissue swelling. EXAM: XR WRIST 3+ VW LEFT HISTORY: possible lunate fx COMPARISON: [facility] radiograph 06/01/2020 FINDINGS: A mildly displaced fracture of the lunate is seen on the lateralview.Relative sclerosis of the lunate is observed. Soft tissue swelling ispresent about the wrist, more prominent dorsally. [facility], Radiant Results Inft User - 06/02/2020 7:51 AM CSTEXAM:XR WRIST 3+ VWLEFTHISTORY:possible lunate fx COMPARISON:Left hand radiograph 06/01/2020FINDINGS: A mildly displacedfracture of the lunate is seen on the lateral view.Relative sclerosis of the lunate is observed. Soft tissue swelling ispresent about the wrist, more prominent dorsally.IMPRESSIONMildly displaced fracture of the lunate may be subacute or chronic.Suspected osteonecrosis of the lunate.Soft tissue swelling.[facility] CenterBASI METABOLIC PANEL (NA, K, CL, CO2, GLUCOSE, BUN, CREATININE, CA)2020-06-02 10:04:24* Test Item Value Reference Range Interpretation Comme nts NA (test code = 0915177218) 143 mmol/L 135-145 K (test code = 0878002299) 4.6 mmol/L 3.5-5.0 Slight hemolysis CL (test code = 6904027670) 116 mmol/L 98-108 H CO2 TOTAL (test code = 5464416525) 24 mmol/L 23-31 AGAP (test code = 0861698620) 2-16 BUN (test code = 0198954647) 20 mg/dL 7-23 Slight hemolysis GLUCOSE (test code = 9792788929) 111 mg/dL 70-110 H CREATININE (test code = 3093441016) 0.89 mg/dL 0.60-1.25 CALCIUM (test code = 2549053091) 7.7 mg/dL 8.6-10.6 L eGFR Calculation (Non-) (test code = 9911295560) mL/min/1.73m2 eGFR Calculation () (test code = 1244174754) mL/min/1.73m2 CL (test code = CL) Association of [...] or abnormalities in imaging tests). Lab Interpretation (test code = 67186-5) Abnormal [facility] WITH [id number] 09:44:02* Test Item Value Reference Range Interpretation Comme nts WBC (test code = 6690-2) See_Comment [Automated Cytonicsa ge] The system which generated this result transmitted reference range: 4.20 - 10.70 10*3/?L. The reference range was not used to interpret this result as normal/abnormal. RBC (test code = 789-8) See_Comment [Automated Cytonicsa ge] The system which generated this result transmitted reference range: 4.26 - 5.52 10*6/?L. The reference range was not used to interpret this result as normal/abnormal. HGB (test code = 718-7) 13.2 g/dL 12.2-16.4 HCT (test code = 4544-3) 41.0 % 38.4-49.3 MCV (test code = 787-2) 91.3 fL 81.7-95.6 MCH (test code = 785-6) 29.4 pg 26.1-32.7 MCHC (test code = 786-4) 32.2 g/dL 31.2-35.0 RDW-SD (test code = 26298-8) 48.7 fL 38.5-51.6 RDW-CV (test code = 788-0) 14.5 % 12.1-15.4 PLT (test code = 777-3) See_Comment [Automated Cytonicsa ge] The system which generated this result transmitted reference range: 150 - 328 10*3/?L. The reference range was not used to interpret this result as normal/abnormal. MPV (test code = 12838-4) 10.1 fL 9.8-13.0 NRBC/100 WBC (test code = 7247592775) See_Comment [Automated Solartrec ssage] The system which generated this result transmitted reference range: 0.0 - 10.0 /100 WBCs. The reference range was not used to interpret this result as normal/abnormal. NRBC x10^3 (test code = 2205940243) <0.01 See_Comment [Automated me ssage] The system which generated this result transmitted reference range: 10*3/?L. The reference range was not used to interpret this result as normal/abnormal. GRAN MAT (NEUT) % (test code = 770-8) 60.2 % IMM GRAN % (test code = 8771544116) 0.30 % LYMPH % (test code = 736-9) 23.6 % MONO % (test code = 5905-5) 12.7 % EOS % (test code = 713-8) 2.9 % BASO % (test code = 706-2) 0.3 % GRAN MAT x10^3(ANC) (test code = 2425829822) 3.98 10*3/uL 1.99-6.95 IMM GRAN x10^3 (test code = 4553897796) <0.03 0.00-0.06 LYMPH x10^3 (test code = 731-0) 1.56 10*3/uL 1.09-3.23 MONO x10^3 (test code = 742-7) 0.84 10*3/uL 0.36-1.02 EOS x10^3 (test code = 711-2) 0.19 10*3/uL 0.06-0.53 BASO x10^3 (test code = 704-7) <0.03 0.01-0.09 [facility] CenterCOVID-19 (ID NOW RAPID TESTING)2020-06-02 01:49:04* Test Item Value Reference Range Interpretation Comme nts SARS-CoV-2 Rapid ID NOW (test code = 72973-7) Not Detected Not Detected CL (test code = CL) ID NOW COVID-19 As say is an isothermal nucleic acid amplification test intended for the qualitative detection of nucleic acid from SARS-CoV-2 viral RNA in nasopharyngeal ([employer]) specimens. It is used under Emergency Use [...] patient testing if clinically indicated. Lab Interpretation (test code = 49329-3) Normal [facility] CenterSEDIMENTATION [id number] 00:49:12* Test Item Value Reference Range Interpretation Comme nts ESR (test code = 5860627844) See_Comment H [Automated messa ge] The system which generated this result transmitted reference range: 0 - 10 mm/HR. The reference range was not used to interpret this result as normal/abnormal. Lab Interpretation (test code = 77601-2) Abnormal [facility] CenterXR HAND 3+ VW [id number] 00:39:57Mildly displaced fracture of either the dorsal scaphoid or lunate. Thelatter is favored. Diffuse long finger soft tissue swelling without osteomyelitis. Osteoarthrosis. Preliminary Report Dictated byResident: Jarek Whiting I, Benedict Damon MD., have reviewed this study and agree with the abovereport.EXAM: XR HAND 3+ VW LEFT HISTORY: 64 years-old Male with left 3rd digit swelling, infection, evalfor osteomyelitis COMPARISON: None. FINDINGS: Radiographs of the left hand demonstrate a mildly displaced fracture eitherthe dorsal scaphoid [...] COMPARISON: None.FINDINGS: Radiographs of the left hand de monstrate a mildly displaced fracture eitherthe dorsal scaphoid [...] reviewed this study and agree with the abovereport.[facility] (NA, K, CL, CO2, GLUCOSE, BUN, CREATININE, CA)2020-06-02 00:03:22* Test Item Value Reference Range Interpretation Comme nts NA (test code = 3523241404) 143 mmol/L 135-145 K (test code = 1450253230) 4.2 mmol/L 3.5-5.0 CL (test code = 6250614569) 109 mmol/L 98-108 H CO2 TOTAL (test code = 5747097458) 26 mmol/L 23-31 AGAP (test code = 4856645997) 2-16 BUN (test code = 6914242894) 23 mg/dL 7-23 GLUCOSE (test code = 0862056329) 146 mg/dL 70-110 H CREATININE (test code = 3693829151) 0.85 mg/dL 0.60-1.25 CALCIUM (test code = 4361402707) 8.9 mg/dL 8.6-10.6 eGFR Calculation (Non-) (test code = 5126502819) mL/min/1.73m2 eGFR Calculation () (test code = 0639367742) mL/min/1.73m2 CL (test code = CL) Association of [...] or abnormalities in imaging tests). Lab Interpretation (test code = 05628-1) Abnormal [facility] CenterCB WITHOUT [id number] 23:55:20* Test Item Value Reference Range Interpretation Comme nts WBC (test code = 6690-2) See_Comment [Automated amSTATZ] The system which generated this result transmitted reference range: 4.20 - 10.70 10*3/?L. The reference range was not used to interpret this result as normal/abnormal. RBC (test code = 789-8) See_Comment [Automated Cytonicsa YouMail] The system which generated this result transmitted reference range: 4.26 - 5.52 10*6/?L. The reference range was not used to interpret this result as normal/abnormal. HGB (test code = 718-7) 15.0 g/dL 12.2-16.4 HCT (test code = 4544-3) 45.3 % 38.4-49.3 MCH (test code = 785-6) 30.0 pg 26.1-32.7 MCV (test code = 787-2) 90.6 fL 81.7-95.6 MCHC (test code = 786-4) 33.1 g/dL 31.2-35.0 PLT (test code = 777-3) See_Comment [Automated Cytonicsa [employer]] The system which generated this result transmitted reference range: 150 - 328 10*3/?L. The reference range was not used to interpret this result as normal/abnormal. MPV (test code = 58818-2) 10.2 fL 9.8-13.0 RDW-CV (test code = 788-0) 14.4 % 12.1-15.4 RDW-SD (test code = 00801-5) 47.8 fL 38.5-51.6 NRBC x10^3 (test code = 4494454144) <0.01 See_Comment [Automated me ssage] The system which generated this result transmitted reference range: 10*3/?L. The reference range was not used to interpret this result as normal/abnormal. NRBC/100 WBC (test code = 4469933304) See_Comment [Automated me ssage] The system which generated this result transmitted reference range: 0.0 - 10.0 /100 WBCs. The reference range was not used to interpret this result as normal/abnormal. IPF % (test code = 8253842676) [facility]"
[2023-07-18] MEDS ORDERED: NA CHLORIDE 0.9% 250 ML ONE (03:29)
[2023-07-18] MEDS ORDERED: PANTOPRAZOLE 40 MG INJ ONE (03:29)
[2023-07-18] MEDS ORDERED: ONDANSETRON 4 MG/2 ML VIAL ONE (03:29)
[2023-07-18] MEDS ORDERED: NA CHLORIDE 0.9% 1,000 ML ONE (03:30)
[2023-07-18 03:52] LABS: Absolute Basophils 0.1 K/uL (0-0.5); Absolute Eosinophils 0.3 K/uL (0-0.5); Absolute Lymphocytes (CBC) 1.8 K/uL (0.7-4.9); Absolute Monocytes 0.9 K/uL (0.1-1.3); Absolute Neutrophil 5.4 K/uL (1.8-8.0); Basophils % 0.7 % (0-1.3); Eosinophils % 3.8 % (0-4.4); Hematocrit 45.9 % (39.6-49.0); Hemoglobin 15.6 g/dL (13.6-17.9); Lymphocytes % 21.1 % (15.3-44.8); MCHC 33.8 g/dL (32.0-36.0); MCV 91.6 fL (80-100); MPV 8.7 fL (7.6-11.3); Monocytes % 10.6 % (3.3-12.3); Neutrophils % 63.8 % (41.7-73.7); Nucleated Red Blood Cells % 0.2 % (0-0); PT Prothrombin Time 13.8 SECONDS (9.5-12.5); Platelets 231 thou/uL (152-406); Protime INR 1.26; RBC Red Blood Cell Count 5.02 M/uL (4.33-5.43); Red Cell Distribution Width 14.2 % (12.1-15.2)
[2023-07-18 04:14] LABS: Albumin 3.2 g/dL (3.4-5.0); Albumin/Globulin Ratio 0.6 (1.1-1.8); Anion Gap 4.3 mEq/L (5.0-15.0); Bilirubin Total 0.4 mg/dL (0.2-1.0); Globulin 5.4 g/dL (2.3-3.5); Potassium 3.3 mEq/L (3.5-5.1); Protein, Total 8.6 g/dL (6.4-8.2)
--- NOTE | 2023-07-18 06:16 | ER ---
Nurse's Notes [facility] Name: Navid Russell Age: 67 yrs Sex: Male : 1955 Arrival Date: 07/18/2023 Time: 02:58 Bed 17 Private MD: Diagnosis: Encounter for attention to gastrostomy;Encounter for general medical examination, concern for acute upper GI bleed, encounter for evaluation of gastrostomy tube Presentation: 07/17 03:11 Chief complaint: EMS states: toned out to [facility] for noticing blood km8 in G-tube. Coronavirus screen: Client denies travel out of the [place] in the last 14 days. Ebola Screen: No symptoms or risks identified at this time. Initial Sepsis Screen: Does the patient meet any 2 criteria? No. Patient's initial sepsis screen is negative. Does the patient have a suspected source of infection? No. Patient's initial sepsis screen is negative. Risk Assessment: Do you want to hurt yourself or someone else? Patient reports no desire to harm self or others. Onset of symptoms was July 18, 2023. 03:11 Method Of Arrival: EMS: [facility] km8 03:11 Acuity: ANIYAH 3 km8 Triage Assessment: 03:12 General: Appears in no apparent distress. comfortable, Behavior is calm, cooperative. km8 Pain: Complains of pain in abdomen. EENT: No signs and/or symptoms were reported regarding the EENT system. Neuro: Level of Consciousness is awake, alert, obeys commands, Oriented to person, place. Cardiovascular: Patient's skin is warm and dry. Respiratory: Airway is patent Respiratory effort is even, unlabored, Respiratory pattern is regular, symmetrical. GI: PEG tube in place, clamped. Site reddened. : No signs and/or symptoms were reported regarding the genitourinary system. Derm: No signs and/or symptoms reported regarding the dermatologic system. Skin is intact, is healthy with good turgor, Skin is dry, Skin is pink, warm \T\ dry. normal, Skin temperature is warm. Musculoskeletal: No signs and/or symptoms reported regarding the musculoskeletal system. Historical: - Allergies: 03:12 No Known Allergies; km8 - Home Meds: 05:51 amlodipine 5 mg tablet daily [Active]; aspirin 81 mg Oral capsule daily [Active]; km8 atorvastatin 40 mg oral tablet [Active]; clonidine HCl 0.1 mg Oral tablet 3 times per day [Active]; clopidogrel 75 mg Oral tablet daily [Active]; Depakote Sprinkles 125 mg oral Capsule, Delayed Release Sprinkle 4 caps 2 times per day [Active]; diclofenac sodium 1 % topical gel [Active]; ergocalciferol (vit D2) (bulk) miscellaneous powder [Active]; folic acid 1 mg Oral tablet daily [Active]; hydralazine 25 mg Oral tablet 0.5 tab once [Active]; hydroxyzine HCl 25 mg Oral tablet every 8 hours [Active]; Lactobacillus acidophilus Oral capsule 2 times per day [Active]; mirtazapine 15 mg Oral tablet every day at bedtime [Active]; potassium chloride 10 mEq oral capsule, extended release 1 cap daily [Active]; triamcinolone acetonide 0.1 % Topical cream [Active]; - PMHx: 03:12 alcohol abuse; Allergic rhinitis; Cerebral Atherosclerosis; Cerebral infarction; km8 Cocaine Abuse; depressive disorder; Facial fractures; Hyperlipidemia; Hypertension; Lippprotein deficiency; Vitamin B12 Deficiency; - PSHx: 03:12 G tube; km8 - Immunization history:: Adult Immunizations up to date. - Infectious Disease History:: Denies. - Social history:: Smoking status: unknown. - Family history:: not pertinent. - Unable to obtain history due to: baseline dementia. Screenin:16 [facility] ED Fall Risk Assessment (Adult) History of falling in the last 3 months, 8 including since admission No falls in past 3 months (0 pts) Confusion or Disorientation Yes (5 pts) Intoxicated or Sedated No (0 pts) Impaired Gait Yes (1 pt) Mobility Assist Device Used Yes (1 pt) Altered Elimination Yes (1 pt) Score/Fall Risk Level 3 or more points = High Risk Oriented to surroundings, Maintained a safe environment, Educated pt \T\ family on fall prevention, incl call for assistance when getting out of bed, Assessed \T\ reinforced patient's understanding of fall precautions, Provided non-skid footwear, Hourly rounding (assess needs \T\ fall precautionary measures) done, Implemented a Fall Risk Plan of Care, Remained w/in arm's length of patient and in sight while toileting, Offered frequent toileting (1:1 observation), Remained with patient while ambulating. Abuse screen: Denies threats or abuse. Denies injuries from another. Nutritional screening: No deficits noted. Tuberculosis screening: No symptoms or risk factors identified. Assessment: 03:16 Reassessment: see triage assessment. km8 04:15 Reassessment: Patient appears in no apparent distress at this time. No changes from km8 previously documented assessment. Patient and/or family updated on plan of care and expected duration. Pain level reassessed. Patient is alert, oriented x 3, equal unlabored respirations, skin warm/dry/pink. 05:04 Reassessment: Patient appears in no apparent distress at this time. No changes from km8 previously documented assessment. Patient and/or family updated on plan of care and expected duration. Pain level reassessed. 06:11 Reassessment: Patient appears in no apparent distress at this time. No changes from km8 previously documented assessment. Patient and/or family updated on plan of care and expected duration. Pain level reassessed. 06:21 Reassessment: notified [facility] that pt is ready for discharge and km8 report, was told report was already given from Dr. Aleman; They stated they are going to start calling for pt transportation back to their facility . 06:37 Reassessment: per [place], transportation is [facility] and will be here around 9:45 am. km8 07:00 General: Appears in no apparent distress. comfortable, Behavior is calm, cooperative. rs5 Pain: Denies pain. Neuro: Level of Consciousness is awake, alert, Oriented to person, place. Cardiovascular: Patient's skin is warm and dry. Rhythm is regular. Respiratory: Airway is patent Respiratory effort is even, unlabored, Respiratory pattern is regular, symmetrical. GI: Abdomen is round non-distended, Abd is soft and non tender X 4 quads. GI: G tube noted to pt's abdomen, no redness or evidence of skin breakdown noted surrounding Gtube. No blood noted in G tube. 07:00 : No signs and/or symptoms were reported regarding the genitourinary system. EENT: No rs5 signs and/or symptoms were reported regarding the EENT system. Derm: Skin is intact, Skin is pink, warm \T\ dry. 07:05 Reassessment: Awaiting EMS for transport back to nursing facility . rs5 08:01 Reassessment: No changes from previously documented assessment. rs5 08:55 Reassessment: Report given to EMS at bedside for transport. rs5 Vital Signs: 03:11 BP 125 / 97; Pulse 117; Resp 16; Pulse Ox 98% on R/A; Weight 68.04 kg; Height 6 ft. 0 km8 in. ; 03:30 BP 127 / 95; Pulse 102; Resp 18; Pulse Ox 98% on R/A; km8 04:15 BP 114 / 96; Pulse 107; Resp 16; Pulse Ox 93% on R/A; km8 05:00 BP 135 / 96; Pulse 102; Resp 20; Pulse Ox 93% on R/A; km8 05:30 BP 129 / 99; Pulse 88; Resp 16; Pulse Ox 97% on R/A; km8 06:00 BP 126 / 85; Pulse 95; Resp 18; Pulse Ox 94% on R/A; km8 07:58 BP 134 / 92; Pulse 80; Resp 18; Pulse Ox 99% on R/A; rs5 09:02 BP 132 / 86; Pulse 77; Resp 18; Pulse Ox 99% on R/A; rs5 03:11 Body Mass Index 20.34 (68.04 kg, 182.88 cm) km8 Genesis Coma Score: 03:16 Eye Response: spontaneous(4). Motor Response: obeys commands(6). Verbal Response: km8 confused(4). Total: 14. 06:09 Eye Response: spontaneous(4). Motor Response: obeys commands(6). Verbal Response: sp4 confused(4). Total: 14. ED Course: 03:04 Patient arrived in ED. jj6 03:11 Korin Smalls, RN is Primary Nurse. km8 03:12 Triage completed. km8 03:12 Arm band placed on right wrist. km8 03:15 Markel Aleman MD is Attending Physician. sp4 03:16 Patient has correct armband on for positive identification. Placed in gown. Bed in low km8 position. Call light in reach. Side rails up X2. Pulse ox on. NIBP on. 03:40 Initial lab(s) drawn, by ED staff, sent to lab. Inserted saline lock: 20 gauge in left km8 antecubital area, using aseptic technique. Blood collected. 03:43 CBC with Diff Sent. km8 03:43 CMP Sent. km8 03:43 Lipase Sent. km8 03:43 Type And Screen Sent. km8 03:43 PT-INR Sent. km8 04:54 CT Abd/Pelvis - IV Contrast Only In Process Unspecified. EDMS 06:11 Cleaned of incontinence. Linen changed. km8 06:11 No provider procedures requiring assistance completed. km8 06:24 Provided Education on: d/c instructions given to NH by Dr. Aleman. km8 09:00 IV discontinued, intact, bleeding controlled, No redness/swelling at site. Pressure rs5 dressing applied. Administered Medications: 03:43 Drug: Ondansetron IVP 4 mg IVP once; over 2 minutes Route: IVP; Site: left antecubital; [facility] 05:02 Follow up: Response: No adverse reaction; Nausea is decreased [facility] 03:43 Drug: Pantoprazole IV 8 mg/hr IV at 25 ml/hr continuous; (Standard dilution is 80 mg in km 250 mL NS) Route: IV; Rate: 25 ml/hr; Site: left antecubital; 06:25 Follow up: IV Status: Order to discontinue infusion; IV Intake: 75ml [facility] 03:43 Drug: Pantoprazole IVP 80 mg IVP once Route: IVP; Site: left antecubital; 8 05:02 Follow up: Response: No adverse reaction [facility] 04:45 Drug: NS 0.9% IV 1000 ml IV at 125 ml/hr continuous Route: IV; Rate: 125 ml/hr; Site: [facility] right antecubital; 06:24 Follow up: IV Status: Order to discontinue infusion; IV Intake: 250ml [facility] Medication: 06:10 VIS not applicable for this client. km8 Intake: 06:24 IV: 250ml; Total: 250ml. km8 06:25 IV: 75ml; Total: 325ml. 8 Outcome: 06:16 Discharge ordered by . sp4 09:10 Discharged to shelter. Transfer form completed. rs5 09:10 Condition: stable 09:10 Discharge instructions given to patient, family, EMS, Instructed on discharge instructions, follow up and referral plans. Demonstrated understanding of instructions, follow-up care, 09:12 Patient left the ED. aa5 Signatures: Dispatcher [employer] EDMS Adriana Kapoor RN RN aa5 Kesha Millsj6 Da Crain RN RN rs5 Markel Aleman MD MD sp4 Korin Smalls RN RN km8 Corrections: (The following items were deleted from the chart) 06:11 03:12 Neuro: Level of Consciousness is awake, alert, obeys commands, Oriented to km8 person, km8
--- NOTE | 2023-07-18 06:16 | EDPHYS ---
Physician Documentation [facility] Name: Navid Russell Age: 67 yrs Sex: Male : 1955 Arrival Date: 07/18/2023 Time: 02:58 Bed 17 Private MD: ED Physician Markel Aleman HPI: 07/17 05:51 This 67 yrs old Male presents to ER via EMS with complaints of G TUBE PROBLEM.sp4 05:51 67-year-old male who presents from halfway with complaint of blood in gastrostomy sp4 tube. Patient himself does not have any complaints. Patient has past medical history of alcohol abuse, cerebral atherosclerosis, cocaine abuse, depression, dysarthria, dysphagia, excoriation, skull fracture, facial bone fracture, hypokalemia, major depressive disorder, mixed hyperlipidemia, CVA, malaise, TIA, protein calorie malnutrition, vitamin deficiency, allergic rhinitis, Mcguire's esophagus, constipation, dry eye disorder, dysphagia after CVA, essential hypertension, orbital floor fracture, gastrostomy tube, lipoprotein deficiency, generalized weakness, periodontal disease, tinea cruris, lack of coordination, vitamin D deficiency, primary care physician is Dr. Simeon Georges. Patient is full code. . 06:02 Medications include amlodipine, aspirin, atorvastatin, clonidine, Plavix, Depakote, sp4 diclofenac, ergocalciferol, hydrochlorothiazide, hydroxyzine, lactobacillus, Lotrisone, mirtazapine, potassium, triamcinolone. Historical: - Allergies: 03:12 No Known Allergies; km8 - Home Meds: 05:51 amlodipine 5 mg tablet daily [Active]; aspirin 81 mg Oral capsule daily [Active]; km8 atorvastatin 40 mg oral tablet [Active]; clonidine HCl 0.1 mg Oral tablet 3 times per day [Active]; clopidogrel 75 mg Oral tablet daily [Active]; Depakote Sprinkles 125 mg oral Capsule, Delayed Release Sprinkle 4 caps 2 times per day [Active]; diclofenac sodium 1 % topical gel [Active]; ergocalciferol (vit D2) (bulk) miscellaneous powder [Active]; folic acid 1 mg Oral tablet daily [Active]; hydralazine 25 mg Oral tablet 0.5 tab once [Active]; hydroxyzine HCl 25 mg Oral tablet every 8 hours [Active]; Lactobacillus acidophilus Oral capsule 2 times per day [Active]; mirtazapine 15 mg Oral tablet every day at bedtime [Active]; potassium chloride 10 mEq oral capsule, extended release 1 cap daily [Active]; triamcinolone acetonide 0.1 % Topical cream [Active]; - PMHx: 03:12 alcohol abuse; Allergic rhinitis; Cerebral Atherosclerosis; Cerebral infarction; km8 Cocaine Abuse; depressive disorder; Facial fractures; Hyperlipidemia; Hypertension; Lippprotein deficiency; Vitamin B12 Deficiency; - PSHx: 03:12 G tube; km8 - Immunization history:: Adult Immunizations up to date. - Infectious Disease History:: Denies. - Social history:: Smoking status: unknown. - Family history:: not pertinent. - Unable to obtain history due to: baseline dementia. ROS: 06:02 Constitutional: Negative for any complaints. Reported blood in the gastrostomy tube sp4 06:02 All other systems are negative, Exam: 06:02 Constitutional: Patient who is awake, alert, and in no acute distress. Elderly sp4 debilitated male , physical deconditioning, left-sided hemiparesis, gastrostomy tube dependent, incontinent of bowel and bladder. 06:09 Head/Face: Normocephalic, atraumatic. Eyes: Pupils equal round and reactive to light, sp4 extra-ocular motions intact. Lids and lashes normal. Conjunctiva and sclera are not injected. Cornea within normal limits. Periorbital areas with no swelling, redness, or edema. ENT: Nares patent. No nasal discharge, no septal abnormalities noted. Tympanic membranes are normal and external auditory canals are clear. Oropharynx with no redness, swelling, or masses, exudates, or evidence of obstruction, uvula midline. Mucous membranes moist. Poor dentition Neck: Trachea midline, no thyromegaly or masses palpated, and no cervical lymphadenopathy. Supple, full range of motion without nuchal rigidity, or vertebral point tenderness. Chest/axilla: Normal chest wall appearance and motion. Nontender with no deformity. No lesions are appreciated. Cardiovascular: Regular rate and rhythm with a normal S1 and S2. No gallops, murmurs, or rubs. Normal PMI, no JVD. No pulse deficits. Respiratory: Lungs have equal breath sounds bilaterally, clear to auscultation and percussion. No rales, rhonchi or wheezes noted. No increased work of breathing, no retractions or nasal flaring. Abdomen/GI: Soft, with normal bowel sounds. No distension or tympany. No guarding or rebound. No evidence of tenderness throughout. Gastrostomy tube present left upper quadrant. No active bleeding, Back: No spinal tenderness. No costovertebral tenderness. Male : Normal genitalia with no discharge or lesions. Patient incontinent of bladder, rectal exam reveals no blood or melena Skin: Warm, dry with normal turgor. Normal color with no rashes, no lesions, and no evidence of cellulitis. MS/ Extremity: Pulses equal, no cyanosis. Neurovascular intact. Patient has left-sided hemiparesis with associated contractures Neuro: Awake and alert, GCS 15, oriented to person, There is longstanding left-sided hemiparesis. Oriented to person only mostly nonverbal. Vital Signs: 03:11 BP 125 / 97; Pulse 117; Resp 16; Pulse Ox 98% on R/A; Weight 68.04 kg; Height 6 ft. 0 km8 in. ; 03:30 BP 127 / 95; Pulse 102; Resp 18; Pulse Ox 98% on R/A; km8 04:15 BP 114 / 96; Pulse 107; Resp 16; Pulse Ox 93% on R/A; km8 05:00 BP 135 / 96; Pulse 102; Resp 20; Pulse Ox 93% on R/A; km8 05:30 BP 129 / 99; Pulse 88; Resp 16; Pulse Ox 97% on R/A; km8 06:00 BP 126 / 85; Pulse 95; Resp 18; Pulse Ox 94% on R/A; km8 07:58 BP 134 / 92; Pulse 80; Resp 18; Pulse Ox 99% on R/A; rs5 09:02 BP 132 / 86; Pulse 77; Resp 18; Pulse Ox 99% on R/A; rs5 03:11 Body Mass Index 20.34 (68.04 kg, 182.88 cm) km8 Genesis Coma Score: 03:16 Eye Response: spontaneous(4). Motor Response: obeys commands(6). Verbal Response: km8 confused(4). Total: 14. 06:09 Eye Response: spontaneous(4). Motor Response: obeys commands(6). Verbal Response: sp4 confused(4). Total: 14. MDM: 03:16 Patient medically screened. sp4 06:09 Differential Diagnosis altered mental status, sepsis, flu, Gastric bleeding . Data sp4 reviewed: vital signs, nurses notes, EMS record, halfway records, old medical records, lab test result(s), radiologic studies, CT scan. Consideration of Admission/Observation Escalation of care including admission/observation considered. ED course: Patient has NO signs of active GI bleeding. Stable for discharge back to [facility]. . 06:17 ED course: EXAM: CTAbdomen and Pelvis With Intravenous Contrast CLINICAL HISTORY: The sp4 patient is 67 years old and is Male; ABD PAIN, BLOOD IN G TUBE TECHNIQUE: Axial computed tomography images of the abdomen and pelvis with intravenous contrast. Sagittal and coronal reformatted images were created and reviewed. This CT exam was performed using one or more of the following dose reduction techniques: automated exposure control, adjustment of the mA and/or kV according to patient size, and/or use of iterative reconstruction technique. COMPARISON: No relevant prior studies available. FINDINGS: Lung bases: Unremarkable. No mass. No consolidation. Mediastinum: 4.7 cm hiatal hernia. ABDOMEN: Liver: Unremarkable. No mass. Gallbladder and bile ducts: Unremarkable. No calcified stones. No ductal dilation. Pancreas: Unremarkable. No mass. No ductal dilation. Spleen: Unremarkable. No splenomegaly. Adrenals: Unremarkable. No mass. Kidneys and ureters: Simple cyst in the left kidney. No follow-up imaging is recommended. No hydronephrosis. Stomach and bowel: Rectum is distended with stool. Scattered colonic diverticula. No mucosal thickening. PELVIS: Appendix: No findings to suggest acute appendicitis. Bladder: Unremarkable. Reproductive: Unremarkable as visualized. ABDOMEN and PELVIS: Intraperitoneal space: Unremarkable. No free air. No significant fluid collection. Bones/joints: No acute fracture. No dislocation. Soft tissues: Unremarkable. Vasculature: Scattered atherosclerotic vascular calcifications. No abdominal aortic aneurysm. Lymph nodes: Unremarkable. No enlarged lymph nodes. Tubes, lines and devices: Gastrostomy tube in place. IMPRESSION: No acute finding in the abdomen/pelvis.. ED course: CT has revealed gastrostomy tube is well-positioned in the gastric lumen. Hemoglobin is normal 14.6. On evaluation patient has no sign of acute bleeding from gastrostomy tube. Stool normal color no blood or melena. Patient stable for discharge back to the halfway.. 07/17 03:15 Order name: CBC with Diff; Complete Time: 05:50 sp4 07/17 03:15 Order name: CMP; Complete Time: 05:50 sp4 07/17 03:15 Order name: Lipase; Complete Time: 05:50 sp4 07/17 03:16 Order name: PT-INR; Complete Time: 05:50 sp4 07/17 03:16 Order name: Type And Screen; Complete Time: 05:50 sp4 07/17 05:57 Order name: ABO/RH no charge; Complete Time: 06:08 EDMS 07/17 03:15 Order name: CT Abd/Pelvis - IV Contrast Only sp4 07/17 03:15 Order name: IV Saline Lock; Complete Time: 03:43 sp4 07/17 03:15 Order name: Labs collected and sent; Complete Time: 03:43 sp4 Administered Medications: 03:43 Drug: Ondansetron IVP 4 mg IVP once; over 2 minutes Route: IVP; Site: left antecubital; [facility] 05:02 Follow up: Response: No adverse reaction; Nausea is decreased [facility] 03:43 Drug: Pantoprazole IV 8 mg/hr IV at 25 ml/hr continuous; (Standard dilution is 80 mg in [facility] 250 mL NS) Route: IV; Rate: 25 ml/hr; Site: left antecubital; 06:25 Follow up: IV Status: Order to discontinue infusion; IV Intake: 75ml [facility] 03:43 Drug: Pantoprazole IVP 80 mg IVP once Route: IVP; Site: left antecubital; [facility] 05:02 Follow up: Response: No adverse reaction [facility] 04:45 Drug: NS 0.9% IV 1000 ml IV at 125 ml/hr continuous Route: IV; Rate: 125 ml/hr; Site: [facility] right antecubital; 06:24 Follow up: IV Status: Order to discontinue infusion; IV Intake: 250ml [facility] Disposition Summary: 07/18/23 06:16 Discharge Ordered Problem: new sp4 Symptoms: have improved sp4 Condition: Stable sp4 Diagnosis - Encounter for attention to gastrostomy sp4 - Encounter for general medical examination, concern for acute upper GI bleed, sp4 encounter for evaluation of gastrostomy tube Followup: sp4 - With: Private Physician - When: 7 - 10 days - Reason: Recheck today's complaints Discharge Instructions: - Discharge Summary Sheet sp4 - How to Clean a Tracheostomy Tube, Adult sp4 Forms: - Patient Portal Instructions sp4 Signatures: Dispatcher Markel Vasques MD MD sp4 Korin Smalls RN RN km8 Corrections: (The following items were deleted from the chart) 03:15 03:15 Abdomen Pelvis W Con+CT.RAD.BRZ ordered. [facility] 03:16 03:16 PROTIME (+INR)+COAG.LAB.BRZ ordered. [facility] 03:16 03:16 TYPE AND SCREEN+BB.LAB.BRZ ordered. [facility] 06:04 05:51 EXAM: CTAbdomen and Pelvis With Intravenous Contrast CLINICAL HISTORY: The sp4 patient is 67 years old and is Male; ABD PAIN, BLOOD IN G TUBE TECHNIQUE: Axial computed tomography images of the abdomen and pelvis with intravenous contrast. Sagittal and coronal reformatted images were created and reviewed. This CT exam was performed using one or more of the following dose reduction techniques: automated exposure control, adjustment of the mA and/or kV according to patient size, and/or use of iterative reconstruction technique. COMPARISON: No relevant prior studies available. FINDINGS: Lung bases: Unremarkable. No mass. No consolidation. Mediastinum: 4.7 cm hiatal hernia. ABDOMEN: Liver: Unremarkable. No mass. Gallbladder and bile ducts: Unremarkable. No calcified stones. No ductal dilation. Pancreas: Unremarkable. No mass. No ductal dilation. Spleen: Unremarkable. No splenomegaly. Adrenals: Unremarkable. No mass. Kidneys and ureters: Simple cyst in the left kidney. No follow-up imaging is recommended. No hydronephrosis. Stomach and bowel: Rectum is distended with stool. Scattered colonic diverticula. No mucosal thickening. PELVIS: Appendix: No findings to suggest acute appendicitis. Bladder: Unremarkable. Reproductive: Unremarkable as visualized. ABDOMEN and PELVIS: Intraperitoneal space: Unremarkable. No free air. No significant fluid collection. Bones/joints: No acute fracture. No dislocation. Soft tissues: Unremarkable. Vasculature: Scattered atherosclerotic vascular calcifications. No abdominal aortic aneurysm. Lymph nodes: Unremarkable. No enlarged lymph nodes. Tubes, lines and devices: Gastrostomy tube in place. IMPRESSION: No acute finding in the abdomen/pelvis.. sp4
[2023-07-18 09:57] VITALS: BP 134/92; O2SAT 99
--- NOTE | 2023-07-18 10:03 | RAD REPORT ---
EXAM DESCRIPTION: CT - Abdomen Pelvis W Contrast - 07/18/2023 6:05 am CLINICAL HISTORY: The patient is 67 years old and is Male; ABD PAIN, BLOOD IN G TUBE TECHNIQUE: Axial computed tomography images of the abdomen and pelvis with intravenous contrast. S agittal and coronal reformatted images were created and reviewed. This CT exam was performed using one or more of the following dose reduction techniques: automated exposure control, adjustment of t he mA and/or kV according to patient size, and/or use of iterative reconstruction technique. COMPARISON: No relevant prior studies available. FINDINGS: Lung bases: Unremarkable. No mass. No consolidation. Mediastinum: 4.7 cm hiatal hernia. ABDOMEN: Liver: Unremarkable. No mass. Gallbladder and bile ducts: Unremarkable. No calcified stones. No ductal dilation. Pancreas: Unremarkable. No mass. No ductal dilation. Spleen: Unremarkable. No splenomegaly. Adrenals: Unremarkable. No mass. Kidneys and ureters: Simple cyst in the left kidney. No follow-up imaging is recommended. No hydronephrosis. Stomach and bowel: Rectum is distended with stool. Scattered colonic diverticula. No mucosal thickening. PELVIS: Appendix: No findings to suggest acute appendicitis. Bladder: Unremarkable. Reproductive: Unremarkable as visualized. ABDOMEN and PELVIS: Intraperitoneal space: Unremarkable. No free air. No significant fluid collection. Bones/joints: No acute fracture. No dislocation. Soft tissues: Unremarkable. Vasculature: Scattered atherosclerotic vascular calcifications. No abdominal aortic aneurysm. Lymph nodes: Unremarkable. No enlarged lymph nodes. Tubes, lines and devices: Gastrostomy tube in place. IMPRESSION: No acute finding in the abdomen/pelvis. Electronically signed by: Jose Flores MD 07/18/2023 05:36 AM CDT Due to temporary technical issues with the PACS/Fluency reporting system, reports are being signed by the in house radiologist without review as a courtesy to ensure prompt reporting. The interpreting r adiologist is fully responsible for the content of the report.
== END 2023-07-18 09:12 | disposition home or self-care (01) ==
LOC: ER 02:58
DX: Z43.1 Encounter for attention to gastrostomy (principal)
CPT/HCPCS: 96365; 85025; 36415; 86900; 86850; 85610; 86901; 83690; 80053; 74177; 96375; 99285; 96366; Q9967; C9113; J2405; J7050; J7030

== ENCOUNTER 2024-01-01 07:42 | Emergency (ER) | payer MEDICAID, SELFPAY ==
--- OUTSIDE RECORDS SUMMARY | 2024-01-01 07:49 | XMS REPORT | Continuity of Care Document ---
Author Name Unknown Address [address] [facility] [address] [place] [address] [facility] Address [address] [facility] [address] [place] [address] Care Team Providers Care Bar Roller Name Role Phone [facility] Primary C are Physician Unavailable [email or web address] Attending Clinician Unavailable Kelsey Akbar Attending Clinician Unavailable Lisa Marie LVN Attending Clinician [phone] TOMMIE GONZALEZ Attending Clinician Unavailable Abdoul Clayton DO Attending Clinician [phone] Farhan CARRENO, Rhonda S Attending Clinician +- [phone] Randy CARRENO, Maylin Duarte Attending Clinician [phone]- [phone] Renny Osorio MD Attending Clinician [phone] Daniela Antunez MD Attending Clinician [phone] Gladis Real MD Attending Clinician [phone] Tommie Gonzalez MD Attending Clinician [phone] Nan Amaro MD Attending Clinician [phone] Hardeep Campoverde DDS Attending Clinician [phone] ALDAIR ABEL Attending Clinician Unavailable Aldair Abel MD Attending Clinician [phone] Lamin Motta Attending Clinician [phone] Yessi PATIÑO MD, John Attending Clinician [phone] Shady DE PAZ, Karly Antunez Attending Clinician Unavailab Merrill [facility] Attending Clinician Unavailabl e Unknown, Attending Attending Clinician Unavailab le UNKNOWN, ATTENDING Attending Clinician Unavailab yessenia [email or web address]_J Admitting Clinician Unavailable NAN AMARO Admitting Clinician Unavailable Sondra CARRENO, Nan Admitting Clinician [phone] LU HDEZ Admitting Clinician Unavailable Yessi PATIÑO MD, John Admitting Clinician [phone] Payers Payer Name Policy Type Policy Number Effective Date Expirati on Date Source [facility] [place]) [id number] [place] [id number] [facility] - [place] [id number] 2022 00:00:00 MEDICAID - [id number] - [place]ENDING [id number] MED[place]ID [place] [id number] 2022 00:00:00 Problems Condition Name Condition Details Condition Category Status Onset Date Resolution Date Last Treatment Date Treating Clinician Comments Source Hemiparesi s as late effect of cerebrovas cular accident Hemiparesi s as Late Effect of Cerebrovas cular Accident Problem Active 9-10 00:00: 00 [facility] Double incontinen ce Double Incontinen ce Problem Active 6-11 00:00: 00 [facility] Decline in functional status Decline in Functional Status Problem Active 5-08 00:00: 00 [facility] Irritant contact dermatitis Irritant Contact Dermatitis Problem Active 3-21 00:00: 00 [facility] 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 Problem Active 3-21 00:00: 00 [facility] Immunodefi ciency disorder Immunodefi ciency Disorder Problem Active 3-21 00:00: 00 [facility] Hemiparesi s as late effect of cerebrovas cular accident Hemiparesi s as Late Effect of Cerebrovas cular Accident Problem Active 3-21 00:00: 00 [facility] Seborrheic dermatitis Seborrheic Dermatitis Problem Active 2-12 00:00: 00 [facility] Severe protein-ca belia [...] Functional Gait Abnormalit y Problem Active 2022-03 2 00:00: 00 [facility] Carotid artery stenosis Carotid Artery Stenosis Problem Active 820 00:00: 00 [facility] Atopic dermatitis Atopic Dermatitis Problem Active 7 00:00: 00 [facility] Hiatal hernia Hiatal Hernia Problem Active 6 00:00: 00 [facility] 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 Dysarthria Due to and Following Cerebrovas cular Accident Problem Active 6 00:00: 00 [facility] Mcguire's esophagus Mcguire's Esophagus Problem Active 6 00:00: 00 [facility] Urinary incontinen ce Urinary Incontinen ce Problem Active 08-17 00:00: 00 [facility] Dementia with behavioral disturbanc e Dementia with Behavioral Disturbanc e Problem Active 5- 00:00: 00 [facility] Lives in detention Lives in [facility] Problem Active 3- 00:00: 00 [facility] Need for personal care assistance Need for Personal Care Assistance Problem Active 3-06 00:00: 00 [facility] At high risk for fall At High Risk for Fall Problem Active 3-06 00:00: 00 [facility] Hyperlipid emia Hyperlipid emia Problem Active 3- 00:00: 00 [facility] Secondary immune deficiency disorder Secondary Immune Deficiency Disorder Problem Active 3-03 00:00: 00 [facility] Hypercoagu lability state Hypercoagu lability State Problem Active 3- 00:00: 00 [facility] Alcohol dependence Alcohol Dependence Problem Active 3- 00:00: 00 [facility] Cocaine dependence in remission Cocaine Dependence in Remission Problem Active 3- 00:00: 00 [facility] Hypertensi ve heart disease Hypertensi ve Heart Disease Problem Active 3- 00:00: 00 [facility] Cerebrovas cular disease Cerebrovas cular Disease Problem Active 3- 00:00: 00 [facility] Dysphagia as a late effect of cerebrovas cular accident Dysphagia as a Late Effect of Cerebrovas cular Accident Problem Active 3- 00:00: 00 [facility] Peripheral vascular disease Peripheral Vascular Disease Problem Active 3- 00:00: 00 [facility] Recurrent falls Recurrent Falls Problem Active 3- 00:00: 00 [facility] Toxic metabolic encephalop athy Toxic metabolic encephalop athy Disease Active 05-18 00:00: 00 [facility] MDD (major depressive disorder), single episode, moderate MDD (major depressive disorder), single episode, moderate Disease Active 05-18 00:00: 00 [facility] Acute cerebrovas cular accident (CVA) due to ischemia Acute cerebrovas cular accident (CVA) due to ischemia Disease Active 05-18 00:00: 00 [facility] Morbid obesity with body mass index of 50 or higher Morbid obesity with body mass index of 50 or higher Disease Active 2 00:00: 00 [facility] Acute weakness Acute weakness Disease Active 04-21 00:00: 00 [facility] Closed fracture of left zygomatico maxillary complex, initial encounter Closed fracture of left zygomatico maxillary complex, initial encounter Disease Active 04-21 00:00: 00 Overview: Formattin g of this note might be different from the original. Added automatic ally from request for surgery [id number] [facility] Abscess of left hand Abscess of left hand Disease Active 06-01 00:00: 00 [facility] Flexor tenosynovi tis of finger Flexor tenosynovi tis of finger Disease Active 06-01 00:00: 00 Overview: Formattin g of this note might be different from the original. Added automatic ally from request for surgery [id number] [facility] Open wound Open wound Disease Active 08-06 00:00: 00 [facility] Finger pain, right Finger pain, right Disease Active 08-06 00:00: 00 [facility] Finger infection Finger infection Disease Active 08-06 00:00: 00 [facility] Numbness and tingling Numbness and tingling Disease Active 08-06 00:00: 00 [facility] Pain Pain Disease Active 07-27 00:00: 00 [facility] Left hemiparesi s Left hemiparesi s Disease Active 04-01 00:00: 00 [facility] Allergies, Adverse Reactions, Alerts Allergy Name Allergy Type Status Severity Reaction(s) Onset Date Inactive Date Treating Clinician Comments Source NO KNOWN ALLERGIE S Drug Class Active [facility] Social History Social Habit Start Date Stop Date Quantity Comments Source History SDOH Social Connections Get Together [facility] History SDOH Social Connections [facility] History SDOH Social Connections Membership [facility] History SDOH Social Connections Meetings [facility] Alcohol intake 2022-05-18 00:00:00 2022-05-18 00:00:00 Current non-drinker of alcohol (finding) [facility] History SDOH Financial 2022-04-29 00:00:00 2022-04-29 00:00:00 2 [facility] History SDOH Food Worry 2022-04-29 00:00:00 2022-04-29 00:00:00 1 [facility] History SDOH Food Scarcity 2022-04-29 00:00:00 2022-04-29 00:00:00 1 [facility] History SDOH Transport Non-Med 2022-04-29 00:00:00 2022-04-29 00:00:00 2 [facility] History SDOH Alcohol Frequency 2022-04-22 00:00:00 2022-04-22 00:00:00 2 [facility] History SDOH Alcohol Std Drinks 2022-04-22 00:00:00 2022-04-22 00:00:00 1 [facility] History SDOH Alcohol Binge 2022-04-22 00:00:00 2022-04-22 00:00:00 1 [facility] History SDOH Social Connections Phone 2022-04-22 00:00:00 2022-04-22 00:00:00 98 [facility] History SDOH Social Connections Living 2022-04-22 00:00:00 2022-04-22 00:00:00 6 [facility] History SDOH Physical Activity DPW 2022-04-22 00:00:00 2022-04-22 00:00:00 0 [facility] History SDOH Physical Activity MPS 2022-04-22 00:00:00 2022-04-22 00:00:00 0 [facility] History SDOH Transport Med 2022-04-22 00:00:00 2022-04-22 00:00:00 2 [facility] Exposure to SARS-CoV-2 (event) 2022-04-11 00:00:00 2022-04-21 12:52:00 Not sure [facility] Cigarettes smoked current (pack per day) - Reported 2022-04-21 00:00:00 2022-04-21 00:00:00 [facility] Cigarette pack-years 2022-04-21 00:00:00 2022-04-21 00:00:00 [facility] Tobacco use and exposure 2022-04-21 00:00:00 2022-04-21 00:00:00 Former smokeless tobacco user [facility] Alcohol Comment 2014-07-27 00:00:00 2014-07-27 00:00:00 recovering alcoholic, sober 3 years [facility] History of tobacco use 2014-07-26 00:00:00 Cigarette Smoker [facility] Sex Assigned At 1955 00:00:00 1955 00:00:00 [facility] Smoking Status Start Date Stop Date Source Former Smoker [facility] Medications Ordered Medication Name Filled Medication Name Start Date Stop Date Current Medication? Ordering Clinician Indication Dosage Frequency Signature (SIG) Comments Components Source chlorhexidi ne (PERIDEX) 0.12 % mouthwash 15 mL 05-20 02:00: 00 Yes 15mL 15 mL, Oral (Swish And Spit Out), BID, First dose on Tue05/19/22 at 2000, Until Discontinu ed, Routine [facility] aspirin 81 mg chewable tablet 05-20 00:00: 00 Yes 81mg Take 1 tablet by mouth in the morning. [facility] DULoxetine 40 mg CpDR 05-20 00:00: 00 Yes 40mg Take 40 mg by mouth in the morning. [facility] thiamine 100 mg tablet 05-20 00:00: 00 Yes 100mg Take 1 tablet by mouth in the morning. [facility] aspirin chewable tablet 81 mg 05-19 15:00: 00 Yes 81mg 81 mg, Oral, DAILY, First dose on Tue05/19/22 at 0900, Until Discontinu ed, Routine [facility] thiamine (VITAMIN B1) tablet 100 mg 05-19 15:00: 00 Yes 100mg 100 mg, Oral, DAILY, First dose on Tue05/19/22 at 0900, Until Discontinu ed, Routine [facility] atorvastati n 80 mg tablet 05-19 00:00: 00 Yes 80mg Take 1 tablet by mouth at bedtime. [facility] lisinopriL 20 mg tablet 05-19 00:00: 00 Yes 20mg Take 1 tablet by mouth in the morning. [facility] amLODIPine 5 mg tablet 05-19 00:00: 00 Yes 5mg Take 1 tablet by mouth in the morning. [facility] multivit-ir on-FA-calci um-mins 9 mg iron-400 mcg tablet 05-19 00:00: 00 Yes 1{tbl} Take 1 tablet by mouth in the morning. [facility] ergocalcife rol, vitamin d2, 1,250 mcg (50,000 unit) capsule 05-19 00:00: 00 Yes [id number] Take 1 capsule by mouth weekly. [facility] clotrimazol e 1 % topical cream 05-19 00:00: 00 Yes Apply to area(s) 2 (two) times daily. [facility] artificial tears,hypro mellose, 0.5 % ophthalmic drops 05-19 00:00: 00 Yes 1[drp] Place 1 Drop in left eye 4 (four) times daily as needed for Dry eyes. [facility] nicotine 7 mg/24 hr patch 05-19 00:00: 00 Yes 1{patch } Apply 1 Patch to area(s) every 24 (twenty-fo ur) hours. [facility] chlorhexidi ne 0.12 % mouthwash 05-19 00:00: 00 05-27 05:59 :00 No 15mL Swish and spit out 15 mL in the morning and 15 mL in the evening. [facility] amoxicillin -clavulanat e (AUGMENTIN) 875-125 mg per tablet 05-19 00:00: 00 05-27 05:59 :00 No 1{tbl} Take 1 tablet by mouth in the morning and 1 tablet in the evening. [facility] pseudoephed rine 30 mg tablet 05-19 00:00: 00 05-24 05:59 :00 No 60mg Take 2 tablets by mouth every 6 (six) hours. [facility] oxymetazoli ne 0.05 % nasal spray 05-19 00:00: 00 05-22 05:59 :00 No 1{spray } Use 1 Mccrory in each nostril in the morning and 1 Mccrory at noon and 1 Mccrory in the evening. [facility] oxymetazoli ne (OXYMETAZOL INE HCL) 0.05 % nasal spray 1 Mccrory 05-18 14:00: 00 05-21 13:59 :00 No 1{spray } 1 Mccrory, Nasal, TID, 9 doses, First dose (after last modificati on) on Tue05/18/22 at 0800, Last dose on Tue05/20/22 at 2000, Routine [facility] pseudoephed rine (SUDAFED) tablet 60 mg 05-18 13:15: 00 05-23 11:59 :00 No 60mg 60 mg, Oral, Q6H, 20 doses, First dose on Tue05/18/22 at 0715, Last dose on Tue05/23/22 at 0000, Routine [facility] pseudoephed rine (SUDAFED) tablet 60 mg 05-18 13:15: 00 05-23 11:59 :00 No 60mg 60 mg, Oral, Q6H, 20 doses, First dose on Tue05/18/22 at 0715, Last dose on Tue05/23/22 at 0000, Routine [facility] morpHINE (2 mg/mL) injection 2 mg 05-18 03:48: 11 Yes 2mg 2 mg, Slow IV Push, Q4HPRN, Starting on Tue05/17/22 at 2148, Until Discontinu ed, Routine, Pain (scale 7-10) [facility] ampicillin- sulbactam (UNASYN) 3 g in NaCl [...] Soft Tissue
Duration of Therapy: 7 days [facility] oxymetazoli ne (OXYMETAZOL INE HCL) 0.05 % nasal spray 05-17 20:53: 00 Yes PRN, Starting on Tue05/17/22 at 1453, Until Discontinu ed, Routine, Intra-op [facility] lidocaine-e pinephrine (XYLOCAINE WITH EPINEPHRINE ) 2 %-1:100,000 injection 05-17 20:53: 00 Yes PRN, Starting on Tue05/17/22 at 1453, Until Discontinu ed, Routine, [facility]-op [facility] oxymetazoli ne (OXYMETAZOL INE HCL) 0.05 % nasal spray 05-17 18:21: 00 Yes Intra-op [facility] artificial tears(hypro mellose) (ISOPTO-TEA RS) 0.5 % ophthalmic drops 1 Drop 05-16 16:53: 22 Yes 1[drp] 1 Drop, Left Eye, QIDPRN, Starting on 05/16/22 at 1053, Until Discontinu ed, Routine, Dry eyes [facility] acetaminoph en (TYLENOL) tablet 500 mg 05-14 20:00: 00 Yes 500mg 500 mg, Oral, Q8H, First dose (after last modificati on) on Tue05/14/22 at 1400, Until Discontinu ed, Routine [facility] HYDROcodone -acetaminop hen (NORCO 5) 5-325 mg tablet 1 tablet 05-14 18:00: 00 05-18 03:48 :25 No 1{tbl} 1 tablet, Oral, Q6H, First dose on Tue05/14/22 at 1200, Until Discontinu ed, Routine [facility] aquaphilic ointment (AQUAPHOR) ointment 05-10 15:00: 00 Yes Topical, DAILY, First dose on Tue05/10/22 at 0900, Until Discontinu ed, Routine [facility] clopidogreL (PLAVIX) 75 mg tablet 75 mg 05-08 15:00: 00 05-16 14:19 :47 No 75mg 75 mg, Oral, DAILY, 74 doses, First dose (after last modificati on) on Tue05/08/22 at 0900, Last dose on Tue07/20/22 at 0900, Routine [facility] DULoxetine (CYMBALTA) capsule 40 mg 05-01 15:00: 00 Yes 40mg 40 mg, Oral, DAILY, First dose (after last modificati on) on Tue05/01/22 at 0900, Until Discontinu ed, Routine [facility] nicotine (NICODERM) 7 mg/24 hr patch 1 Patch 05-01 02:00: 00 Yes 1{patch } 1 Patch, Topical, Administer over 24 Hours, Q24H, First dose on Tue04/30/22 at 2000, Until Discontinu ed, Routine [facility] DULoxetine (CYMBALTA) capsule 20 mg 04-28 16:45: 00 04-30 16:12 :28 No 20mg 20 mg, Oral, DAILY, First dose on Tue04/28/22 at 1045, Until Discontinu ed, Routine [facility] amLODIPine (NORVASC) tablet 5 mg 04-28 15:00: 00 Yes 5mg 5 mg, Oral, DAILY, First dose (after last modificati on) on Tue04/28/22 at 0900, Until Discontinu ed, Routine [facility] lisinopriL (PRINIVIL,Z ESTRIL) tablet 20 mg 04-28 15:00: 00 Yes 20mg 20 mg, Oral, DAILY, First dose (after last modificati on) on Tue04/28/22 at 0900, Until Discontinu ed, Routine [facility] amLODIPine (NORVASC) tablet 10 mg 04-27 15:00: 00 04-28 14:27 :12 No 10mg 10 mg, Oral, DAILY, First dose (after last modificati on) on Tue04/27/22 at 0900, Until Discontinu ed, Routine [facility] nicotine (NICODERM) 14 mg/24 hr patch 1 Patch 04-26 23:45: 00 04-30 16:12 :27 No 1{patch } 1 Patch, Topical, Administer over 24 Hours, Q24H, First dose on Tue04/26/22 at 1745, Until Discontinu ed, Routine [facility] lisinopriL (PRINIVIL,Z ESTRIL) tablet 40 mg 04-26 15:00: 00 04-28 14:27 :12 No 40mg 40 mg, Oral, DAILY, First dose (after last modificati on) on 04/26/22 at 0900, Until Discontinu ed, Routine [facility] amLODIPine (NORVASC) tablet 5 mg 04-25 17:30: 00 04-27 14:07 :07 No 5mg 5 mg, Oral, DAILY, First dose (after last modificati on) on 04/25/22 at 1130, Until Discontinu ed, Routine [facility] multivit-ir on-FA-calci um-mins (THERA-M) 9 mg iron-400 mcg tablet 1 tablet 04-25 15:00: 00 Yes 1{tbl} 1 tablet, Oral, DAILY, First dose on 04/25/22 at 0900, Until Discontinu ed, Routine [facility] lisinopriL (PRINIVIL,Z ESTRIL) tablet 20 mg 04-25 15:00: 00 04-25 17:13 :44 No 20mg 20 mg, Oral, DAILY, First dose on 04/25/22 at 0900, Until Discontinu ed, Routine [facility] lisinopriL (PRINIVIL,Z ESTRIL) tablet 20 mg 04-25 09:21: 00 04-25 10:01 :00 No 20mg 20 mg, Oral, ONCE, 1 dose, On 04/25/22 at 0330, Routine [facility] enalapril (VASOTEC) tablet 10 mg 04-23 20:15: 00 04-24 18:05 :30 No 10mg 10 mg, Oral, DAILY, First dose on Tue04/23/22 at 1415, Until Discontinu ed, Routine [facility] ergocalcife rol (vitamin d2) (CALCIFEROL ) capsule 50,000 Units 04-23 15:00: 00 07-02 13:59 :00 No [id number] 50,000 Units, Oral, QWEEKLY, 10 doses, First dose on Tue04/23/22 at 0900, Last dose on Tue06/25/22 at 0900, Routine [facility] atorvastati n (LIPITOR) tablet 80 mg 04-23 03:00: 00 Yes 80mg 80 mg, Oral, QHS, First dose (after last modificati on) on Tue04/22/22 at 2100, Until Discontinu ed, Routine [facility] thiamine (VITAMIN B1) tablet 500 mg 04-23 02:00: 00 Yes 500mg 500 mg, Oral, TID, First dose on Tue04/22/22 at 2000, Until Discontinu ed, Routine [facility] barium sulfate-NO CHARGE- (VARIBAR NECTOR) 40 % (w/v) oral suspension 20 mL 04-22 20:30: 00 04-22 20:17 :00 No [id number] 20mL 20 mL, Oral, ONCE, 1 dose, On Asha 04/22/22 at 1430, Routine [facility] barium sulfate (VARIBAR THIN LIQUID) 81 % (w/w) oral powder 30 g 04-22 20:30: 00 04-22 20:17 :00 No [id number] 30g 30 g, Oral, ONCE, 1 dose, On Tue04/22/22 at 1430, Routine [facility] cyanocobala min (DODEX) injection 1,000 mcg 04-22 15:15: 00 04-24 17:10 :00 No 1000ug 1,000 mcg, Intramuscu lar, Q24H, 3 doses, First dose on Tue04/22/22 at 0915, Last dose on Tue04/24/22 at 0915, Routine [facility] aspirin chewable tablet 81 mg 04-22 15:00: 00 05-16 16:50 :39 No 81mg 81 mg, Oral, DAILY, First dose on Tue04/22/22 at 0900, Until Discontinu ed, Routine [facility] enoxaparin (LOVENOX) injection 40 mg 04-22 15:00: 00 05-15 16:40 :50 No 40mg 40 mg, Subcutaneo us, DAILY, First dose on Tue04/22/22 at 0900, Until Discontinu ed, Routine [facility] foLIC acid (FOLATE) 5 mg in NaCl 0.9% (NS) piggyback 04-22 15:00: 00 04-24 16:45 :48 No 5mg IV Piggyback, DAILY, First dose on Tue04/22/22 at 0900, Until Discontinu ed, 50 mL [facility] thiamine (VITAMIN B1) 100 mg in NaCl 0.9% (NS) piggyback 04-22 15:00: 00 04-22 17:31 :00 No 100mg IV Piggyback, DAILY, 1 dose, First dose on Tue04/22/22 at 0900, 50 mL [facility] clotrimazol e (LOTRIMIN) 1 % topical cream 04-22 14:00: 00 Yes Topical, BID, First dose on Tue04/22/22 at 0800, Until Discontinu ed, Routine [facility] iopamidol (ISOVUE 370-500 mL) injection 80 mL 04-22 04:39: 00 04-22 04:30 :00 No [id number] 80mL 80 mL, Intravenou s, ONCE, 1 dose, On Tue04/21/22 at 2245, Routine [facility] aspirin tablet 325 mg 04-22 03:45: 00 04-22 03:29 :00 No 325mg 325 mg, Oral, ONCE, 1 dose, On Tue04/21/22 at 2145, Routine [facility] atorvastati n (LIPITOR) tablet 40 mg 04-22 03:00: 00 04-22 22:22 :23 No 40mg 40 mg, Oral, QHS, First dose on Tue04/21/22 at 2100, Until Discontinu ed, Routine [facility] azithromyci n (ZITHROMAX) 500 mg in NaCl 0.9% (NS) 250 mL VIAL-MATE IV piggyback 04-22 02:00: 00 04-22 03:41 :00 No 500mg 500 mg, IV Piggyback, ONCE, 1 dose, On Tue04/21/22 at 2000, Administer over 60 Minutes, 250 mL
Reas on for Anti-Infec tive: Empiric Therapy for Suspected Infection< br>Empiric Therapy Site: Respirator y
Durat ion of therapy: 72 hours [facility] nicotine (NICODERM) 21 mg/24 hr patch 1 Patch 04-21 23:30: 00 04-26 22:38 :37 No 1{patch } 1 Patch, Topical, Administer over 24 Hours, Q24H, First dose on Tue04/21/22 at 1730, Until Discontinu ed, Routine [facility] enalapril (VASOTEC) tablet 20 mg 04-21 23:15: 00 04-21 23:23 :00 No 20mg 20 mg, Oral, ONCE, 1 dose, On Tue04/21/22 at 1715, [facility] NaCl 0.9% (NS) bolus infusion 1,000 mL 04-21 23:00: 00 04-22 02:11 :00 No 1000mL at 999 mL/hr, 1,000 mL, IV Infusion, ONCE, 1 dose, On Tue04/21/22 at 1700, [facility] NaCl 0.9% (NS) bolus infusion 1,000 mL 04-21 20:45: 00 04-21 21:46 :00 No 1000mL at 999 mL/hr, 1,000 mL, IV Infusion, ONCE, 1 dose, On Tue04/21/22 at 1445, [facility] docusate 100 mg capsule 06-05 00:00: 00 06-20 04:59 :00 No [id number] 100mg Take 1 capsule by mouth 2 (two) times daily for 14 days. [facility] sulfamethox azole-trime thoprim (BACTRIM DS) 800-160 mg per tablet 06-05 00:00: 00 06-20 04:59 :00 No [id number] 1{tbl} Take 1 tablet by mouth 2 (two) times daily for 14 days. [facility] HYDROcodone -acetaminop hen 5-325 mg tablet 06-05 00:00: 00 06-13 04:59 :00 No [id number] 1{tbl} Take 1 tablet by mouth every 4 (four) hours as needed for Pain (scale 7-10) for up to 7 days. Indication s: acute pain [facility] hydroCHLORO thiazide (ESIDRIX) capsule 12.5 mg 06-04 19:00: 00 Yes 12.5mg 12.5 mg, Oral, DAILY, First dose on Tue06/04/20 at 1300, Until Discontinu ed, Routine [facility] vancomycin 1250 mg in NS 250 mL RTU IV Piggyback 1,250 mg 06-04 14:30: 00 Yes 1250mg 1,250 mg, IV Piggyback, Q12H ABX, First dose (after last modificati on) on Tue06/04/20 at 0830, Until Discontinu ed
Reas on for Anti-Infec tive: Documented Infection< br>Documen nicole Infection Site: Skin / Soft Tissue
Duration of Therapy: 7 days [facility] omeprazole (PRILOSEC) capsule 20 mg 06-02 15:00: 00 Yes 20mg 20 mg, Oral, DAILY, First dose on Tue06/02/20 at 0900, Until Discontinu ed, Routine [facility] Polyethylen e Glycol 3350 (MIRALAX) powder 17 g 06-02 15:00: 00 Yes 17g 17 g, Oral, DAILY, First dose on Tue06/02/20 at 0900, Until Discontinu ed, Routine [facility] sennosides- docusate sodium (SENOKOT-S) 8.6-50 mg per tablet 1 tablet 06-02 15:00: 00 Yes 1{tbl} 1 tablet, Oral, DAILY, First dose on Tue06/02/20 at 0900, Until Discontinu ed, Routine [facility] HYDROcodone -acetaminop hen (NORCO 5) 5-325 mg tablet 1 tablet 06-02 15:00: 00 06-02 15:05 :00 No 1{tbl} 1 tablet, Oral, ONCE, 1 dose, 06/02/20 at 0900, Routine, PACU [facility] melatonin (MELATIN) tablet 3 mg 06-02 03:00: 00 Yes 3mg 3 mg, Oral, QHS, First dose on 06/01/20 at 2100, Until Discontinu ed, Routine [facility] vancomycin (VANCOCIN) 1,000 mg in NaCl 0.9% [...] Soft Tissue
Duration of Therapy: 7 days [facility] docusate (COLACE) capsule 100 mg 06-02 02:00: 00 Yes 100mg 100 mg, Oral, Q12H, First dose on Tue06/01/20 at 2000, Until Discontinu ed, Routine [facility] methocarbam oL (ROBAXIN) tablet 500 mg 06-02 02:00: 00 Yes 500mg 500 mg, Oral, QID, First dose on Tue06/01/20 at 2000, Until Discontinu ed, Routine [facility] bisacodyL (DULCOLAX) suppository 10 mg 06-02 01:40: 04 Yes 10mg 10 mg, Rectal, QDAILYPRN, Starting Tue06/01/20 at 1940, Until Discontinu ed, Routine, Constipati on unresolved by oral medication s, If no bowel movement for 2-3 days [facility] diphenhydrA MINE (BENADRYL) tablet 25 mg 06-02 01:40: 04 Yes 25mg 25 mg, Oral, Q4HPRN, Starting 06/01/20 at 1940, Until Discontinu ed, Routine, Sleep, Itching [facility] morpHINE injection 4 mg 06-02 01:40: 03 Yes 4mg 4 mg, Slow IV Push, Q4HPRN, Starting 06/01/20 at 1940, Until Discontinu ed, Routine, For pain unrelieved by oral medication s, or if patient is unable to tolerate oral pain medication . [facility] HYDROcodone -acetaminop hen (NORCO 5) 5-325 mg tablet 1 tablet 06-02 01:40: 03 Yes 1{tbl} 1 tablet, Oral, Q4HPRN, Starting 06/01/20 at 1940, Until Discontinu ed, Routine, Pain (scale 7-10) [facility] traMADoL (ULTRAM) tablet 50 mg 06-02 01:40: 03 Yes 50mg 50 mg, Oral, Q6HPRN, Starting 06/01/20 at 1940, Until Discontinu ed, Routine, Pain (scale 4-6) [facility] ondansetron (ZOFRAN (PF)) injection 4 mg 06-02 01:40: 03 Yes 4mg 4 mg, Slow IV Push, Q6HPRN, Starting 06/01/20 at 1940, Until Discontinu ed, Routine, Nausea and Vomiting (N/V) [facility] morpHINE injection 4 mg 06-02 01:00: 00 06-02 00:01 :00 No 4mg 4 mg, Slow IV Push, ONCE, 1 dose, 06/01/20 at 1900, STAT [facility] tetanus-dip htheria toxoids (TENIVAC) 5-2 Lf unit/0.5 mL injection 0.5 mL 06-02 00:45: 00 06-01 23:44 :00 No .5mL 0.5 mL, Intramuscu lar, ONCE, 1 dose, 3/7/21 at 1845, Routine [facility] ceFAZolin (ANCEF) 1,000 mg in NaCl 0.9% (NS) 50 mL MINI-BAG 06-02 00:30: 00 06-02 00:13 :00 No 1000mg 1,000 mg, IV Piggyback, ONCE, 1 dose, 06/01/20 at 1830, 50 mL
Reas on for Anti-Infec tive: Documented Infection< br>Documen nicole Infection Site: Skin / Soft Tissue
Duration of Therapy: 7 days [facility] NaCl 0.9% (NS) bolus infusion 1,000 mL 06-01 23:30: 00 06-02 01:26 :00 No 1000mL at 999 mL/hr, 1,000 mL, IV Infusion, ONCE, 1 dose, 06/01/20 at 1730, STAT [facility] acetaminoph en-codeine (TYLENOL #3) 300-30 mg tablet 08-02 00:00: 00 06-05 00:00 :00 No 1{tbl} Take 1 Tab by mouth every 4 (four) hours as needed for Pain (scale 4-6) or Pain (scale 7-10). [facility] atorvastati n (LIPITOR) 20 mg tablet 04-02 00:00: 00 05-19 00:00 :00 No 20mg Take 1 Tab by mouth at bedtime. [facility] enalapril (VASOTEC) 10 mg tablet 04-02 00:00: 05-19 00:00 :00 No 10mg Take 1 Tab by mouth daily. [facility] aspirin 81 mg tablet,rachel yed release Take 1 tablet every day by oral route. aspirin 81 mg tablet,rachel yed release Take 1 tablet every day by oral route. No 1 Q1D aspirin 81 mg tablet,del ayed release Take 1 tablet every day by oral route. [facility] ergocalcife rol (vitamin D2) 1,250 mcg (50,000 unit) capsule ergocalcife rol (vitamin D2) 1,250 mcg (50,000 unit) capsule No 1capsul e(s) Q1W ergocalcif tomas (vitamin D2) 1,250 mcg (50,000 unit) capsule [facility] Multivitami n 50 Plus tablet Take 1 tablet every day by oral route. Multivitami n 50 Plus tablet Take 1 tablet every day by oral route. No 1 Q1D Multivitam in 50 Plus tablet Take 1 tablet every day by oral route. [facility] acetaminoph en 325 mg tablet Take 2 tablets every 6 hours by oral route as needed. acetaminoph en 325 mg tablet Take 2 tablets every 6 hours by oral route as needed. No 2 Q6H acetaminop hen 325 mg tablet Take 2 tablets every 6 hours by oral route as needed. [facility] amlodipine 5 mg tablet amlodipine 5 mg tablet No 1 Q1D amlodipine 5 mg tablet [facility] clonidine HCl 0.1 mg tablet Take 1 tablet by oral route as needed for 30 days. clonidine HCl 0.1 mg tablet Take 1 tablet by oral route as needed for 30 days. No 1 clonidine HCl 0.1 mg tablet Take 1 tablet by oral route as needed for 30 days. [facility] clopidogrel 75 mg tablet Take 1 tablet every day by oral route. clopidogrel 75 mg tablet Take 1 tablet every day by oral route. No clopidogre l 75 mg tablet Take 1 tablet every day by oral route. [facility] folic acid 1 mg tablet Take 1 tablet every day by oral route. folic acid 1 mg tablet Take 1 tablet every day by oral route. No 1 Q1D folic acid 1 mg tablet Take 1 tablet every day by oral route. [facility] hydrochloro thiazide 12.5 mg tablet Take 1 tablet every day by oral route for 30 days. hydrochloro thiazide 12.5 mg tablet Take 1 tablet every day by oral route for 30 days. No hydrochlor othiazide 12.5 mg tablet Take 1 tablet every day by oral route for 30 days. [facility] hydroxyzine HCl 25 mg tablet Take 1 tablet every day by oral route at bedtime. hydroxyzine HCl 25 mg tablet Take 1 tablet every day by oral route at bedtime. No hydroxyzin e HCl 25 mg tablet Take 1 tablet every day by oral route at bedtime. [facility] mirtazapine 15 mg tablet Take 1 tablet every day by oral route for 30 days. mirtazapine 15 mg tablet Take 1 tablet every day by oral route for 30 days. No mirtazapin e 15 mg tablet Take 1 tablet every day by oral route for 30 days. [facility] potassium chloride ER 10 mEq capsule,ext ended release Take 1 capsule every day by oral route for 30 days. potassium chloride ER 10 mEq capsule,ext ended release Take 1 capsule every day by oral route for 30 days. No potassium chloride ER 10 mEq capsule,ex tended release Take 1 capsule every day by oral route for 30 days. [facility] triamcinolo ne acetonide 0.1 % topical cream triamcinolo ne acetonide 0.1 % topical cream No triamcinol one acetonide 0.1 % topical cream [facility] atropine 1 % eye drops Apply 5 drops every 4 hours by ophthalmic route as needed. atropine 1 % eye drops Apply 5 drops every 4 hours by ophthalmic route as needed. No 5drop(s ) Q4H atropine 1 % eye drops Apply 5 drops every 4 hours by ophthalmic route as needed. [facility] lorazepam 0.5 mg tablet Take 1 tablet every 4 hours by oral route as needed. lorazepam 0.5 mg tablet Take 1 tablet every 4 hours by oral route as needed. No 1 Q4H lorazepam 0.5 mg tablet Take 1 tablet every 4 hours by oral route as needed. [facility] morphine 20 mg/5 mL (4 mg/mL) oral solution Take 0.5 mL every 2 hours by oral route as needed. morphine 20 mg/5 mL (4 mg/mL) oral solution Take 0.5 mL every 2 hours by oral route as needed. No .5mL Q2H morphine 20 mg/5 mL (4 mg/mL) oral solution Take 0.5 mL every 2 hours by oral route as needed. [facility] valproic acid (as sodium salt) 250 mg/5 mL oral solution Take 5 mL every 6 hours by oral route. valproic acid (as sodium salt) 250 mg/5 mL oral solution Take 5 mL every 6 hours by oral route. No 5mL Q6H valproic acid (as sodium salt) 250 mg/5 mL oral solution Take 5 mL every 6 hours by oral route. [facility] clotrimazol e-betametha sone 1 %-0.05 % topical cream clotrimazol e-betametha sone 1 %-0.05 % topical cream No clotrimazo le-betamet hasone 1 %-0.05 % topical cream [facility] potassium chloride 20 mEq/15 mL oral liquid potassium chloride 20 mEq/15 mL oral liquid No potassium chloride 20 mEq/15 mL oral liquid [facility] Immunizations Ordered Immunization Name Filled Immunization Name Date Status Comments Source Td 2020-06-01 00:00:00 Completed [facility] Td 2020-06-01 00:00:00 Completed [facility] Td 2020-06-01 00:00:00 Completed [facility] TD, NOS 2020-06-01 00:00:00 Completed [facility] TD, NOS 2020-06-01 00:00:00 Completed [facility] TD, NOS 2020-06-01 00:00:00 Completed [facility] influenza, unspecified formulation influenza, unspecified formulation Unknown Completed [facility] Td(adult) unspecified formulation Td(adult) unspecified formulation Unknown Completed [facility] Vital Signs Vital Name Observation Time Observation Value Comments S ource Height 2023-12-08 00:00:00 68 [in_i] [facility] BP Systolic 2023-12-08 00:00:00 105 mm[Hg] [facility] BMI (Body Mass Index) 2023-12-08 00:00:00 18.5 kg/m2 [facility] Body Weight 2023-12-08 00:00:00 1944 [oz_av] [facility] BP Diastolic 2023-12-08 00:00:00 66 mm[Hg] [facility] Body Weight 2023-12-06 00:00:00 1944 [oz_av] [facility] BP Diastolic 2023-12-06 00:00:00 66 mm[Hg] [facility] BP Systolic 2023-12-06 00:00:00 119 mm[Hg] [facility] BMI (Body Mass Index) 2023-12-06 00:00:00 18.5 kg/m2 [facility] Height 2023-12-06 00:00:00 68 [in_i] [facility] Body Weight 2023-11-14 00:00:00 1944 [oz_av] [facility] BMI (Body Mass Index) 2023-11-14 00:00:00 18.5 kg/m2 [facility] BP Diastolic 2023-11-14 00:00:00 82 mm[Hg] [facility] BP Systolic 2023-11-14 00:00:00 127 mm[Hg] [facility] Height 2023-11-14 00:00:00 68 [in_i] [facility] Body Weight 2023-10-06 00:00:00 1944 [oz_av] [facility] Height 2023-10-06 00:00:00 68 [in_i] [facility] BP Systolic 2023-10-06 00:00:00 121 mm[Hg] [facility] BP Diastolic 2023-10-06 00:00:00 70 mm[Hg] [facility] BMI (Body Mass Index) 2023-10-06 00:00:00 18.5 kg/m2 [facility] Body Weight 2023-09-26 00:00:00 1944 [oz_av] [facility] BP Systolic 2023-09-26 00:00:00 116 mm[Hg] [facility] Height 2023-09-26 00:00:00 68 [in_i] [facility] BMI (Body Mass Index) 2023-09-26 00:00:00 18.5 kg/m2 [facility] BP Diastolic 2023-09-26 00:00:00 82 mm[Hg] [facility] BMI (Body Mass Index) 2023-09-06 00:00:00 19.2 kg/m2 [facility] BP Diastolic 2023-09-06 00:00:00 68 mm[Hg] [facility] Height 2023-09-06 00:00:00 68 [in_i] [facility] BP Systolic 2023-09-06 00:00:00 110 mm[Hg] [facility] Body Weight 2023-09-06 00:00:00 2016 [oz_av] [facility] Body Weight 2023-08-05 00:00:00 2000 [oz_av] [facility] Height 2023-08-05 00:00:00 68 [in_i] [facility] BP Systolic 2023-08-05 00:00:00 122 mm[Hg] [facility] BMI (Body Mass Index) 2023-08-05 00:00:00 19 kg/m2 [facility] BP Diastolic 2023-08-05 00:00:00 87 mm[Hg] [facility] BP Systolic 2023-07-28 00:00:00 110 mm[Hg] [facility] Body Weight 2023-07-28 00:00:00 1983 [oz_av] [facility] BP Diastolic 2023-07-28 00:00:00 78 mm[Hg] [facility] Height 2023-07-28 00:00:00 68 [in_i] [facility] BMI (Body Mass Index) 2023-07-28 00:00:00 18.9 kg/m2 [facility] BP Diastolic 2023-07-26 00:00:00 80 mm[Hg] [facility] Body Weight 2023-07-26 00:00:00 1983 [oz_av] [facility] Height 2023-07-26 00:00:00 68 [in_i] [facility] BP Systolic 2023-07-26 00:00:00 125 mm[Hg] [facility] BMI (Body Mass Index) 2023-07-26 00:00:00 18.9 kg/m2 [facility] BP Systolic 2023-07-18 00:00:00 118 mm[Hg] [facility] BMI (Body Mass Index) 2023-07-18 00:00:00 18.9 kg/m2 [facility] BP Diastolic 2023-07-18 00:00:00 66 mm[Hg] [facility] Height 2023-07-18 00:00:00 68 [in_i] [facility] Body Weight 2023-07-18 00:00:00 1984 [oz_av] [facility] Body Weight 2023-07-01 00:00:00 1983 [oz_av] [facility] BP Systolic 2023-07-01 00:00:00 126 mm[Hg] [facility] Height 2023-07-01 00:00:00 68 [in_i] [facility] BMI (Body Mass Index) 2023-07-01 00:00:00 18.9 kg/m2 [facility] BP Diastolic 2023-07-01 00:00:00 67 mm[Hg] [facility] BMI (Body Mass Index) 2023-06-15 00:00:00 19.2 kg/m2 [facility] Height 2023-06-15 00:00:00 68 [in_i] [facility] BP Diastolic 2023-06-15 00:00:00 78 mm[Hg] [facility] Body Weight 2023-06-15 00:00:00 2024 [oz_av] [facility] BP Systolic 2023-06-15 [...] Systolic blood pressure 2022-05-19 18:16:00 145 mm[Hg] [facility] Diastolic blood pressure 2022-05-19 18:16:00 83 mm[Hg] [facility] Heart rate 2022-05-19 18:16:00 72 /min [facility] Body temperature 2022-05-19 18:16:00 36.22 Taylor [facility] Respiratory rate 2022-05-19 18:16:00 16 /min [facility] Oxygen saturation in Arterial blood by Pulse oximetry 2022-05-19 18:16:00 98 /min [facility] Body height 2022-05-11 20:00:00 172.7 cm [facility] Body weight 2022-05-11 20:00:00 63.504 kg [facility] BMI 2022-05-11 20:00:00 21.29 kg/m2 [facility] Systolic blood pressure 2022-05-17 13:55:00 105 mm[Hg] [facility] Diastolic blood pressure 2022-05-17 13:55:00 61 mm[Hg] [facility] Heart rate 2022-05-17 13:55:00 76 /min [facility] Body temperature 2022-05-17 13:55:00 36.78 Taylor [facility] Respiratory rate 2022-05-17 13:55:00 16 /min [facility] Oxygen saturation in Arterial blood by Pulse oximetry 2022-05-17 13:55:00 95 /min [facility] Body height 2022-05-11 20:00:00 172.7 cm [facility] Body weight 2022-05-11 20:00:00 63.504 kg [facility] BMI 2022-05-11 20:00:00 21.29 kg/m2 [facility] Body height 2020-06-10 15:07:00 172.7 cm [facility] Body weight 2020-06-10 15:07:00 61.871 kg [facility] BMI 2020-06-10 15:07:00 20.74 kg/m2 [facility] Systolic blood pressure 2020-06-05 13:26:00 154 mm[Hg] [facility] Diastolic blood pressure 2020-06-05 13:26:00 94 mm[Hg] [facility] Heart rate 2020-06-05 13:26:00 62 /min [facility] Body temperature 2020-06-05 13:26:00 36.67 Taylor [facility] Respiratory rate 2020-06-05 13:26:00 16 /min [facility] Oxygen saturation in Arterial blood by Pulse oximetry 2020-06-05 13:26:00 96 /min [facility] Body height 2020-06-02 03:07:00 172.7 cm [facility] Body weight 2020-06-02 03:07:00 61.5 kg [facility] BMI 2020-06-02 03:07:00 20.62 kg/m2 [facility] Procedures Procedure Date / Time Performed Performing Clinician Source Gastrostomy 2022-08-20 00:00:00 [facility] Esophagogastroduodenoscopy 2022-08-20 00:00:00 [facility] MAGNESIUM 2022-05-19 12:02:00 Lucas [facility] BASIC METABOLIC PANEL (NA, K , CL, CO2, GLUCOSE, BUN, CREATININE, CA) 2022-05-19 12:02:00 Lucas [facility] CBC WITH DIFF 2022-05-19 12:02:00 Lucas [facility] MAGNESIUM 2022-05-18 10:48:00 Alina Jameson [facility] BASIC METABOLIC PANEL (NA, K , CL, CO2, GLUCOSE, BUN, CREATININE, CA) 2022-05-18 10:48:00 Alina Jameson [facility] CBC WITH DIFF 2022-05-18 10:48:00 Alina Jameson [facility] MAGNESIUM 2022-05-18 10:48[facility] (NA, K , CL, CO2, GLUCOSE, BUN, CREATININE, CA) 2022-05-18 10:48:00 Alina Jameson [facility] CBC WITH DIFF 2022-05-18 10:48:00 Alina Jameson [facility] FL TIME OR (NON-REPORTABLE) 2022-05-17 20:15:00 Francesco Umanzor [facility] FL TIME OR (NON-REPORTABLE) 2022-05-17 20:15:00 Francesco Umanzor [facility] ZYGOMATIC FRACTURE ORIF 2022-05-17 17:28:00 Gilles [facility] ORBITAL FLOOR FRACTURE 2022-05-17 17:28:00 Gilles [facility] ZYGOMATIC FRACTURE ORIF 2022-05-17 17:28:00 Gilles [facility] ORBITAL FLOOR FRACTURE 2022-05-17 17:28:00 Gilles [facility] ABORH CONFIRMATION (LAB ONLY) 2022-05-17 12:20:00 Lucas [facility] ABORH CONFIRMATION (LAB ONLY) 2022-05-17 12:20:00 Lucas [facility] HB ABO GROUPING 2022-05-17 11:30:00 Lucas [facility] HB ABO GROUPING 2022-05-17 11:30:00 Lucas [facility] CBC WITH DIFF 2022-05-17 11:28:00 Lucas [facility] CBC WITH DIFF 2022-05-17 11:28:00 Lucas [facility] Repair Orbital Floor 2022-05-17 00:00:00 [facility] Open Repair of Zygomatic Fracture 05-17 00:00:00 [facility] MAGNESIUM 2022-05-16 11:18:00 Alina Jameson [facility] BASIC METABOLIC PANEL (NA, K , CL, CO2, GLUCOSE, BUN, CREATININE, CA) 2022-05-16 11:18:00 Trino [facility] CBC WITH DIFF 2022-05-16 11:18:00 Trino [facility] MAGNESIUM 2022-05-16 11:18:00 Trino [facility] BASIC METABOLIC PANEL (NA, K , CL, CO2, GLUCOSE, BUN, CREATININE, CA) 2022-05-16 11:18:00 Trino [facility] CBC WITH DIFF 2022-05-16 11:18:00 Trino [facility] MAGNESIUM 2022-05-15 11:34:00 Trino [facility] BASIC METABOLIC PANEL (NA, K , CL, CO2, GLUCOSE, BUN, CREATININE, CA) 2022-05-15 11:34:00 Trino [facility] CBC WITH DIFF 2022-05-15 11:34:00 Trino [facility] MAGNESIUM 2022-05-15 11:34:00 Trino [facility] BASIC METABOLIC PANEL (NA, K , CL, CO2, GLUCOSE, BUN, CREATININE, CA) 2022-05-15 11:34:00 Trino [facility] CBC WITH DIFF 2022-05-15 11:34:[address] [facility] CT MAXILLOFACIAL/MANDIBLE WO CONTRAST 2022-05-14 20:45:13 [address] [facility] CT MAXILLOFACIAL/MANDIBLE WO CONTRAST 2022-05-14 20:45:[address] [facility] [address] HEAD WO CONTRAST 2022-05-14 16:38:[address] [facility] [address] HEAD WO CONTRAST 2022-05-14 16:38:00 Trino [facility] CBC WITH DIFF 2022-05-14 15:20:00 Trino [facility] CBC WITH DIFF 2022-05-14 15:20:00 Trino [facility] MAGNESIUM 2022-05-02 10:03:00 Cortes Melendez [facility] BASIC METABOLIC PANEL (NA, K , CL, CO2, GLUCOSE, BUN, CREATININE, CA) 2022-05-02 10:03:00 Al [facility] CBC WITH DIFF 2022-05-02 10:03:00 Al [facility] MAGNESIUM 2022-05-02 10:03:00 Al [facility] BASIC METABOLIC PANEL (NA, K , CL, CO2, GLUCOSE, BUN, CREATININE, CA) 2022-05-02 10:03:[facility] 2022-05-02 10:03:00 Al [facility] BASIC METABOLIC PANEL (NA, K , CL, CO2, GLUCOSE, BUN, CREATININE, CA) 2022-04-27 10:18:00 Lori [facility] BASIC METABOLIC PANEL (NA, K , CL, CO2, GLUCOSE, BUN, CREATININE, CA) 2022-04-27 10:18:00 Lori [facility] MAGNESIUM 2022-04-26 11:20:00 Al [facility] BASIC METABOLIC PANEL (NA, K , CL, CO2, GLUCOSE, BUN, CREATININE, CA) 2022-04-26 11:20:00 Al [facility] MAGNESIUM 2022-04-26 11:20:00 Al [facility] BASIC METABOLIC PANEL (NA, K , CL, CO2, GLUCOSE, BUN, CREATININE, CA) 2022-04-26 11:20:00 Al [facility] MAGNESIUM 2022-04-25 10:05:00 Al [facility] BASIC METABOLIC PANEL (NA, K , CL, CO2, GLUCOSE, BUN, CREATININE, CA) 2022-04-25 10:05:00 Lori [facility] CBC WITH DIFF 2022-04-25 10:05:00 Lori [facility] MAGNESIUM 2022-04-25 10:05:00 Al [facility] BASIC METABOLIC PANEL (NA, K , CL, CO2, GLUCOSE, BUN, CREATININE, CA) 2022-04-25 10:05:00 Lori [facility] CBC WITH DIFF 2022-04-25 10:05:00 Lori [facility] URINE CULTURE 2022-04-24 11:32:00 [facility]:32[facility] 2022-04-24 11:31:00 Lori [facility] BASIC METABOLIC PANEL (NA, K , CL, CO2, GLUCOSE, BUN, CREATININE, CA) 2022-04-24 11:31:00 Lori [facility] CBC WITH DIFF 2022-04-24 11:31:00 Lori [facility] URINALYSIS 2022-04-24 11:31:00 [facility] 2022-04-24 11:31:00 Lori [facility] BASIC METABOLIC PANEL (NA, K , CL, CO2, GLUCOSE, BUN, CREATININE, CA) 2022-04-24 11:31:00 Lori [facility] CBC WITH DIFF 2022-04-24 11:31:00 Lori [facility] URINALYSIS 2022-04-24 11:31:00 [facility] 2022-04-24 03:07:05 Lucio [facility] MR BRAIN WO CONTRAST 2022-04-24 03:07:05 Lucio [facility] BASIC METABOLIC PANEL (NA, K , CL, CO2, GLUCOSE, BUN, CREATININE, CA) 2022-04-23 10:40:00 Lori [facility] CBC WITH DIFF 2022-04-23 10:40:00 Lori [facility] BASIC METABOLIC PANEL (NA, K , CL, CO2, GLUCOSE, BUN, CREATININE, CA) 2022-04-23 10:40:00 Lori [facility] CBC WITH DIFF 2022-04-23 10:40:00 Lori [facility] FL MODIFIED BARIUM SWALLOW 2022-04-22 20:43:00 Lori [facility] FL MODIFIED BARIUM SWALLOW 2022-04-22 20:43:00 Loir [facility] TRANSTHORACIC ECHO (TTE) COMPLETE 04-22 18:40:53 Lucio [facility] TRANSTHORACIC ECHO (TTE) COMPLETE 04-22 18:40:53 Lucio [facility] URINE DRUG (IMMUNOASSAY) - COMPREHENSIVE DRUG SCREEN 2022-04-22 08:23:00 Lucio [facility] URINE DRUG (IMMUNOASSAY) - COMPREHENSIVE DRUG SCREEN 2022-04-22 08:23:00 Lucio [facility] MAGNESIUM 2022-04-22 08:20:00 Lucio [facility] BASIC METABOLIC PANEL (NA, K , CL, CO2, GLUCOSE, BUN, CREATININE, CA) 2022-04-22 08:20:00 Lucio [facility] ETHANOL 2022-04-22 08:20:00 Al [facility] CBC WITH DIFF 2022-04-22 08:20:00 Lucio [facility] VITAMIN D, 25-OH 2022-04-22 08:20:00 Lucio [facility] VITAMIN B1 (THIAMINE), WHOLE BLOOD 04-22 08:20:00 Lucio [facility] MAGNESIUM 2022-04-22 08:20:00 Lucio [facility] BASIC METABOLIC PANEL (NA, K , CL, CO2, GLUCOSE, BUN, CREATININE, CA) 2022-04-22 08:20:00 Lucio [facility] ETHANOL 2022-04-22 08:20:[facility] 2022-04-22 08:20:00 Lucio [facility] VITAMIN D, 25-OH 2022-04-22 08:20:00 Lucio [facility] VITAMIN B1 (THIAMINE), WHOLE BLOOD 04-22 08:20:00 Lucio [facility] CT ANGIOGRAM HEAD 2022-04-22 04:38:42 Lucio [facility] CT ANGIOGRAM NECK 2022-04-22 04:38:42 Lucio, [facility] CT ANGIOGRAM HEAD 2022-04-22 04:38:42 Lucio, [facility] CT ANGIOGRAM NECK 2022-04-22 04:38:42 Lucio, [facility] PHOSPHORUS 2022-04-22 03:54:00 Lucio, [facility] CREATINE KINASE 2022-04-22 03:54:00 Lucio, [facility] VITAMIN B12, LEVEL 2022-04-22 03:54:00 Lucio, [facility] THYROID STIMULATING HORMONE 2022-04-22 03:54:00 Lucio, [facility] LIPID PANEL ([id number])(TOTAL CHOLESTEROL, TRIGLYCERIDES, HDL) 2022-04-22 03:54:00 Lucio [facility] PHOSPHORUS 2022-04-22 03:54:00 Lucio, [facility] CREATINE KINASE 2022-04-22 03:54:00 Lucio, [facility] VITAMIN B12, LEVEL 2022-04-22 03:54:00 Lucio, [facility] THYROID STIMULATING HORMONE 2022-04-22 03:54:00 Lucio, [facility] LIPID PANEL (21692)(TOTAL CHOLESTEROL, TRIGLYCERIDES, HDL) 2022-04-22 03:54:00 Lucio [facility] HB ECG ROUTINE & RHYTHM STRIP 2022-04-22 03:52:33 Lucio [facility] HB ECG ROUTINE & RHYTHM STRIP 2022-04-22 03:52:33 Lucio [facility] BLOOD CULTURE SCREEN 2022-04-22 02:09:00 Rhonda Real [facility] BLOOD CULTURE SCREEN 2022-04-22 02:09:00 Rhonda Real [facility] CT HEAD WO CONTRAST 2022-04-21 19:53:06 Abdoul Clayton [facility] CT HEAD WO CONTRAST 2022-04-21 19:53:06 Forrest, [facility] PROTHROMBIN TIME / INR 2022-04-21 19:51:[address] [facility] PROTHROMBIN TIME / INR 2022-04-21 19:51:[address] [facility] XR CHEST 2 VW 2022-04-21 19:41:[address] [facility] XR CHEST 2 VW 2022-04-21 19:41:[address] [facility] MAGNESIUM 2022-04-21 19:19:[address] [facility] AMMONIA, PLASMA 2022-04-21 19:19:[address] [facility] TROPONIN I 2022-04-21 19:19:[address] [facility] COMP. METABOLIC PANEL (05121) 2022-04-21 19:19:[address] [facility] CBC WITH DIFF 2022-04-21 19:19:[address] [facility] GLYCOSYLATED HEMOGLOBIN (A1C) 2022-04-21 19:19:00 Lucio [facility] MAGNESIUM 2022-04-21 19:19:[address] [facility] AMMONIA, PLASMA 2022-04-21 19:19:[address] [facility] TROPONIN I 2022-04-21 19:19:[address] [facility] COMP. METABOLIC PANEL (10838) 2022-04-21 19:19:[address] [facility] CBC WITH DIFF 2022-04-21 19:19:[address] [facility] GLYCOSYLATED HEMOGLOBIN (A1C) 2022-04-21 19:19:00 Lucio [facility] HOSPITAL ADMISSION 2022-04-21 06:01:00 Doctor Unassigned, [place] [facility] HOSPITAL ADMISSION 2022-04-21 06:01:00 Doctor Unassigned, [place] [facility] BASIC METABOLIC PANEL (NA, K , CL, CO2, GLUCOSE, BUN, CREATININE, CA) 2020-06-05 08:59:00 Tommy Richardson [facility] CBC WITH DIFF 2020-06-05 08:59:00 Debra Tommy [facility] VANCOMYCIN TROUGH 2020-06-05 01:41:00 Chadd Azul [facility] BASIC METABOLIC PANEL (NA, K , CL, CO2, GLUCOSE, BUN, CREATININE, CA) 2020-06-04 09:27:00 Debra Tommy [facility] CBC WITH DIFF 2020-06-04 09:27:00 Debra Tommy [facility] VANCOMYCIN TROUGH 2020-06-03 14:00:00 Isiah Mora [facility] BASIC METABOLIC PANEL (NA, K , CL, CO2, GLUCOSE, BUN, CREATININE, CA) 2020-06-03 12:07:00 Debra Tommy [facility] CBC WITH DIFF 2020-06-03 12:06:00 Debra [facility] WRIST LEFT WO CONTRAST 2020-06-02 17:06:40 Benito Zhou [facility] FUNGUS (ROUTINE) CULTURE 2020-06-02 14:18:32 Aldair Abel [facility] QUANT TISSUE 2020-06-02 14:18:32 Aldair Abel [facility] HAND DEBRIDEMENT 2020-06-02 13:22:00 Aldair Abel [facility] BASIC METABOLIC PANEL (NA, K , CL, CO2, GLUCOSE, BUN, CREATININE, CA) 2020-06-02 09:30:00 Debra Tommy [facility] CBC WITH DIFF 2020-06-02 09:30:00 Debra Tommy [facility] XR WRIST 3+ VW LEFT 2020-06-02 05:25:00 Benito Zhou [facility] COVID-19 (ID NOW RAPID TESTING) 01:24:00 Lamin Ramirez [facility] LAB ONLY COVID INTERPRETATION 2020-06-02 01:24:00 Lamin Ramirez [facility] XR HAND 3+ VW LEFT 2020-06-02 00:08:16 Ashley Lamin [facility] C-REACTIVE PROTEIN 2020-06-01 23:43:00 Lamin Ramirez [facility] BASIC METABOLIC PANEL (NA, K , CL, CO2, GLUCOSE, BUN, CREATININE, CA) 2020-06-01 23:43:00 Lamin Ramirez [facility] CBC WITHOUT DIFF 2020-06-01 23:43:00 Lamin Ramirez [facility] SEDIMENTATION RATE 2020-06-01 23:43:00 Lamin Ramirez [facility] Grafting to Skin of Extremity 2014-07-26 00:00:00 [facility] Medical Incision and Drainage of Inf ection of Hand 2014-07-26 00:00:00 [facility] Medical Tonsilectomy/adenoids [facility] Medical Encounters Start Date/Time End Date/Time Encounter Type Admission Type Attending Clinicians Care Facility Care Department Encounter ID Source 2023-12-08 00:00:00 2023-12-08 00:00:00 Simeon Georges MD: [address] [place] [phone] , Ph. [facility] [id number] [facility] 2023-12-06 00:00:00 2023-12-06 00:00:00 DELROY Steele: [address] [place] [phone] , Ph. [facility] [id number] [facility] 2023-11-14 00:00:00 2023-11-14 00:00:00 DELROY Steele: [address] [place] [phone] , [facility]. [facility] [id number] [facility] 2023-10-06 00:00:00 2023-10-06 00:00:00 Simeon Georges MD: [address] [place] [address] , Ph. [facility] GC_[facility] [id number] [facility] 2023-09-26 00:00:00 2023-09-26 00:00:00 DELROY Steele: [address] [place] [address] , Ph. [phone] [place] [address] GC_[facility] [id number] [facility] 2023-09-06 00:00:00 2023-09-06 00:00:00 Kesha Srinivasan PA: [address] [place] [address] , Ph. [phone] [place] [address] GC_[facility] [id number] [facility] 2023-08-05 00:00:00 2023-08-05 00:00:00 DELROY Steele: [address] [place] [address] , Ph. [phone] [place] [address] [facility] [id number] [facility] 2023-07-28 00:00:00 2023-07-28 00:00:00 Simeon Georges MD: [address] [place] [phone] , Ph. [facility] GC_[facility] [id number] [facility] 2023-07-26 00:00:00 2023-07-26 00:00:00 DELROY Steele: [address] [place] [address] , Ph. [phone] [place] [address] GC[facility] [id number] [facility] 2023-07-18 00:00:00 2023-07-18 00:00:00 DELROY Steele: [address] [place] [address] , Ph. [facility] - GC_[facility] [id number] [facility] 2023-07-01 00:00:00 2023-07-01 00:00:00 Kesha Srinivasan PA: [address] [place], [place] [address] , Ph. [facility] - GC_[facility] [id number] [facility] 2023-06-15 00:00:00 2023-06-15 00:00:00 DELROY Steele: [address] [place] [address] , Ph. [facility] - GC_[facility] [id number] [facility] 2023-06-15 00:00:00 2023-06-15 00:00:00 DELROY Steele: [address] [place], [place] [phone] , Ph. [facility] - GC_[facility] [id number] [facility] 2023-05-26 00:00:00 2023-05-26 00:00:00 Simeon Georges MD: [address] [place] [phone] , Ph. [facility] - GC_[facility] [id number] [facility] 2023-05-17 00:00:00 2023-05-17 00:00:00 DELROY Steele: [address] [place], [place] [phone] , Ph. [facility] - GC[facility] [id number] [facility] 2023-05-16 00:00:00 2023-05-16 00:00:00 Outpatient GC_BAHC_Tod d_J [facility] [id number] [facility] 2023-05-08 00:00:00 2023-05-08 00:00:00 Outpatient GC_BAHC_Tod d_J PRIV PRIV [id number] [facility] 2023-05-06 00:00:00 2023-05-06 00:00:00 DELROY Steele: [address] [place] [phone] , Ph. [facility] - GC[facility] [id number] [facility] 2023-05-05 00:00:00 2023-05-05 00:00:00 Outpatient GC_BAHC_Tod d_J PRIV PRIV [id number] [facility] 2023-05-04 00:00:00 2023-05-04 00:00:00 Outpatient GC_BAHC_Tod d_J PRIV PRIV [id number] [facility] 2023-04-23 00:00:00 2023-04-23 00:00:00 Outpatient GC_BAHC_Tod d_J PRIV PRIV [id number] [facility] 2023-04-22 00:00:00 2023-04-22 00:00:00 DELROY Steele: [address] [place] [phone] , Ph. [facility] [id number] [facility] 2023-04-21 00:00:00 2023-04-21 00:00:00 Outpatient GC_BAHC_Tod d_J PRIV PRIV [id number] [facility] 2023-04-19 00:00:00 2023-04-19 00:00:00 Outpatient GC_BAHC_Tod d_J PRIV PRIV [id number] [facility] 2023-04-13 00:00:00 2023-04-13 00:00:00 Outpatient GC_BAHC_Tod d_J PRIV PRIV [id number] [facility] 2023-03-26 00:00:00 2023-03-26 00:00:00 Outpatient GC_BAHC_Tod d_J PRIV PRIV [id number] [facility] 2023-03-22 00:00:00 2023-03-22 00:00:00 Outpatient GC_BAHC_Tod d_J PRIV PRIV [id number] [facility] 2023-03-18 00:00:00 2023-03-18 00:00:00 Outpatient GC_BAHC_Tod d_J PRIV PRIV [id number] [facility] 2023-03-16 00:00:00 2023-03-16 00:00:00 Outpatient GC_BAHC_Tod d_J PRIV PRIV [id number] [facility] 2023-03-04 00:00:00 2023-03-04 00:00:00 Outpatient GC_BAHC_Tod d_J PRIV PRIV [id number] [facility] 2023-02-26 00:00:00 2023-02-26 00:00:00 Outpatient GC_BAHC_Tod d_J PRIV PRIV [id number] [facility] 2023-02-09 00:00:00 2023-02-09 00:00:00 Outpatient GC_BAHC_Tod d_J PRIV PRIV [id number] [facility] 2023-02-02 00:00:00 2023-02-02 00:00:00 Outpatient GC_BAHC_Tod d_J PRIV PRIV [id number] [facility] 2023-01-27 00:00:00 2023-01-27 00:00:00 Outpatient GC_BAHC_Tod d_J PRIV PRIV [id number] [facility] 2023-01-27 00:00:00 2023-01-27 00:00:00 Outpatient GC_BAHC_Tod d_J PRIV PRIV [id number] [facility] 2023-01-24 00:00:00 2023-01-24 00:00:00 Outpatient GC_BAHC_Tod d_J PRIV PRIV [id number] [facility] 2023-01-24 00:00:00 2023-01-24 00:00:00 Outpatient GC_BAHC_Tod d_J PRIV PRIV [id number] [facility] 2023-01-18 00:00:00 2023-01-18 00:00:00 Outpatient GC_BAHC_Tod d_J PRIV PRIV [id number] [facility] 2023-01-05 00:00:00 2023-01-05 00:00:00 Outpatient GC_BAHC_Tod d_J PRIV PRIV [id number] [facility] 2022-12-24 00:00:00 2022-12-24 00:00:00 Outpatient GC_BAHC_Tod d_J PRIV PRIV [id number] [facility] 2022-12-24 00:00:00 2022-12-24 00:00:00 Outpatient GC_BAHC_Tod d_J PRIV PRIV [id number] [facility] 2022-12-24 00:00:00 2022-12-24 00:00:00 Outpatient GC_BAHC_Tod d_J PRIV PRIV [id number] [facility] 2022-12-17 00:00:00 2022-12-17 00:00:00 Outpatient GC_BAHC_Tod d_J PRIV PRIV [id number] [facility] 2022-12-02 00:00:00 2022-12-02 00:00:00 Outpatient GC_BAHC_Tod d_J PRIV PRIV [id number] [facility] 2022-12-02 00:00:00 2022-12-02 00:00:00 Outpatient GC_BAHC_Tod d_J PRIV PRIV [id number] [facility] 2022-11-24 00:00:00 2022-11-24 00:00:00 Outpatient GC_BAHC_Tod d_J PRIV PRIV [id number] [facility] 2022-11-24 00:00:00 2022-11-24 00:00:00 Outpatient GC_BAHC_Tod d_J PRIV PRIV [id number] [facility] 2022-11-19 00:00:00 2022-11-19 00:00:00 Outpatient GC_BAHC_Tod d_J PRIV PRIV [id number] [facility] 2022-11-17 00:00:00 2022-11-17 00:00:00 Outpatient GC_BAHC_Tod d_J PRIV PRIV [id number] [facility] 2022-11-14 00:00:00 2022-11-14 00:00:00 Outpatient GC_BAHC_Tod d_J PRIV PRIV [id number] [facility] 2022-11-14 00:00:00 2022-11-14 00:00:00 Outpatient GC_BAHC_Tod d_J PRIV PRIV [id number] [facility] 2022-11-05 00:00:00 2022-11-05 00:00:00 Outpatient GC_BAHC_Tod d_J PRIV PRIV [id number] [facility] 2022-10-22 00:00:00 2022-10-22 00:00:00 Outpatient GC_BAHC_Tod d_J PRIV PRIV [id number] [facility] 2022-10-22 00:00:00 2022-10-22 00:00:00 Outpatient GC_BAHC_Tod d_J PRIV PRIV [id number] [facility] 2022-10-18 00:00:00 2022-10-18 00:00:00 Outpatient GC_BAHC_Tod d_J PRIV PRIV [id number] [facility] 2022-10-18 00:00:00 2022-10-18 00:00:00 Outpatient GC_BAHC_Tod d_J PRIV PRIV [id number] [facility] 2022-10-05 00:00:00 2022-10-05 00:00:00 Outpatient GC_BAHC_Tod d_J PRIV PRIV [id number] [facility] 2022-10-05 00:00:00 2022-10-05 00:00:00 Outpatient GC_BAHC_Tod d_J PRIV PRIV [id number] [facility] 2022-09-25 00:00:00 2022-09-25 00:00:00 Outpatient GC_BAHC_Tod d_J PRIV PRIV [id number] [facility] 2022-09-25 00:00:00 2022-09-25 00:00:00 Outpatient GC_BAHC_Tod d_J PRIV PRIV [id number] [facility] 2022-08-28 00:00:00 2022-08-28 00:00:00 Outpatient GC_BAHC_Tod d_J PRIV PRIV [id number] [facility] 2022-08-28 00:00:00 2022-08-28 00:00:00 Outpatient GC_BAHC_Tod d_J PRIV PRIV [id number] [facility] 2022-08-28 00:00:00 2022-08-28 00:00:00 Outpatient GC_BAHC_Tod d_J PRIV PRIV [id number] [facility] 2022-08-27 00:00:00 2022-08-27 00:00:00 Outpatient GC_BAHC_Tod d_J PRIV PRIV [id number] [facility] 2022-08-19 00:00:00 2022-08-19 00:00:00 Outpatient GC_BAHC_Tod d_J PRIV PRIV [id number] [facility] 2022-08-19 00:00:00 2022-08-19 00:00:00 Outpatient GC_BAHC_Tod d_J PRIV PRIV [id number] [facility] 2022-08-19 00:00:00 2022-08-19 00:00:00 Outpatient GC_BAHC_Tod d_J PRIV PRIV [id number] [facility] 2022-08-06 00:00:00 2022-08-06 00:00:00 Outpatient GC_BAHC_Tod d_J PRIV PRIV [id number] [facility] 2022-08-06 00:00:00 2022-08-06 00:00:00 Outpatient GC_BAHC_Tod d_J PRIV PRIV [id number] [facility] 2022-08-06 00:00:00 2022-08-06 00:00:00 Outpatient GC_BAHC_Tod d_J PRIV PRIV [id number] [facility] 2022-08-06 00:00:00 2022-08-06 00:00:00 Outpatient GC_BAHC_Tod d_J PRIV PRIV [id number] [facility] 2022-08-04 00:00:00 2022-08-04 00:00:00 DELROY Steele: [address] [place] [phone] , Ph. [facility] GC_[facility] [id number] [facility] 2022-07-29 00:00:00 2022-07-29 00:00:00 Outpatient GC_BAHC_Tod d_J PRIV PRIV [id number] [facility] 2022-07-29 00:00:00 2022-07-29 00:00:00 Outpatient GC_BAHC_Tod d_J PRIV PRIV [id number] [facility] 2022-07-28 00:00:00 2022-07-28 00:00:00 Outpatient GC_BAHC_Tod d_J PRIV PRIV [id number] [facility] 2022-07-27 00:00:00 2022-07-27 00:00:00 DELROY Steele: [address] [place] [address] , Ph. [facility] - [facility] [id number] [facility] 2022-07-20 00:00:00 2022-07-20 00:00:00 DELROY Steele: [address] [place] [address] , Ph. [facility] - [facility] [id number] [facility] 2022-06-24 00:00:00 2022-06-24 00:00:00 Outpatient GC_BAHC_Tod d_J PRIV PRIV [id number] [facility] 2022-06-24 00:00:00 2022-06-24 00:00:00 Outpatient GC_BAHC_Tod d_J PRIV PRIV [id number] [facility] 2022-06-24 00:00:00 2022-06-24 00:00:00 Outpatient GC_BAHC_Tod d_J PRIV PRIV [id number] [facility] 2022-06-23 00:00:00 2022-06-23 00:00:00 Kesha Srinivasan PA: [address] [place] [phone] , Ph. [facility] [id number] [facility] 2022-06-01 00:00:00 2022-06-01 00:00:00 Outpatient GC_BAHC_Tod d_J PRIV PRIV [id number] [facility] 2022-05-29 00:00:00 2022-05-29 00:00:00 Outpatient GC_BAHC_Tod d_J PRIV PRIV [id number] [facility] 2022-05-28 00:00:00 2022-05-28 00:00:00 Outpatient GC_BAHC_Tod d_J PRIV PRIV [id number] [facility] 2022-05-28 00:00:00 2022-05-28 00:00:00 Outpatient GC_BAHC_Tod d_J PRIV PRIV [id number] [facility] 2022-05-28 00:00:00 2022-05-28 00:00:00 DELROY Steele: [address] [place] [address] , Ph. [facility] [id number] [facility] 2022-05-25 00:00:00 2022-05-25 00:00:00 Simeon Georges MD: [address] [place] [address] , Ph. [facility] - [facility] [id number] [facility] 2022-05-24 15:05:00 2022-05-24 15:05:00 Outpatient Kelsey Akbar W W [id number] [facility] 2022-05-21 00:00:00 2022-05-21 00:00:00 Outpatient GC_BAHC_Tod d_J PRIV PRIV [id number] [facility] 2022-05-21 00:00:00 2022-05-21 00:00:00 Outpatient GC_BAHC_Tod d_J PRIV PRIV [id number] [facility] 2022-05-21 00:00:00 2022-05-21 00:00:00 Outpatient GC_BAHC_Tod d_J [facility] PRIV [id number] [facility] 2022-05-21 00:00:00 2022-05-21 00:00:00 EDLROY Steele: [address] [place] [address] , Ph. [facility] - [facility] [id number] [facility] 2022-05-20 00:00:00 2022-05-20 00:00:00 Outpatient GC_BAHC_Tod d_J [facility] PRIV [id number] [facility] 2022-05-20 00:00:00 2022-05-20 00:00:00 Transition of Care Lisa Marie 1.2.840.114 [id number] [id number] [id number] [facility] 2022-04-21 12:51:00 2022-05-19 15:45:00 Inpatient X TOMMIE GONZALEZ [facility] [id number] [facility] 2022-04-21 12:51:00 2022-05-19 15:45:00 Hospital Encounter Abdoul Clayton, Rhonda Padilla, Maylin Osorio, Renny Antunez, Daniela Real, Gladis Gonzalez, Tommie Amaro, Nan [facility] 1.2.840.114 350.1.13.10 4.2.7.2.686 [id number] [facility] 2022-05-17 11:18:00 2022-05-17 14:17:00 Surgery Naomijuni Hardeep [facility] 1.2.840.114 350.1.13.10 4.2.7.2.686 [id number] [facility] 2020-06-10 10:30:00 2020-06-10 10:30:00 Outpatient R ALDAIR ABEL [facility] [id number] [facility] 2020-06-10 10:04:26 2020-06-10 10:10:50 Office Visit Aldair Abel [facility] 1.2.840.114 350.1.13.10 4.2.7.2.686 [id number] [facility] 2020-06-06 00:00:00 2020-06-06 00:00:00 Transition of Care Frank Lisajesu Newell 1.2.840.114 350.1.13.10 4.2.7.2.686 [id number] [facility] 2020-06-01 16:57:00 2020-06-05 09:36:00 Inpatient X ALDAIR [facility]EL [facility] [id number] [facility] 2020-06-01 16:57:00 2020-06-05 09:36:00 Hospital [facility] 1.2.840.114 350.1.13.10 4.2.7.2.686 [id number] [facility] 2020-02-04 00:00:00 2020-02-04 00:00:00 Letter (Out) ShadyKarly manuel [facility] 1.2.840.114 350.1.13.10 4.2.7.2.686 [id number] [facility] 2020-02-01 15:15:17 2020-02-01 15:30:17 Laboratory Only Nurse, Merrill Urgent Unknown, Attending [facility] 1.2.840.114 350.1.13.10 4.2.7.2.686 [id number] [facility] 2020-02-01 15:00:00 2020-02-01 15:00:00 Outpatient R UNKNOWN, ATTENDING [facility] [id number] [facility] Results Test Description Test Time Test Comments Results Result Co mments [facility] (NA, K, CL, CO2, GLUCOSE, BUN, CREATININE, CA)2022-05-19 12:51:47* Test Item Value Reference Range Interpretation Comme nts NA (test code = 1916647998) 138 mmol/L 135-145 K (test code = 8753799068) 3.8 mmol/L 3.5-5.0 CL (test code = 8438319238) 105 mmol/L 98-108 CO2 TOTAL (test code = 5155051797) 25 mmol/L 23-31 AGAP (test code = 5044651457) 8 2-16 BUN (test code = 6810404131) 14 mg/dL 7-23 GLUCOSE (test code = 3542056186) 105 mg/dL 70-110 CREATININE (test code = 6591853699) 0.61 mg/dL 0.60-1.25 CALCIUM (test code = 2774827745) 9.0 mg/dL 8.6-10.6 eGFR (test code = 2787434904) 133.1 mL/min/1.73m2 CL (test code = CL) [...] or urine or abnormalities in imaging tests). [facility] WITH [id number] 12:15:42* Test Item Value Reference Range Interpretation Comme nts WBC (test code = 6690-2) 7.53 See_Comment [Automated [employer]] The system which generated this result transmitted reference range: 4.20 - 10.70 10*3/?L. The reference range was not used to interpret this result as normal/abnormal. RBC (test code = 789-8) 4.40 See_Comment [[employer]] The system which generated this result transmitted [...] 34.8 g/dL 31.2-35.0 RDW-SD (test code = 28975-4) 45.5 fL 38.5-51.6 RDW-CV (test code = 788-0) 14.6 % 12.1-15.4 PLT (test code = 777-3) 162 See_Comment [Automated messa ge] The system which generated this result transmitted reference range: 150 - 328 10*3/?L. The reference range was not used to interpret this result as normal/abnormal. MPV (test code = 43802-5) 10.6 fL 9.8-13.0 NRBC/100 WBC (test code = 1755658639) 0.0 See_Comment [Automated [employer]IANA[employer] ssage] The system which generated this result transmitted reference range: 0.0 - 10.0 /100 WBCs. The reference range was not used to interpret this result as normal/abnormal. NRBC x10^3 (test code = 7575432098) See_Comment [Automated messa ge] The system which generated this result transmitted reference range: 10*3/?L. The reference range was not used to interpret this result as normal/abnormal. GRAN MAT (NEUT) % (test code = 770-8) 69.8 % IMM GRAN % (test code = 3524438233) 0.40 % LYMPH % (test code = 736-9) 19.0 % MONO % (test code = 5905-5) 9.2 % EOS % (test code = 713-8) 1.3 % BASO % (test code = 706-2) 0.3 % GRAN MAT x10^3(ANC) (test code = 4692858715) 5.26 10*3/uL 1.99-6.95 IMM GRAN x10^3 (test code = 3838672396) 0.03 10*3/uL 0.00-0.06 LYMPH x10^3 (test code = 731-0) 1.43 10*3/uL 1.09-3.23 MONO x10^3 (test code = 742-7) 0.69 10*3/uL 0.36-1.02 EOS x10^3 (test code = 711-2) 0.10 10*3/uL 0.06-0.53 BASO x10^3 (test code = 704-7) 0.01-0.09 Lab Interpretation (test code = 41183-8) Abnormal [facility] Confirmation (Lab Only)2022-05-17 13:14:44* Test Item Value Reference Range Interpretation Comme nts ABO & RH (test code = 20) O Positive Performed at [facility] Laboratory Services - [address] Free: [phone] No. [id number] [facility] Confirmation (Lab Only)2022-05-17 13:14:44* Test Item Value Reference Range Interpretation Comme nts ABO & RH (test code = 20) O Positive Performed at [facility] Laboratory Services - [address] Free: [phone] No. [id number] [facility] AM-0400 Routine 2022-05-17 12:24:10* Test Item Value Reference Range Interpretation Comme nts ABO & RH (test code = 20) O POSITIVE Performed at [facility] Laboratory Services - [address] Free: [phone] No. [id number] IAT (test code = 1185) Negative Performed at [facility] Laboratory [facility] - [address] Free: [phone] No. [id number] [facility] AM-0400 Routine 2022-05-17 12:24:10* Test Item Value Reference Range Interpretation Comme nts ABO & RH (test code = 20) O POSITIVE Performed at [facility] Laboratory Services - [address] Free: [phone] No. [id number] IAT (test code = 1185) Negative Performed at [facility] Laboratory Services - [address] Free: [phone] No. [id number] [facility] WITH [id number] 15:26:38* Test Item Value Reference Range Interpretation [...] 34.9 g/dL 31.2-35.0 RDW-SD (test code = 84842-9) 43.3 fL 38.5-51.6 RDW-CV (test code = 788-0) 13.9 % 12.1-15.4 PLT (test code = 777-3) 174 See_Comment [Automated messa ge] The system which generated this result transmitted reference range: 150 - 328 10*3/?L. The reference range was not used to interpret this result as normal/abnormal. MPV (test code = 09426-2) 10.8 fL 9.8-13.0 NRBC/100 WBC (test code = 6328578843) 0.0 See_Comment [Automated me ssage] The system which generated this result transmitted reference range: 0.0 - 10.0 /100 WBCs. The reference range was not used to interpret this result as normal/abnormal. NRBC x10^3 (test code = 1779000285) See_Comment [Automated messa ge] The system which generated this result transmitted reference range: 10*3/?L. The reference range was not used to interpret this result as normal/abnormal. GRAN MAT (NEUT) % (test code = 770-8) 79.7 % IMM GRAN % (test code = 6121094549) 0.20 % LYMPH % (test code = 736-9) 14.4 % MONO % (test code = 5905-5) 4.8 % EOS % (test code = 713-8) 0.7 % BASO % (test code = 706-2) 0.2 % GRAN MAT x10^3(ANC) (test code = 1239957908) 6.97 10*3/uL 1.99-6.95 H IMM GRAN x10^3 (test code = 6317741042) 0.00-0.06 LYMPH x10^3 (test code = 731-0) 1.26 10*3/uL 1.09-3.23 MONO x10^3 (test code = 742-7) 0.42 10*3/uL 0.36-1.02 EOS x10^3 (test code = 711-2) 0.06 10*3/uL 0.06-0.53 BASO x10^3 (test code = 704-7) 0.01-0.09 Lab Interpretation (test code = 31787-1) Abnormal [facility] WITH [id number] 15:26:38* Test Item Value Reference Range Interpretation [...] 34.9 g/dL 31.2-35.0 RDW-SD (test code = 64034-8) 43.3 fL 38.5-51.6 RDW-CV (test code = 788-0) 13.9 % 12.1-15.4 PLT (test code = 777-3) 174 See_Comment [Automated messa ge] The system which generated this result transmitted reference range: 150 - 328 10*3/?L. The reference range was not used to interpret this result as normal/abnormal. MPV (test code = 73603-3) 10.8 fL 9.8-13.0 NRBC/100 WBC (test code = 2751724086) 0.0 See_Comment [Automated LIANAI ssage] The system which generated this result transmitted reference range: 0.0 - 10.0 /100 WBCs. The reference range was not used to interpret this result as normal/abnormal. NRBC x10^3 (test code = 6879611735) See_Comment [Automated messa ge] The system which generated this result transmitted reference range: 10*3/?L. The reference range was not used to interpret this result as normal/abnormal. GRAN MAT (NEUT) % (test code = 770-8) 79.7 % IMM GRAN % (test code = 4011242541) 0.20 % LYMPH % (test code = 736-9) 14.4 % MONO % (test code = 5905-5) 4.8 % EOS % (test code = 713-8) 0.7 % BASO % (test code = 706-2) 0.2 % GRAN MAT x10^3(ANC) (test code = 5374483481) 6.97 10*3/uL 1.99-6.95 H IMM GRAN x10^3 (test code = 5051732456) 0.00-0.06 LYMPH x10^3 (test code = 731-0) 1.26 10*3/uL 1.09-3.23 MONO x10^3 (test code = 742-7) 0.42 10*3/uL 0.36-1.02 EOS x10^3 (test code = 711-2) 0.06 10*3/uL 0.06-0.53 BASO x10^3 (test code = 704-7) 0.01-0.09 Lab Interpretation (test code = 01407-7) Abnormal [facility] METABOLIC PANEL (NA, K, CL, CO2, GLUCOSE, BUN, CREATININE, CA)2022-04-27 10:45:36* Test Item Value Reference Range Interpretation Comme nts NA (test code = 1068680707) 135 mmol/L 135-145 K (test code = 1914441952) 3.9 mmol/L 3.5-5.0 CL (test code = 6424376043) 105 mmol/L 98-108 CO2 TOTAL (test code = 9037272281) 20 mmol/L 23-31 L AGAP (test code = 0453188006) 10 2-16 BUN (test code = 6218909935) 19 mg/dL 7-23 GLUCOSE (test code = 6422911233) 93 mg/dL 70-110 CREATININE (test code = 9709288641) 0.84 mg/dL 0.60-1.25 CALCIUM (test code = 2931168593) 8.8 mg/dL 8.6-10.6 eGFR (test code = 4631937990) 92.0 mL/min/1.73m2 CL (test code = CL) [...] imaging tests). Lab Interpretation (test code = 75923-7) Abnormal [facility] METABOLIC PANEL (NA, K, CL, CO2, GLUCOSE, BUN, CREATININE, CA)2022-04-27 10:45:36* Test Item Value Reference Range Interpretation Comme nts NA (test code = 7752570556) 135 mmol/L 135-145 K (test code = 3177591642) 3.9 mmol/L 3.5-5.0 CL (test code = 4071487695) 105 mmol/L 98-108 CO2 TOTAL (test code = 6399227581) 20 mmol/L 23-31 L AGAP (test code = 1769858744) 10 2-16 BUN (test code = 9388527840) 19 mg/dL 7-23 GLUCOSE (test code = 5688209911) 93 mg/dL 70-110 CREATININE (test code = 9059833152) 0.84 mg/dL 0.60-1.25 CALCIUM (test code = 7754019420) 8.8 mg/dL 8.6-10.6 eGFR (test code = 7987233681) 92.0 mL/min/1.73m2 CL (test code = CL) [...] imaging tests). Lab Interpretation (test code = 05125-9) Abnormal [facility] Culture - Peripheral # [id number] 06:01:58* Test Item Value Reference Range Interpretation Comme [facility] Blood Culture-Aerobic (test code = 31794-4) No organisms isolated No growth Previous preliminary verified result was Culture In Progress on 04/22/2022 at 0301 CSTPrevious preliminary verified result was No growth at 24 hours on 04/23/2022 at 0001 CSTPrevious preliminary verified result was No growth at 48 hours on 04/24/2022 at 0001 CSTPrevious preliminary verified result was No growth at 72 hours on 04/25/2022 at 0001 INSTITUTIONAL RESEARCH DIRECTOR Blood Culture-Anaerobic (test code = 23886-0) No organisms isolated No growth Previous preliminary verified result was Culture In Progress on 04/22/2022 at 0301 CSTPrevious preliminary verified result was No growth at 24 hours on 04/23/2022 at 0001 CSTPrevious preliminary verified result was No growth at 48 hours on 04/24/2022 at 0001 CSTPrevious preliminary verified result was No growth at 72 hours on 04/25/2022 at 0001 INSTITUTIONAL RESEARCH DIRECTOR Lab Interpretation (test code = 53890-0) Normal [facility] Culture - Peripheral # [id number] 06:01:58* Test Item Value Reference Range Interpretation Comme [facility] Blood Culture-Aerobic (test code = 21620-6) No organisms isolated No growth Previous preliminary verified result was Culture In Progress on 04/22/2022 at 0301 CSTPrevious preliminary verified result was No growth at 24 hours on 04/23/2022 at 0001 CSTPrevious preliminary verified result was No growth at 48 hours on 04/24/2022 at 0001 CSTPrevious preliminary verified result was No growth at 72 hours on 04/25/2022 at 0001 INSTITUTIONAL RESEARCH DIRECTOR Blood Culture-Anaerobic (test code = 99670-1) No organisms isolated No growth Previous preliminary verified result was Culture In Progress on 04/22/2022 at 0301 CSTPrevious preliminary verified result was No growth at 24 hours on 04/23/2022 at 0001 CSTPrevious preliminary verified result was No growth at 48 hours on 04/24/2022 at 0001 CSTPrevious preliminary verified result was No growth at 72 hours on 04/25/2022 at 0001 INSTITUTIONAL RESEARCH DIRECTOR Lab Interpretation (test code = 88913-4) [facility] Culture - Peripheral # [id number] 06:01:58* Test Item Value Reference Range Interpretation Comme [facility] Blood Culture-Aerobic (test code = 61299-7) No organisms isolated No growth Previous preliminary verified result was Culture In Progress on 04/22/2022 at 0301 CSTPrevious preliminary verified result was No growth at 24 hours on 04/23/2022 at 0001 CSTPrevious preliminary verified result was No growth at 48 hours on 04/24/2022 at 0001 CSTPrevious preliminary verified result was No growth at 72 hours on 04/25/2022 at 0001 INSTITUTIONAL RESEARCH DIRECTOR Blood Culture-Anaerobic (test code = 22440-9) No organisms isolated No growth Previous preliminary verified result was Culture In Progress on 04/22/2022 at 0301 CSTPrevious preliminary verified result was No growth at 24 hours on 04/23/2022 at 0001 CSTPrevious preliminary verified result was No growth at 48 hours on 04/24/2022 at 0001 CSTPrevious preliminary verified result was No growth at 72 hours on 04/25/2022 at 0001 INSTITUTIONAL RESEARCH DIRECTOR Lab Interpretation (test code = 03433-5) [facility] Culture - Peripheral # [id number] 06:01:58* Test Item Value Reference Range Interpretation Comme nts Blood Culture-Aerobic (test code = 15024-3) No organisms isolated No growth Previous preliminary verified result was Culture In Progress on 04/22/2022 at 0301 CSTPrevious preliminary verified result was No growth at 24 hours on 04/23/2022 at 0001 CSTPrevious preliminary verified result was No growth at 48 hours on 04/24/2022 at 0001 CSTPrevious preliminary verified result was No growth at 72 hours on 04/25/2022 at 0001 INSTITUTIONAL RESEARCH DIRECTOR Blood Culture-Anaerobic (test code = 78092-2) No organisms isolated No growth Previous preliminary verified result was Culture In Progress on 04/22/2022 at 0301 CSTPrevious preliminary verified result was No growth at 24 hours on 04/23/2022 at 0001 CSTPrevious preliminary verified result was No growth at 48 hours on 04/24/2022 at 0001 CSTPrevious preliminary verified result was No growth at 72 hours on 04/25/2022 at 0001 INSTITUTIONAL RESEARCH DIRECTOR Lab Interpretation (test code = 16614-9) [facility]2023-01-29 15:52:38* Test Item Value Reference Range Interpretation Comme nts MAGNESIUM (test code = 8971743336) 2.1 mg/dL 1.7-2.4 Lab Interpretation (test cod e = 17378-9) [facility]2023-01-29 15:52:38* Test Item Value Reference Range Interpretation Comme nts MAGNESIUM (test code = 8850255658) 2.1 mg/dL 1.7-2.4 Lab Interpretation (test cod e = 30087-0) [facility] METABOLIC PANEL (NA, K, CL, CO2, GLUCOSE, BUN, CREATININE, CA)2022-04-25 10:43:02* Test Item Value Reference Range Interpretation Comme nts NA (test code = 2084116025) 137 mmol/L 135-145 K (test code = 5162090908) 3.2 mmol/L 3.5-5.0 L CL (test code = 8085542257) 103 mmol/L 98-108 CO2 TOTAL (test code = 9764359282) 25 mmol/L 23-31 AGAP (test code = 3005627383) 9 2-16 BUN (test code = 3936005304) 17 mg/dL 7-23 GLUCOSE (test code = 7582416821) 94 mg/dL 70-110 CREATININE (test code = 1774462420) 0.96 mg/dL 0.60-1.25 CALCIUM (test code = 8965694590) 8.8 mg/dL 8.6-10.6 eGFR (test code = 3493661789) 78.9 mL/min/1.73m2 CL (test code = CL) [...] imaging tests). Lab Interpretation (test code = 57308-5) Abnormal [facility] METABOLIC PANEL (NA, K, CL, CO2, GLUCOSE, BUN, CREATININE, CA)2022-04-25 10:43:02* Test Item Value Reference Range Interpretation Comme nts NA (test code = 2425296786) 137 mmol/L 135-145 K (test code = 4620940174) 3.2 mmol/L 3.5-5.0 L CL (test code = 4585404633) 103 mmol/L 98-108 CO2 TOTAL (test code = 8919607471) 25 mmol/L 23-31 AGAP (test code = 3992292360) 9 2-16 BUN (test code = 6331617395) 17 mg/dL 7-23 GLUCOSE (test code = 2849380097) 94 mg/dL 70-110 CREATININE (test code = 4212920521) 0.96 mg/dL 0.60-1.25 CALCIUM (test code = 4490744635) 8.8 mg/dL 8.6-10.6 eGFR (test code = 6674916988) 78.9 mL/min/1.73m2 CL (test code = CL) [...] imaging tests). Lab Interpretation (test code = 91093-5) Abnormal [facility] WITH [id number] 10:22:01* Test Item Value Reference Range Interpretation Comme nts WBC (test code = 6690-2) 5.67 See_Comment [Automated Bonush] The system which generated this result transmitted reference range: 4.20 - 10.70 10*3/?L. The reference range was not used to interpret this result as normal/abnormal. RBC (test code = 789-8) 5.42 See_Comment [Automated SocialVolta ge] The system which generated this result [...] 33.4 g/dL 31.2-35.0 RDW-SD (test code = 88148-0) 42.1 fL 38.5-51.6 RDW-CV (test code = 788-0) 13.2 % 12.1-15.4 PLT (test code = 777-3) 193 See_Comment [Automated SocialVolta ge] The system which generated this result transmitted reference range: 150 - 328 10*3/?L. The reference range was not used to interpret this result as normal/abnormal. MPV (test code = 13681-1) 10.0 fL 9.8-13.0 NRBC/100 WBC (test code = 6052335600) 0.0 See_Comment [Automated me ssage] The system which generated this result transmitted reference range: 0.0 - 10.0 /100 WBCs. The reference range was not used to interpret this result as normal/abnormal. NRBC x10^3 (test code = 4130659669) See_Comment [Automated me ssage] The system which generated this result transmitted reference range: 10*3/?L. The reference range was not used to interpret this result as normal/abnormal. GRAN MAT (NEUT) % (test code = 770-8) 55.6 % IMM GRAN % (test code = 2190679103) 0.20 % LYMPH % (test code = 736-9) 30.0 % MONO % (test code = 5905-5) 8.6 % EOS % (test code = 713-8) 5.1 % BASO % (test code = 706-2) 0.5 % GRAN MAT x10^3(ANC) (test code = 9996313309) 3.15 10*3/uL 1.99-6.95 IMM GRAN x10^3 (test code = 7877725741) 0.00-0.06 LYMPH x10^3 (test code = 731-0) 1.70 10*3/uL 1.09-3.23 MONO x10^3 (test code = 742-7) 0.49 10*3/uL 0.36-1.02 EOS x10^3 (test code = 711-2) 0.29 10*3/uL 0.06-0.53 BASO x10^3 (test code = 704-7) 0.03 10*3/uL 0.01-0.09 [facility] WITH [id number] 10:22:01* Test Item Value Reference Range Interpretation Comme nts WBC (test code = 6690-2) 5.67 See_Comment [Automated SocialVolta ge] The system which generated this result transmitted reference range: 4.20 - 10.70 10*3/?L. The reference range was not used to interpret this result as normal/abnormal. RBC (test code = 789-8) 5.42 See_Comment [Automated SocialVolta ge] The system which generated this result [...] 33.4 g/dL 31.2-35.0 RDW-SD (test code = 03672-0) 42.1 fL 38.5-51.6 RDW-CV (test code = 788-0) 13.2 % 12.1-15.4 PLT (test code = 777-3) 193 See_Comment [Automated messa ge] The system which generated this result transmitted reference range: 150 - 328 10*3/?L. The reference range was not used to interpret this result as normal/abnormal. MPV (test code = 65931-0) 10.0 fL 9.8-13.0 NRBC/100 WBC (test code = 1427600640) 0.0 See_Comment [Automated me ssage] The system which generated this result transmitted reference range: 0.0 - 10.0 /100 WBCs. The reference range was not used to interpret this result as normal/abnormal. NRBC x10^3 (test code = 0971675983) See_Comment [Automated me ssage] The system which generated this result transmitted reference range: 10*3/?L. The reference range was not used to interpret this result as normal/abnormal. GRAN MAT (NEUT) % (test code = 770-8) 55.6 % IMM GRAN % (test code = 1443308233) 0.20 % LYMPH % (test code = 736-9) 30.0 % MONO % (test code = 5905-5) 8.6 % EOS % (test code = 713-8) 5.1 % BASO % (test code = 706-2) 0.5 % GRAN MAT x10^3(ANC) (test code = 3098120217) 3.15 10*3/uL 1.99-6.95 IMM GRAN x10^3 (test code = 3844444141) 0.00-0.06 LYMPH x10^3 (test code = 731-0) 1.70 10*3/uL 1.09-3.23 MONO x10^3 (test code = 742-7) 0.49 10*3/uL 0.36-1.02 EOS x10^3 (test code = 711-2) 0.29 10*3/uL 0.06-0.53 BASO x10^3 (test code = 704-7) 0.03 10*3/uL 0.01-0.09 [facility] (A1C)2022-04-22 04:14:29* Test Item Value Reference Range Interpretation Comme nts HGB A1C (test code = 4548-4) 5.8 % 4.0-5.7 H CL (test code = CL) Reference RangesNormal: <5.7%Prediabetes: 5.7 - 6.4%Diabetes: > 6.5% Lab Interpretation (test code = 79201-3) [facility]normal [facility] (A1C)2022-04-22 04:14:29* Test Item Value Reference Range Interpretation Comme [facility] HGB A1C (test code = 4548-4) 5.8 % 4.0-5.7 H CL (test code = CL) Reference RangesNormal: <5.7%Prediabetes: 5.7 - 6.4%Diabetes: > 6.5% Lab Interpretation (test code = 71669-1) [facility]normal [facility] / [id number] 20:13:11* Test Item Value Reference Range Interpretation Comme [facility] PROTIME PATIENT (test code = 5964-2) [...] the indications. Lab Interpretation (test code = 95736-6) [facility]normal [facility] / [id number] 20:13:11* Test Item Value Reference Range Interpretation Comme [facility] PROTIME PATIENT (test code = 5964-2) [...] the indications. Lab Interpretation (test code = 86138-1) [facility]normal [facility] [id number] 19:58:08* Test Item Value Reference Range Interpretation Comme nts TROPONIN I (test code = 2602941126) 0.005 ng/mL <=0.034 CL (test code = [...] of biotin. Lab Interpretation (test code = 80315-9) Normal [facility] hospitalOPONIN [id number] 19:58:08* Test Item Value Reference Range Interpretation Comme nts TROPONIN I (test code = 2098643081) 0.005 ng/mL <=0.034 CL (test code = [...] of biotin. Lab Interpretation (test code = 42642-0) Normal [facility]OLIC PANEL (58591)2022-04-21 19:46:06* Test Item Value Reference Range Interpretation Comme nts NA (test code = 7401104438) 138 mmol/L 135-145 K (test code = 2232203714) 4.6 mmol/L 3.5-5.0 Slight hemolysis CL (test code = 2909802994) 108 mmol/L 98-108 CO2 TOTAL (test code = 3736038280) 21 mmol/L 23-31 L AGAP (test code = 6725173327) 9 2-16 BUN (test code = 6565099105) 15 mg/dL 7-23 Slight hemolysis GLUCOSE (test code = 0652673424) 97 mg/dL 70-110 CREATININE (test code = 8232718167) 0.77 mg/dL 0.60-1.25 TOTAL BILI (test code = 7527298637) 0.9 mg/dL 0.1-1.1 CALCIUM (test code = 4727463412) 8.8 mg/dL 8.6-10.6 T PROTEIN (test code = 3297332655) 7.5 g/dL 6.3-8.2 ALBUMIN (test code = 3671677923) 4.1 g/dL 3.5-5.0 ALK PHOS (test code = 1240913567) 90 U/L 34-122 Slight hemolysis ALTv (test code = 1742-6) 19 U/L 5-50 AST(SGOT) (test code = 8090289839) 28 U/L 13-40 Slight hemolysis eGFR (test code = 1406529810) 101.7 mL/min/1.73m2 CL (test code = CL) [...] imaging tests). Lab Interpretation (test code = 19445-5) [facility] 19:46:06* Test Item Value Reference Range Interpretation Comme nts MAGNESIUM (test code = 3840184805) 2.2 mg/dL 1.7-2.4 Lab Interpretation (test cod e = 52643-7) Normal [facility]OL[facility] PAN[facility] (63923)2022-04-21 19:46:06* Test Item Value Reference Range Interpretation Comme nts NA (test code = 5874857696) 138 mmol/L 135-145 K (test code = 9629891567) 4.6 mmol/L 3.5-5.0 Slight hemolysis CL (test code = 1503403802) 108 mmol/L 98-108 CO2 TOTAL (test code = 4442378938) 21 mmol/L 23-31 L AGAP (test code = 5525623116) 9 2-16 BUN (test code = 1613741989) 15 mg/dL 7-23 Slight hemolysis GLUCOSE (test code = 8039096142) 97 mg/dL 70-110 CREATININE (test code = 2629800611) 0.77 mg/dL 0.60-1.25 TOTAL BILI (test code = 7851212018) 0.9 mg/dL 0.1-1.1 CALCIUM (test code = 9469427797) 8.8 mg/dL 8.6-10.6 T PROTEIN (test code = 5508470234) 7.5 g/dL 6.3-8.2 ALBUMIN (test code = 7765298704) 4.1 g/dL 3.5-5.0 ALK PHOS (test code = 0643706629) 90 U/L 34-122 Slight hemolysis ALTv (test code = 1742-6) 19 U/L 5-50 AST(SGOT) (test code = 1046279464) 28 U/L 13-40 Slight hemolysis eGFR (test code = 8199697911) 101.7 mL/min/1.73m2 CL (test code = CL) [...] imaging tests). Lab Interpretation (test code = 42881-0) [facility]normal [facility] 19:46:06* Test Item Value Reference Range Interpretation Comme nts MAGNESIUM (test code = 4771629722) 2.2 mg/dL 1.7-2.4 Lab Interpretation (test cod e = 86389-4) Normal [facility] WITH [id number] 19:44:24* Test Item Value Reference Range Interpretation Comme nts WBC (test code = 6690-2) 4.68 See_Comment [Automated SocialVolta TutorialTab] The system which generated this result transmitted reference range: 4.20 - 10.70 10*3/?L. The reference range was not used to interpret this result as normal/abnormal. RBC (test code = 789-8) 5.18 See_Comment [Automated [employer]Vol[employer] TutorialTab] The system which generated this result transmitted [...] 33.8 g/dL 31.2-35.0 RDW-SD (test code = 94471-1) 42.4 fL 38.5-51.6 RDW-CV (test code = 788-0) 13.3 % 12.1-15.4 PLT (test code = 777-3) 233 See_Comment [Automated [employer] TutorialTab] The system which generated this result transmitted reference range: 150 - 328 10*3/?L. The reference range was not used to interpret this result as normal/abnormal. MPV (test code = 50268-4) 9.8 fL 9.8-13.0 NRBC/100 WBC (test code = 9242395230) 0.0 See_Comment [Automated Bardolino Grillege] The system which generated this result transmitted reference range: 0.0 - 10.0 /100 WBCs. The reference range was not used to interpret this result as normal/abnormal. NRBC x10^3 (test code = 6237394184) See_Comment [Automated Bardolino Grillege] The system which generated this result transmitted reference range: 10*3/?L. The reference range was not used to interpret this result as normal/abnormal. GRAN MAT (NEUT) % (test code = 770-8) 51.6 % IMM GRAN % (test code = 8359781583) 0.20 % LYMPH % (test code = 736-9) 32.3 % MONO % (test code = 5905-5) 10.3 % EOS % (test code = 713-8) 4.7 % BASO % (test code = 706-2) 0.9 % GRAN MAT x10^3(ANC) (test code = 4162296514) 2.42 10*3/uL 1.99-6.95 IMM GRAN x10^3 (test code = 4891455587) 0.00-0.06 LYMPH x10^3 (test code = 731-0) 1.51 10*3/uL 1.09-3.23 MONO x10^3 (test code = 742-7) 0.48 10*3/uL 0.36-1.02 EOS x10^3 (test code = 711-2) 0.22 10*3/uL 0.06-0.53 BASO x10^3 (test code = 704-7) 0.04 10*3/uL 0.01-0.09 [facility] WITH [id number] 19:44:24* Test Item Value Reference Range Interpretation Comme nts WBC (test code = 6690-2) 4.68 See_Comment [Automated [employer] TutorialTab] The system which generated this result transmitted reference range: 4.20 - 10.70 10*3/?L. The reference range was not used to interpret this result as normal/abnormal. RBC (test code = 789-8) 5.18 See_Comment [Automated SocialVol[employer] ge] The system which generated this result [...] 33.8 g/dL 31.2-35.0 RDW-SD (test code = 58387-9) 42.4 fL 38.5-51.6 RDW-CV (test code = 788-0) 13.3 % 12.1-15.4 PLT (test code = 777-3) 233 See_Comment [Automated [employer]Vol[employer] ge] The system which generated this result transmitted reference range: 150 - 328 10*3/?L. The reference range was not used to interpret this result as normal/abnormal. MPV (test code = 05189-6) 9.8 fL 9.8-13.0 NRBC/100 WBC (test code = 8284593676) 0.0 See_Comment [Automated me ssage] The system which generated this result transmitted reference range: 0.0 - 10.0 /100 WBCs. The reference range was not used to interpret this result as normal/abnormal. NRBC x10^3 (test code = 4555203844) See_Comment [Automated me ssage] The system which generated this result transmitted reference range: 10*3/?L. The reference range was not used to interpret this result as normal/abnormal. GRAN MAT (NEUT) % (test code = 770-8) 51.6 % IMM GRAN % (test code = 2524234673) 0.20 % LYMPH % (test code = 736-9) 32.3 % MONO % (test code = 5905-5) 10.3 % EOS % (test code = 713-8) 4.7 % BASO % (test code = 706-2) 0.9 % GRAN MAT x10^3(ANC) (test code = [id number]) 2.42 10*3/uL 1.99-6.95 IMM GRAN x10^3 (test code = [id number]) 0.00-0.06 LYMPH x10^3 (test code = 731-0) 1.51 10*3/uL 1.09-3.23 MONO x10^3 (test code = 742-7) 0.48 10*3/uL 0.36-1.02 EOS x10^3 (test code = 711-2) 0.22 10*3/uL 0.06-0.53 BASO x10^3 (test code = 704-7) 0.04 10*3/uL 0.01-0.09 [facility], [id number] 19:42:47* Test Item Value Reference Range Interpretation Comme nts AMMONIA (test code = [id number]) 13 umol/L 9-33 Slight hemolysis Lab Interpretation (test code = 84120-5) Normal [facility], [id number] 19:42:47* Test Item Value Reference Range Interpretation Comme nts AMMONIA (test code = 9843048344) 13 umol/L 9-33 Slight hemolysis Lab Interpretation (test code = 18749-3) Normal [facility] HospitalQU[facility] [id number] 12:54:04* Test Item Value Reference Range Interpretation Comme nts Quantitative Tissue Culture (test code = 57612-2) No aerobic organisms isolated Gram stain (test code = 664-3) Few PMNs or Mononuclear cells observed [facility]ABOLIC PANEL (NA, K, CL, CO2, GLUCOSE, BUN, CREATININE, CA)2020-06-05 11:11:52* Test Item Value Reference Range Interpretation Comme nts NA (test code = 4392926043) 138 mmol/L 135-145 K (test code = 5176098926) 3.6 mmol/L 3.5-5.0 CL (test code = 0057513735) 108 mmol/L 98-108 CO2 TOTAL (test code = 7012201944) 23 mmol/L 23-31 AGAP (test code = 2446639089) 2-16 BUN (test code = 1544556198) 11 mg/dL 7-23 GLUCOSE (test code = 5846327804) 96 mg/dL 70-110 CREATININE (test code = 9522869291) 0.91 mg/dL 0.60-1.25 CALCIUM (test code = 0215754808) 8.4 mg/dL 8.6-10.6 L eGFR Calculation (Non-) (test code = 7179549554) mL/min/1.73m2 eGFR Calculation () (test code = 8482860890) mL/min/1.73m2 CL (test code = CL) Association [...] imaging tests). Lab Interpretation (test code = 45314-2) Abnormal [facility] WITH [id number] 09:12:20* Test Item Value Reference Range Interpretation Comme nts WBC (test code = 6690-2) See_Comment [[employer]] The system which generated this result transmitted reference range: 4.20 - 10.70 10*3/?L. The reference range was not used to interpret this result as normal/abnormal. RBC (test code = 789-8) See_Comment [[employer]] The system which generated this result transmitted [...] 33.3 g/dL 31.2-35.0 RDW-SD (test code = 39782-0) 46.5 fL 38.5-51.6 RDW-CV (test code = 788-0) 14.1 % 12.1-15.4 PLT (test code = 777-3) See_Comment [Automated messa ge] The system which generated this result transmitted reference range: 150 - 328 10*3/?L. The reference range was not used to interpret this result as normal/abnormal. MPV (test code = 55336-8) 9.6 fL 9.8-13.0 L NRBC/100 WBC (test code = 4314388411) See_Comment [Automated LIANAI ssage] The system which generated this result transmitted reference range: 0.0 - 10.0 /100 WBCs. The reference range was not used to interpret this result as normal/abnormal. NRBC x10^3 (test code = 3041708289) <0.01 See_Comment [Automated messa ge] The system which generated this result transmitted reference range: 10*3/?L. The reference range was not used to interpret this result as normal/abnormal. GRAN MAT (NEUT) % (test code = 770-8) 59.2 % IMM GRAN % (test code = 3123894764) 0.30 % LYMPH % (test code = 736-9) 25.7 % MONO % (test code = 5905-5) 9.5 % EOS % (test code = 713-8) 4.7 % BASO % (test code = 706-2) 0.6 % GRAN MAT x10^3(ANC) (test code = 1873195779) 3.94 10*3/uL 1.99-6.95 IMM GRAN x10^3 (test code = 9026526154) <0.03 0.00-0.06 LYMPH x10^3 (test code = 731-0) 1.71 10*3/uL 1.09-3.23 MONO x10^3 (test code = 742-7) 0.63 10*3/uL 0.36-1.02 EOS x10^3 (test code = 711-2) 0.31 10*3/uL 0.06-0.53 BASO x10^3 (test code = 704-7) 0.04 10*3/uL 0.01-0.09 Lab Interpretation (test code = 26308-3) Abnormal [facility] HospitalVanlds hospitalycin Trough Level - Draw immediately prior to the 4TH dose, but, no more than 60 minutes before the 4TH dose. 2020-06-05 03:47:33* Test Item Value Reference Range Interpretation Comme nts VANCO TROUGH (test code = 6974540834) 11.4 ug/mL 10.0-20.0 CL (test code = CL) Toxic Range: ?>20 ug/mL 15-20 ug/mL is recommended for severe infection or when Vancomycin KATHLEEN is greater than or equal to 2. Lab Interpretation (test code = 93583-6) Normal [facility] METABOLIC PANEL (NA, K, CL, CO2, GLUCOSE, BUN, CREATININE, CA)2020-06-04 10:05:48* Test Item Value Reference Range Interpretation Comme nts NA (test code = 6258243642) 141 mmol/L 135-145 K (test code = 0721703970) 3.8 mmol/L 3.5-5.0 CL (test code = 6874389487) 112 mmol/L 98-108 H CO2 TOTAL (test code = 4461594990) 23 mmol/L 23-31 AGAP (test code = 7521012133) 2-16 BUN (test code = 4102323599) 10 mg/dL 7-23 GLUCOSE (test code = 0694020484) 90 mg/dL 70-110 CREATININE (test code = 7141198234) 0.68 mg/dL 0.60-1.25 CALCIUM (test code = 1248495426) 8.4 mg/dL 8.6-10.6 L eGFR Calculation (Non-) (test code = 0996357159) mL/min/1.73m2 eGFR Calculation () (test code = 8361967236) mL/min/1.73m2 CL (test code = CL) Association [...] imaging tests). Lab Interpretation (test code = 72959-3) Abnormal [facility] WITH [id number] 09:34:25* Test Item Value Reference Range Interpretation Comme nts WBC (test code = 6690-2) See_Comment [Automated [employer]ush] The system which generated this result transmitted reference range: 4.20 - 10.70 10*3/?L. The reference range was not used to interpret this result as normal/abnormal. RBC (test code = 789-8) See_Comment [[employer]] The system which generated this result transmitted [...] 33.6 g/dL 31.2-35.0 RDW-SD (test code = 93614-1) 46.5 fL 38.5-51.6 RDW-CV (test code = 788-0) 14.2 % 12.1-15.4 PLT (test code = 777-3) See_Comment [Automated messa ge] The system which generated this result transmitted reference range: 150 - 328 10*3/?L. The reference range was not used to interpret this result as normal/abnormal. MPV (test code = 55539-9) 9.5 fL 9.8-13.0 L NRBC/100 WBC (test code = 8840945976) See_Comment [Automated LIANAI ssage] The system which generated this result transmitted reference range: 0.0 - 10.0 /100 WBCs. The reference range was not used to interpret this result as normal/abnormal. NRBC x10^3 (test code = 8634755047) <0.01 See_Comment [Automated messa ge] The system which generated this result transmitted reference range: 10*3/?L. The reference range was not used to interpret this result as normal/abnormal. GRAN MAT (NEUT) % (test code = 770-8) 52.6 % IMM GRAN % (test code = 9180247437) 0.20 % LYMPH % (test code = 736-9) 31.2 % MONO % (test code = 5905-5) 9.2 % EOS % (test code = 713-8) 6.2 % BASO % (test code = 706-2) 0.6 % GRAN MAT x10^3(ANC) (test code = 6585526611) 2.82 10*3/uL 1.99-6.95 IMM GRAN x10^3 (test code = 2143892902) <0.03 0.00-0.06 LYMPH x10^3 (test code = 731-0) 1.67 10*3/uL 1.09-3.23 MONO x10^3 (test code = 742-7) 0.49 10*3/uL 0.36-1.02 EOS x10^3 (test code = 711-2) 0.33 10*3/uL 0.06-0.53 BASO x10^3 (test code = 704-7) 0.03 10*3/uL 0.01-0.09 Lab Interpretation (test code = 01675-3) Abnormal [facility] HospitalVanlds hospitalycin Trough Level - Draw immediately prior to the NEXT dose, but, no more than 60 minutes before the NEXT dose. 2020-06-03 15:53:20* Test Item Value Reference Range Interpretation Comme nts VANCO TROUGH (test code = 6117605766) 6.6 ug/mL 10.0-20.0 L CL (test code = CL) Toxic Range: ?>20 ug/mL 15-20 ug/mL is recommended for severe infection or when Vancomycin KATHLEEN is greater than or equal to 2. Lab Interpretation (test code = 81674-9) Abnormal [facility] METABOLIC PANEL (NA, K, CL, CO2, GLUCOSE, BUN, CREATININE, CA)2020-06-03 15:12:14* Test Item Value Reference Range Interpretation Comme nts NA (test code = 5985839312) 141 mmol/L 135-145 K (test code = 7814911383) 4.2 mmol/L 3.5-5.0 CL (test code = 3134694054) 113 mmol/L 98-108 H CO2 TOTAL (test code = 1427009698) 23 mmol/L 23-31 AGAP (test code = 2341705473) 2-16 BUN (test code = 4016990731) 14 mg/dL 7-23 GLUCOSE (test code = 5759077754) 89 mg/dL 70-110 CREATININE (test code = 0867856953) 0.78 mg/dL 0.60-1.25 CALCIUM (test code = 1088721908) 8.3 mg/dL 8.6-10.6 L eGFR Calculation (Non-) (test code = 0491664569) mL/min/1.73m2 eGFR Calculation () (test code = 4662267714) mL/min/1.73m2 CL (test code = CL) Association [...] imaging tests). Lab Interpretation (test code = 85551-1) Abnormal [facility] WITH [id number] 12:27:41* Test Item Value Reference Range Interpretation Comme nts WBC (test code = 6690-2) See_Comment [Automated [employer]] The system which generated this result transmitted reference range: 4.20 - 10.70 10*3/?L. The reference range was not used to interpret this result as normal/abnormal. RBC (test code = 789-8) See_Comment [[employer]] The system which generated this result transmitted [...] 33.2 g/dL 31.2-35.0 RDW-SD (test code = 51657-5) 48.5 fL 38.5-51.6 RDW-CV (test code = 788-0) 14.5 % 12.1-15.4 PLT (test code = 777-3) See_Comment [Automated messa ge] The system which generated this result transmitted reference range: 150 - 328 10*3/?L. The reference range was not used to interpret this result as normal/abnormal. MPV (test code = 57774-5) 10.0 fL 9.8-13.0 NRBC/100 WBC (test code = 6209810056) See_Comment [Automated me ssage] The system which generated this result transmitted reference range: 0.0 - 10.0 /100 WBCs. The reference range was not used to interpret this result as normal/abnormal. NRBC x10^3 (test code = 6125272349) <0.01 See_Comment [Automated me ssage] The system which generated this result transmitted reference range: 10*3/?L. The reference range was not used to interpret this result as normal/abnormal. GRAN MAT (NEUT) % (test code = 770-8) 59.4 % IMM GRAN % (test code = 1304556267) 0.20 % LYMPH % (test code = 736-9) 25.6 % MONO % (test code = 5905-5) 9.3 % EOS % (test code = 713-8) 5.0 % BASO % (test code = 706-2) 0.5 % GRAN MAT x10^3(ANC) (test code = 8587882358) 3.32 10*3/uL 1.99-6.95 IMM GRAN x10^3 (test code = 0457571496) <0.03 0.00-0.06 LYMPH x10^3 (test code = 731-0) 1.43 10*3/uL 1.09-3.23 MONO x10^3 (test code = 742-7) 0.52 10*3/uL 0.36-1.02 EOS x10^3 (test code = 711-2) 0.28 10*3/uL 0.06-0.53 BASO x10^3 (test code = 704-7) 0.03 10*3/uL 0.01-0.09 [facility] Hospital[facility] ONLY COVID [id number] 03:33:51COVID DMT InterpretationInterpretation/Recommendations: Molecular NAAT Tests for [...] testing the patient has had at [facility], including molecular NAAT testing (more commonly known as PCR testing and Rapid ID Now testing) and antibody testing. It does not take into account any testing that a patient has had outside of the [facility] medical record. [facility] LABORATORY SERVICESCOVID VifftwuFNLG-KpY-8 NAAT (no units) ? ? Date ? Value ? 02/01/2020 ? Not Detected ? SARS-CoV-2 Rapid ID NOW (no units) ? ? Date ? Value ? 06/01/2020 ? Not Detected ? [facility] LABORATORY SERVICESUnB[facility]anoCT WRIST LEFT WO [id number] 19:54:22Mildly displaced lunate fracture with patchy sclerosis [...] joint and the dorsum of the hand. [facility], Radiant Results Inft User - [...] reviewed this study and agree with the abovereport.[facility] HospitalC-REACTIVE [id number] 16:08:25* Test Item Value Reference Range Interpretation Comme nts CRP (test code = 4571939547) 7.3 mg/dL <0.8 H Lab Interpretation (test cod e = 66892-8) Abnormal [facility] HospitalXR WRIST 3+ VW [id number] 13:50:36Mildly displaced fracture of the lunate may [...] or chronic.Suspected osteonecrosis of the lunate.Soft tissue swelling.[facility] HospitalBASI METABOLIC PANEL (NA, K, CL, CO2, GLUCOSE, BUN, CREATININE, CA)2020-06-02 10:04:24* Test Item Value Reference Range Interpretation Comme nts NA (test code = 8259065216) 143 mmol/L 135-145 K (test code = 8669321307) 4.6 mmol/L 3.5-5.0 Slight hemolysis CL (test code = 4045410759) 116 mmol/L 98-108 H CO2 TOTAL (test code = 5055335961) 24 mmol/L 23-31 AGAP (test code = 8571814833) 2-16 BUN (test code = 6031082906) 20 mg/dL 7-23 Slight hemolysis GLUCOSE (test code = 9284536386) 111 mg/dL 70-110 H CREATININE (test code = 3319614809) 0.89 mg/dL 0.60-1.25 CALCIUM (test code = 0331893319) 7.7 mg/dL 8.6-10.6 L eGFR Calculation (Non-) (test code = 3589331904) mL/min/1.73m2 eGFR Calculation () (test code = 7186169297) mL/min/1.73m2 CL (test code = CL) Association [...] imaging tests). Lab Interpretation (test code = 28098-6) Abnormal [facility] WITH [id number] 09:44:02* Test Item Value Reference Range Interpretation Comme nts WBC (test code = 6690-2) See_Comment [[employer]] The system which generated this result transmitted reference range: 4.20 - 10.70 10*3/?L. The reference range was not used to interpret this result as normal/abnormal. RBC (test code = 789-8) See_Comment [Automated [employer]] The system which generated this result transmitted [...] 32.2 g/dL 31.2-35.0 RDW-SD (test code = 44428-1) 48.7 fL 38.5-51.6 RDW-CV (test code = 788-0) 14.5 % 12.1-15.4 PLT (test code = 777-3) See_Comment [Automated [employer]] The system which generated this result transmitted reference range: 150 - 328 10*3/?L. The reference range was not used to interpret this result as normal/abnormal. MPV (test code = 88217-8) 10.1 fL 9.8-13.0 NRBC/100 WBC (test code = 8744865065) See_Comment [Automated Bardolino Grillege] The system which generated this result transmitted reference range: 0.0 - 10.0 /100 WBCs. The reference range was not used to interpret this result as normal/abnormal. NRBC x10^3 (test code = 9821619785) <0.01 See_Comment [Automated [employer]ol[employer] Grillege] The system which generated this result transmitted reference range: 10*3/?L. The reference range was not used to interpret this result as normal/abnormal. GRAN MAT (NEUT) % (test code = 770-8) 60.2 % IMM GRAN % (test code = 8274451415) 0.30 % LYMPH % (test code = 736-9) 23.6 % MONO % (test code = 5905-5) 12.7 % EOS % (test code = 713-8) 2.9 % BASO % (test code = 706-2) 0.3 % GRAN MAT x10^3(ANC) (test code = 3495867571) 3.98 10*3/uL 1.99-6.95 IMM GRAN x10^3 (test code = 2263878080) <0.03 0.00-0.06 LYMPH x10^3 (test code = 731-0) 1.56 10*3/uL 1.09-3.23 MONO x10^3 (test code = 742-7) 0.84 10*3/uL 0.36-1.02 EOS x10^3 (test code = 711-2) 0.19 10*3/uL 0.06-0.53 BASO x10^3 (test code = 704-7) <0.03 0.01-0.09 [facility] HospitalCOVID-[facility] (ID NOW RAPID TESTING)2020-06-02 01:49:04* Test Item Value Reference Range Interpretation Comme nts SARS-CoV-2 Rapid ID NOW (test code = 39115-9) Not Detected Not Detected CL (test code = CL) ID NOW COVID-19 As say is an isothermal nucleic acid amplification test intended for the qualitative detection of nucleic acid from SARS-CoV-2 viral RNA in nasopharyngeal ([employer]) specimens. It is used under Emergency Use [...] clinically indicated. Lab Interpretation (test code = 90713-9) Normal [facility] HospitalSEDIMENTATION [id number] 00:49:12* Test Item Value Reference Range Interpretation Comme nts ESR (test code = 0937358155) See_Comment H [Automated SocialVolta ge] The system which generated this result transmitted reference range: 0 - 10 mm/HR. The reference range was not used to interpret this result as normal/abnormal. Lab Interpretation (test code = 53884-8) Abnormal [facility] HospitalXR HAND 3+ VW [id number] 00:39:57Mildly displaced fracture of either the dorsal scaphoid or lunate. Thelatter is favored. Diffuse long finger soft tissue swelling without osteomyelitis. Osteoarthrosis. Preliminary Report Dictated byResident: Benedict Cristobal MD., have reviewed this study [...] reviewed this study and agree with the abovereport.[facility] HospitalBASIC METABOLIC PANEL (NA, K, CL, CO2, GLUCOSE, BUN, CREATININE, CA)2020-06-02 00:03:22* Test Item Value Reference Range Interpretation Comme nts NA (test code = 8983706014) 143 mmol/L 135-145 K (test code = 2290968045) 4.2 mmol/L 3.5-5.0 CL (test code = 4763981689) 109 mmol/L 98-108 H CO2 TOTAL (test code = 1776923122) 26 mmol/L 23-31 AGAP (test code = 4180692363) 2-16 BUN (test code = 6643980796) 23 mg/dL 7-23 GLUCOSE (test code = 1674597771) 146 mg/dL 70-110 H CREATININE (test code = 3583221245) 0.85 mg/dL 0.60-1.25 CALCIUM (test code = 2084771778) 8.9 mg/dL 8.6-10.6 eGFR Calculation (Non-) (test code = 9890734451) mL/min/1.73m2 eGFR Calculation () (test code = 5534328887) mL/min/1.73m2 CL (test code = CL) Association [...] imaging tests). Lab Interpretation (test code = 32961-6) Abnormal [facility] WITHOUT [id number] 23:55:20* Test Item Value Reference Range Interpretation Comme nts WBC (test code = 6690-2) See_Comment [Automated messa ge] The system which generated this result transmitted reference range: 4.20 - 10.70 10*3/?L. The reference range was not used to interpret this result as normal/abnormal. RBC (test code = 789-8) See_Comment [Automated [employer] ge] The system which generated this result [...] PLT (test code = 777-3) See_Comment [Automated [employer]Vol[employer] ge] The system which generated this result transmitted reference range: 150 - 328 10*3/?L. The reference range was not used to interpret this result as normal/abnormal. MPV (test code = 84621-8) 10.2 fL 9.8-13.0 RDW-CV (test code = 788-0) 14.4 % 12.1-15.4 RDW-SD (test code = 27196-6) 47.8 fL 38.5-51.6 NRBC x10^3 (test code = 9421778853) <0.01 See_Comment [Automated me ssage] The system which generated this result transmitted reference range: 10*3/?L. The reference range was not used to interpret this result as normal/abnormal. NRBC/100 WBC (test code = 7434097209) See_Comment [Automated me ssage] The system which generated this result transmitted reference range: 0.0 - 10.0 /100 WBCs. The reference range was not used to interpret this result as normal/abnormal. IPF % (test code = 2609513348) [facility]"
[2024-01-01 08:08] LABS: Absolute Basophils 0.1 K/uL (0-0.5); Absolute Eosinophils 0.3 K/uL (0-0.5); Absolute Lymphocytes (CBC) 1.3 K/uL (0.7-4.9); Absolute Monocytes 1.3 K/uL (0.1-1.3); Absolute Neutrophil 7.6 K/uL (1.8-8.0); Basophils % 0.5 % (0-1.3); Eosinophils % 3.1 % (0-4.4); Hematocrit 42.8 % (39.6-49.0); Lymphocytes % 12.7 % (15.3-44.8); MCH 29.3 pg (27.0-35.0); MCHC 32.8 g/dL (32.0-36.0); MCV 89.4 fL (80-100); MPV 9.5 fL (7.6-11.3); Neutrophils % 71.7 % (41.7-73.7); Platelets 260 thou/uL (152-406); RBC Red Blood Cell Count 4.78 M/uL (4.33-5.43); Red Cell Distribution Width 13.7 % (12.1-15.2)
[2024-01-01 08:11] LABS: PT Prothrombin Time 13.8 SECONDS (9.4-12.5); PTT, Activated Partial Thromb 36.6 SECONDS (24.3-36.9); Protime INR 1.24
[2024-01-01 08:18] LABS: ALT/SGPT 18 U/L (16-61); AST/SGOT 17 U/L (15-37); Albumin/Globulin Ratio 0.6 (1.1-1.8); Alkaline Phosphatase 86 U/L (45-117); Anion Gap 9.6 mEq/L (5.0-15.0); BUN Blood Urea Nitrogen 24 mg/dL (7-18); Bicarbonate 27 mEq/L (21-32); Bilirubin Total 0.4 mg/dL (0.2-1.0); Glomerular Filtration Rate 100 ml/min (=/>90); Glucose Level 108 mg/dL (74-106); Potassium 3.6 mEq/L (3.5-5.1); Sodium Level 136 mEq/L (136-145)
[2024-01-01 08:21] LABS: Bilirubin Direct < 0.2 mg/dL (0-0.2); Bilirubin Indirect, Calculated 0.2 mg/dL (0.2-0.8)
[2024-01-01 08:21] LABS: Sqamous Epithelial None Seen /HPF (None Seen); Urine Bacteria None Seen /HPF (<20); Urine Culture Reflex Order REFLEXED; Urine Micro Reflex YN NO BILL MICROSCOPIC; Urine RBC >50 /HPF (None Seen); Urine WBC >50 /HPF (<5)
--- NOTE | 2024-01-01 09:00 | ER ---
Nurse's Notes [facility] Name: Navid Russell Age: 68 yrs Sex: Male : 1955 Arrival Date: 01/01/2024 Time: 07:42 Bed 7 Private MD: Diagnosis: Hematuria Presentation: 12/31 07:45 Chief complaint: EMS states: Patient was sent from [facility] for qf hematuria, patient noted to have dark red blood in ortiz catheter which is new, EMS also reports patient being blood thinners. Upon arrival patient is alert, responsive, and slow to respond, EMS reports history of CVA. Coronavirus screen: Client denies travel out of the [place] in the last 14 days. At this time, the client does not indicate any symptoms associated with coronavirus-19. Ebola Screen: No symptoms or risks identified at this time. Initial Sepsis Screen: Does the patient meet any 2 criteria? No. Patient's initial sepsis screen is negative. Does the patient have a suspected source of infection? No. Patient's initial sepsis screen is negative. Risk Assessment: Do you want to hurt yourself or someone else? Patient reports no desire to harm self or others. Note Se Triage note. Onset of symptoms was December 31, 2023. Care prior to arrival: None. Activity prior to arrival: None. 07:45 Method Of Arrival: EMS: [facility] Medic 59 qf 07:45 Acuity: ANIYAH 3 qf Triage Assessment: 08:00 General: Appears in no apparent distress. comfortable, Behavior is calm, cooperative, qf appropriate for age, quiet. Pain: Denies pain. 09:07 General: Patient arrived with 16F Ortiz Cath with drainage bag in place.. qf Historical: - Allergies: 07:54 No Known Allergies; qf - PMHx: 07:54 Cerebral infarction; Cerebral Atherosclerosis; Hyperlipidemia; Hypertension; alcohol qf abuse; Cocaine Abuse; Allergic rhinitis; depressive disorder; Facial fractures; Lippprotein deficiency; Vitamin B12 Deficiency; - PSHx: 07:54 G tube; qf - Immunization history:: Adult Immunizations unknown, . - Infectious Disease History:: Unknown, patient unable to verfy. - Social history:: Smoking status: unknown Patient/guardian denies using. Screenin:03 [facility] ED Fall Risk Assessment (Adult) History of falling in the last 3 months, qf including since admission No falls in past 3 months (0 pts) Confusion or Disorientation. [facility] ED Fall Risk Assessment (Adult) Intoxicated or Sedated No (0 pts) Impaired Gait No (0 pts) Mobility Assist Device Used No (0 pt) Altered Elimination Yes (1 pt) Score/Fall Risk Level 0 - 2 = Low Risk Maintained a safe environment, Educated pt \T\ family on fall prevention, incl call for assistance when getting out of bed. Abuse screen: Denies threats or abuse. Nutritional screening: g-tube present. Tuberculosis screening: No symptoms or risk factors identified. Assessment: 08:00 General: Appears in no apparent distress. Behavior is agitated. Neuro: Level of bp Consciousness is AT BASELINE. 08:43 Reassessment: No changes from previously documented assessment. Patient is alert, bp oriented x 3, equal unlabored respirations, skin warm/dry/pink. 09:07 Reassessment: [facility] CONTACTED FOR DISCHARGE, TRANSPORT PENDING. bp 09:51 Reassessment: PT SANDHYA WITH EMS. bp Vital Signs: 07:45 BP 124 / 92; Pulse 97; Resp 16; Temp 97.7; Pulse Ox 96% on R/A; Weight 68.04 kg; Height qf 5 ft. 8 in. ; Pain 0/10; 08:43 BP 115 / 104; Pulse 97; Resp 16; Pulse Ox 93% ; bp 09:51 BP 122 / 92; Pulse 96; Resp 15; Pulse Ox 97% ; bp 07:45 Body Mass Index 22.81 (68.04 kg, 172.72 cm) qf 07:45 Pain Scale: Adult qf ED Course: 07:44 Patient arrived in ED. sp3 07:44 Olivia Melendez MD is Attending Physician. sp3 07:47 Benedict Madera, ZANDRA is Primary Nurse. bp 07:52 Initial lab(s) drawn, by me, sent to lab. Inserted saline lock: 20 gauge in right bp forearm, using aseptic technique. Blood collected. Flushed with 10 mL NS. 07:54 Triage completed. qf 08:01 Arm band placed on right wrist. qf 08:02 Patient has correct armband on for positive identification. Bed in low position. Call qf light in reach. Side rails up X2. Provided Education on: Procedures. Client placed on continuous cardiac and pulse oximetry monitoring. NIBP monitoring applied. Pulse ox on. NIBP on. Noise minimized. Visitors limited. Lights dimmed. 09:08 No provider procedures requiring assistance completed. CHRONIC INDWELLING ORTIZ REMAINS bp IN PLACE. IV discontinued, intact, bleeding controlled, No redness/swelling at site. Pressure dressing applied. Administered Medications: No medications were administered Medication: 08:04 VIS not applicable for this client. qf Outcome: :00 Discharge ordered by MD. [email or web address] 09:08 Discharged to long term. Report called to [facility] Transfer form bp completed. :08 Condition: stable 09:08 Discharge instructions given to long term, Instructed on discharge instructions, follow up and referral plans. medication usage, 09:52 Patient left the ED. bp Signatures: Benedict Madera, RN RN bp Olivia Melendez MD MD sp3 Ernie Bang RN RN qf
--- NOTE | 2024-01-01 09:01 | EDPHYS ---
Physician Documentation [facility] Name: Navid Russell Age: 68 yrs Sex: Male : 1955 Arrival Date: 01/01/2024 Time: 07:42 Bed 7 Private MD: ED Physician Olivia Melendez HPI: 12/31 08:05 This 68 yrs old Male presents to ER via EMS with complaints of hematuria. sp3 08:05 68-year-old male with history of CVA, prior alcohol abuse currently on hospice care now sp3 presents to the ED via EMS for chief complaint hematuria as found by family. Patient has an indwelling Tomlinson catheter which demonstrates dark bloody urine without clots. Family wants patient seen in the ED despite being on hospice. Minor standing as he is still DNR and a hospice patient. Patient has no complaints and denies any pain. He is on Plavix and aspirin but no anticoagulants only antiplatelet agents.. Historical: - Allergies: 07:54 No Known Allergies; qf - PMHx: 07:54 Cerebral infarction; Cerebral Atherosclerosis; Hyperlipidemia; Hypertension; alcohol qf abuse; Cocaine Abuse; Allergic rhinitis; depressive disorder; Facial fractures; Lippprotein deficiency; Vitamin B12 Deficiency; - PSHx: 07:54 G tube; qf - Immunization history:: Adult Immunizations unknown, . - Infectious Disease History:: Unknown, patient unable to verfy. - Social history:: Smoking status: unknown Patient/guardian denies using. ROS: 08:06 Unable to obtain ROS due to baseline dementia, sp3 Exam: 08:07 Constitutional: This is a well developed, well nourished patient who is awake, alert, sp3 and in no acute distress. Head/Face: Normocephalic, atraumatic. Eyes: Pupils equal round and reactive to light, extra-ocular motions intact. Lids and lashes normal. Conjunctiva and sclera are non-icteric and not injected. Cornea within normal limits. Periorbital areas with no swelling, redness, or edema. Chest/axilla: Normal chest wall appearance and motion. Nontender with no deformity. No lesions are appreciated. Cardiovascular: Regular rate and rhythm with a normal S1 and S2. No gallops, murmurs, or rubs. Normal PMI, no JVD. No pulse deficits. Respiratory: Lungs have equal breath sounds bilaterally, clear to auscultation and percussion. No rales, rhonchi or wheezes noted. No increased work of breathing, no retractions or nasal flaring. Abdomen/GI: Soft, non-tender, with normal bowel sounds. No distension or tympany. No guarding or rebound. No evidence of tenderness throughout. Back: No spinal tenderness. No costovertebral tenderness. Full range of motion. Skin: Warm, dry with normal turgor. Normal color with no rashes, no lesions, and no evidence of cellulitis. MS/ Extremity: Pulses equal, no cyanosis. Neurovascular intact. Full, normal range of motion. 08:07 : a tomlinson is noted, Patient with grossly bloody urine in Tomlinson bag., Vital Signs: 07:45 BP 124 / 92; Pulse 97; Resp 16; Temp 97.7; Pulse Ox 96% on R/A; Weight 68.04 kg; Height qf 5 ft. 8 in. ; Pain 0/10; 08:43 BP 115 / 104; Pulse 97; Resp 16; Pulse Ox 93% ; bp 09:51 BP 122 / 92; Pulse 96; Resp 15; Pulse Ox 97% ; bp 07:45 Body Mass Index 22.81 (68.04 kg, 172.72 cm) qf 07:45 Pain Scale: Adult qf MDM: 07:44 Patient medically screened. sp3 08:08 Data reviewed: vital signs, nurses notes, lab test result(s). ED course: 68-year-old sp3 male with CVA history and alcohol history currently on hospice now with gross hematuria. Vital signs are stable and I am not suspecting hypovolemia. Will assess with laboratory values and urinalysis and [place] back with hospice team to discuss disposition.. 08:59 ED course: Discussed with Ms. Fozia Austin at [phone] who is patient's sister sp3 and currently driving medical care for Mr. Russell. Patient's laboratory values are within normal limits including coagulation profile and hemoglobin High number of white and red blood cells in his urine. Will place on antibiotic and patient is to follow-up with urology and hospice team to direct further care. No current emergency exists and patient will be discharged home at this time.. 12/31 07:44 Order name: Basic Metabolic Panel; Complete Time: 08:55 sp3 12/31 07:44 Order name: CBC with Diff; Complete Time: 08:55 sp3 12/31 07:44 Order name: LFT's; Complete Time: 08:55 sp3 12/31 07:44 Order name: PT-INR; Complete Time: 08:55 sp3 12/31 07:44 Order name: Ptt, Activated; Complete Time: 08:55 sp3 12/31 08:15 Order name: Urine Microscopic Only; Complete Time: 08:55 EDMS 12/31 08:24 Order name: Urine Culture EDMS 12/31 07:44 Order name: Cardiac monitoring; Complete Time: 07:52 sp3 12/31 07:44 Order name: IV Saline Lock; Complete Time: 07:52 sp3 12/31 07:44 Order name: Labs collected and sent; Complete Time: 07:52 sp3 Administered Medications: No medications were administered Disposition Summary: 01/01/24 09:00 Discharge Ordered Notes: Location: Home sp3 Condition: Stable sp3 Diagnosis - Hematuria sp3 Followup: sp3 - With: Private Physician - When: Upon discharge from the Emergency Department - Reason: Continuance of care Discharge Instructions: - Discharge Summary Sheet sp3 - Hematuria, Adult sp3 Forms: - Medication Reconciliation Form sp3 - Antibiotic Education sp3 - Prescription Opioid Use sp3 - Patient Portal Instructions sp3 - Leadership Thank You Letter sp3 Prescriptions: - Bactrim DS 800-160 mg Oral tablet - take 1 tablet ORAL route every 12 hours for 5 days; 10 tablet; Refills: 0, sp3 Product Selection Permitted Signatures: Dispatcher [employer] EDOlivia Rico MD MD sp3 Ernie Bang RN RN qf Corrections: (The following items were deleted from the chart) 07:45 07:45 BASIC METABOLIC PANEL+C.LAB.BRZ ordered. EDMS EDMS 07:45 07:45 CBC+H.LAB.BRZ ordered. EDMS EDMS 07:45 07:45 HEPATIC FUNCTION+C.LAB.BRZ ordered. EDMS EDMS 07:45 07:45 PROTIME (+INR)+COAG.LAB.BRZ ordered. EDMS EDMS 07:45 07:45 PTT, ACTIVATED+COAG.LAB.BRZ ordered. EDMS EDMS 08:15 07:45 Urinalysis W/Microscopic+U.LAB.BRZ ordered. EDMS EDMS
[2024-01-01 10:14] VITALS: TEMP 97.7
[2024-01-01 10:19] VITALS: BP 122/92; O2SAT 97
== END 2024-01-01 09:52 | disposition home or self-care (01) ==
LOC: ER 07:42
DX: R31.9 Hematuria, unspecified (principal)
CPT/HCPCS: 36415; 80048; 80076; 81015; 85025; 85610; 85730; 87077; 87086; 87088; 87186; 99284

== ENCOUNTER 2024-01-15 01:20 | Emergency (ER) | payer MEDICAID, SELFPAY ==
--- OUTSIDE RECORDS SUMMARY | 2024-01-15 01:26 | XMS REPORT | Continuity of Care Document ---
Author Name Unknown Address [address] [facility] [address] [place] [address] [facility] Address [address] [facility] [place] [address] Care Team Providers Care Operations Specialist Name Role Phone [facility] AND Primary C are Physician Unavailable _[facility]_Todd_J Attending Clinician Unavailable Kelsey Akbar Attending Clinician Unavailable Lisa Marie LVN Attending Clinician [phone] TOMMIE GONZALEZ Attending Clinician Unavailable Abdoul Clayton DO Attending Clinician [phone] Farhan CARRENO, Rhonda Cuba Attending Clinician [phone] Maylin Padilla MD Attending Clinician Renny Osorio MD Attending Clinician [phone] Daniela Antunez MD Attending Clinician Gladis Real MD Attending Clinician [phone] Tommie Gonzalez MD Attending Clinician [phone] Nan Amaro MD Attending Clinician [phone] Hardeep Campoverde DDS Attending Clinician [phone] ALDAIR ABEL Attending Clinician Unavailable Aldair Abel MD Attending Clinician [phone] Lamin Motta Attending Clinician Yessi PATIÑO MD, Lu Attending Clinician [phone] Shady DE PAZ, Karly Antunez Attending Clinician Unavailab Merrill [facility] Attending Clinician Unavailabl e Unknown, Attending Attending Clinician Unavailab le UNKNOWN, ATTENDING Attending Clinician Unavailab yessenia [facility]_J Admitting Clinician Unavailable NAN AMARO Admitting Clinician Unavailable Sondra CARRENO, Nan Admitting Clinician [phone] LU DICKSON Admitting Clinician Unavailable Yessi PATIÑO MD, Lu Admitting Clinician [phone] Payers Payer Name Policy Type Policy Number Effective Date Expirati on Date Source [facility] [place] [id number] [place] [id number] [facility] - [place] [id number] 2022 00:00:00 MEDICAID - [id number] - PENDING [id number] [place] [id number] 2022 00:00:00 Problems Condition Name Condition Details [...] Medical Seborrheic dermatitis Seborrheic Dermatitis Problem Active 2024-0 2-12 00:00: 00 [facility] Severe protein-ca belia malnutriti on (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 of standard weight) Severe Protein-ca belia Malnutriti on (Nash: Less than 60 Percent of Standard Weight) Problem Active 1-26 00:00: 00 [facility] Mild recurrent major depression Mild Recurrent Major Depression Problem Active 1-26 00:00: 00 [facility] Aphasia as late effect of cerebrovas cular accident Aphasia as Late Effect of Cerebrovas cular Accident Problem Active 1-26 00:00: 00 [facility] Functional gait abnormalit y Functional Gait Abnormalit y Problem Active 2022-03 2-06 00:00: 00 [facility] Carotid artery stenosis Carotid Artery Stenosis Problem Active 8-20 00:00: 00 [facility] Atopic dermatitis Atopic Dermatitis Problem Active 7-11 00:00: 00 [facility] Mcguire's esophagus Mcguire's Esophagus Problem Active 6- 00:00: 00 [facility] Hiatal hernia Hiatal Hernia Problem Active 6- 00:00: 00 [facility] 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 Dysarthria Due to and Following Cerebrovas cular Accident Problem Active 6- 00:00: 00 [facility] Urinary incontinen ce Urinary Incontinen ce Problem Active 5-23 00:00: 00 [facility] Dementia with behavioral disturbanc e Dementia with Behavioral Disturbanc e Problem Active 5-11 00:00: 00 [facility] Lives in [facility] Lives in [facility] Problem Active 3-06 00:00: 00 [facility] [...] lability state Hypercoagu lability State Problem Active 2023-0 3-03 00:00: 00 [facility] Alcohol dependence Alcohol Dependence Problem Active 3-03 00:00: 00 [facility] Cocaine dependence in remission Cocaine Dependence in Remission Problem Active 3-03 00:00: 00 [facility] Hypertensi ve heart disease Hypertensi ve Heart Disease Problem Active 3-03 00:00: 00 [facility] Cerebrovas cular disease [...] encephalop athy Disease Active 05-18 00:00: 00 [facility] MDD (major depressive disorder), single episode, moderate MDD (major depressive disorder), single episode, moderate Disease Active 05-18 00:00: 00 [facility] Acute cerebrovas cular accident (CVA) due to ischemia Acute cerebrovas cular accident (CVA) due to ischemia Disease Active 05-18 00:00: 00 [facility] Morbid obesity with body mass index of 50 or higher Morbid obesity with body mass index of 50 or higher Disease Active 05-03 00:00: 00 [facility] Acute weakness Acute weakness Disease Active 04-21 00:00: 00 [facility] Closed fracture of left zygomatico maxillary complex, initial encounter Closed fracture of left zygomatico maxillary complex, initial encounter Disease Active 04-21 00:00: 00 Overview: Formattin g of this note might be different from the original. Added automatic ally from request for surgery [id number] [facility] Abscess of left hand Abscess of left hand Disease Active 3 00:00: 00 [facility] Flexor tenosynovi tis of finger Flexor tenosynovi tis of finger Disease Active 06-01 00:00: 00 Overview: Formattin g of this note might be different from the original. Added automatic ally from request for surgery [id number] [facility] Open wound Open wound Disease Active 08-06 00:00: 00 [facility] Finger pain, right Finger pain, right Disease Active 08-06 00:00: 00 [facility] Finger infection Finger infection Disease Active 08-06 00:00: 00 [facility] Numbness and tingling Numbness and tingling Disease Active 08-06 00:00: 00 [facility] Pain Pain Disease Active 07-27 00:00: 00 [facility] Left hemiparesi s Left hemiparesi s Disease Active 04-01 00:00: 00 [facility] Allergies, Adverse Reactions, Alerts Allergy Name Allergy Type Status Severity Reaction(s) Onset Date Inactive Date Treating Clinician Comments Source NO KNOWN ALLERGIE S Drug Class Active [facility] Social History Social Habit Start Date Stop Date Quantity Comments Source History SDOH Social Connections Get Together [facility] History SDOH Social Connections [facility] History SDOH Social Connections Membership [facility] History SDOH Social Connections Meetings [facility] Alcohol intake 2022-05-18 00:00:00 2022-05-18 00:00:00 Current non-drinker of alcohol (finding) [facility] History SDOH Financial 2022-04-29 00:00:00 2022-04-29 00:00:00 2 [facility] History SDOH Food Worry 2022-04-29 00:00:00 2022-04-29 00:00:00 1 [facility] History SDOH Food Scarcity 2022-04-29 00:00:00 2022-04-29 00:00:00 1 [facility] History SDOH Transport Non-Med 2022-04-29 00:00:00 2022-04-29 00:00:00 2 [facility] History SDOH Alcohol Frequency 2022-04-22 00:00:00 2022-04-22 00:00:00 2 [facility] History SDOH Alcohol Std Drinks 2022-04-22 00:00:00 2022-04-22 00:00:00 1 [facility] History SDOH Alcohol Binge 2022-04-22 00:00:00 2022-04-22 00:00:00 1 [facility] History SDOH Social Connections Phone 2022-04-22 00:00:00 2022-04-22 00:00:00 98 [facility] History SDOH Social Connections Living 2022-04-22 00:00:00 2022-04-22 00:00:00 6 [facility] History SDOH Physical Activity DPW 2022-04-22 00:00:00 2022-04-22 00:00:00 0 [facility] History SDOH Physical Activity MPS 2022-04-22 00:00:00 2022-04-22 00:00:00 0 [facility] History SDOH Transport Med 2022-04-22 00:00:00 2022-04-22 00:00:00 2 [facility] Exposure to SARS-CoV-2 (event) 2022-04-11 00:00:00 2022-04-21 12:52:00 Not sure [facility] Cigarettes smoked current (pack per day) - Reported 2022-04-21 00:00:00 2022-04-21 00:00:00 [facility] Cigarette pack-years 2022-04-21 00:00:00 2022-04-21 00:00:00 [facility] Tobacco use and exposure 2022-04-21 00:00:00 2022-04-21 00:00:00 Former smokeless tobacco user [facility] Alcohol Comment 2014-07-27 00:00:00 2014-07-27 00:00:00 recovering alcoholic, sober 3 years [facility] History of tobacco use 2014-07-26 00:00:00 Cigarette Smoker [facility] Sex Assigned At 1955 00:00:00 1955 00:00:00 [facility] Smoking Status Start Date Stop Date Source [...] Tue05/19/22 at 2000, Until Discontinu ed, Routine [facility] aspirin 81 mg chewable tablet 05-20 00:00: 00 Yes 81mg Take 1 tablet by mouth in the morning. [facility] DULoxetine 40 mg CpDR 05-20 00:00: 00 Yes 40mg Take 40 mg by mouth in the morning. [facility] thiamine 100 mg tablet 05-20 00:00: 00 Yes 100mg Take 1 tablet by mouth in the morning. [facility] aspirin chewable tablet 81 mg 05-19 15:00: 00 Yes 81mg 81 mg, Oral, DAILY, First dose on Tue05/19/22 at 0900, Until Discontinu ed, Routine [facility] thiamine (VITAMIN B1) tablet 100 mg 05-19 15:00: 00 Yes 100mg 100 mg, Oral, DAILY, First dose on Tue05/19/22 at 0900, Until Discontinu ed, Routine [facility] atorvastati n 80 mg tablet 05-19 00:00: 00 Yes 80mg Take 1 tablet by mouth at bedtime. [facility] lisinopriL 20 mg tablet 05-19 00:00: 00 Yes 20mg Take 1 tablet by mouth in the morning. [facility] amLODIPine 5 mg tablet 05-19 00:00: 00 Yes 5mg Take 1 tablet by mouth in the morning. [facility] multivit-ir on-FA-calci um-mins 9 mg iron-400 mcg tablet 05-19 00:00: 00 Yes 1{tbl} Take 1 tablet by mouth in the morning. [facility] ergocalcife rol, vitamin d2, 1,250 mcg (50,000 unit) capsule 05-19 00:00: 00 Yes [id number] Take 1 capsule by mouth weekly. [facility] clotrimazol e 1 % topical cream 05-19 00:00: 00 Yes Apply to area(s) 2 (two) times daily. [facility] artificial tears,hypro mellose, 0.5 % ophthalmic drops 05-19 00:00: 00 Yes 1[drp] Place 1 Drop in left eye 4 (four) times daily as needed for Dry eyes. [facility] nicotine 7 mg/24 hr patch 05-19 00:00: 00 Yes 1{patch } Apply 1 Patch to area(s) every 24 (twenty-fo ur) hours. [facility] chlorhexidi ne 0.12 % mouthwash 05-19 00:00: 00 05-27 05:59 :00 No 15mL Swish and spit out 15 mL in the morning and 15 mL in the evening. [facility] amoxicillin -clavulanat e (AUGMENTIN) 875-125 mg per tablet 05-19 00:00: 00 05-27 05:59 :00 No 1{tbl} Take 1 tablet by mouth in the morning and 1 tablet in the evening. [facility] pseudoephed rine 30 mg tablet 05-19 00:00: 00 05-24 05:59 :00 No 60mg Take 2 tablets by mouth every 6 (six) hours. [facility] oxymetazoli ne 0.05 % nasal spray 05-19 00:00: 00 05-22 05:59 :00 No 1{spray } Use 1 [place] in each nostril in the morning and 1 [place] at noon and 1 [place] in the evening. [facility] oxymetazoli ne (OXYMETAZOL INE HCL) 0.05 % nasal spray 1 [place] 05-18 14:00: 00 05-21 13:59 :00 No 1{spray } 1 [place], Nasal, TID, 9 doses, First dose (after last modificati on) on Tue05/18/22 at 0800, Last dose on Tue05/20/22 at 2000, Routine [facility] pseudoephed rine (SUDAFED) tablet 60 mg 05-18 13:15: 00 05-23 11:59 :00 No 60mg 60 mg, Oral, Q6H, 20 doses, First dose on Tue05/18/22 at 0715, Last dose on Tue05/23/22 at 0000, Routine [facility] pseudoephed rine (SUDAFED) tablet 60 mg 05-18 13:15: 00 05-23 11:59 :00 No 60mg 60 mg, Oral, Q6H, 20 doses, First dose on Tue05/18/22 at 0715, Last dose on Tue05/23/22 at 0000, Routine [facility] morpHINE (2 mg/mL) injection 2 mg 05-18 03:48: 11 Yes 2mg 2 mg, Slow IV Push, Q4HPRN, Starting on Tue05/17/22 at 2148, Until Discontinu ed, Routine, Pain (scale 7-10) [facility] ampicillin- sulbactam (UNASYN) 3 g in NaCl [...] Soft Tissue
Duration of Therapy: 7 days [facility] oxymetazoli ne (OXYMETAZOL INE HCL) 0.05 % nasal spray 05-17 20:53: 00 Yes PRN, Starting on Tue05/17/22 at 1453, Until Discontinu ed, Routine, Intra-op [facility] lidocaine-e pinephrine (XYLOCAINE WITH EPINEPHRINE ) 2 %-1:100,000 injection 05-17 20:53: 00 Yes PRN, Starting on Tue05/17/22 at 1453, Until Discontinu ed, Routine, [facility]-op [facility] oxymetazoli ne (OXYMETAZOL INE HCL) 0.05 % nasal spray 05-17 18:21: 00 Yes Intra-op [facility] artificial tears(hypro mellose) (ISOPTO-TEA RS) 0.5 % ophthalmic drops 1 Drop 05-16 16:53: 22 Yes 1[drp] 1 Drop, Left Eye, QIDPRN, Starting on Tue05/16/22 at 1053, Until Discontinu ed, Routine, Dry eyes [facility] acetaminoph en (TYLENOL) tablet 500 mg 05-14 20:00: 00 Yes 500mg 500 mg, Oral, Q8H, First dose (after last modificati on) on Tue05/14/22 at 1400, Until Discontinu ed, Routine [facility] HYDROcodone -acetaminop hen (NORCO 5) 5-325 mg tablet 1 tablet 05-14 18:00: 00 05-18 03:48 :25 No 1{tbl} 1 tablet, Oral, Q6H, First dose on Tue05/14/22 at 1200, Until Discontinu ed, [facility]QU[facility]OR[facility] ointment 05-10 15:00: 00 Yes Topical, DAILY, First dose on Tue05/10/22 at 0900, Until Discontinu ed, Routine [facility] DULoxetine (CYMBALTA) capsule 40 mg 05-01 15:00: 00 Yes 40mg 40 mg, Oral, DAILY, First dose (after last modificati on) on Tue05/01/22 at 0900, Until Discontinu ed, Routine [facility] nicotine (NICODERM) 7 mg/24 hr patch 1 Patch 05-01 02:00: 00 Yes 1{patch } 1 Patch, Topical, Administer over 24 Hours, Q24H, First dose on Tue04/30/22 at 2000, Until Discontinu ed, Routine [facility] DULoxetine (CYMBALTA) capsule 20 mg 04-28 16:45: 00 04-30 16:12 :28 No 20mg 20 mg, Oral, DAILY, First dose on Tue04/28/22 at 1045, Until Discontinu ed, Routine [facility] amLODIPine (NORVASC) tablet 5 mg 04-28 15:00: 00 Yes 5mg 5 mg, Oral, DAILY, First dose (after last modificati on) on Tue04/28/22 at 0900, Until Discontinu ed, Routine [facility] lisinopriL (PRINIVIL,Z ESTRIL) tablet 20 mg 04-28 15:00: 00 Yes 20mg 20 mg, Oral, DAILY, First dose (after last modificati on) on Tue04/28/22 at 0900, Until Discontinu ed, Routine [facility] amLODIPine (NORVASC) tablet 10 mg 04-27 15:00: 00 04-28 14:27 :12 No 10mg 10 mg, Oral, DAILY, First dose (after last modificati on) on Tue04/27/22 at 0900, Until Discontinu ed, Routine [facility] nicotine (NICODERM) 14 mg/24 hr patch 1 Patch 04-26 23:45: 00 04-30 16:12 :27 No 1{patch } 1 Patch, Topical, Administer over 24 Hours, Q24H, First dose on Tue04/26/22 at 1745, Until Discontinu ed, [facility] (PRINIVIL,Z ESTRIL) tablet 40 mg 04-26 15:00: 00 04-28 14:27 :12 No 40mg 40 mg, Oral, DAILY, First dose (after last modificati on) on Tue04/26/22 at 0900, Until Discontinu ed, [facility] amLOD[facility] (NORVASC) tablet 5 mg 04-25 17:30: 00 04-27 14:07 :07 No 5mg 5 mg, Oral, DAILY, First dose (after last modificati on) on 04/25/22 at 1130, Until Discontinu ed, Routine [facility] multivit-ir on-FA-calci um-mins (THERA-M) 9 mg iron-400 mcg tablet 1 tablet 04-25 15:00: 00 Yes 1{tbl} 1 tablet, Oral, DAILY, First dose on 04/25/22 at 0900, Until Discontinu ed, Routine [facility] lisinopriL (PRINIVIL,Z ESTRIL) tablet 20 mg 04-25 15:00: 00 04-25 17:13 :44 No 20mg 20 mg, Oral, DAILY, First dose on 04/25/22 at 0900, Until Discontinu ed, Routine [facility] lisinopriL (PRINIVIL,Z ESTRIL) tablet 20 mg 04-25 09:21: 00 04-25 10:01 :00 No 20mg 20 mg, Oral, ONCE, 1 dose, On 04/25/22 at 0330, Routine [facility] enalapril (VASOTEC) tablet 10 mg 04-23 20:15: 00 04-24 18:05 :30 No 10mg 10 mg, Oral, DAILY, First dose on Tue04/23/22 at 1415, Until Discontinu ed, Routine [facility] ergocalcife rol (vitamin d2) (CALCIFEROL ) capsule 50,000 Units 04-23 15:00: 00 07-02 13:59 :00 No [id number] 50,000 Units, Oral, QWEEKLY, 10 doses, First dose on Tue04/23/22 at 0900, Last dose on Tue06/25/22 at 0900, Routine [facility] clopidogreL (PLAVIX) 75 mg tablet 75 mg 04-23 15:00: 00 05-08 12:52 :41 No 75mg 75 mg, Oral, DAILY, 21 doses, First dose (after last modificati on) on Tue04/23/22 at 0900, Last dose on Tue05/13/22 at 0900, Routine [facility] atorvastati n (LIPITOR) tablet 80 mg 04-23 03:00: 00 Yes 80mg 80 mg, Oral, QHS, First dose (after last modificati on) on Tue04/22/22 at 2100, Until Discontinu ed, Routine [facility] thiamine (VITAMIN B1) tablet 500 mg 04-23 02:00: 00 Yes 500mg 500 mg, Oral, TID, First dose on Tue04/22/22 at 2000, Until Discontinu ed, Routine [facility] barium sulfate-NO CHARGE- (VARIBAR NECTOR) 40 % (w/v) oral suspension 20 mL 04-22 20:30: 00 04-22 20:17 :00 No [id number] 20mL 20 mL, Oral, ONCE, 1 dose, On Asha 04/22/22 at 1430, Routine [facility] barium sulfate (VARIBAR THIN LIQUID) 81 % (w/w) oral powder 30 g 04-22 20:30: 00 04-22 20:17 :00 No [id number] 30g 30 g, Oral, ONCE, 1 dose, On Asha 04/22/22 at 1430, Routine [facility] cyanocobala min (DODEX) injection 1,000 mcg 04-22 15:15: 00 04-24 17:10 :00 No 1000ug 1,000 mcg, Intramuscu lar, Q24H, 3 doses, First dose on Tue04/22/22 at 0915, Last dose on Tue04/24/22 at 0915, Routine [facility] aspirin chewable tablet 81 mg 04-22 15:00: 00 05-16 16:50 :39 No 81mg 81 mg, Oral, DAILY, First dose on Tue04/22/22 at 0900, Until Discontinu ed, Routine [facility] enoxaparin (LOVENOX) injection 40 mg 04-22 15:00: 00 05-15 16:40 :50 No 40mg 40 mg, Subcutaneo us, DAILY, First dose on Tue04/22/22 at 0900, Until Discontinu ed, Routine [facility] foLIC acid (FOLATE) 5 mg in NaCl 0.9% (NS) piggyback 04-22 15:00: 00 04-24 16:45 :48 No 5mg IV Piggyback, DAILY, First dose on Tue04/22/22 at 0900, Until Discontinu ed, 50 mL [facility] thiamine (VITAMIN B1) 100 mg in NaCl 0.9% (NS) piggyback 04-22 15:00: 00 04-22 17:31 :00 No 100mg IV Piggyback, DAILY, 1 dose, First dose on Tue04/22/22 at 0900, 50 mL [facility] clotrimazol e (LOTRIMIN) 1 % topical cream 04-22 14:00: 00 Yes Topical, BID, First dose on Tue04/22/22 at 0800, Until Discontinu ed, Routine [facility] clopidogreL (PLAVIX) 75 mg tablet 75 mg 04-22 08:15: 00 04-22 08:09 :00 No 75mg 75 mg, Oral, ONCE, 1 dose, On Tue04/22/22 at 0215, Routine [facility] iopamidol (ISOVUE 370-500 mL) injection 80 mL 04-22 04:39: 00 04-22 04:30 :00 No [id number] 80mL 80 mL, Intravenou s, ONCE, 1 dose, On Tue04/21/22 at 2245, Routine [facility] aspirin tablet 325 mg 04-22 03:45: 00 04-22 03:29 :00 No 325mg 325 mg, Oral, ONCE, 1 dose, On Tue04/21/22 at 2145, Routine [facility] atorvastati n (LIPITOR) tablet 40 mg 04-22 03:00: 00 04-22 22:22 :23 No 40mg 40 mg, Oral, QHS, First dose on Tue04/21/22 at 2100, Until Discontinu ed, Routine [facility] azithromyci n (ZITHROMAX) 500 mg in NaCl 0.9% (NS) 250 mL VIAL-MATE IV piggyback 04-22 02:00: 00 04-22 03:41 :00 No 500mg 500 mg, IV Piggyback, ONCE, 1 dose, On Tue04/21/22 at 2000, Administer over 60 Minutes, 250 mL
Reas on for Anti-Infec tive: Empiric Therapy for Suspected Infection< br>Empiric Therapy Site: Respirator y
Durat ion of therapy: 72 hours [facility] nicotine (NICODERM) 21 mg/24 hr patch 1 Patch 04-21 23:30: 00 04-26 22:38 :37 No 1{patch } 1 Patch, Topical, Administer over 24 Hours, Q24H, First dose on Tue04/21/22 at 1730, Until Discontinu ed, Routine [facility] enalapril (VASOTEC) tablet 20 mg 04-21 23:15: 00 04-21 23:23 :00 No 20mg 20 mg, Oral, ONCE, 1 dose, On Tue04/21/22 at 1715, [facility] NaCl 0.9% (NS) bolus infusion 1,000 mL 04-21 23:00: 00 04-22 02:11 :00 No 1000mL at 999 mL/hr, 1,000 mL, IV Infusion, ONCE, 1 dose, On Tue04/21/22 at 1700, [facility] NaCl 0.9% (NS) bolus infusion 1,000 mL 04-21 20:45: 00 04-21 21:46 :00 No 1000mL at 999 mL/hr, 1,000 mL, IV Infusion, ONCE, 1 dose, On Tue04/21/22 at 1445, [facility] docusate 100 mg capsule 3-11 00:00: 00 06-20 04:59 :00 No [id number] 100mg Take 1 capsule by mouth 2 (two) times daily for 14 days. [facility] sulfamethox azole-trime thoprim (BACTRIM DS) 800-160 mg per tablet 06-05 00:00: 00 06-20 04:59 :00 No [id number] 1{tbl} Take 1 tablet by mouth 2 (two) times daily for 14 days. [facility] HYDROcodone -acetaminop hen 5-325 mg tablet 06-05 00:00: 00 06-13 04:59 :00 No [id number] 1{tbl} Take 1 tablet by mouth every 4 (four) hours as needed for Pain (scale 7-10) for up to 7 days. Indication s: acute pain [facility] hydroCHLORO thiazide (ESIDRIX) capsule 12.5 mg 06-04 19:00: 00 Yes 12.5mg 12.5 mg, Oral, DAILY, First dose on Tue06/04/20 at 1300, Until Discontinu ed, Routine [facility] vancomycin 1250 mg in NS 250 mL RTU IV Piggyback 1,250 mg 06-04 14:30: 00 Yes 1250mg 1,250 mg, IV Piggyback, Q12H ABX, First dose (after last modificati on) on Tue06/04/20 at 0830, Until Discontinu ed
Reas on for Anti-Infec tive: Documented Infection< br>Documen nicole Infection Site: Skin / Soft Tissue
Duration of Therapy: 7 days [facility] omeprazole (PRILOSEC) capsule 20 mg 06-02 15:00: 00 Yes 20mg 20 mg, Oral, DAILY, First dose on Tue06/02/20 at 0900, Until Discontinu ed, [facility] Poly[facility]en [facility] Glycol 3350 (MIRALAX) powder 17 g 06-02 15:00: 00 Yes 17g 17 g, Oral, DAILY, First dose on Tue06/02/20 at 0900, Until Discontinu ed, [facility] sennosides- docusate sodium (SENOKOT-S) 8.6-50 mg per tablet 1 tablet 06-02 15:00: 00 Yes 1{tbl} 1 tablet, Oral, DAILY, First dose on Tue06/02/20 at 0900, Until Discontinu ed, Routine [facility] HYDROcodone -acetaminop hen (NORCO 5) 5-325 mg tablet 1 tablet 06-02 15:00: 00 06-02 15:05 :00 No 1{tbl} 1 tablet, Oral, ONCE, 1 dose, Tue06/02/20 at 0900, Routine, PACU [facility] melatonin (MELATIN) tablet 3 mg 06-02 03:00: 00 Yes 3mg 3 mg, Oral, QHS, First dose on Tue06/01/20 at 2100, Until Discontinu ed, Routine [facility] vancomycin (VANCOCIN) 1,000 mg in NaCl [...]
Duration of Therapy: [address] [facility] docusate (COLACE) capsule 100 mg 06-02 02:00: 00 Yes 100mg 100 mg, Oral, Q12H, First dose on Tue06/01/20 at 2000, Until Discontinu ed, Routine [facility] it[facility] methocarbam oL (ROBAXIN) tablet 500 mg 06-02 02:00: 00 Yes 500mg 500 mg, Oral, QID, First dose on Tue06/01/20 at 2000, Until Discontinu ed, Routine [facility] it[facility] bisacodyL (DULCOLAX) suppository 10 mg 06-02 01:40: 04 Yes 10mg 10 mg, Rectal, QDAILYPRN, Starting 06/01/20 at 1940, Until Discontinu ed, Routine, Constipati on unresolved by oral medication s, If no bowel movement for 2-3 days [facility] diphenhydrA MINE (BENADRYL) tablet 25 mg 06-02 01:40: 04 Yes 25mg 25 mg, Oral, Q4HPRN, Starting 06/01/20 at 1940, Until Discontinu ed, Routine, Sleep, Itching [facility] morpHINE injection 4 mg 06-02 01:40: 03 Yes 4mg 4 mg, Slow IV Push, Q4HPRN, Starting 06/01/20 at 1940, Until Discontinu ed, Routine, For pain unrelieved by oral medication s, or if patient is unable to tolerate oral pain medication . [facility] HYDROcodone -acetaminop hen (NORCO 5) 5-325 mg tablet 1 tablet 06-02 01:40: 03 Yes 1{tbl} 1 tablet, Oral, Q4HPRN, Starting 06/01/20 at 1940, Until Discontinu ed, Routine, Pain (scale 7-10) [facility] traMADoL (ULTRAM) tablet 50 mg 06-02 01:40: 03 Yes 50mg 50 mg, Oral, Q6HPRN, Starting 06/01/20 at 1940, Until Discontinu ed, Routine, Pain (scale 4-6) [facility] ondansetron (ZOFRAN (PF)) injection 4 mg 06-02 01:40: 03 Yes 4mg 4 mg, Slow IV Push, Q6HPRN, Starting 06/01/20 at 1940, Until Discontinu ed, Routine, Nausea and Vomiting (N/V) [facility] morpHINE injection 4 mg 06-02 01:00: 00 06-02 00:01 :00 No 4mg 4 mg, Slow IV Push, ONCE, 1 dose, 06/01/20 at 1900, STAT [facility] tetanus-dip htheria toxoids (TENIVAC) 5-2 Lf unit/0.5 mL injection 0.5 mL 06-02 00:45: 00 06-01 23:44 :00 No .5mL 0.5 mL, Intramuscu lar, ONCE, 1 dose, 06/01/20 at 1845, Routine [facility] ceFAZolin (ANCEF) 1,000 mg in NaCl 0.9% (NS) 50 mL MINI-BAG 06-02 00:30: 00 06-02 00:13 :00 No 1000mg 1,000 mg, IV Piggyback, ONCE, 1 dose, 06/01/20 at 1830, 50 mL
Reas on for Anti-Infec tive: Documented Infection< br>Documen nicole Infection Site: Skin / Soft Tissue
Duration of Therapy: 7 days [facility] NaCl 0.9% (NS) bolus infusion 1,000 mL 06-01 23:30: 00 06-02 01:26 :00 No 1000mL at 999 mL/hr, 1,000 mL, IV Infusion, ONCE, 1 dose, 06/01/20 at 1730, STAT [facility] acetaminoph en-codeine (TYLENOL #3) 300-30 mg tablet 08-02 00:00: 00 06-05 00:00 :00 No 1{tbl} Take 1 Tab by mouth every 4 (four) hours as needed for Pain (scale 4-6) or Pain (scale 7-10). [facility] atorvastati n (LIPITOR) 20 mg tablet 04-02 00:00: 00 05-19 00:00 :00 No 20mg Take 1 Tab by mouth at bedtime. [facility] enalapril (VASOTEC) 10 mg tablet 04-02 00:00: 00 05-19 00:00 :00 No 10mg Take 1 Tab by mouth daily. [facility] aspirin 81 mg tablet,rachel yed release Take 1 tablet every day by oral route. aspirin 81 mg tablet,rachel yed release Take 1 tablet every day by oral route. No 1 Q1D aspirin 81 mg tablet,del ayed release Take 1 tablet every day by oral route. [facility] ergocalcife rol (vitamin D2) 1,250 mcg (50,000 unit) capsule ergocalcife rol (vitamin D2) 1,250 mcg (50,000 unit) capsule No 1capsul e(s) Q1W ergocalcif tomas (vitamin D2) 1,250 mcg (50,000 unit) capsule [facility] Multivitami n 50 Plus tablet Take 1 tablet every day by oral route. Multivitami n 50 Plus tablet Take 1 tablet every day by oral route. No 1 Q1D Multivitam in 50 Plus tablet Take 1 tablet every day by oral route. [facility] acetaminoph en 325 mg tablet Take 2 tablets every 6 hours by oral route as needed. acetaminoph en 325 mg tablet Take 2 tablets every 6 hours by oral route as needed. No 2 Q6H acetaminop hen 325 mg tablet Take 2 tablets every 6 hours by oral route as needed. [facility] amlodipine 5 mg tablet amlodipine 5 mg tablet No 1 Q1D amlodipine 5 mg tablet [facility] clonidine HCl 0.1 mg tablet Take 1 tablet by oral route as needed for 30 days. clonidine HCl 0.1 mg tablet Take 1 tablet by oral route as needed for 30 days. No 1 clonidine HCl 0.1 mg tablet Take 1 tablet by oral route as needed for 30 days. [facility] clopidogrel 75 mg tablet Take 1 tablet every day by oral route. clopidogrel 75 mg tablet Take 1 tablet every day by oral route. No clopidogre l 75 mg tablet Take 1 tablet every day by oral route. [facility] folic acid 1 mg tablet Take 1 tablet every day by oral route. folic acid 1 mg tablet Take 1 tablet every day by oral route. No 1 Q1D folic acid 1 mg tablet Take 1 tablet every day by oral route. [facility] hydrochloro thiazide 12.5 mg tablet Take 1 tablet every day by oral route for 30 days. hydrochloro thiazide 12.5 mg tablet Take 1 tablet every day by oral route for 30 days. No hydrochlor othiazide 12.5 mg tablet Take 1 tablet every day by oral route for 30 days. [facility] hydroxyzine HCl 25 mg tablet Take 1 tablet every day by oral route at bedtime. hydroxyzine HCl 25 mg tablet Take 1 tablet every day by oral route at bedtime. No hydroxyzin e HCl 25 mg tablet Take 1 tablet every day by oral route at bedtime. [facility] mirtazapine 15 mg tablet Take [...] mL every 6 hours by oral route. [facility] clotrimazol e-betametha sone 1 %-0.05 % topical cream clotrimazol e-betametha sone 1 %-0.05 % topical cream No clotrimazo le-betamet hasone 1 %-0.05 % topical cream [facility] potassium chloride 20 mEq/15 mL oral liquid potassium chloride 20 mEq/15 mL oral liquid No potassium chloride 20 mEq/15 mL oral liquid [facility] Immunizations Ordered Immunization Name Filled Immunization Name Date Status Comments Source Td 2020-06-01 00:00:00 Completed [facility] Td 2020-06-01 00:00:00 Completed [facility] Td 2020-06-01 00:00:00 Completed [facility] TD, NOS 2020-06-01 00:00:00 Completed [facility] TD, NOS 2020-06-01 00:00:00 Completed [facility] TD, NOS 2020-06-01 00:00:00 Completed [facility] influenza, unspecified formulation influenza, unspecified formulation Unknown Completed [facility] Td(adult) unspecified formulation Td(adult) unspecified formulation Unknown Completed [facility] Vital Signs Vital Name Observation Time [...] [facility] Body Weight 2023-08-05 00:00:00 1999 [oz_av] [facility] Height 2023-08-05 00:00:00 [...] [facility] Weight 2023-07-18 00:00:00 1983 [oz_av] [facility] Body Weight 2023-07-01 [...] Systolic blood pressure 2022-05-19 18:16:00 145 mm[Hg] [facility] Diastolic blood pressure 2022-05-19 18:16:00 83 mm[Hg] [facility] Heart rate 2022-05-19 18:16:00 72 /min [facility] Body temperature 2022-05-19 18:16:00 36.22 [place] [facility] Respiratory rate 2022-05-19 18:16:00 16 /min [facility] Oxygen saturation in Arterial blood by Pulse oximetry 2022-05-19 18:16:00 98 /min [facility] Body height 2022-05-11 20:00:00 172.7 cm [facility] Body weight 2022-05-11 20:00:00 63.504 kg [facility] BMI 2022-05-11 20:00:00 21.29 kg/m2 [facility] Systolic blood pressure 2022-05-17 13:55:00 105 mm[Hg] [facility] Diastolic blood pressure 2022-05-17 13:55:00 61 mm[Hg] [facility] Heart rate 2022-05-17 13:55:00 76 /min [facility] Body temperature 2022-05-17 13:55:00 36.78 [facility] Respiratory rate 2022-05-17 13:55:00 16 /min [facility] Oxygen saturation in Arterial blood by Pulse oximetry 2022-05-17 13:55:00 95 /min [facility] Body height 2022-05-11 20:00:00 172.7 cm [facility] Body weight 2022-05-11 20:00:00 63.504 kg [facility] BMI 2022-05-11 20:00:00 21.29 kg/m2 [facility] Body height 2020-06-10 15:07:00 172.7 cm [facility] Body weight 2020-06-10 15:07:00 61.871 kg [facility] BMI 2020-06-10 15:07:00 20.74 kg/m2 [facility] Systolic blood pressure 2020-06-05 13:26:00 154 mm[Hg] [facility] Diastolic blood pressure 2020-06-05 13:26:00 94 mm[Hg] [facility] Heart rate 2020-06-05 13:26:00 62 /min [facility] Body temperature 2020-06-05 13:26:00 36.67 [facility] Respiratory rate 2020-06-05 13:26:00 16 /min [facility] Oxygen saturation in Arterial blood by Pulse oximetry 2020-06-05 13:26:00 96 /min [facility] Body height 2020-06-02 03:07:00 172.7 cm [facility] Body weight 2020-06-02 03:07:00 61.5 kg [facility] BMI 2020-06-02 03:07:00 20.62 kg/m2 [facility] Procedures Procedure Date / Time Performed Performing Clinician Source Gastrostomy 2022-08-20 00:00:00 [facility] Esophagogastroduodenoscopy 2022-08-20 00:00:00 [facility] MAGNESIUM 2022-05-19 12:02:00 Gamal Zavala [facility] BASIC METABOLIC PANEL (NA, K , CL, CO2, GLUCOSE, BUN, CREATININE, CA) 2022-05-19 12:02:00 Gamal Zavala [facility] CBC WITH DIFF 2022-05-19 12:02:00 [facility]18 10:48:00 [facility] BASIC METABOLIC PANEL (NA, K , CL, CO2, GLUCOSE, BUN, CREATININE, CA) 2022-05-18 10:48:00 [facility] CBC WITH DIFF 2022-05-18 10:48:00 [facility] MAGNESIUM 2022-05-18 10:48:00 [facility] BASIC METABOLIC PANEL (NA, K , CL, CO2, GLUCOSE, BUN, CREATININE, CA) 2022-05-18 10:48:00 [facility] CBC WITH DIFF 2022-05-18 10:48:00 [facility] FL TIME OR (NON-REPORTABLE) 2022-05-17 20:15:00 Noé [facility] FL TIME OR (NON-REPORTABLE) 2022-05-17 20:15:00 Francesco Umanzor [facility] ZYGOMATIC FRACTURE ORIF 2022-05-17 17:28:00 Gilles Hocking [facility] ORBITAL FLOOR FRACTURE 2022-05-17 17:28:00 Gilles Hocking [facility] ZYGOMATIC FRACTURE ORIF 2022-05-17 17:28:00 Gilles Hocking [facility] ORBITAL FLOOR FRACTURE 2022-05-17 17:28:00 Gilles Hocking [facility] ABORH CONFIRMATION (LAB ONLY) 2022-05-17 [...] [facility] Or[facility] Floor 2022-05-17 00:00:00 [facility] Open Repair of Zygomatic Fracture 05-17 00:00:00 [facility] MAGNESIUM 2022-05-16 11:18:00 [facility] BASIC METABOLIC PANEL (NA, K , CL, CO2, GLUCOSE, BUN, CREATININE, CA) 2022-05-16 11:18:00 [facility] CBC WITH DIFF 2022-05-16 11:18:00 [facility] MAGNESIUM 2022-05-16 11:18:00 [facility] BASIC METABOLIC PANEL (NA, K , CL, CO2, GLUCOSE, BUN, CREATININE, CA) 2022-05-16 11:18:00 [facility] CBC WITH DIFF 2022-05-16 11:18:00 [facility] MAGNESIUM 2022-05-15 11:34:00 [facility] BASIC METABOLIC PANEL (NA, K , CL, CO2, GLUCOSE, BUN, CREATININE, CA) 2022-05-15 11:34:00 [facility] CBC WITH DIFF 2022-05-15 11:34:00 [facility] MAGNESIUM 2022-05-15 11:34:00 [facility] BASIC METABOLIC PANEL (NA, K , CL, CO2, GLUCOSE, BUN, CREATININE, CA) 2022-05-15 11:34:00 [facility] CBC WITH DIFF 2022-05-15 11:34:[address] [facility] [address] MAXILLOFACIAL/MANDIBLE WO CONTRAST 2022-05-14 20:45:[address] [facility] [address] MAXILLOFACIAL/MANDIBLE WO CONTRAST 2022-05-14 20:45:[address] [facility] [address] HEAD WO CONTRAST 2022-05-14 16:38:[address] [facility] [address] HEAD WO CONTRAST 2022-05-14 16:38:00 [facility] CBC WITH DIFF 2022-05-14 15:20:00 [facility] CBC WITH DIFF 2022-05-14 15:20:00 Alina Jameson [facility] MAGNESIUM 2022-05-02 10:03:00 [facility] BASIC METABOLIC PANEL (NA, K , CL, CO2, GLUCOSE, BUN, CREATININE, CA) 2022-05-02 10:03:00 [facility] CBC WITH DIFF 2022-05-02 10:03:00 [facility] MAGNESIUM 2022-05-02 10:03:00 [facility] BASIC METABOLIC PANEL (NA, K , CL, CO2, GLUCOSE, BUN, CREATININE, CA) 2022-05-02 10:03:00 [facility] CBC WITH DIFF 2022-05-02 10:03:00 [facility] BASIC METABOLIC PANEL (NA, K , CL, CO2, GLUCOSE, BUN, CREATININE, CA) 2022-04-27 10:18:00 [facility] BASIC METABOLIC PANEL (NA, K , CL, CO2, GLUCOSE, BUN, CREATININE, CA) 2022-04-27 10:18:00 [facility] MAGNESIUM 2022-04-26 11:20:00 [facility] BASIC METABOLIC PANEL (NA, K , CL, CO2, GLUCOSE, BUN, CREATININE, CA) 2022-04-26 11:20:00 [facility]22-04-26 11:20:00 [facility] BASIC METABOLIC PANEL (NA, K , CL, CO2, GLUCOSE, BUN, CREATININE, CA) 2022-04-26 11:20:00 [facility] MAGNESIUM 2022-04-25 10:05:00 [facility] BASIC METABOLIC PANEL (NA, K , CL, CO2, GLUCOSE, BUN, CREATININE, CA) 2022-04-25 10:05:00 [facility] CBC WITH DIFF 2022-04-25 10:05:00 [facility] MAGNESIUM 2022-04-25 10:05:00 Cortes Melendez [facility] BASIC METABOLIC PANEL (NA, K , CL, CO2, GLUCOSE, BUN, CREATININE, CA) 2022-04-25 10:05:00 [facility] CBC WITH DIFF 2022-04-25 10:05:00 [facility] URINE CULTURE 2022-04-24 11:32:00 [facility]-24 11:32:00 Abdoul Clayton [facility] PHOSPHORUS 2022-04-24 11:31:00 [facility] BASIC METABOLIC PANEL (NA, K , CL, CO2, GLUCOSE, BUN, CREATININE, CA) 2022-04-24 11:31:00 [facility] CBC WITH DIFF 2022-04-24 11:31:00 [facility] URINALYSIS 2022-04-24 11:31:00 Abdoul Clayton [facility] PHOSPHORUS 2022-04-24 11:31:00 [facility] BASIC METABOLIC PANEL (NA, K , CL, CO2, GLUCOSE, BUN, CREATININE, CA) 2022-04-24 11:31:00 [facility] CBC WITH DIFF 2022-04-24 11:31:00 [facility] URINALYSIS 2022-04-24 11:31:00 Abdoul Clayton [facility] MR BRAIN WO CONTRAST 2022-04-24 03:07:05 Lucio [facility] MR BRAIN WO CONTRAST 2022-04-24 03:07:05 Lucio [facility] BASIC METABOLIC PANEL (NA, K , CL, CO2, GLUCOSE, BUN, CREATININE, CA) 2022-04-23 10:40:00 [facility] CBC WITH DIFF 2022-04-23 10:40:00 [facility] BASIC METABOLIC PANEL (NA, K , CL, CO2, GLUCOSE, BUN, CREATININE, CA) 2022-04-23 10:40:00 [facility] CBC WITH DIFF 2022-04-23 10:40:00 [facility] FL MODIFIED BARIUM SWALLOW 2022-04-22 20:43:00 [facility] FL MODIFIED BARIUM SWALLOW 2022-04-22 20:43:00 [facility] TRANSTHORACIC ECHO (TTE) COMPLETE 04-22 18:40:53 Lucio [facility] TRANSTHORACIC ECHO (TTE) COMPLETE 04-22 18:40:53 Lucio [facility] URINE DRUG (IMMUNOASSAY) - COMPREHENSIVE DRUG SCREEN 2022-04-22 08:23:00 Lucio [facility] URINE DRUG (IMMUNOASSAY) - COMPREHENSIVE DRUG SCREEN 2022-04-22 08:23:00 Lucio [facility] MAGNESIUM 2022-04-22 08:20:00 Lucio [facility] BASIC METABOLIC PANEL (NA, K , CL, CO2, GLUCOSE, BUN, CREATININE, CA) 2022-04-22 08:20:00 Lucio [facility] ETHANOL 2022-04-22 08:20:00 [facility] 2022-04-22 08:20:00 Lucio [facility] VITAMIN D, 25-OH 2022-04-22 08:20:00 Lucio [facility] VITAMIN B1 (THIAMINE), WHOLE BLOOD 04-22 08:20:00 Lucio [facility] MAGNESIUM 2022-04-22 08:20:00 Lucio [facility] BASIC METABOLIC PANEL (NA, K , CL, CO2, GLUCOSE, BUN, CREATININE, CA) 2022-04-22 08:20:00 Lucio [facility] ETHANOL 2022-04-22 08:20:00 Al [facility] Satellitedipti [facility] CBC WITH DIFF 2022-04-22 08:20:00 Lucio [facility] VITAMIN D, 25-OH 2022-04-22 08:20:00 Lcuio [facility] VITAMIN B1 (THIAMINE), WHOLE BLOOD 04-22 08:20:00 Lucio, [facility] CT ANGIOGRAM HEAD 2022-04-22 04:38:42 Lucio, [facility] CT ANGIOGRAM NECK 2022-04-22 04:38:42 Lucio, [facility] CT ANGIOGRAM HEAD 2022-04-22 04:38:42 Lucio, [facility] CT ANGIOGRAM NECK 2022-04-22 04:38:42 Lucio, [facility] PHOSPHORUS 2022-04-22 03:54:00 Lucio, [facility] CREATINE KINASE 2022-04-22 03:54:00 Lucio [facility] VITAMIN B12, LEVEL 2022-04-22 03:54:00 Lucio [facility] THYROID STIMULATING HORMONE 2022-04-22 03:54:00 Lucio, [facility] LIPID PANEL ([id number])(TOTAL CHOLESTEROL, TRIGLYCERIDES, HDL) 2022-04-22 03:54:00 Lucio [facility] PHOSPHORUS 2022-04-22 03:54:00 Lucio, [facility] CREATINE KINASE 2022-04-22 03:54:00 Lucio [facility] VITAMIN B12, LEVEL 2022-04-22 03:54:00 Lucio, [facility] THYROID STIMULATING HORMONE 2022-04-22 03:54:00 Lucio, [facility] LIPID PANEL ([id number])(TOTAL CHOLESTEROL, TRIGLYCERIDES, HDL) 2022-04-22 03:54:00 Lucio [facility] HB ECG ROUTINE & RHYTHM STRIP 2022-04-22 03:52:33 Lucio [facility] HB ECG ROUTINE & RHYTHM STRIP 2022-04-22 03:52:33 Lucio [facility] BLOOD CULTURE SCREEN 2022-04-22 02:09:00 Rhonda Real [facility] BLOOD CULTURE SCREEN 2022-04-22 02:09:00 Rhonda Real [facility] CT HEAD WO CONTRAST 2022-04-21 19:53:06 Abdoul Clayton [facility] CT HEAD WO CONTRAST 2022-04-21 19:53:06 [place] PROTHROMBIN TIME / INR 2022-04-21 19:51:00 [place] PROTHROMBIN TIME / INR 2022-04-21 19:51:00 [place] XR CHEST 2 VW 2022-04-21 19:41:53 [facility] [place] XR CHEST 2 VW 2022-04-21 19:41:53 [facility] [place] MAGNESIUM 2022-04-21 19:19:00 [facility] [place] AMMONIA, PLASMA 2022-04-21 19:19:00 [facility] [place] TROPONIN I 2022-04-21 19:19:00 [facility] [place] COMP. METABOLIC PANEL ([id number]) 2022-04-21 19:19:00 [facility] [place] CBC WITH DIFF 2022-04-21 19:19:00 [facility] [place] GLYCOSYLATED HEMOGLOBIN (A1C) 2022-04-21 19:19:00 Lucio [facility] MAGNESIUM 2022-04-21 19:19:00 [facility] [place] AMMONIA, PLASMA 2022-04-21 19:19:00 [facility] [place] TROPONIN I 2022-04-21 19:19:00 [facility] [place] COMP. METABOLIC PANEL ([id number]) 2022-04-21 19:19:00 [facility] [place] CBC WITH DIFF 2022-04-21 19:19:00 [facility] [place] GLYCOSYLATED HEMOGLOBIN (A1C) 2022-04-21 19:19:00 Lucio [facility] HOSPITAL ADMISSION 2022-04-21 06:01:00 Doctor Unassigned, [place] [facility] HOSPITAL ADMISSION 2022-04-21 06:01:00 Doctor Unassigned, [place] [facility] BASIC METABOLIC PANEL (NA, K , CL, CO2, GLUCOSE, BUN, CREATININE, CA) 2020-06-05 08:59:00 Tomym Richardson [facility] CBC WITH DIFF 2020-06-05 08:59:00 Debra Tommy [facility] VANCOMYCIN TROUGH 2020-06-05 01:41:00 Chadd Azul [facility] BASIC METABOLIC PANEL (NA, K , CL, CO2, GLUCOSE, BUN, CREATININE, CA) 2020-06-04 09:27:00 Debra Tommy [facility] CBC WITH DIFF 2020-06-04 09:27:00 Debra Tommy [facility] VANCOMYCIN TROUGH 2020-06-03 14:00:00 Isiah Mora [facility] BASIC METABOLIC PANEL (NA, K , CL, CO2, GLUCOSE, BUN, CREATININE, CA) 2020-06-03 12:07:00 Debra Tommy [facility] CBC WITH DIFF 2020-06-03 12:06:00 Debra Tommy [facility] CT WRIST LEFT WO CONTRAST 2020-06-02 17:06:40 Benito Zhou [facility] FUNGUS (ROUTINE) CULTURE 2020-06-02 14:18:32 Aldair Abel [facility] QUANT TISSUE 2020-06-02 14:18:32 Aldair Abel [facility] HAND DEBRIDEMENT 2020-06-02 13:22:00 Aldair Abel [facility] BASIC METABOLIC PANEL (NA, K , CL, CO2, GLUCOSE, BUN, CREATININE, CA) 2020-06-02 09:30:00 Debra Tommy [facility] CBC WITH DIFF 2020-06-02 09:30:00 Debra Tommy [facility] XR WRIST 3+ VW LEFT 2020-06-02 05:25:00 Benito Zhou [facility] COVID-19 (ID NOW RAPID TESTING) 01:24:00 Lamin Ramirez [facility] LAB ONLY COVID INTERPRETATION 2020-06-02 01:24:00 Lamin Ramirez [facility] XR HAND 3+ VW LEFT 2020-06-02 00:08:16 Lamin Ramirez [facility] C-REACTIVE PROTEIN 2020-06-01 23:43:00 Lamin Ramirez [facility] BASIC METABOLIC PANEL (NA, K , CL, CO2, GLUCOSE, BUN, CREATININE, CA) 2020-06-01 23:43:00 Lamin Ramirez [facility] CBC WITHOUT DIFF 2020-06-01 23:43:00 Lamin Ramirez [facility] SEDIMENTATION RATE 2020-06-01 23:43:00 Lamin Ramirez [facility] Grafting to Skin of Extremity 2014-07-26 00:00:00 [facility] Incision and Drainage of Inf ection of Hand 2014-07-26 00:00:00 [facility] Tonsilectomy/adenoids [facility] Medical Encounters Start Date/Time End Date/Time Encounter Type Admission Type Attending [facility] Care Facility Care Department Encounter ID Source 2023-12-08 00:00:00 2023-12-08 00:00:00 Simeon Georges MD: [address] [place] [phone] , Ph. [facility] [id number] [facility] 2023-12-06 00:00:00 2023-12-06 00:00:00 Kesha Srinivasan PA: [address] [place] [phone] , Ph. [facility] [id number] [facility] 2023-11-14 00:00:00 2023-11-14 00:00:00 DELROY Steele: [address] [place] [phone] , Ph. [facility] [id number] [facility] 2023-10-06 00:00:00 2023-10-06 00:00:00 Simeon Georges MD: [address] [place] [phone] , Ph. [facility] - GC[facility] [id number] [facility] 2023-09-26 00:00:00 2023-09-26 00:00:00 Kesha Srinivasan PA: [address] [place] [phone] , Ph. [facility] - [facility] [id number] [facility] 2023-09-06 00:00:00 2023-09-06 00:00:00 DELROY Steele: [address] [place] [phone] , Ph. [facility] - [facility] [id number] [facility] 2023-08-05 00:00:00 2023-08-05 00:00:00 DELROY Steele: [address] [place] [phone] , Ph. [facility] - [facility] [id number] [facility] 2023-07-28 00:00:00 2023-07-28 00:00:00 Simeon Georges MD: [address] [place] [phone] , Ph. [facility] - [facility] [id number] [facility] 2023-07-26 00:00:00 2023-07-26 00:00:00 DELROY Steele: [address] [place] [phone] , Ph. [facility] [id number] [facility] 2023-07-18 00:00:00 2023-07-18 00:00:00 Kesha Srinivasan PA: [address] [place] [phone] , Ph. [facility] [facility] [id number] [facility] 2023-07-01 00:00:00 2023-07-01 00:00:00 Kesha Srinivasan PA: [address] [place], [place] [address] , Ph. [phone] [address] [facility] [id number] [facility] 2023-06-15 00:00:00 2023-06-15 00:00:00 DELROY Steele: [address] [place], [place] [phone] , Ph. [phone] [place] [address] [facility] [id number] [facility] 2023-06-15 00:00:00 2023-06-15 00:00:00 DELROY Steele: [address] [place] [phone] , Ph. [facility] [id number] [facility] 2023-05-26 00:00:00 2023-05-26 00:00:00 Simeon Georges MD: [address] [place] [phone] , Ph. [facility] [id number] [facility] 2023-05-17 00:00:00 2023-05-17 00:00:00 DELROY Steele: [address] [place] [phone] , Ph. [facility] [id number] [facility] 2023-05-16 00:00:00 2023-05-16 00:00:00 Outpatient [facility] PRIV PRIV [id number] [facility] 2023-05-08 00:00:00 2023-05-08 00:00:00 Outpatient [facility] PRIV PRIV [id number] [facility] 2023-05-06 00:00:00 2023-05-06 00:00:00 DELROY Steele: [address] [place] [phone] , Ph. [facility] [id number] [facility] 2023-05-05 00:00:00 2023-05-05 00:00:00 Outpatient [facility] PRIV PRIV [id number] [facility] 2023-05-04 00:00:00 2023-05-04 00:00:00 Outpatient [facility] PRIV PRIV [id number] [facility] 2023-04-23 00:00:00 2023-04-23 00:00:00 Outpatient [facility]_J PRIV PRIV [id number] [facility] 2023-04-22 00:00:00 2023-04-22 00:00:00 DELROY Steele: [address] [place] [phone] , Ph. [facility] [id number] [facility] 2023-04-21 00:00:00 2023-04-21 00:00:00 Outpatient [facility] PRIV PRIV [id number] [facility] 2023-04-19 00:00:00 2023-04-19 00:00:00 Outpatient [facility] PRIV PRIV [id number] [facility] 2023-04-13 00:00:00 2023-04-13 00:00:00 Outpatient [facility]_J PRIV PRIV [id number] [facility] 2023-03-26 00:00:00 2023-03-26 00:00:00 Outpatient [facility]J PRIV PRIV [id number] [facility] 2023-03-22 00:00:00 2023-03-22 00:00:00 Outpatient [facility]_J PRIV PRIV [id number] [facility] 2023-03-18 00:00:00 2023-03-18 00:00:00 Outpatient [facility]J PRIV PRIV [id number] [facility] 2023-03-16 00:00:00 2023-03-16 00:00:00 Outpatient [facility]J PRIV PRIV [id number] [facility] 2023-03-04 00:00:00 2023-03-04 00:00:00 Outpatient [facility] PRIV PRIV [id number] [facility] 2023-02-26 00:00:00 2023-02-26 00:00:00 Outpatient [facility]J PRIV PRIV [id number] [facility] 2023-02-09 00:00:00 2023-02-09 00:00:00 Outpatient [facility]J PRIV PRIV [id number] [facility] 2023-02-02 00:00:00 2023-02-02 00:00:00 Outpatient [facility] PRIV PRIV [id number] [facility] 2023-01-27 00:00:00 2023-01-27 00:00:00 Outpatient [facility]J PRIV PRIV [id number] [facility] 2023-01-27 00:00:00 2023-01-27 00:00:00 Outpatient [facility]J PRIV PRIV [id number] [facility] 2023-01-24 00:00:00 2023-01-24 00:00:00 Outpatient [facility]_J PRIV PRIV [id number] [facility] 2023-01-24 00:00:00 2023-01-24 00:00:00 Outpatient [facility]_J PRIV PRIV [id number] [facility] 2023-01-18 00:00:00 2023-01-18 00:00:00 Outpatient [facility]_J PRIV PRIV [id number] [facility] 2023-01-05 00:00:00 2023-01-05 00:00:00 Outpatient [facility]J PRIV PRIV [id number] [facility] 2022-12-24 00:00:00 2022-12-24 00:00:00 Outpatient [facility] PRIV PRIV [id number] [facility] 2022-12-24 00:00:00 2022-12-24 00:00:00 Outpatient [facility]_J PRIV PRIV [id number] [facility] 2022-12-24 00:00:00 2022-12-24 00:00:00 Outpatient [facility]_J PRIV PRIV [id number] [facility] 2022-12-17 00:00:00 2022-12-17 00:00:00 Outpatient [facility]J PRIV PRIV [id number] [facility] 2022-12-02 00:00:00 2022-12-02 00:00:00 Outpatient [facility]J PRIV PRIV [id number] [facility] 2022-12-02 00:00:00 2022-12-02 00:00:00 Outpatient [facility] PRIV PRIV [id number] [facility] 2022-11-24 00:00:00 2022-11-24 00:00:00 Outpatient [facility]J PRIV PRIV [id number] [facility] 2022-11-24 00:00:00 2022-11-24 00:00:00 Outpatient [facility]J PRIV PRIV [id number] [facility] 2022-11-19 00:00:00 2022-11-19 00:00:00 Outpatient [facility]J PRIV PRIV [id number] [facility] 2022-11-17 00:00:00 2022-11-17 00:00:00 Outpatient [facility]_J PRIV PRIV [id number] [facility] 2022-11-14 00:00:00 2022-11-14 00:00:00 Outpatient [facility]J PRIV PRIV [id number] [facility] 2022-11-14 00:00:00 2022-11-14 00:00:00 Outpatient [facility]_J PRIV PRIV [id number] [facility] 2022-11-05 00:00:00 2022-11-05 00:00:00 Outpatient [facility]_J PRIV PRIV [id number] [facility] 2022-10-22 00:00:00 2022-10-22 00:00:00 Outpatient [facility]_J PRIV PRIV [id number] [facility] 2022-10-22 00:00:00 2022-10-22 00:00:00 Outpatient [facility]J PRIV PRIV [id number] [facility] 2022-10-18 00:00:00 2022-10-18 00:00:00 Outpatient [facility]_J PRIV PRIV [id number] [facility] 2022-10-18 00:00:00 2022-10-18 00:00:00 Outpatient [facility]_J PRIV PRIV [id number] [facility] 2022-10-05 00:00:00 2022-10-05 00:00:00 Outpatient [facility]_J PRIV PRIV [id number] [facility] 2022-10-05 00:00:00 2022-10-05 00:00:00 Outpatient [facility]J PRIV PRIV [id number] [facility] 2022-09-25 00:00:00 2022-09-25 00:00:00 Outpatient [facility]J PRIV PRIV [id number] [facility] 2022-09-25 00:00:00 2022-09-25 00:00:00 Outpatient [facility]_J PRIV PRIV [id number] [facility] 2022-08-28 00:00:00 2022-08-28 00:00:00 Outpatient [facility] PRIV PRIV [id number] [facility] 2022-08-28 00:00:00 2022-08-28 00:00:00 Outpatient [facility] PRIV PRIV [id number] [facility] 2022-08-28 00:00:00 2022-08-28 00:00:00 Outpatient [facility] PRIV PRIV [id number] [facility] 2022-08-27 00:00:00 2022-08-27 00:00:00 Outpatient [facility]J PRIV PRIV [id number] [facility] 2022-08-19 00:00:00 2022-08-19 00:00:00 Outpatient [facility]J PRIV PRIV [id number] [facility] 2022-08-19 00:00:00 2022-08-19 00:00:00 Outpatient [facility]J PRIV PRIV [id number] [facility] 2022-08-19 00:00:00 2022-08-19 00:00:00 Outpatient [facility]_J PRIV PRIV [id number] [facility] 2022-08-06 00:00:00 2022-08-06 00:00:00 Outpatient [facility]_J PRIV PRIV [id number] [facility] 2022-08-06 00:00:00 2022-08-06 00:00:00 Outpatient [facility]_J PRIV PRIV [id number] [facility] 2022-08-06 00:00:00 2022-08-06 00:00:00 Outpatient [facility] d_J PRIV PRIV [id number] [facility] 2022-08-06 00:00:00 2022-08-06 00:00:00 Outpatient [facility]_J PRIV PRIV [id number] [facility] 2022-08-04 00:00:00 2022-08-04 00:00:00 DELROY Steele: [address] [place] [phone] , Ph. [facility] [id number] [facility] 2022-07-29 00:00:00 2022-07-29 00:00:00 Outpatient [facility]Tod d_J PRIV PRIV [id number] [facility] 2022-07-29 00:00:00 2022-07-29 00:00:00 Outpatient [facility]Tod d_J PRIV PRIV [id number] [facility] 2022-07-28 00:00:00 2022-07-28 00:00:00 Outpatient [facility]Tod d_J PRIV PRIV [id number] [facility] 2022-07-27 00:00:00 2022-07-27 00:00:00 DELROY Steele: [address] [place] [phone] , [facility]. [facility] [id number] 2022-07-20 00:00:00 2022-07-20 00:00:00 DELROY Steele: [address] [place] [phone] , Ph. [facility] [id number] [facility] 2022-06-24 00:00:00 2022-06-24 00:00:00 Outpatient [facility]_J PRIV PRIV [id number] [facility] 2022-06-24 00:00:00 2022-06-24 00:00:00 Outpatient [facility] PRIV PRIV [id number] [facility] 2022-06-24 00:00:00 2022-06-24 00:00:00 Outpatient [facility] PRIV PRIV [id number] [facility] 2022-06-23 00:00:00 2022-06-23 00:00:00 DELROY Steele: [address] [place] [phone] , Ph. [facility] [id number] [facility] 2022-06-01 00:00:00 2022-06-01 00:00:00 Outpatient [facility] PRIV PRIV [id number] [facility] 2022-05-29 00:00:00 2022-05-29 00:00:00 Outpatient [facility]_J PRIV PRIV [id number] [facility] 2022-05-28 00:00:00 2022-05-28 00:00:00 Outpatient [facility] d_J PRIV PRIV [id number] [facility] 2022-05-28 00:00:00 2022-05-28 00:00:00 Outpatient [facility]J PRIV PRIV [id number] [facility] 2022-05-28 00:00:00 2022-05-28 00:00:00 DELROY Steele: [address] [place] [phone] , Ph. [facility] [id number] [facility] 2022-05-25 00:00:00 2022-05-25 00:00:00 Simeon Georges MD: [address] [place] [phone] , Ph. [facility] [id number] [facility] 2022-05-24 15:05:00 2022-05-24 15:05:00 Outpatient Kelsey Akbar [facility] [id number] [facility] 2022-05-21 00:00:00 2022-05-21 00:00:00 Outpatient [facility]_J PRIV PRIV [id number] [facility] 2022-05-21 00:00:00 2022-05-21 00:00:00 Outpatient [facility] [id number] [facility] 2022-05-21 00:00:00 2022-05-21 00:00:00 Outpatient [facility] PRIV [id number] [facility] 2022-05-21 00:00:00 2022-05-21 00:00:00 DELROY Steele: [address] [place] [phone] , Ph. [facility] [id number] [facility] 2022-05-20 00:00:00 2022-05-20 00:00:00 Outpatient [facility] PRIV [id number] [facility] 2022-05-20 00:00:00 2022-05-20 00:00:00 Transition of Care Lisa Marie 1.2.840.114 350.1.13.10 4.2.7.2.686 [id number] [facility] 2022-04-21 12:51:00 2022-05-19 15:45:00 Inpatient X GONZALEZOSMANI RUDOLPHN [facility] [id number] [facility] 2022-04-21 12:51:00 2022-05-19 15:45:00 Hospital Encounter Abdoul Clayton, Rhonda Padilla, Maylin Osorio, Renny Antunez, Daniela Real, Gladis Gonzalez, Tommie Amaro, [facility] 1.2840.114 350.1.13.10 4.2.7.2.686 [id number] [facility] 2022-05-17 11:18:00 2022-05-17 14:17:00 Surgery Gilles [facility] 1.2840.114 350.1.13.10 4.2.7.2.686 [id number] [facility] 2020-06-10 10:30:00 2020-06-10 10:30:00 Outpatient R ALDAIR ABEL [facility] [id number] [facility] 2020-06-10 10:04:26 2020-06-10 10:10:50 Office Visit Colten Aldair Soni [facility] 1.2840.114 350.1.13.10 4.2.7.2.686 [id number] [facility] 2020-06-06 00:00:00 2020-06-06 00:00:00 Transition of Care Lisa Marie 1.20.114 350.1.13.10 4.2.7.2.686 [id number] [facility] 2020-06-01 16:57:00 2020-06-05 09:36:00 Inpatient X ABELALDAIR [facility] [id number] [facility] 2020-06-01 16:57:00 2020-06-05 09:36:00 Hospital Encounter Ashley Laminjudi Dickson, Lu Abel, Aldair Figueroanie [facility] 1.2.840.114 350.1.13.10 4.2.7.2.686 [id number] [facility] 2020-02-04 00:00:00 2020-02-04 00:00:00 Letter (Out) Karly Caruso [facility] 1.2.840.114 350.1.13.10 4.2.7.2.686 [id number] [facility] 2020-02-01 15:15:17 2020-02-01 15:30:17 Laboratory Only Nurse, Merrill Urgent Unknown, Attending [facility] 1.2.840.114 350.1.13.10 4.2.7.2.686 [id number] [facility] 2020-02-01 15:00:00 2020-02-01 15:00:00 Outpatient R UNKNOWN, ATTENDING [facility] [id number] [facility] Results Test Description Test Time Test Comments Results Result Co mments Source [facility] (NA, K, CL, CO2, GLUCOSE, BUN, CREATININE, CA)2022-05-19 12:51:47* Test Item Value Reference Range Interpretation Comme nts NA (test code = 2839544092) 138 mmol/L 135-145 K (test code = 5518233485) 3.8 mmol/L 3.5-5.0 CL (test code = 3991141822) 105 mmol/L 98-108 CO2 TOTAL (test code = 9586092226) 25 mmol/L 23-31 AGAP (test code = 5534880417) 8 2-16 BUN (test code = 3144459466) 14 mg/dL 7-23 GLUCOSE (test code = 4036339839) 105 mg/dL 70-110 CREATININE (test code = 0478322719) 0.61 mg/dL 0.60-1.25 CALCIUM (test code = 1026834197) 9.0 mg/dL 8.6-10.6 eGFR (test code = 1419226119) 133.1 mL/min/1.73m2 CL (test code = CL) [...] or urine or abnormalities in imaging tests). [facility] WITH [id number] 12:15:42* Test Item Value Reference Range Interpretation Comme nts WBC (test code = 6690-2) 7.53 See_Comment [Automated Quat-E] The system which generated this result transmitted reference range: 4.20 - 10.70 10*3/?L. The reference range was not used to interpret this result as normal/abnormal. RBC (test code = 789-8) 4.40 See_Comment [Automated Quat-E] The system which generated this result transmitted [...] 34.8 g/dL 31.2-35.0 RDW-SD (test code = 84973-4) 45.5 fL 38.5-51.6 RDW-CV (test code = 788-0) 14.6 % 12.1-15.4 PLT (test code = 777-3) 162 See_Comment [Automated messa ge] The system which generated this result transmitted reference range: 150 - 328 10*3/?L. The reference range was not used to interpret this result as normal/abnormal. MPV (test code = 98082-5) 10.6 fL 9.8-13.0 NRBC/100 WBC (test code = 8804980557) 0.0 See_Comment [Automated [email or web address] ssage] The system which generated this result transmitted reference range: 0.0 - 10.0 /100 WBCs. The reference range was not used to interpret this result as normal/abnormal. NRBC x10^3 (test code = 8706220002) See_Comment [Automated messa ge] The system which generated this result transmitted reference range: 10*3/?L. The reference range was not used to interpret this result as normal/abnormal. GRAN MAT (NEUT) % (test code = 770-8) 69.8 % IMM GRAN % (test code = 5169940144) 0.40 % LYMPH % (test code = 736-9) 19.0 % MONO % (test code = 5905-5) 9.2 % EOS % (test code = 713-8) 1.3 % BASO % (test code = 706-2) 0.3 % GRAN MAT x10^3(ANC) (test code = 0696695092) 5.26 10*3/uL 1.99-6.95 IMM GRAN x10^3 (test code = 4165091205) 0.03 10*3/uL 0.00-0.06 LYMPH x10^3 (test code = 731-0) 1.43 10*3/uL 1.09-3.23 MONO x10^3 (test code = 742-7) 0.69 10*3/uL 0.36-1.02 EOS x10^3 (test code = 711-2) 0.10 10*3/uL 0.06-0.53 BASO x10^3 (test code = 704-7) 0.01-0.09 Lab Interpretation (test code = 09293-7) Abnormal [facility] Confirmation (Lab Only)2022-05-17 13:14:44* Test Item Value Reference Range Interpretation Comme nts ABO & RH (test code = 20) O Positive Performed at [facility] Laboratory [address] Free: [phone] No. [id number] [facility] Confirmation (Lab Only)2022-05-17 13:14:44* Test Item Value Reference Range Interpretation Comme nts ABO & RH (test code = 20) O Positive Performed at [facility] Laboratory [address] Free: [phone] No. [id number] [facility] and Screen - TOMORROW AM-0400 Routine 2022-05-17 12:24:10* Test Item Value Reference Range Interpretation Comme nts ABO & RH (test code = 20) O POSITIVE Performed at [facility] Laboratory [address] Free: [phone] No. [id number] IAT (test code = 1185) Negative Performed at [address] Free: [phone] No. [id number] [facility] and Screen - TOMORROW AM-0400 Routine 2022-05-17 12:24:10* Test Item Value Reference Range Interpretation Comme nts ABO & RH (test code = 20) O POSITIVE Performed at [facility] Laboratory Services - [facility] Blood [address] [address] Free: [phone] No. [id number] IAT (test code = 1185) Negative Performed at [facility] Laboratory Services - [facility] Blood [place] [id number] Free: [phone] No. [id number] [facility] WITH [id number] 15:26:38* Test Item Value Reference Range Interpretation [...] 34.9 g/dL 31.2-35.0 RDW-SD (test code = 00822-7) 43.3 fL 38.5-51.6 RDW-CV (test code = 788-0) 13.9 % 12.1-15.4 PLT (test code = 777-3) 174 See_Comment [Automated messa ge] The system which generated this result transmitted reference range: 150 - 328 10*3/?L. The reference range was not used to interpret this result as normal/abnormal. MPV (test code = 36385-4) 10.8 fL 9.8-13.0 NRBC/100 WBC (test code = 3798169081) 0.0 See_Comment [Automated me ssage] The system which generated this result transmitted reference range: 0.0 - 10.0 /100 WBCs. The reference range was not used to interpret this result as normal/abnormal. NRBC x10^3 (test code = 6928211722) See_Comment [Automated messa ge] The system which generated this result transmitted reference range: 10*3/?L. The reference range was not used to interpret this result as normal/abnormal. GRAN MAT (NEUT) % (test code = 770-8) 79.7 % IMM GRAN % (test code = 9203349331) 0.20 % LYMPH % (test code = 736-9) 14.4 % MONO % (test code = 5905-5) 4.8 % EOS % (test code = 713-8) 0.7 % BASO % (test code = 706-2) 0.2 % GRAN MAT x10^3(ANC) (test code = 7729238516) 6.97 10*3/uL 1.99-6.95 H IMM GRAN x10^3 (test code = 3020840779) 0.00-0.06 LYMPH x10^3 (test code = 731-0) 1.26 10*3/uL 1.09-3.23 MONO x10^3 (test code = 742-7) 0.42 10*3/uL 0.36-1.02 EOS x10^3 (test code = 711-2) 0.06 10*3/uL 0.06-0.53 BASO x10^3 (test code = 704-7) 0.01-0.09 Lab Interpretation (test code = 67292-5) Abnormal [facility] WITH [id number] 15:26:38* Test Item Value Reference Range Interpretation [...] 34.9 g/dL 31.2-35.0 RDW-SD (test code = 02397-6) 43.3 fL 38.5-51.6 RDW-CV (test code = 788-0) 13.9 % 12.1-15.4 PLT (test code = 777-3) 174 See_Comment [Automated messa ge] The system which generated this result transmitted reference range: 150 - 328 10*3/?L. The reference range was not used to interpret this result as normal/abnormal. MPV (test code = 80349-3) 10.8 fL 9.8-13.0 NRBC/100 WBC (test code = 0722346564) 0.0 See_Comment [Automated [email or web address] ssage] The system which generated this result transmitted reference range: 0.0 - 10.0 /100 WBCs. The reference range was not used to interpret this result as normal/abnormal. NRBC x10^3 (test code = 5897680308) See_Comment [Automated messa ge] The system which generated this result transmitted reference range: 10*3/?L. The reference range was not used to interpret this result as normal/abnormal. GRAN MAT (NEUT) % (test code = 770-8) 79.7 % IMM GRAN % (test code = 0624262600) 0.20 % LYMPH % (test code = 736-9) 14.4 % MONO % (test code = 5905-5) 4.8 % EOS % (test code = 713-8) 0.7 % BASO % (test code = 706-2) 0.2 % GRAN MAT x10^3(ANC) (test code = 9662029643) 6.97 10*3/uL 1.99-6.95 H IMM GRAN x10^3 (test code = 9183827931) 0.00-0.06 LYMPH x10^3 (test code = 731-0) 1.26 10*3/uL 1.09-3.23 MONO x10^3 (test code = 742-7) 0.42 10*3/uL 0.36-1.02 EOS x10^3 (test code = 711-2) 0.06 10*3/uL 0.06-0.53 BASO x10^3 (test code = 704-7) 0.01-0.09 Lab Interpretation (test code = 48885-3) Abnormal [facility] METABOLIC PANEL (NA, K, CL, CO2, GLUCOSE, BUN, CREATININE, CA)2022-04-27 10:45:36* Test Item Value Reference Range Interpretation Comme nts NA (test code = 2468168941) 135 mmol/L 135-145 K (test code = 6649625693) 3.9 mmol/L 3.5-5.0 CL (test code = 3770475977) 105 mmol/L 98-108 CO2 TOTAL (test code = 7472733200) 20 mmol/L 23-31 L AGAP (test code = 1076857257) 10 2-16 BUN (test code = 7915907518) 19 mg/dL 7-23 GLUCOSE (test code = 5359952610) 93 mg/dL 70-110 CREATININE (test code = 7548209164) 0.84 mg/dL 0.60-1.25 CALCIUM (test code = 1849531258) 8.8 mg/dL 8.6-10.6 eGFR (test code = 6323341732) 92.0 mL/min/1.73m2 CL (test code = CL) [...] imaging tests). Lab Interpretation (test code = 68198-1) Abnormal [facility] METABOLIC PANEL (NA, K, CL, CO2, GLUCOSE, BUN, CREATININE, CA)2022-04-27 10:45:36* Test Item Value Reference Range Interpretation Comme nts NA (test code = 5200480076) 135 mmol/L 135-145 K (test code = 6636858487) 3.9 mmol/L 3.5-5.0 CL (test code = 6613082226) 105 mmol/L 98-108 CO2 TOTAL (test code = 9621599193) 20 mmol/L 23-31 L AGAP (test code = 2023316613) 10 2-16 BUN (test code = 8404457084) 19 mg/dL 7-23 GLUCOSE (test code = 6873558038) 93 mg/dL 70-110 CREATININE (test code = 5901399517) 0.84 mg/dL 0.60-1.25 CALCIUM (test code = 6533810981) 8.8 mg/dL 8.6-10.6 eGFR (test code = 2184352948) 92.0 mL/min/1.73m2 CL (test code = CL) [...] imaging tests). Lab Interpretation (test code = 94680-0) [facility] # [id number] 06:01:58* Test Item Value Reference Range Interpretation Comme nts Blood Culture-Aerobic (test code = 17870-5) No organisms isolated No growth Previous preliminary verified result was Culture In Progress on 04/22/2022 at 0301 CSTPrevious preliminary verified result was No growth at 24 hours on 04/23/2022 at 0001 CSTPrevious preliminary verified result was No growth at 48 hours on 04/24/2022 at 0001 CSTPrevious preliminary verified result was No growth at 72 hours on 04/25/2022 at 0001 [employer] Blood Culture-Anaerobic (test code = 81377-8) No organisms isolated No growth Previous preliminary verified result was Culture In Progress on 04/22/2022 at 0301 CSTPrevious preliminary verified result was No growth at 24 hours on 04/23/2022 at 0001 CSTPrevious preliminary verified result was No growth at 48 hours on 04/24/2022 at 0001 CSTPrevious preliminary verified result was No growth at 72 hours on 04/25/2022 at 0001 [employer] Lab Interpretation (test code = 55462-6) [facility] # [id number] 06:01:58* Test Item Value Reference Range Interpretation Comme nts Blood Culture-Aerobic (test code = 90711-0) No organisms isolated No growth Previous preliminary verified result was Culture In Progress on 04/22/2022 at 0301 CSTPrevious preliminary verified result was No growth at 24 hours on 04/23/2022 at 0001 CSTPrevious preliminary verified result was No growth at 48 hours on 04/24/2022 at 0001 CSTPrevious preliminary verified result was No growth at 72 hours on 04/25/2022 at 0001 [employer]ACLE [employer] Blood Culture-Anaerobic (test code = 88442-2) No organisms isolated No growth Previous preliminary verified result was Culture In Progress on 04/22/2022 at 0301 CSTPrevious preliminary verified result was No growth at 24 hours on 04/23/2022 at 0001 CSTPrevious preliminary verified result was No growth at 48 hours on 04/24/2022 at 0001 CSTPrevious preliminary verified result was No growth at 72 hours on 04/25/2022 at 0001 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 Lab Interpretation (test code = 72165-2) [facility] Culture - Peripheral # [id number] 06:01:58* Test Item Value Reference Range Interpretation Comme nts Blood Culture-Aerobic (test code = 99989-6) No organisms isolated No growth Previous preliminary verified result was Culture In Progress on 04/22/2022 at 0301 CSTPrevious preliminary verified result was No growth at 24 hours on 04/23/2022 at 0001 CSTPrevious preliminary verified result was No growth at 48 hours on 04/24/2022 at 0001 CSTPrevious preliminary verified result was No growth at 72 hours on 04/25/2022 at 0001 [employer]ACLE ENGINE[employer] Blood Culture-Anaerobic (test code = 76466-9) No organisms isolated No growth Previous preliminary verified result was Culture In Progress on 04/22/2022 at 0301 CSTPrevious preliminary verified result was No growth at 24 hours on 04/23/2022 at 0001 CSTPrevious preliminary verified result was No growth at 48 hours on 04/24/2022 at 0001 CSTPrevious preliminary verified result was No growth at 72 hours on 04/25/2022 at 0001 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 ENGINEER Lab Interpretation (test code = 33463-2) [facility] # [id number] 06:01:58* Test Item Value Reference Range Interpretation Comme nts Blood Culture-Aerobic (test code = 62448-6) No organisms isolated No growth Previous preliminary verified result was Culture In Progress on 04/22/2022 at 0301 CSTPrevious preliminary verified result was No growth at 24 hours on 04/23/2022 at 0001 CSTPrevious preliminary verified result was No growth at 48 hours on 04/24/2022 at 0001 CSTPrevious preliminary verified result was No growth at 72 hours on 04/25/2022 at 0001 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 ENGINEER Blood Culture-Anaerobic (test code = 28852-8) No organisms isolated No growth Previous preliminary verified result was Culture In Progress on 04/22/2022 at 0301 CSTPrevious preliminary verified result was No growth at 24 hours on 04/23/2022 at 0001 CSTPrevious preliminary verified result was No growth at 48 hours on 04/24/2022 at 0001 CSTPrevious preliminary verified result was No growth at 72 hours on 04/25/2022 at 0001 ORACLE ENGINEER Lab Interpretation (test code = 06041-1) [facility] 15:52:38* Test Item Value Reference Range Interpretation Comme nts MAGNESIUM (test code = 4862414168) 2.1 mg/dL 1.7-2.4 Lab Interpretation (test cod e = 48196-9) [facility]* Test Item Value Reference Range Interpretation Comme nts MAGNESIUM (test code = 8263959603) 2.1 mg/dL 1.7-2.4 Lab Interpretation (test cod e = 20675-1) [facility] (NA, K, CL, CO2, GLUCOSE, BUN, CREATININE, CA)2022-04-25 10:43:02* Test Item Value Reference Range Interpretation Comme nts NA (test code = 8938789622) 137 mmol/L 135-145 K (test code = 7372937893) 3.2 mmol/L 3.5-5.0 L CL (test code = 7794765457) 103 mmol/L 98-108 CO2 TOTAL (test code = 5196726997) 25 mmol/L 23-31 AGAP (test code = 5077045782) 9 2-16 BUN (test code = 6754647338) 17 mg/dL 7-23 GLUCOSE (test code = 1259599079) 94 mg/dL 70-110 CREATININE (test code = 5679522816) 0.96 mg/dL 0.60-1.25 CALCIUM (test code = 0456390585) 8.8 mg/dL 8.6-10.6 eGFR (test code = 5044000504) 78.9 mL/min/1.73m2 CL (test code = CL) [...] imaging tests). Lab Interpretation (test code = 73994-4) Abnormal [facility] METABOLIC PANEL (NA, K, CL, CO2, GLUCOSE, BUN, CREATININE, CA)2022-04-25 10:43:02* Test Item Value Reference Range Interpretation Comme nts NA (test code = 1405924624) 137 mmol/L 135-145 K (test code = 2143256615) 3.2 mmol/L 3.5-5.0 L CL (test code = 6289322246) 103 mmol/L 98-108 CO2 TOTAL (test code = 1224969130) 25 mmol/L 23-31 AGAP (test code = 6342921599) 9 2-16 BUN (test code = 5436275195) 17 mg/dL 7-23 GLUCOSE (test code = 9049138622) 94 mg/dL 70-110 CREATININE (test code = 6610426619) 0.96 mg/dL 0.60-1.25 CALCIUM (test code = 4628355805) 8.8 mg/dL 8.6-10.6 eGFR (test code = 8155358900) 78.9 mL/min/1.73m2 CL (test code = CL) [...] imaging tests). Lab Interpretation (test code = 02414-4) Abnormal [facility] WITH [id number] 10:22:01* Test Item Value Reference Range Interpretation [...] 33.4 g/dL 31.2-35.0 RDW-SD (test code = 48299-5) 42.1 fL 38.5-51.6 RDW-CV (test code = 788-0) 13.2 % 12.1-15.4 PLT (test code = 777-3) 193 See_Comment [Automated messa ge] The system which generated this result transmitted reference range: 150 - 328 10*3/?L. The reference range was not used to interpret this result as normal/abnormal. MPV (test code = 93391-8) 10.0 fL 9.8-13.0 NRBC/100 WBC (test code = 1101529186) 0.0 See_Comment [Automated me ssage] The system which generated this result transmitted reference range: 0.0 - 10.0 /100 WBCs. The reference range was not used to interpret this result as normal/abnormal. NRBC x10^3 (test code = 0387994891) See_Comment [Automated me ssage] The system which generated this result transmitted reference range: 10*3/?L. The reference range was not used to interpret this result as normal/abnormal. GRAN MAT (NEUT) % (test code = 770-8) 55.6 % IMM GRAN % (test code = 3952635140) 0.20 % LYMPH % (test code = 736-9) 30.0 % MONO % (test code = 5905-5) 8.6 % EOS % (test code = 713-8) 5.1 % BASO % (test code = 706-2) 0.5 % GRAN MAT x10^3(ANC) (test code = 6660432186) 3.15 10*3/uL 1.99-6.95 IMM GRAN x10^3 (test code = 7231733992) 0.00-0.06 LYMPH x10^3 (test code = 731-0) 1.70 10*3/uL 1.09-3.23 MONO x10^3 (test code = 742-7) 0.49 10*3/uL 0.36-1.02 EOS x10^3 (test code = 711-2) 0.29 10*3/uL 0.06-0.53 BASO x10^3 (test code = 704-7) 0.03 10*3/uL 0.01-0.09 [facility] WITH [id number] 10:22:01* Test Item Value Reference Range Interpretation [...] 33.4 g/dL 31.2-35.0 RDW-SD (test code = 97267-4) 42.1 fL 38.5-51.6 RDW-CV (test code = 788-0) 13.2 % 12.1-15.4 PLT (test code = 777-3) 193 See_Comment [Automated messa ge] The system which generated this result transmitted reference range: 150 - 328 10*3/?L. The reference range was not used to interpret this result as normal/abnormal. MPV (test code = 49147-2) 10.0 fL 9.8-13.0 NRBC/100 WBC (test code = 2320521850) 0.0 See_Comment [Automated me ssage] The system which generated this result transmitted reference range: 0.0 - 10.0 /100 WBCs. The reference range was not used to interpret this result as normal/abnormal. NRBC x10^3 (test code = 9438530200) See_Comment [Automated me ssage] The system which generated this result transmitted reference range: 10*3/?L. The reference range was not used to interpret this result as normal/abnormal. GRAN MAT (NEUT) % (test code = 770-8) 55.6 % IMM GRAN % (test code = 9318511849) 0.20 % LYMPH % (test code = 736-9) 30.0 % MONO % (test code = 5905-5) 8.6 % EOS % (test code = 713-8) 5.1 % BASO % (test code = 706-2) 0.5 % GRAN MAT x10^3(ANC) (test code = 2485782620) 3.15 10*3/uL 1.99-6.95 IMM GRAN x10^3 (test code = 7947124549) 0.00-0.06 LYMPH x10^3 (test code = 731-0) 1.70 10*3/uL 1.09-3.23 MONO x10^3 (test code = 742-7) 0.49 10*3/uL 0.36-1.02 EOS x10^3 (test code = 711-2) 0.29 10*3/uL 0.06-0.53 BASO x10^3 (test code = 704-7) 0.03 10*3/uL 0.01-0.09 [facility] HEMOGLOB[facility] (A1C)2022-04-22 04:14:29* Test Item Value Reference Range Interpretation Comme nts HGB A1C (test code = 4548-4) 5.8 % 4.0-5.7 H CL (test code = CL) Reference RangesNormal: <5.7%Prediabetes: 5.7 - 6.4%Diabetes: > 6.5% Lab Interpretation (test code = 74766-5) Abnormal [facility]YCOS[facility] HEMOGLOBIN (A1C)2022-04-22 04:14:29* Test Item Value Reference Range Interpretation Comme nts HGB A1C (test code = 4548-4) 5.8 % 4.0-5.7 H CL (test code = CL) Reference RangesNormal: <5.7%Prediabetes: 5.7 - 6.4%Diabetes: > 6.5% Lab Interpretation (test code = 34811-4) [facility]normal [facility]enProthrom[facility] / [id number] 20:13:11* Test Item Value Reference Range Interpretation [...] the indications. Lab Interpretation (test code = 58135-2) Abnormal [facility]enProth[facility] / [id number] 20:13:11* Test Item Value Reference Range Interpretation [...] the indications. Lab Interpretation (test code = 43776-4) Abnormal [facility] [id number] 19:58:08* Test Item Value Reference Range Interpretation Comme [facility] TROPONIN I (test code = 5771823903) 0.005 ng/mL <=0.034 CL (test code = [...] of biotin. Lab Interpretation (test code = 27418-0) Normal [facility] [id number] 19:58:08* Test Item Value Reference Range Interpretation Comme [facility] TROPONIN I (test code = 7716819213) 0.005 ng/mL <=0.034 CL (test code = [...] of biotin. Lab Interpretation (test code = 29297-7) Normal [facility]. METABOLIC PANEL ([id number])2022-04-21 19:46:06* Test Item Value Reference Range Interpretation Comme nts NA (test code = 3053475423) 138 mmol/L 135-145 K (test code = 0226150856) 4.6 mmol/L 3.5-5.0 Slight hemolysis CL (test code = 4382630532) 108 mmol/L 98-108 CO2 TOTAL (test code = 6479874967) 21 mmol/L 23-31 L AGAP (test code = 0905027761) 9 2-16 BUN (test code = 2465862540) 15 mg/dL 7-23 Slight hemolysis GLUCOSE (test code = 4885710642) 97 mg/dL 70-110 CREATININE (test code = 7910069698) 0.77 mg/dL 0.60-1.25 TOTAL BILI (test code = 0461283879) 0.9 mg/dL 0.1-1.1 CALCIUM (test code = 2145976512) 8.8 mg/dL 8.6-10.6 T PROTEIN (test code = 7426764738) 7.5 g/dL 6.3-8.2 ALBUMIN (test code = 8749144304) 4.1 g/dL 3.5-5.0 ALK PHOS (test code = 3476867713) 90 U/L 34-122 Slight hemolysis ALTv (test code = 1742-6) 19 U/L 5-50 AST(SGOT) (test code = 9147949185) 28 U/L 13-40 Slight hemolysis eGFR (test code = 9837247465) 101.7 mL/min/1.73m2 CL (test code = CL) [...] imaging tests). Lab Interpretation (test code = 64526-2) [facility]2023-[facility]-25 19:46:06* Test Item Value Reference Range Interpretation Comme nts MAGNESIUM (test code = 9104979440) 2.2 mg/dL 1.7-2.4 Lab Interpretation (test cod e = 89151-7) Normal [facility] METABOLIC PANEL (32838)2022-04-21 19:46:06* Test Item Value Reference Range Interpretation Comme nts NA (test code = 7389873923) 138 mmol/L 135-145 K (test code = 8999544209) 4.6 mmol/L 3.5-5.0 Slight hemolysis CL (test code = 4884473407) 108 mmol/L 98-108 CO2 TOTAL (test code = 5709682461) 21 mmol/L 23-31 L AGAP (test code = 6053095569) 9 2-16 BUN (test code = 1168865932) 15 mg/dL 7-23 Slight hemolysis GLUCOSE (test code = 1173252473) 97 mg/dL 70-110 CREATININE (test code = 5144680763) 0.77 mg/dL 0.60-1.25 TOTAL BILI (test code = 9699943652) 0.9 mg/dL 0.1-1.1 CALCIUM (test code = 1451571924) 8.8 mg/dL 8.6-10.6 T PROTEIN (test code = 5945197989) 7.5 g/dL 6.3-8.2 ALBUMIN (test code = 3016006909) 4.1 g/dL 3.5-5.0 ALK PHOS (test code = 8284719836) 90 U/L 34-122 Slight hemolysis ALTv (test code = 1742-6) 19 U/L 5-50 AST(SGOT) (test code = 6661085914) 28 U/L 13-40 Slight hemolysis eGFR (test code = 7126237359) 101.7 mL/min/1.73m2 CL (test code = CL) [...] imaging tests). Lab Interpretation (test code = 93105-9) [facility]normal [facility]2023-[facility]-25 19:46:06* Test Item Value Reference Range Interpretation Comme nts MAGNESIUM (test code = 9850965627) 2.2 mg/dL 1.7-2.4 Lab Interpretation (test cod e = 52538-7) Normal [facility]enCB WITH [id number] 19:44:24* Test Item Value Reference Range Interpretation Comme nts WBC (test code = 6690-2) 4.68 See_Comment [Automated messa ge] The system which generated this result transmitted reference range: 4.20 - 10.70 10*3/?L. The reference range was not used to interpret this result as normal/abnormal. RBC (test code = 789-8) 5.18 See_Comment [Automated [facility]] The system which generated this result [...] 33.8 g/dL 31.2-35.0 RDW-SD (test code = 38488-4) 42.4 fL 38.5-51.6 RDW-CV (test code = 788-0) 13.3 % 12.1-15.4 PLT (test code = 777-3) 233 See_Comment [Automated [facility]] The system which generated this result transmitted reference range: 150 - 328 10*3/?L. The reference range was not used to interpret this result as normal/abnormal. MPV (test code = 05775-1) 9.8 fL 9.8-13.0 NRBC/100 WBC (test code = 3360461674) 0.0 See_Comment [Automated [email or web address] ssage] The system which generated this result transmitted reference range: 0.0 - 10.0 /100 WBCs. The reference range was not used to interpret this result as normal/abnormal. NRBC x10^3 (test code = 8713137336) See_Comment [Automated me ssage] The system which generated this result transmitted reference range: 10*3/?L. The reference range was not used to interpret this result as normal/abnormal. GRAN MAT (NEUT) % (test code = 770-8) 51.6 % IMM GRAN % (test code = 9195967164) 0.20 % LYMPH % (test code = 736-9) 32.3 % MONO % (test code = 5905-5) 10.3 % EOS % (test code = 713-8) 4.7 % BASO % (test code = 706-2) 0.9 % GRAN MAT x10^3(ANC) (test code = 6552058904) 2.42 10*3/uL 1.99-6.95 IMM GRAN x10^3 (test code = 1199139323) 0.00-0.06 LYMPH x10^3 (test code = 731-0) 1.51 10*3/uL 1.09-3.23 MONO x10^3 (test code = 742-7) 0.48 10*3/uL 0.36-1.02 EOS x10^3 (test code = 711-2) 0.22 10*3/uL 0.06-0.53 BASO x10^3 (test code = 704-7) 0.04 10*3/uL 0.01-0.09 [facility] WITH [id number] 19:44:24* Test Item Value Reference Range Interpretation Comme nts WBC (test code = 6690-2) 4.68 See_Comment [Automated [facility]] The system which generated this result transmitted reference range: 4.20 - 10.70 10*3/?L. The reference range was not used to interpret this result as normal/abnormal. RBC (test code = 789-8) 5.18 See_Comment [Automated [facility]] The system which generated this result transmitted [...] 33.8 g/dL 31.2-35.0 RDW-SD (test code = 91029-5) 42.4 fL 38.5-51.6 RDW-CV (test code = 788-0) 13.3 % 12.1-15.4 PLT (test code = 777-3) 233 See_Comment [Automated messa ge] The system which generated this result transmitted reference range: 150 - 328 10*3/?L. The reference range was not used to interpret this result as normal/abnormal. MPV (test code = 69231-4) 9.8 fL 9.8-13.0 NRBC/100 WBC (test code = 9351969851) 0.0 See_Comment [Automated me ssage] The system which generated this result transmitted reference range: 0.0 - 10.0 /100 WBCs. The reference range was not used to interpret this result as normal/abnormal. NRBC x10^3 (test code = 9096077132) See_Comment [Automated me ssage] The system which generated this result transmitted reference range: 10*3/?L. The reference range was not used to interpret this result as normal/abnormal. GRAN MAT (NEUT) % (test code = 770-8) 51.6 % IMM GRAN % (test code = 2503263428) 0.20 % LYMPH % (test code = 736-9) 32.3 % MONO % (test code = 5905-5) 10.3 % EOS % (test code = 713-8) 4.7 % BASO % (test code = 706-2) 0.9 % GRAN MAT x10^3(ANC) (test code = 3123948725) 2.42 10*3/uL 1.99-6.95 IMM GRAN x10^3 (test code = 8162205183) 0.00-0.06 LYMPH x10^3 (test code = 731-0) 1.51 10*3/uL 1.09-3.23 MONO x10^3 (test code = 742-7) 0.48 10*3/uL 0.36-1.02 EOS x10^3 (test code = 711-2) 0.22 10*3/uL 0.06-0.53 BASO x10^3 (test code = 704-7) 0.04 10*3/uL 0.01-0.[address] [facility], [id number] 19:42:47* Test Item Value Reference Range Interpretation Comme nts AMMONIA (test code = 1748798656) 13 umol/L 9-33 Slight hemolysis Lab Interpretation (test code = 46300-7) Normal [facility], [id number] 19:42:47* Test Item Value Reference Range Interpretation Comme nts AMMONIA (test code = 5683176749) 13 umol/L 9-33 Slight hemolysis Lab Interpretation (test code = 10633-1) Normal [facility]enQU[facility] [id number] 12:54:04* Test Item Value Reference Range Interpretation Comme nts Quantitative Tissue Culture (test code = 35042-9) No aerobic organisms isolated Gram stain (test code = 664-3) Few PMNs or Mononuclear cells observed [facility]OL[facility] PAN[facility] (NA, K, CL, CO2, GLUCOSE, BUN, CREATININE, CA)2020-06-05 11:11:52* Test Item Value Reference Range Interpretation Comme nts NA (test code = 6162501731) 138 mmol/L 135-145 K (test code = 6615665374) 3.6 mmol/L 3.5-5.0 CL (test code = 1449904838) 108 mmol/L 98-108 CO2 TOTAL (test code = 4943811788) 23 mmol/L 23-31 AGAP (test code = 3058084671) 2-16 BUN (test code = 8057366399) 11 mg/dL 7-23 GLUCOSE (test code = 1825433104) 96 mg/dL 70-110 CREATININE (test code = 0765236270) 0.91 mg/dL 0.60-1.25 CALCIUM (test code = 7663417287) 8.4 mg/dL 8.6-10.6 L eGFR Calculation (Non-) (test code = 2623930928) mL/min/1.73m2 eGFR Calculation () (test code = 6408925954) mL/min/1.73m2 CL (test code = CL) Association [...] imaging tests). Lab Interpretation (test code = 20829-5) Abnormal [facility] WITH [id number] 09:12:20* Test Item Value Reference Range Interpretation Comme nts WBC (test code = 6690-2) See_Comment [[facility]] The system which generated this result transmitted reference range: 4.20 - 10.70 10*3/?L. The reference range was not used to interpret this result as normal/abnormal. RBC (test code = 789-8) See_Comment [[facility]] The system which generated this result transmitted [...] 33.3 g/dL 31.2-35.0 RDW-SD (test code = 05131-2) 46.5 fL 38.5-51.6 RDW-CV (test code = 788-0) 14.1 % 12.1-15.4 PLT (test code = 777-3) See_Comment [Automated [facility]] The system which generated this result transmitted reference range: 150 - 328 10*3/?L. The reference range was not used to interpret this result as normal/abnormal. MPV (test code = 69742-9) 9.6 fL 9.8-13.0 L NRBC/100 WBC (test code = 6019184277) See_Comment [Automated [email or web address] ssage] The system which generated this result transmitted reference range: 0.0 - 10.0 /100 WBCs. The reference range was not used to interpret this result as normal/abnormal. NRBC x10^3 (test code = 3617159498) <0.01 See_Comment [Automated [facility]] The system which generated this result transmitted reference range: 10*3/?L. The reference range was not used to interpret this result as normal/abnormal. GRAN MAT (NEUT) % (test code = 770-8) 59.2 % IMM GRAN % (test code = 3826468621) 0.30 % LYMPH % (test code = 736-9) 25.7 % MONO % (test code = 5905-5) 9.5 % EOS % (test code = 713-8) 4.7 % BASO % (test code = 706-2) 0.6 % GRAN MAT x10^3(ANC) (test code = 4996390770) 3.94 10*3/uL 1.99-6.95 IMM GRAN x10^3 (test code = 2965716523) <0.03 0.00-0.06 LYMPH x10^3 (test code = 731-0) 1.71 10*3/uL 1.09-3.23 MONO x10^3 (test code = 742-7) 0.63 10*3/uL 0.36-1.02 EOS x10^3 (test code = 711-2) 0.31 10*3/uL 0.06-0.53 BASO x10^3 (test code = 704-7) 0.04 10*3/uL 0.01-0.09 Lab Interpretation (test code = 67624-4) [facility]normal [facility] - Draw immediately prior to the 4TH dose, but, no more than 60 minutes before the 4TH dose. 2020-06-05 03:47:33* Test Item Value Reference Range Interpretation Comme nts VANCO TROUGH (test code = 4712448709) 11.4 ug/mL 10.0-20.0 CL (test code = CL) Toxic Range: ?>20 ug/mL 15-20 ug/mL is recommended for severe infection or when Vancomycin KATHLEEN is greater than or equal to 2. Lab Interpretation (test code = 68531-3) Normal [facility] (NA, K, CL, CO2, GLUCOSE, BUN, CREATININE, CA)2020-06-04 10:05:48* Test Item Value Reference Range Interpretation Comme nts NA (test code = 4310934409) 141 mmol/L 135-145 K (test code = 8111096664) 3.8 mmol/L 3.5-5.0 CL (test code = 2768923118) 112 mmol/L 98-108 H CO2 TOTAL (test code = 3823787157) 23 mmol/L 23-31 AGAP (test code = 1561053449) 2-16 BUN (test code = 0719045310) 10 mg/dL 7-23 GLUCOSE (test code = 5923777745) 90 mg/dL 70-110 CREATININE (test code = 4052210549) 0.68 mg/dL 0.60-1.25 CALCIUM (test code = 9831176024) 8.4 mg/dL 8.6-10.6 L eGFR Calculation (Non-) (test code = 3657361324) mL/min/1.73m2 eGFR Calculation () (test code = 2634073047) mL/min/1.73m2 CL (test code = CL) Association [...] imaging tests). Lab Interpretation (test code = 64677-1) Abnormal [facility] WITH [id number] 09:34:25* Test Item Value Reference Range Interpretation Comme nts WBC (test code = 6690-2) See_Comment [[facility]] The system which generated this result transmitted reference range: 4.20 - 10.70 10*3/?L. The reference range was not used to interpret this result as normal/abnormal. RBC (test code = 789-8) See_Comment [Automated [employer]] The system which generated this result transmitted [...] 33.6 g/dL 31.2-35.0 RDW-SD (test code = 40971-6) 46.5 fL 38.5-51.6 RDW-CV (test code = 788-0) 14.2 % 12.1-15.4 PLT (test code = 777-3) See_Comment [Automated [facility]] The system which generated this result transmitted reference range: 150 - 328 10*3/?L. The reference range was not used to interpret this result as normal/abnormal. MPV (test code = 89054-8) 9.5 fL 9.8-13.0 L NRBC/100 WBC (test code = 9842662524) See_Comment [Automated [email or web address] ssage] The system which generated this result transmitted reference range: 0.0 - 10.0 /100 WBCs. The reference range was not used to interpret this result as normal/abnormal. NRBC x10^3 (test code = 5184379384) <0.01 See_Comment [Automated [facility]] The system which generated this result transmitted reference range: 10*3/?L. The reference range was not used to interpret this result as normal/abnormal. GRAN MAT (NEUT) % (test code = 770-8) 52.6 % IMM GRAN % (test code = 8347362380) 0.20 % LYMPH % (test code = 736-9) 31.2 % MONO % (test code = 5905-5) 9.2 % EOS % (test code = 713-8) 6.2 % BASO % (test code = 706-2) 0.6 % GRAN MAT x10^3(ANC) (test code = 7710426199) 2.82 10*3/uL 1.99-6.95 IMM GRAN x10^3 (test code = 6871995825) <0.03 0.00-0.06 LYMPH x10^3 (test code = 731-0) 1.67 10*3/uL 1.09-3.23 MONO x10^3 (test code = 742-7) 0.49 10*3/uL 0.36-1.02 EOS x10^3 (test code = 711-2) 0.33 10*3/uL 0.06-0.53 BASO x10^3 (test code = 704-7) 0.03 10*3/uL 0.01-0.09 Lab Interpretation (test code = 24386-0) [facility]normal [facility] - Draw immediately prior to the NEXT dose, but, no more than 60 minutes before the NEXT dose. 2020-06-03 15:53:20* Test Item Value Reference Range Interpretation Comme nts VANCO TROUGH (test code = 7946902822) 6.6 ug/mL 10.0-20.0 L CL (test code = CL) Toxic Range: ?>20 ug/mL 15-20 ug/mL is recommended for severe infection or when Vancomycin KATHLEEN is greater than or equal to 2. Lab Interpretation (test code = 46992-5) [facility] (NA, K, CL, CO2, GLUCOSE, BUN, CREATININE, CA)2020-06-03 15:12:14* Test Item Value Reference Range Interpretation Comme nts NA (test code = 7826283722) 141 mmol/L 135-145 K (test code = 8843829909) 4.2 mmol/L 3.5-5.0 CL (test code = 4131144688) 113 mmol/L 98-108 H CO2 TOTAL (test code = 4231943745) 23 mmol/L 23-31 AGAP (test code = 7635363394) 2-16 BUN (test code = 4005539357) 14 mg/dL 7-23 GLUCOSE (test code = 4241631676) 89 mg/dL 70-110 CREATININE (test code = 5985004096) 0.78 mg/dL 0.60-1.25 CALCIUM (test code = 0577033543) 8.3 mg/dL 8.6-10.6 L eGFR Calculation (Non-) (test code = 4474629169) mL/min/1.73m2 eGFR Calculation () (test code = 7262105749) mL/min/1.73m2 CL (test code = CL) Association [...] imaging tests). Lab Interpretation (test code = 04021-6) Abnormal [facility] WITH [id number] 12:27:41* Test Item Value Reference Range Interpretation Comme nts WBC (test code = 6690-2) See_Comment [[employer]] The system which generated this result transmitted reference range: 4.20 - 10.70 10*3/?L. The reference range was not used to interpret this result as normal/abnormal. RBC (test code = 789-8) See_Comment [Automated [employer]] The system which generated this result transmitted [...] 33.2 g/dL 31.2-35.0 RDW-SD (test code = 21440-7) 48.5 fL 38.5-51.6 RDW-CV (test code = 788-0) 14.5 % 12.1-15.4 PLT (test code = 777-3) See_Comment [Automated messa ge] The system which generated this result transmitted reference range: 150 - 328 10*3/?L. The reference range was not used to interpret this result as normal/abnormal. MPV (test code = 41506-2) 10.0 fL 9.8-13.0 NRBC/100 WBC (test code = 6147093332) See_Comment [Automated me ssage] The system which generated this result transmitted reference range: 0.0 - 10.0 /100 WBCs. The reference range was not used to interpret this result as normal/abnormal. NRBC x10^3 (test code = 7562915562) <0.01 See_Comment [Automated me ssage] The system which generated this result transmitted reference range: 10*3/?L. The reference range was not used to interpret this result as normal/abnormal. GRAN MAT (NEUT) % (test code = 770-8) 59.4 % IMM GRAN % (test code = 5400105692) 0.20 % LYMPH % (test code = 736-9) 25.6 % MONO % (test code = 5905-5) 9.3 % EOS % (test code = 713-8) 5.0 % BASO % (test code = 706-2) 0.5 % GRAN MAT x10^3(ANC) (test code = 5406236552) 3.32 10*3/uL 1.99-6.95 IMM GRAN x10^3 (test code = 6617811642) <0.03 0.00-0.06 LYMPH x10^3 (test code = 731-0) 1.43 10*3/uL 1.09-3.23 MONO x10^3 (test code = 742-7) 0.52 10*3/uL 0.36-1.02 EOS x10^3 (test code = 711-2) 0.28 10*3/uL 0.06-0.53 BASO x10^3 (test code = 704-7) 0.03 10*3/uL 0.01-0.09 [facility] [id number] 03:33:51COVID DMT InterpretationInterpretation/Recommendations: Molecular NAAT Tests for [...] COVID-19 testing the patient has had at [facility], including molecular NAAT testing (more commonly known as PCR testing and Rapid ID Now testing) and antibody testing. It does not take into account any testing that a patient has had outside of the [facility] medical record. [facility] LABORATORY SERVICESCOVID [id number]-[id number] NAAT (no units) ? ? Date ? Value ? 02/01/2020 ? Not Detected ? SARS-CoV-2 Rapid ID NOW (no units) ? ? Date ? Value ? 06/01/2020 ? Not Detected ? [facility] LABORATORY SERVICES[facility]enCT WRIST LEFT WO [id number] 19:54:22Mildly displaced lunate fracture with patchy sclerosis [...] joint and the dorsum of the hand. [facility], Radiant Results Inft User [...] sclerosis possiblyrepresenting osteonecrosis.Preliminary Report Dictated by Resident: Jarek Delacruz, Emily Tatum MD., have reviewed this study and agree with the abovereport.[facility]enC-REACTIVE [id number] 16:08:25* Test Item Value Reference Range Interpretation Comme nts CRP (test code = 4030397867) 7.3 mg/dL <0.8 H Lab Interpretation (test cod e = 89038-0) Abnormal 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.Soft tissue swelling.[facility]en[facility] METABOLIC PANEL (NA, K, CL, CO2, GLUCOSE, BUN, CREATININE, CA)2020-06-02 10:04:24* Test Item Value Reference Range Interpretation Comme nts NA (test code = 6167410382) 143 mmol/L 135-145 K (test code = 6776724905) 4.6 mmol/L 3.5-5.0 Slight hemolysis CL (test code = 3197493177) 116 mmol/L 98-108 H CO2 TOTAL (test code = 5510087991) 24 mmol/L 23-31 AGAP (test code = 9133182557) 2-16 BUN (test code = 8168734635) 20 mg/dL 7-23 Slight hemolysis GLUCOSE (test code = 3519019087) 111 mg/dL 70-110 H CREATININE (test code = 4267328098) 0.89 mg/dL 0.60-1.25 CALCIUM (test code = 4121149929) 7.7 mg/dL 8.6-10.6 L eGFR Calculation (Non-) (test code = 2330252799) mL/min/1.73m2 eGFR Calculation () (test code = 5212518040) mL/min/1.73m2 CL (test code = CL) Association [...] imaging tests). Lab Interpretation (test code = 33369-4) Abnormal [facility] WITH [id number] 09:44:02* Test Item Value Reference Range Interpretation Comme nts WBC (test code = 6690-2) See_Comment [[facility]ated [facility]] The system which generated this result transmitted reference range: 4.20 - 10.70 10*3/?L. The reference range was not used to interpret this result as normal/abnormal. RBC (test code = 789-8) See_Comment [Automated [facility]] The system which generated this result transmitted [...] 32.2 g/dL 31.2-35.0 RDW-SD (test code = 33665-4) 48.7 fL 38.5-51.6 RDW-CV (test code = 788-0) 14.5 % 12.1-15.4 PLT (test code = 777-3) See_Comment [[place] [facility]] The system which generated this result transmitted reference range: 150 - 328 10*3/?L. The reference range was not used to interpret this result as normal/abnormal. MPV (test code = 62124-5) 10.1 fL 9.8-13.0 NRBC/100 WBC (test code = 9499445255) See_Comment [Automated [email or web address] ssage] The system which generated this result transmitted reference range: 0.0 - 10.0 /100 WBCs. The reference range was not used to interpret this result as normal/abnormal. NRBC x10^3 (test code = 2094372024) <0.01 See_Comment [Automated [email or web address] ssage] The system which generated this result transmitted reference range: 10*3/?L. The reference range was not used to interpret this result as normal/abnormal. GRAN MAT (NEUT) % (test code = 770-8) 60.2 % IMM GRAN % (test code = 3323159362) 0.30 % LYMPH % (test code = 736-9) 23.6 % MONO % (test code = 5905-5) 12.7 % EOS % (test code = 713-8) 2.9 % BASO % (test code = 706-2) 0.3 % GRAN MAT x10^3(ANC) (test code = 6602323268) 3.98 10*3/uL 1.99-6.95 IMM GRAN x10^3 (test code = 5555428084) <0.03 0.00-0.06 LYMPH x10^3 (test code = 731-0) 1.56 10*3/uL 1.09-3.23 MONO x10^3 (test code = 742-7) 0.84 10*3/uL 0.36-1.02 EOS x10^3 (test code = 711-2) 0.19 10*3/uL 0.06-0.53 BASO x10^3 (test code = 704-7) <0.03 0.01-0.09 [facility] (ID NOW RAPID TESTING)2020-06-02 01:49:04* Test Item Value Reference Range Interpretation Comme nts SARS-CoV-2 Rapid ID NOW (test code = 87660-8) Not Detected Not Detected CL (test code = CL) ID NOW COVID-19 As say is an isothermal nucleic acid amplification test intended for the qualitative detection of nucleic acid from SARS-CoV-2 viral RNA in nasopharyngeal (GREEN BELT) specimens. It is used under Emergency Use [...] clinically indicated. Lab Interpretation (test code = 58356-8) Normal [facility]lingenSEDIMENTATION [id number] 00:49:12* Test Item Value Reference Range Interpretation Comme nts ESR (test code = 7245115957) See_Comment H [Automated messa ge] The system which generated this result transmitted reference range: 0 - 10 mm/HR. The reference range was not used to interpret this result as normal/abnormal. Lab Interpretation (test code = 24318-1) Abnormal [facility] HAND 3+ VW [id number] 00:39:57Mildly displaced fracture of either the dorsal [...] reviewed this study and agree with the abovereport.[facility] MET[facility]OLIC PANEL (NA, K, CL, CO2, GLUCOSE, BUN, CREATININE, CA)2020-06-02 00:03:22* Test Item Value Reference Range Interpretation Comme nts NA (test code = 7892689713) 143 mmol/L 135-145 K (test code = 0695173950) 4.2 mmol/L 3.5-5.0 CL (test code = 4874277954) 109 mmol/L 98-108 H CO2 TOTAL (test code = 3239297528) 26 mmol/L 23-31 AGAP (test code = 2622610049) 2-16 BUN (test code = 7816465774) 23 mg/dL 7-23 GLUCOSE (test code = 2221529240) 146 mg/dL 70-110 H CREATININE (test code = 7523167507) 0.85 mg/dL 0.60-1.25 CALCIUM (test code = 2517432485) 8.9 mg/dL 8.6-10.6 eGFR Calculation (Non-) (test code = 9825548143) mL/min/1.73m2 eGFR Calculation () (test code = 4680979973) mL/min/1.73m2 CL (test code = CL) Association [...] imaging tests). Lab Interpretation (test code = 32502-1) Abnormal [facility] WITHOUT [id number] 23:55:20* Test Item Value Reference Range Interpretation Comme nts WBC (test code = 6690-2) See_Comment [Automated [facility]] The system which generated this result transmitted reference range: 4.20 - 10.70 10*3/?L. The reference range was not used to interpret this result as normal/abnormal. RBC (test code = 789-8) See_Comment [Automated [facility]] The system which generated this result [...] PLT (test code = 777-3) See_Comment [[facility]ated [facility]] The system which generated this result transmitted reference range: 150 - 328 10*3/?L. The reference range was not used to interpret this result as normal/abnormal. MPV (test code = 07233-8) 10.2 fL 9.8-13.0 RDW-CV (test code = 788-0) 14.4 % 12.1-15.4 RDW-SD (test code = 63753-3) 47.8 fL 38.5-51.6 NRBC x10^3 (test code = 1650185662) <0.01 See_Comment [Automated [email or web address] ssage] The system which generated this result transmitted reference range: 10*3/?L. The reference range was not used to interpret this result as normal/abnormal. NRBC/100 WBC (test code = 0729753830) See_Comment [Automated me ssage] The system which generated this result transmitted reference range: 0.0 - 10.0 /100 WBCs. The reference range was not used to interpret this result as normal/abnormal. IPF % (test code = 7213742714) [facility]"
--- NOTE | 2024-01-15 01:53 | EDPHYS ---
Physician Documentation [facility] Name: Navid Russell Age: 68 yrs Sex: Male : 1955 Arrival Date: 01/15/2024 Time: :20 Bed 17 Private MD: ED Physician Markel Aleman HPI: 01/14 01:37 This 68 yrs old Male presents to ER via Unassigned with complaints of Urinary sp4 Problem. 21:59 Patient is elderly debilitated male with history of alcohol abuse and urinary retention sp4 who presents with urinary catheter problem. [facility] the shelter urinary catheter was taken out and the new one could not be placed. Thus patient was brought here for urinary catheter placement. . Historical: - PMHx: 02:12 alcohol abuse; Allergic rhinitis; Cerebral Atherosclerosis; Cocaine Abuse; Cerebral br2 infarction; depressive disorder; Hyperlipidemia; Facial fractures; Hypertension; Lippprotein deficiency; Vitamin B12 Deficiency; - Immunization history:: UNKNOWN. - Infectious Disease History:: UNKOWN. - Family history:: not pertinent. - Social history:: Smoking status: unknown. ROS: 21:59 Constitutional: Negative for fever, chills, and weight loss, positive for urinary sp4 retention and urinary catheter complication 21:59 All other systems are negative, Exam: 21:59 Constitutional: Patient is cachectic debilitated male who is bedbound and basically sp4 nonverbal . History of indwelling Soto catheter. Poor hygiene Head/Face: Normocephalic, atraumatic. Eyes: Pupils equal round and reactive to light, extra-ocular motions intact. Lids and lashes normal. Conjunctiva and sclera are not injected. Cornea within normal limits. Periorbital areas with no swelling, redness, or edema. ENT: Nares patent. No nasal discharge, no septal abnormalities noted. Tympanic membranes are normal and external auditory canals are clear. Oropharynx with no redness, swelling, or masses, exudates, or evidence of obstruction, uvula midline. Mucous membranes moist. Neck: Trachea midline, no thyromegaly or masses palpated, and no cervical lymphadenopathy. Supple, full range of motion without nuchal rigidity, or vertebral point tenderness. Chest/axilla: Normal chest wall appearance and motion. Nontender with no deformity. No lesions are appreciated. Cardiovascular: Regular rate and rhythm with a normal S1 and S2. No gallops, murmurs, or rubs. Normal PMI, no JVD. No pulse deficits. Respiratory: Lungs have equal breath sounds bilaterally, clear to auscultation and percussion. No rales, rhonchi or wheezes noted. No increased work of breathing, no retractions or nasal flaring. Abdomen/GI: Soft, with normal bowel sounds. No distension or tympany. No guarding or rebound. No evidence of tenderness throughout. Back: No spinal tenderness. No costovertebral tenderness. Male : Normal genitalia with no lesions. Patient is circumcised male, bloody discharge from the urethra Skin: Warm, dry with normal turgor. Normal color with no rashes, no lesions, and no evidence of cellulitis. MS/ Extremity: Pulses equal, no cyanosis. Neurovascular intact. Full, normal range of motion. Neuro: Awake and alert, GCS 14 oriented to person, signs of moderate physical debility, no new or neurologic deficits reported Vital Signs: 01:25 BP 120 / 87; Pulse 92; Resp 18; Temp 97.2(TE); Pulse Ox 97% on R/A; br2 01:25 BP 120 / 87; Pulse 94; Resp 18; Temp 97.1(O); Pulse Ox 96% on R/A; br2 Genesis Coma Score: 21:59 Eye Response: spontaneous(4). Motor Response: obeys commands(6). Verbal Response: sp4 confused(4). Total: 14. Procedures: 21:59 Soto cath inserted by myself - 16 Fr. Returned bloody urine. Initially bloody urine sp4 cleared up to clear urine. MDM: 01:39 Medical Screening Exam initiated sp4 21:59 Differential diagnosis: urinary retention, Soto catheter problem, prostatitis, sp4 urethritis. Data reviewed: vital signs, nurses notes, shelter records, old medical records. ED course: Soto catheter was replaced, patient is stable for discharge to [place]. . 01/14 01:52 Order name: Charles; Complete Time: 02:09 sp4 Administered Medications: No medications were administered Disposition Summary: 01/15/24 01:52 Discharge Ordered Notes: Location: Home sp4 Problem: new sp4 Symptoms: have improved sp4 Condition: Stable sp4 Diagnosis - Urinary retention, chronic bladder outlet obstruction, Soto catheter mechanical sp4 complication, encounter for urinary catheter replacement Followup: sp4 - With: Private Physician - When: 7 - 10 days - Reason: Recheck today's complaints Discharge Instructions: - Discharge Summary Sheet sp4 - Indwelling Urinary Catheter Care, Adult, [id number]-Uzqy sp4 Forms: - Patient Portal Instructions sp4 Signatures: Markel Aleman MD MD sp4 Leia Jha RN RN br2 Corrections: (The following items were deleted from the chart) 22:05 21:59 Constitutional: Patient is cachectic debilitated male who is bedbound and sp4 basically nonverbal . History of indwelling Soto catheter. Poor hygiene Head/Face: Normocephalic, atraumatic. Eyes: Pupils equal round and reactive to light, extra-ocular motions intact. Lids and lashes normal. Conjunctiva and sclera are not injected. Cornea within normal limits. Periorbital areas with no swelling, redness, or edema. ENT: Nares patent. No nasal discharge, no septal abnormalities noted. Tympanic membranes are normal and external auditory canals are clear. Oropharynx with no redness, swelling, or masses, exudates, or evidence of obstruction, uvula midline. Mucous membranes moist. Neck: Trachea midline, no thyromegaly or masses palpated, and no cervical lymphadenopathy. Supple, full range of motion without nuchal rigidity, or vertebral point tenderness. Chest/axilla: Normal chest wall appearance and motion. Nontender with no deformity. No lesions are appreciated. Cardiovascular: Regular rate and rhythm with a normal S1 and S2. No gallops, murmurs, or rubs. Normal PMI, no JVD. No pulse deficits. Respiratory: Lungs have equal breath sounds bilaterally, clear to auscultation and percussion. No rales, rhonchi or wheezes noted. No increased work of breathing, no retractions or nasal flaring. Abdomen/GI: Soft, with normal bowel sounds. No distension or tympany. No guarding or rebound. No evidence of tenderness throughout. Back: No spinal tenderness. No costovertebral tenderness. Male : Normal genitalia with no lesions. Patient is circumcised male, bloody discharge from the urethra Skin: Warm, dry with normal turgor. Normal color with no rashes, no lesions, and no evidence of cellulitis. MS/ Extremity: Pulses equal, no cyanosis. Neurovascular intact. Full, normal range of motion. Neuro: Awake and alert, GCS 15, oriented to person, signs of moderate physical debility, no new or neurologic deficits reported sp4
--- NOTE | 2024-01-15 01:53 | ER ---
Nurse's Notes [facility] Name: Navid Russell Age: 68 yrs Sex: Male : 1955 Arrival Date: 01/15/2024 Time: :20 Bed 17 Private MD: Diagnosis: Urinary retention, chronic bladder outlet obstruction, Ortiz catheter mechanical complication, encounter for urinary catheter replacement Presentation: 01/14 01:25 Chief complaint: EMS states: PT BROUGHT FROM HALF-WAY DUE TO UNABLE TO REINSERT br2 ORTIZ WHEN THEY WERE TRYING TO CHANGE IT. PT IS NON-VERBAL. Coronavirus screen: Vaccine status: Patient reports being unvaccinated. Ebola Screen: Patient negative for fever greater than or equal to 101.5 degrees Fahrenheit, and additional compatible Ebola Virus Disease symptoms Patient denies exposure to infectious person. Patient denies travel to an Ebola-affected area in the 21 days before illness onset. Initial Sepsis Screen: Does the patient meet any 2 criteria? No. Patient's initial sepsis screen is negative. Does the patient have a suspected source of infection? No. Patient's initial sepsis screen is negative. Risk Assessment: Do you want to hurt yourself or someone else? Patient reports no desire to harm self or others. Onset of symptoms was January 15, 2024. :25 Method Of Arrival: EMS: [facility] br2 01:25 Acuity: ANIYAH 4 br2 Triage Assessment: 01:45 General: Appears uncomfortable, slender, unkempt, Behavior is calm. Pain: Unable to use br2 pain scale. NON-VERBAL. Historical: - PMHx: 02:12 alcohol abuse; Allergic rhinitis; Cerebral Atherosclerosis; Cocaine Abuse; Cerebral br2 infarction; depressive disorder; Hyperlipidemia; Facial fractures; Hypertension; Lippprotein deficiency; Vitamin B12 Deficiency; - Immunization history:: UNKNOWN. - Infectious Disease History:: UNKOWN. - Family history:: not pertinent. - Social history:: Smoking status: unknown. Screenin:25 [facility] ED Fall Risk Assessment (Adult) History of falling in the last 3 months, br2 including since admission No falls in past 3 months (0 pts) Confusion or Disorientation No (0 pts) Intoxicated or Sedated No (0 pts) Impaired Gait Yes (1 pt) Mobility Assist Device Used No (0 pt) Altered Elimination No (0 pt) Score/Fall Risk Level 0 - 2 = Low Risk. Abuse screen: Denies threats or abuse. Denies injuries from another. Nutritional screening:. Tuberculosis screening: No symptoms or risk factors identified. Assessment: 01:25 Reassessment: SEE TRIAGE ASSESSMENT. Pain: Unable to use pain scale. NON-VERBAL. : br2 Reports inability to void, since THIS EVENING. 02:03 Reassessment: SPOKE TO JOSUÉ AT [facility] IN REFERENCE FOR PATIENT velma BEING DISCHARGED AND READY FOR PICKUP. 02:09 Reassessment: DR ALEMAN ATTEMPTED ORTIZ CATHETER [address]NA[address] TO INSERT. DR velma ALEMAN WAS ABLE TO INSERT A 16 COUDE ORTIZ CATHER. PT HAD MINIMAL BLOOD TINGED DISCHARGE AFTERWARDS. URINE OUTPUT 200. Vital Signs: 01:25 BP 120 / 87; Pulse 92; Resp 18; Temp 97.2(TE); Pulse Ox 97% on R/A; br2 01:25 BP 120 / 87; Pulse 94; Resp 18; Temp 97.1(O); Pulse Ox 96% on R/A; br2 Kersey Coma Score: 21:59 Eye Response: spontaneous(4). Motor Response: obeys commands(6). Verbal Response: sp4 confused(4). Total: 14. ED Course: 01:21 Patient arrived in ED. [email or web address] 01:25 Patient has correct armband on for positive identification. Placed in gown. Bed in low br2 position. Call light in reach. Side rails up X 1. Provided Education on: PLAN OF CARE. 01:28 Leia Jha RN is Primary Nurse. br2 01:37 Markel Aleman MD is Attending Physician. sp4 01:40 Triage completed. br2 01:45 Patient ORTIZ PLACEMENT. br2 01:45 Assisted provider with: ORTIZ CATHETER PLACEMENT. Patient did not have IV access during br2 this emergency room visit. 01:45 Ortiz cath inserted, using sterile technique, 16 Fr., by ED staff, balloon inflated, to br2 gravity drainage, clamped. other inserted by dr Prajapati. Administered Medications: No medications were administered Medication: 01:25 VIS not applicable for this client. br2 Outcome: 01:52 Discharge ordered by . sp4 02:[address] Report called to josué carreon 02:44 Condition: improved 02:44 Discharge instructions given to EMS, Instructed on discharge instructions, follow up and referral plans. 02:46 Patient left the ED. br2 Signatures: Kesha Mills6 Markel Aleman MD MD sp4 Leia Jha RN RN br2
[2024-01-15 08:19] VITALS: BP 120/87; TEMP 97.1; O2SAT 96
== END 2024-01-15 02:46 | disposition home or self-care (01) ==
LOC: ER 01:20
PROC: 0T9B70Z Drainage of Bladder with Drainage Device, Via Natural or Artificial Opening (ICD-10-PCS; principal; 2024-01-15)
DX: R33.9 Retention of urine, unspecified (principal); N32.0 Bladder-neck obstruction; T83.098A Other mechanical complication of other urinary catheter, initial encounter; Z46.6 Encounter for fitting and adjustment of urinary device
CPT/HCPCS: 51702; 99284